=== PATIENT | male | born 1945 | race Caucasian/White ===

== ENCOUNTER 2016-11-01 08:58 | Inpatient (IN) | payer OTHER, MEDICARE ==
[2016-11-01] VITALS (8 sets, daily range): BP systolic 120–149; BP diastolic 63–80; PULSE 82–103; RESP 19–22; TEMP 96.4–99.4; O2SAT 88–96
[~2016-11-01 08:58] MED LIST: ALBU0.086 INH; AMLO5TAB96 PO; ASPI-94 PO; ATOR10 PO; AZIT250T74 PO; BACL10TA PO; DULO20 PO; FAMO20TA2 PO; FENT50DI TD; FURO1TAB93 PO; MECL-62 PO; METO25CR PO; MOBI15TA PO; NEUR600T PO; NITR.3 SL; PRED10 PO; PRED20 PO; PRED50 PO; PRED5PAK PO; PROS5TAB2 PO; TAMS0.4C67 PO; VENTAER INH; [UNRECOGNIZED DRUG - CODE] PO
[2016-11-01] MEDS: RESP: ALBUTEROL 2.5 MG/IPRATROPIUM 0.5 MG NEB (SCH) INH ×4 (09:08→19:00)
--- NOTE | 2016-11-01 09:10 | PD ---
HPI Chief Complaint: Respiratory Symptoms Time Seen by Provider: 09:01 Travel History International Travel<30 days: No Contact w/Intl Traveler<30days: No Traveled to known affect area: No History of Present Illness HPI 71 y/o male presents with shortness of breath and chills for the past 2-3 days. He states it got worse yesterday and he had to start wearing his oxygen all the time when he only usually wears it at night. He states that his last exacerbation with hospitalization was here about 6 months or so ago. He denies any other concurrent complaints. He was given 3 breathing treatments and Solu- Medrol prior to arrival. Quality is wheezing. Severity is progressive. He feels worse when he moves around. He denies any other modifying factors. History is limited as patient is short of breath PFSH Past Medical History Arthritis: Yes Autoimmune Disease: No Blood Disorders: No Depression: Yes Heart Rhythm Problems: Yes ("IRREGULAR AT TIMES") Cancer: Yes (BASAL CELL SKIN 2012) Cardiac Catheterization: Yes (2011 WITH STENT) High Cholesterol: Yes Chest Pain: Yes Congestive Heart Failure: Yes COPD: Yes Coronary Artery Disease: Yes Diabetes: No Endocrine: Yes GERD: Yes Genitourinary: Yes (1) Hypertension: Yes Immune Disorder: No Implanted Vascular Access Dvce: Yes Kidney Stones: Yes Musculoskeletal: Yes Neurologic: Yes (NEUROPATHY) Psychiatric: Yes Reproductive: No Respiratory: Yes (COPD) Integumentary: Yes Myocardial Infarction: Yes (X1 2005) Pneumonia: Yes Shingles: Yes Thyroid Disease: Yes Past Surgical History Body Medical Devices: STENTS, Cardiac Surgery: Yes Cholecystectomy: Yes Coronary Artery Bypass Graft: Yes (2000: 4 VESSEL) Coronary Stent: Yes (2011) Eye Surgery: Yes ("SHORTEN THE MUSCLES") Family History Family Hypercholesterolemia: Yes Social History Alcohol Use: Yes (RARE) Tobacco Use: Yes (<1/2 PPD) Substance Use: No Allergies-Medications (Allergen,Severity, Reaction): Coded Allergies: morphine (Unverified Allergy, Severe, Urinary Freq (Inc/Dec), 11/01/16) Reported Meds & Prescriptions Reported Meds & Active Scripts Active Active Prescriptions or Reported Medications Unobtainable Review of Systems Except as stated in HPI: all other systems reviewed are Neg Physical Exam Exam Limitations: Other: (shortness of breath) Narrative GENERAL: Ill-appearing, well-developed patient. Patient notes Chills SKIN: Warm and dry. HEAD: Normocephalic and atraumatic. EYES: No injection or drainage. ENT: No nasal drainage noted. NECK: Supple, trachea midline. CARDIOVASCULAR: Regular rate and rhythm RESPIRATORY: Expiratory wheezing bilaterally. No accessory muscle use. Tachypnea noted GASTROINTESTINAL: Abdomen soft, non-tender, nondistended. EXTREMITIES: No edema. NEUROLOGICAL: Awake and alert. Moves extremities. Normal speech. Data Data Last Documented VS Vital Signs Date Time Temp Pulse Resp B/P (MAP) Pulse Ox O2 Delivery O2 Flow Rate FiO2 11/01/16 10:34 103 22 149/69 (95) 93 Nasal Cannula 2.00 11/01/16 09:01 99.4 Orders Orders Electrocardiogram (11/01/16 09:) Complete Blood Count With Diff (11/01/16:) Comprehensive Metabolic Panel (11/01/16 09:) Prothrombin Time / Inr (Pt) (11/01/16:) Act Partial Throm Time (Ptt) (11/01/16 09:) Lactic Acid Sepsis Protocol (11/01/16 09:) Magnesium (Mg) (11/01/16 09:) Phosphorus (Po4) (11/01/16 09:01) Ckmb (Isoenzyme) Profile (11/01/16:) Troponin I (11/01/16 09:) Urinalysis - C+S If Indicated (11/01/16 09:) Influenzae A/B Antigen (11/01/16 09:) Blood Culture (11/01/16 09:) Chest, Single Ap (11/01/16:) Ecg Monitoring (11/01/16 09:) Iv Access Insert/Monitor (11/01/16 09:01) Oximetry (11/01/16 09:01) Oxygen Administration (11/01/16 09:01) Sodium Chloride 0.9% Flush (Ns Flush) (11/01/16 09:15) Methylprednisolone So Succ Inj (Solumedr (11/01/16 09:15) Albuterol-Ipratropium Neb (Duoneb Neb) (11/01/16 09:15) B-Type Natriuretic Peptide (11/01/16 09:11) Furosemide Inj (Lasix Inj) (11/01/16 09:45) Ceftriaxone Inj (Rocephin Inj) (11/01/16 09:43) Azithromycin Inj (Zithromax Inj) (11/01/16 09:43) CKMB (11/01/16 09:15) CKMB% (11/01/16 09:15) Echo 2d Comp With Doppler (11/01/16 ) Admit To Inpatient (11/01/16 ) Vital Signs (Adult) Q4H (11/01/16 11:08) Diet Heart Healthy (11/01/16 Lunch) Sodium Chloride 0.9% Flush (Ns Flush) (11/01/16 21:00) Sodium Chloride 0.9% Flush (Ns Flush) (11/01/16 11:15) Albuterol-Ipratropium Neb (Duoneb Neb) (11/01/16 12:00) Albuterol Neb (Albuterol Neb) (11/01/16 11:15) Methylprednisolone So Succ Inj (Solumedr (11/01/16 17:00) Ceftriaxone Inj (Rocephin Inj) (11/01/16 11:15) Sputum Culture And Gram Stain (11/01/16 11:08) Azithromycin (Zithromax) (11/01/16 11:15) Heparin Inj (Heparin Inj) (11/01/16 11:15) Scd Bilateral/Knee High MILES.BID (11/01/16 11:08) Inpatient Certification (11/01/16 ) Admit Order (Ed Use Only) (11/01/16 11:12) Senior Quality Analyst / Telemetry .CONTINUOUS (11/01/16 11:13) Acetaminophen (Tylenol) (11/01/16 11:15) Ondansetron Inj (Zofran Inj) (11/01/16 11:15) Basic Metabolic Panel (Bmp) (11/02/16 06:00) Comprehensive Metabolic Panel (11/02/16 06:00) Pt Request For Service (11/02/16 06:00) Case Management Consult (11/01/16 11:13) Acetaminophen (Tylenol) (11/01/16 11:15) Naloxone Inj (Narcan Inj) (11/01/16 11:15) Docusate Sodium-Senna (Oma-Colace) (11/01/16 21:00) Magnesium Hydroxide Liq (Milk Of Magnesi (11/01/16 11:15) Sennosides (Senokot) (11/01/16 11:15) Bisacodyl Supp (Dulcolax Supp) (11/01/16 11:15) Lactulose Liq (Lactulose Liq) (11/01/16 11:15) Labs Laboratory Tests Test 11/01/16 09:15 11/01/16 10:05 11/01/16 10:30 Prothrombin Time 10.7 SEC Prothromb Time International Ratio 1.0 RATIO Activated Partial Thromboplast Time 24.7 SEC Blood Urea Nitrogen 13 MG/DL Creatinine 1.20 MG/DL Random Glucose 119 MG/DL Total Protein 7.3 GM/DL Albumin 3.3 GM/DL Calcium Level 8.4 MG/DL Phosphorus Level 2.4 MG/DL Magnesium Level 2.1 MG/DL Alkaline Phosphatase 84 U/L Aspartate Amino Transf (AST/SGOT) 20 U/L Alanine Aminotransferase (ALT/SGPT) 19 U/L Total Bilirubin 0.6 MG/DL Sodium Level 141 MEQ/L Potassium Level 4.2 MEQ/L Chloride Level 106 MEQ/L Carbon Dioxide Level 26.9 MEQ/L Anion Gap 8 MEQ/L Estimat Glomerular Filtration Rate 60 ML/MIN Total Creatine Kinase 153 U/L Creatine Kinase MB 1.2 NG/ML Troponin I LESS THAN 0.02 NG/ML B-Type Natriuretic Peptide 184 PG/ML White Blood Count 14.0 TH/MM3 Red Blood Count 4.71 MIL/MM3 Hemoglobin 13.3 GM/DL Hematocrit 40.4 % Mean Corpuscular Volume 85.6 FL Mean Corpuscular Hemoglobin 28.1 PG Mean Corpuscular Hemoglobin Concent 32.8 % Red Cell Distribution Width 15.5 % Platelet Count 261 TH/MM3 Mean Platelet Volume 6.9 FL Neutrophils (%) (Auto) 85.4 % Lymphocytes (%) (Auto) 7.3 % Monocytes (%) (Auto) 3.1 % Eosinophils (%) (Auto) 0.7 % Basophils (%) (Auto) 3.5 % Neutrophils # (Auto) 12.0 TH/MM3 Lymphocytes # (Auto) 1.0 TH/MM3 Monocytes # (Auto) 0.4 TH/MM3 Eosinophils # (Auto) 0.1 TH/MM3 Basophils # (Auto) 0.5 TH/MM3 CBC Comment DIFF FINAL Differential Comment Lactic Acid Level 1.8 mmol/L Urine Collection Type CLEAN CATCH Urine Color YELLOW Urine Turbidity CLEAR Urine pH 6.5 Urine Specific [place] 1.010 Urine Protein NEG mg/dL Urine Glucose (UA) NEG mg/dL Urine Ketones NEG mg/dL Urine Occult Blood NEG Urine Nitrite NEG Urine Bilirubin NEG Urine Leukocyte Esterase NEG Urine RBC 0-3 /hpf Urine Squamous Epithelial Cells 0-5 /hpf Microscopic Urinalysis Comment CULT NOT INDICATED Urine Collection Time 10:30 [facility] Medical Decision Making Medical Screen Exam Complete: Yes Emergency Medical Condition: Yes Medical Record Reviewed: Yes (past history confirmed) Interpretation(s) EKG is sinus rhythm at 100 with right bundle branch block that was on prior without ST segment elevation changes CBC & BMP Diagram 11/01/16 09:15 Total Protein 7.3, Albumin 3.3 L, Calcium Level 8.4 L, Phosphorus Level 2.4 L, Magnesium Level 2.1, Alkaline Phosphatase 84, Aspartate Amino Transf (AST/SGOT) 20, Alanine Aminotransferase (ALT/SGPT) 19, Total Bilirubin 0.6 11/01/16 10:05 Last 24 hours Impressions Chest X-Ray 11/01/16 0901 Signed Impressions: Service Date/Time: Tuesday, November 01, 2016 09:08 - CONCLUSION: 1. Bibasilar infiltrates with pulmonary vascular engorgement. This may relate to intralobular pulmonary edema. 2. Blunting the left costophrenic angle either related to a small effusion or pleural scarring. Iftikhar Weber Jr., MD Differential Diagnosis COPD exacerbation, pneumothorax, pneumonia, sepsis Narrative Course Will check blood work, chest x-ray, influenza and dose with DuoNeb's and reevaluate Given chest x-ray will dose with Rocephin, azithromycin, Lasix and monitor Chest x-ray has CHF type pattern but BNP is only in the 100s this could be from possible early failure so we will withhold aggressive IV fluid hydration given patient's blood pressure is stable here. Patient agrees to admission for further care for close monitoring. He states he is feeling a little bit better after he was able to urinate Sepsis Criteria SIRS Criteria (2 or more): Heart rate over 90, WBC > 27054, < 4000 or > 10% bands Sepsis Criteria (SIRS+source): Infect source susp/known Criteria Outcome: Meets sepsis criteria Physician Communication Physician Communication dr walsh agrees to admit, informed about holding on fluids given cxr and history Diagnosis Primary Impression: COPD exacerbation Additional Impressions: CHF exacerbation Qualified Codes: I50.9 - Heart failure, unspecified Leucocytosis Qualified Codes: D72.829 - Elevated white blood cell count, unspecified Sepsis Qualified Codes: A41.9 - Sepsis, unspecified organism Admitting Information Admitting Physician Requests: Admit Scripts Unable to Obtain Active Prescriptions or Reported Meds Nuria Valle MD Nov 01, 2016 09:10
[2016-11-01] MEDS ORDERED: methylPREDNISolone SOD SUCC 125 MG/2 ML VIAL IVP ONE (09:15)
[2016-11-01] MEDS ORDERED: SODIUM CHLORIDE 0.9% FLUSH 10 ML FLUSH IVF PRN (09:15)
--- NOTE | 2016-11-01 09:42 | RADRPT ---
EXAM DATE/TIME: 11/01/2016 09:08 [place] COMPARISON: CHEST SINGLE AP, February 26, 2015, 6:03. INDICATIONS : Extreme shortness of breath, fever, shakes. MEDICAL HISTORY : Hypercholesterolemia. Myocardial infarction. Chronic obstructive pulmonary disease. Thyroid disea se. Neruopathy. CHF. CAD. Irregular heart beat. Hpertension. Pneumonia. GERD. Renal calculi. Arthriti s. SURGICAL HISTORY : CABG. Cholecystectomy. Cardiac cath w/ stent placement. Bilateral shoulder repair. ENCOUNTER: Initial ACUITY: 1 day PAIN SCORE: 0/10 LOCATION: chest FINDINGS: Single portable frontal view the chest is lordotic in nature. The heart is normal in size. Pulmonary vascular engorgement noted. Bibasilar intralobular opacities. Blunting of the left costophrenic angle which is unchanged from 2014. Median sternotomy wires. Advanced osteoarthritis of the shoulders. CONCLUSION: 1. Bibasilar infiltrates with pulmonary vascular engorgement. This may relate to intralobular pulmona ry edema. 2. Blunting the left costophrenic angle either related to a small effusion or pleural scarring. Iftikhar Weber Jr., MD on November 01, 2016 at 9:34 Board Certified Radiologist. This report was verified electronically.
[2016-11-01] MEDS ORDERED: AZITHROMYCIN INJ 500 MG in SODIUM CHLOR 0.9% 250 ML INJ 250 ML IV STA (09:43)
[2016-11-01] MEDS ORDERED: cefTRIAXone INJ 2,000 MG in SODIUM CHLORIDE 0.9% INJ 100 ML IV STA (09:43)
[2016-11-01] MEDS ORDERED: FUROSEMIDE 40 MG/4 ML VIAL IV PUSH ONE (09:45)
[2016-11-01 09:49] LABS: APTT (PATIENT) 24.7 SEC (24.3-30.1); PROTHROMBIN TIME - PATIENT 10.7 SEC (9.8-11.6)
[2016-11-01 10:03] LABS: CHLORIDE 106 MEQ/L (98-107); POTASSIUM 4.2 MEQ/L (3.5-5.1); SODIUM (NA) 141 MEQ/L (136-145)
[2016-11-01 10:08] LABS: ANION GAP 8 MEQ/L (5-15); BICARBONATE 26.9 MEQ/L (21.0-32.0); BLOOD UREA NITROGEN 13 MG/DL (7-18); MAGNESIUM 2.1 MG/DL (1.5-2.5)
[2016-11-01 10:09] LABS: BASOPHIL # 0.5 TH/MM3 (0-0.2); BASOPHIL % 3.5 % (0.0-2.0); EOSINOPHIL # 0.1 TH/MM3 (0-0.4); EOSINOPHIL % 0.7 % (0.0-4.0); HEMATOCRIT 40.4 % (39.0-51.0); LYMPH % 7.3 % (9.0-44.0); MEAN CELL VOLUME 85.6 FL (80.0-100.0); MEAN CORPUSCULAR HEMOGLOBIN 28.1 PG (27.0-34.0); MEAN CORPUSCULAR HGB CONC 32.8 % (32.0-36.0); MONO % 3.1 % (0.0-8.0); NEUT % 85.4 % (16.0-70.0); PLATELET COUNT 261 TH/MM3 (150-450); RED BLOOD COUNT 4.71 MIL/MM3 (4.50-5.90); RED CELL DISTRIBUTION WIDTH 15.5 % (11.6-17.2)
[2016-11-01 10:11] LABS: ALT (GPT) 19 U/L (12-78); AST (GOT) 20 U/L (15-37); GLOMERULAR FILTRATION RATE 60 ML/MIN (>89)
[2016-11-01 10:12] LABS: HEMO FLAGS DIFF FINAL
[2016-11-01 10:13] LABS: TOTAL BILIRUBIN ADULT 0.6 MG/DL (0.2-1.0)
[2016-11-01 10:14] LABS: ALKALINE PHOSPHATASE 84 U/L (45-117); CREATINE KINASE 153 U/L (39-308)
[2016-11-01 10:26] LABS: CKMB 1.2 NG/ML (0.5-3.6)
[2016-11-01 10:37] LABS: BLOOD, URINE NEG (NEG); GLUCOSE,URINE NEG (NEG); KETONE, URINE NEG (NEG); NITRITE,URINE NEG (NEG); PH, URINE 6.5 (5.0-8.5)
[2016-11-01 10:43] LABS: COMMENT (UR) CULT NOT INDICATED; CULTURE IF INDICATED CULT NOT INDICATED; METHOD OF COLLECTION CLEAN CATCH; RBC, URINE 0-3 /hpf (0-3); SQUAMOUS EPITHELIAL CELL URINE 0-5 /hpf (0-5); URINE COLOR YELLOW (YELLW/STRAW)
[2016-11-01] MEDS ORDERED: SENNOSIDES 8.6 MG TAB PO PRN (11:15)
[2016-11-01] MEDS ORDERED: SODIUM CHLORIDE 0.9% FLUSH 10 ML FLUSH IV FLUSH PRN (11:15)
[2016-11-01] MEDS ORDERED: MAGNESIUM HYDROXIDE SUSP 30 ML CUP PO PRN (11:15)
[2016-11-01] MEDS ORDERED: LACTULOSE SYRUP 20 GM/30 ML CUP PO PRN (11:15)
[2016-11-01] MEDS ORDERED: BISACODYL 10 MG SUPP RECTAL PRN (11:15)
[2016-11-01] MEDS ORDERED: AZITHROMYCIN 250 MG TAB PO SCH ×2 (11:15→12:00)
[2016-11-01] MEDS ORDERED: NALOXONE HCL 0.4 MG/ML AMP IV PRN (11:15)
[2016-11-01] MEDS ORDERED: RESP: ALBUTEROL 2.5 MG/3 ML NEB (PRN) INH (11:15)
[2016-11-01] MEDS ORDERED: ACETAMINOPHEN 325 MG TAB PO PRN (11:15)
[2016-11-01] MEDS ORDERED: ONDANSETRON HCL 4 MG/2 ML VIAL IVP PRN (11:15)
[2016-11-01] MEDS ORDERED: RESP: ALBUTEROL 2.5 MG/IPRATROPIUM 0.5 MG NEB (SCH) INH (12:00)
[2016-11-01] MEDS: HEPARIN SODIUM - SQ 10,000 UNITS/ML VIAL SQ SCH ×2 (14:00→21:31)
--- NOTE | 2016-11-01 14:08 | HHI.HP ---
HPI Service [facility] Primary Care Physician Jessica Yoon Do, MD Admission Diagnosis copd exacerbation, sepsis, chf Diagnoses: Chief Complaint: Shortness of breath Travel History International Travel<30 Days: No Contact w/Intl Traveler <30 Da: No Traveled to Known Affected Are: No History of Present Illness This is a 71-year-old male with a history of arthritis, depression, CAD status post stent and CABG, hyperlipidemia, GERD, hypertension, peripheral neuropathy, chronic lower back pain, thyroid disease, CHF, valvulopathy and COPD. Patient has chronic dyspnea worse this morning associated with wheezing and productive cough of whitish phlegm. No fever, chills, chest pain, weight gain, leg pain and swelling. He has increased his oxygen use. He received several doses of nebulizations and Solu-Medrol from EMS. Patient is not a good historian. He is asking for his morphine ER 30 mg 4 times a day which he takes for lower back pain prescribed by Dr. Londono. He reports he takes a total of 15 medications which she cannot remember. He goes to Dr. Yoon. In the emergency department, he received IV Zosyn and Zithromax. All other systems reviewed negative Review of Systems Except as stated in HPI: all other systems reviewed are Neg Past Family Social History Past Medical History As previously mentioned Past Surgical History As previously mentioned, cholecystectomy Reported Medications Patient claims he is on morphine and 14 other medications he cannot remember. RN working on the med list Allergies: Coded Allergies: morphine (Unverified Allergy, Severe, Urinary Freq (Inc/Dec), 11/01/16) Family History No CAD Social History Rare alcohol use. He has cut back on his smoking down to 8 cigarettes a day. Physical Exam Vital Signs Vital Signs Date Time Temp Pulse Resp B/P (MAP) Pulse Ox O2 Delivery O2 Flow Rate FiO2 11/01/16 12:35 11/01/16 11:49 97 22 134/71 (92) 92 Nasal Cannula 2.00 11/01/16 10:34 103 22 149/69 (95) 93 Nasal Cannula 2.00 11/01/16 09:27 96 11/01/16 09:10 92 Nasal Cannula 2.00 11/01/16 09:01 99.4 98 20 141/71 (94) 88 Physical Exam GENERAL: This is a well-nourished, well-developed patient, in no apparent distress on nasal cannula. SKIN: No rashes, ecchymoses or lesions. Cool and dry. HEAD: Atraumatic. Normocephalic. No temporal or scalp tenderness. EYES: Pupils equal round and reactive. Extraocular motions intact. No scleral icterus. No injection or drainage. ENT: Nose without bleeding, purulent drainage or septal hematoma. Throat without erythema, tonsillar hypertrophy or exudate. Uvula midline. Airway patent. NECK: Trachea midline. No JVD or lymphadenopathy. Supple, nontender, no meningeal signs. CARDIOVASCULAR: Distant heart sounds RESPIRATORY: Decreased breath sounds with scattered expiratory wheezes GASTROINTESTINAL: Abdomen soft, non-tender, nondistende. No guarding. MUSCULOSKELETAL: Extremities without clubbing, cyanosis, or edema. No joint tenderness, effusion, or edema noted. No calf tenderness. Negative Homans sign bilaterally. NEUROLOGICAL: Awake and alert. Cranial nerves II through XII intact. Motor and sensory grossly within normal limits. Five out of 5 muscle strength in all muscle groups. Normal speech. Laboratory Laboratory Tests Test 11/01/16 09:15 11/01/16 10:05 11/01/16 10:30 Prothrombin Time 10.7 Prothromb Time International Ratio 1.0 Activated Partial Thromboplast Time 24.7 Blood Urea Nitrogen 13 Creatinine 1.20 Random Glucose 119 Total Protein 7.3 Albumin 3.3 Calcium Level 8.4 Phosphorus Level 2.4 Magnesium Level 2.1 Alkaline Phosphatase 84 Aspartate Amino Transf (AST/SGOT) 20 Alanine Aminotransferase (ALT/SGPT) 19 Total Bilirubin 0.6 Sodium Level 141 Potassium Level 4.2 Chloride Level 106 Carbon Dioxide Level 26.9 Anion Gap 8 Estimat Glomerular Filtration Rate 60 Total Creatine Kinase 153 Creatine Kinase MB 1.2 Troponin I LESS THAN 0.02 B-Type Natriuretic Peptide 184 White Blood Count 14.0 Red Blood Count 4.71 Hemoglobin 13.3 Hematocrit 40.4 Mean Corpuscular Volume 85.6 Mean Corpuscular Hemoglobin 28.1 Mean Corpuscular Hemoglobin Concent 32.8 Red Cell Distribution Width 15.5 Platelet Count 261 Mean Platelet Volume 6.9 Neutrophils (%) (Auto) 85.4 Lymphocytes (%) (Auto) 7.3 Monocytes (%) (Auto) 3.1 Eosinophils (%) (Auto) 0.7 Basophils (%) (Auto) 3.5 Neutrophils # (Auto) 12.0 Lymphocytes # (Auto) 1.0 Monocytes # (Auto) 0.4 Eosinophils # (Auto) 0.1 Basophils # (Auto) 0.5 CBC Comment DIFF FINAL Differential Comment Lactic Acid Level 1.8 Urine Collection Type CLEAN CATCH Urine Color YELLOW Urine Turbidity CLEAR Urine pH 6.5 Urine Specific [place] 1.010 Urine Protein NEG Urine Glucose (UA) NEG Urine Ketones NEG Urine Occult Blood NEG Urine Nitrite NEG Urine Bilirubin NEG Urine Leukocyte Esterase NEG Urine RBC 0-3 Urine Squamous Epithelial Cells 0-5 Microscopic Urinalysis Comment CULT NOT INDICATED Urine Collection Time 10:30 Date/Time Source Procedure Growth Status 11/01/16 09:15 Blood Peripheral Aerobic Blood Culture Pending Received 11/01/16 09:15 Blood Peripheral Anaerobic Blood Culture Pending Received 11/01/16 09:20 Nasal Aspirate Influenza Types A,B Antigen (CORRINA) - Final NEGATIVE FOR FLU A AND B ANTIGEN.... Complete Result Diagram: 11/01/16 1005 11/01/16 0915 Imaging Last Impressions Chest X-Ray 11/01/16 0901 Signed Impressions: Service Date/Time: Tuesday, November 01, 2016 09:08 - CONCLUSION: 1. Bibasilar infiltrates with pulmonary vascular engorgement. This may relate to intralobular pulmonary edema. 2. Blunting the left costophrenic angle either related to a small effusion or pleural scarring. Iftikhar Weber Jr., MD Caprini VTE Risk Assessment Caprini VTE Risk Assessment: Mod/High Risk (score >= 2) Caprini Risk Assessment Model Point Value = 1 Point Value = 2 Point Value = 3 Point Value = 5 Age 41-60 Minor surgery BMI > 25 kg/m2 Swollen legs Varicose veins or History of unexplained or recurrent spontaneous Oral contraceptives or hormone replacement Sepsis (< 1 month) Serious lung disease, including pneumonia (< 1 month) Abnormal pulmonary function Acute myocardial infarction Congestive heart failure (< 1 month) History of inflammatory bowel disease Medical patient at bed rest Age 61-74 Arthroscopic surgery Major open surgery (> 45 min) Laparoscopic surgery (> 45 min) Malignancy Confined to bed (> 72 hours) Immobilizing plaster cast Central venous access Age >= 75 History of VTE Family history of VTE Factor V Leiden Prothrombin [id number] Lupus anticoagulant Anticardiolipin antibodies Elevated serum homocysteine Heparin-induced thrombocytopenia Other congenital or acquired thrombophilia Stroke (< 1 month) Elective arthroplasty Hip, pelvis, or leg fracture Acute spinal cord injury (< 1 month) Prophylaxis Regimen Total Risk Factor Score Risk Level Prophylaxis Regimen 0-1 Low Early ambulation 2 Moderate Order ONE of the following: *Sequential Compression Device (SCD) *Heparin 5000 units SQ BID 3-4 Higher Order ONE of the following medications: *Heparin 5000 units SQ TID *Enoxaparin/Lovenox 40 mg SQ daily (WT < 150 kg, CrCl > 30 mL/min) *Enoxaparin/Lovenox 30 mg SQ daily (WT < 150 kg, CrCl > 10-29 mL/min) *Enoxaparin/Lovenox 30 mg SQ BID (WT < 150 kg, CrCl > 30 mL/min) AND/OR *Sequential Compression Device (SCD) 5 or more Highest Order ONE of the following medications: *Heparin 5000 units SQ TID (Preferred with Epidurals) *Enoxaparin/Lovenox 40 mg SQ daily (WT < 150 kg, CrCl > 30 mL/min) *Enoxaparin/Lovenox 30 mg SQ daily (WT < 150 kg, CrCl > 10-29 mL/min) *Enoxaparin/Lovenox 30 mg SQ BID (WT < 150 kg, CrCl > 30 mL/min) AND *Sequential Compression Device (SCD) Assessment and Plan Problem List: (1) COPD exacerbation ICD Code: J44.1 - COPD exacerbation Status: Acute (2) CHF exacerbation ICD Code: I50.9 - Heart failure, unspecified Status: Acute (3) Sepsis ICD Code: A41.9 - Sepsis, unspecified organism Status: Acute Assessment and Plan This is a 71-year-old male with a history of arthritis, depression, CAD status post stent and CABG, hyperlipidemia, GERD, hypertension, peripheral neuropathy, chronic lower back pain, thyroid disease, CHF, valvulopathy and COPD. He presents because of worsening dyspnea as stated with wheezing and productive cough of whitish phlegm. Chest x-ray shows pulmonary edema COPD exacerbation with chronic respiratory failure. Continue nebulizations, IV steroids and oxygen keep saturation at least 92% Sepsis likely secondary to pulmonary source. Obtain sputum studies. Continue IV Rocephin and Zithromax and follow blood cultures CHF exacerbation with valvulopathy. Abnormal chest x-ray showing pulmonary edema reviewed by me and elevated BNP. Continue IV Lasix and obtain echocardiogram Hyperglycemia. Obtain fasting glucose RN to update home med list DVT prophylaxis with SCD and subcutaneous heparin Discussed Condition With Patient Problem Qualifiers (1) CHF exacerbation: Qualified Codes: I50.9 - Heart failure, unspecified (2) Sepsis: Qualified Codes: A41.9 - Sepsis, unspecified organism Abhijeet Casas MD Nov 01, 2016 14:08
[2016-11-01] MEDS ORDERED: POTASSIUM PHOSPHATE MONOBASIC 500 MG TAB PO ONE (15:00)
[2016-11-01] MEDS: methylPREDNISolone SOD SUCC 125 MG/2 ML VIAL IVP SCH ×2 (17:40→23:59)
[2016-11-01] MEDS ORDERED: FENT75DI T-DERMAL (19:39)
[2016-11-01] MEDS ORDERED: MORP1TAB25 PO (19:39)
[2016-11-01] MEDS ORDERED: GABA600T PO (19:39)
[2016-11-01] MEDS ORDERED: ACETAMINOPHEN/HYDROcodone 325 MG/10 MG TAB PO ONE (21:00)
[2016-11-01] MEDS ORDERED: GABAPENTIN 300 MG CAP PO ONE (21:30)
[2016-11-01] MEDS: DOCUSATE SODIUM 50 MG/SENNA 8.6 MG TAB PO SCH (21:31)
[2016-11-01] MEDS: SODIUM CHLORIDE 0.9% FLUSH 10 ML FLUSH IV FLUSH SCH (21:31)
[2016-11-02] VITALS (7 sets, daily range): BP systolic 115–128; BP diastolic 67–79; PULSE 61–83; RESP 18–20; TEMP 96.7–97.6; O2SAT 91–95
[2016-11-02] MEDS: HEPARIN SODIUM - SQ 10,000 UNITS/ML VIAL SQ SCH (06:18)
[2016-11-02] MEDS: methylPREDNISolone SOD SUCC 125 MG/2 ML VIAL IVP SCH ×3 (06:18→17:18)
[2016-11-02] MEDS: ACETAMINOPHEN 325 MG TAB PO PRN (06:24)
[2016-11-02 07:17] LABS: CHLORIDE 103 MEQ/L (98-107); POTASSIUM 3.5 MEQ/L (3.5-5.1); SODIUM (NA) 137 MEQ/L (136-145)
[2016-11-02 07:20] LABS: ANION GAP 7 MEQ/L (5-15); BICARBONATE 27.3 MEQ/L (21.0-32.0); BLOOD UREA NITROGEN 15 MG/DL (7-18); MAGNESIUM 2.1 MG/DL (1.5-2.5)
[2016-11-02 07:23] LABS: ALT (GPT) 16 U/L (12-78); AST (GOT) 12 U/L (15-37); GLOMERULAR FILTRATION RATE 82 ML/MIN (>89)
[2016-11-02 07:25] LABS: TOTAL BILIRUBIN ADULT 0.6 MG/DL (0.2-1.0)
[2016-11-02 07:26] LABS: ALKALINE PHOSPHATASE 71 U/L (45-117)
[2016-11-02] MEDS: RESP: ALBUTEROL 2.5 MG/IPRATROPIUM 0.5 MG NEB (SCH) INH ×4 (07:38→20:07)
[2016-11-02] MEDS: DOCUSATE SODIUM 50 MG/SENNA 8.6 MG TAB PO SCH ×2 (09:00→21:00)
[2016-11-02] MEDS: AZITHROMYCIN 250 MG TAB PO SCH (09:40)
[2016-11-02] MEDS: GABAPENTIN 300 MG CAP PO SCH ×3 (09:40→17:18)
[2016-11-02] MEDS: SODIUM CHLORIDE 0.9% FLUSH 10 ML FLUSH IV FLUSH SCH ×2 (09:41→21:00)
[2016-11-02] MEDS: FUROSEMIDE 20 MG/2 ML VIAL IV PUSH SCH (09:41)
[2016-11-02] MEDS: cefTRIAXone INJ 1,000 MG in SODIUM CHLORIDE 0.9% INJ 100 ML IV SCH (09:42)
--- NOTE | 2016-11-02 10:55 | ECHRPT ---
Indication: HEART FAILURE CONCLUSIONS The left ventricular systolic function is normal with an estimated ejection fraction in the range of 60-65%. Doppler parameters are consistent with impaired left ventricular relaxtion (grade 1 diastolic dysfun ction). The right ventricle is moderately dilated. The right ventricular systoilc function is moderately decreased. [place] of the RV appears to function with the apex of the LV with decreased motion of the free wall, c an sometimes signify a pulmonary embolism or overall right heart strain Trace mitral valve regurgitation. There is moderate tricuspid regurgitation. There is estimated mild pulmonary hypertension present (range 40-50 mmHg). Discussed results with the primary team, overall RV may be due to pulmonary issues, if concern for pulmonary embolism then primary team will consider further work up. BP: 123 / 74 HR: 69 Rhythm: Sinus MEASUREMENTS (Male / Female) Normal Values Technical Quality:Fair 2D ECHO LV Diastolic Diameter PLAX 5.4 cm 4.2 - 5.9 / 3.9 - 5.3 cm LV Systolic Diameter PLAX 3.9 cm IVS Diastolic Thickness 0.9 cm 0.6 - 1.0 / 0.6 - 0.9 cm LVPW Diastolic Thickness 1.0 cm 0.6 - 1.0 / 0.6 - 0.9 cm LV Relative Wall Thickness 0.4 RV Internal Dim ED PLAX 5.5 cm LVOT Diameter 2.4 cm Aortic Root Diameter 3.2 cm LA Systolic Diameter LX 3.8 cm 3.0 - 4.0 / 2.7 - 3.8 cm M-MODE AV Cusp Separation MM 2.2 cm DOPPLER AV Peak Velocity 127.0 cm/s AV Peak Gradient 6.5 mmHg AV Mean Gradient 4.0 mmHg AV Velocity Time Integral 23.8 cm LVOT Peak Velocity 82.7 cm/s LVOT Peak Gradient 2.7 mmHg LVOT Velocity Time Integral 16.1 cm AV Area Cont Eq vti 3.1 cm AV Area Cont Eq pk 2.9 cm Mitral E Point Velocity 55.8 cm/s Mitral A Point Velocity 81.4 cm/s Mitral E to A Ratio 0.7 LV E' Lateral Velocity 16.5 cm/s Mitral E to LV E' Lateral Ratio 3.4 LV E' Septal Velocity 6.2 cm/s Mitral E to LV E' Septal Ratio 8.9 TR Peak Velocity 292.0 cm/s TR Peak Gradient 34.1 mmHg PV Peak Velocity 72.2 cm/s PV Peak Gradient 2.1 mmHg FINDINGS LEFT VENTRICLE Normal left ventricular size. Wall thickness is normal. The left ventricular systolic function is normal with an estimated ejection fraction in the range of 60-65%. No regional wall motion abnormalities are present. Doppler parameters are consistent with impaired left ventricular relaxtion (grade 1 diastolic dysfun ction). RIGHT VENTRICLE The right ventricle is moderately dilated. The right ventricular systoilc function is moderately decreased. [place] of the RV appears to function with the apex of the LV with decreased motion of the free wall, c an sometimes signify a pulmonary embolism or overall right heart strain LEFT ATRIUM The left atrial size is normal. RIGHT ATRIUM The right atrial size is [id number] dilated. ATRIAL SEPTUM No atrial level shunt is demonstrated by color flow Doppler interrogation. AORTA The aortic root and proximal ascending aorta are not well visualized. MITRAL VALVE Structurally normal mitral valve. Trace mitral valve regurgitation. No mitral valve stenosis. AORTIC VALVE Trileaflet aortic valve. Aortic valve sclerosis is present. No aortic valve regurgitation. No aortic valve stenosis. TRICUSPID VALVE Annular dilatation of the tricuspid valve. Structurally normal tricuspid valve. There is moderate tricuspid regurgitation. There is estimated mild pulmonary hypertension present (range 40-50 mmHg). PULMONARY VALVE Trivial pulmonary valve regurgitation. VESSELS The inferior vena cava (IVC) is normal in size. There is greater than 50% respiratory change in dimension of the inferior vena cava (normal). PERICARDIUM No pericardial effusion. Selvin Zurita DO (Electronically Signed) Final Date:02 November 2016 10:55
[2016-11-02] MEDS ORDERED: LEVOTAB PO (12:41)
[2016-11-02] MEDS ORDERED: DICL75TA PO ×3 (12:41→14:34)
[2016-11-02] MEDS ORDERED: fentaNYL 75 MCG/HR PATCH T-DERMAL SCH ×2 (13:00→14:00)
--- NOTE | 2016-11-02 13:13 | HHI.PR ---
Subjective Remarks Patient seen today in follow-up for respiratory distress secondary to COPD and pneumonia. Patient dyspneic at rest. Tolerating antibiotics IV well. Discussed with Landon SMALL. Patient planning of pain 8 out of 10 and relieved with home medications for pain Echocardiogram results discussed with cardiology today Objective Vitals Vital Signs Date Time Temp Pulse Resp B/P (MAP) Pulse Ox O2 Delivery O2 Flow Rate FiO2 11/02/16 08:00 97.0 61 20 115/74 (88) 94 11/02/16 07:40 93 Nasal Cannula 2.00 11/02/16 07:24 18 11/02/16 07:00 Nasal Cannula 2.00 11/02/16 00:00 96.7 69 18 123/74 (90) 91 11/01/16 20:00 94 Nasal Cannula 2.00 11/01/16 20:00 96.4 82 22 128/80 (96) 94 11/01/16 19:00 94 Nasal Cannula 2.00 11/01/16 16:31 98.7 86 19 120/63 (82) 95 I/O 11/01/16 11/01/16 11/01/16 11/02/16 11/02/16 11/02/16 07:00 15:00 23:00 07:00 15:00 23:00 Intake Total 650 ml 460 ml Output Total 125 ml 250 ml Balance 525 ml 210 ml Intake Oral 650 ml 460 ml Output Urine Total 125 ml 250 ml # Voids 4 2 # Bowel Movements 1 0 Result Diagram: 11/01/16 1005 11/02/16 0652 Imaging Last Impressions Chest X-Ray 11/01/16 0901 Signed Impressions: Service Date/Time: Tuesday, November 01, 2016 09:08 - CONCLUSION: 1. Bibasilar infiltrates with pulmonary vascular engorgement. This may relate to intralobular pulmonary edema. 2. Blunting the left costophrenic angle either related to a small effusion or pleural scarring. Iftikhar Weber Jr., MD Objective Remarks GENERAL: This is a well-nourished, well-developed patient, with dyspnea at rest and shortness of breath with speaking CARDIOVASCULAR: Regular rate and rhythm without murmurs, gallops, or rubs. RESPIRATORY: Bilateral wheezes and rhonchi, gross chest asymmetry postoperatively and increased AP diameter GASTROINTESTINAL: Abdomen soft, non-tender, nondistended. Normal active bowel sounds MUSCULOSKELETAL: Extremities without clubbing, cyanosis, or edema. NEURO: Alert & Oriented x4 to person, place, time, situation. Moves all ext x4 A/P Problem List: (1) COPD exacerbation ICD Code: J44.1 - COPD exacerbation Status: Acute Plan: continue IV Steroids, Nebs Patient on home O2 at night only but has required continuous O2 here We'll check blood gas Echo shows right sided dysfunction Discussed with resolute professional who was worried about concomitant pulmonary embolism. We'll follow with angiogram (2) CHF exacerbation ICD Code: I50.9 - Heart failure, unspecified Status: Acute Plan: Likely with right sided heart failure from chronic pulmonary disease patient has preserved left ventricle function. He has known history of coronary artery disease and is status post cardiac bypass remotely. Continue with Lasix and follow output Continue with oxygenation (3) Sepsis ICD Code: A41.9 - Sepsis, unspecified organism Status: Acute Plan: With tachycardia and leukocytosis secondary to pneumonia Continue with Rocephin/azithromycin Follow up cultures (4) Chronic musculoskeletal pain ICD Code: M79.1 - Myalgia; G89.29 - Other chronic pain Plan: Resume home fentanyl and morphine Assessment and Plan DVT prophylaxis with heparin every 8 discontinue continue telemetry Problem Qualifiers (1) CHF exacerbation: Qualified Codes: I50.9 - Heart failure, unspecified (2) Sepsis: Qualified Codes: A41.9 - Sepsis, unspecified organism Mattie Collins MD Nov 02, 2016 13:13
[2016-11-02 13:29] LABS: BLOOD GAS CARBOXYHEMOGLOBIN 1.5 % (0-4); BLOOD GAS HCO3 27 mmol/L (22-26); BLOOD GAS METHEMOGLOBIN 1.3 % (0-2); BLOOD GAS O2 HGB SATURATION 93 % (90-100); BLOOD GAS OXYGEN CONTENT 16.3 Vol % (12.0-20.0); BLOOD GAS PCO2 37 mmHG (38-42); BLOOD GAS PO2 72 mmHG (61-120); BLOOD GAS TOTAL HGB 12.5 G/DL (12.0-16.0); CRITICAL VALUE NO; DRAW SITE LT RADIAL; LITER FLOW 1.5 L/M; NUMBER OF ARTERIAL PUNCTURES 1; OXYGEN DEVICE NASAL CANNULA; TEMP CORR TO 98.6
[2016-11-02 13:30] LABS: STAT NO; ULNAR PULSE PRESENT
[2016-11-02] MEDS ORDERED: ENOXAPARIN SODIUM 40 MG/0.4 ML SYRINGE SQ SCH (14:00)
[2016-11-02] MEDS ORDERED: IOHEXOL 350 MG/ML 10 ML VIAL (for RAD DIAG) IVCONTRAST ONE (14:08)
--- NOTE | 2016-11-02 14:29 | RADRPT ---
EXAM DATE/TIME: 11/02/2016 14:01 [facility] COMPARISON: CHEST SINGLE AP, November 01, 2016, 9:08. INDICATIONS : Short of breath. IV CONTRAST: 75 cc Omnipaque 350 (iohexol) IV RADIATION DOSE: 14.39 CTDIvol (mGy) MEDICAL HISTORY : Chronic obstructive pulmonary disease. Congestive heart failure. Myocardial infarction.Hypertension. SURGICAL HISTORY : CABG Cholecystectomy. ENCOUNTER: Initial ACUITY: 4 - 6 days PAIN SCALE: 2/10 LOCATION: chest TECHNIQUE: Volumetric scanning of the chest was performed using a pulmonary embolism protocol MIP images were re constructed. Using automated exposure control and adjustment of the mA and/or kV according to patien t size, radiation dose was kept as low as reasonably achievable to obtain optimal diagnostic quality images. DICOM format image data is available electronically for review and comparison. Follow-up recommendations for detected pulmonary nodules are based at a minimum on nodule size and pa tient risk factors according to Fleischner Society Guidelines. FINDINGS: Examination of the pulmonary vasculature demonstrates good filling of the main, lobar and segmental b ranches. There are no filling defects to suggest pulmonary embolism. Multiplanar reconstructions are also unremarkable. There is a 5.9 x 3.8 cm pleural based soft tissue mass in the right lower lobe with a second 1.5 cm n odule adjacent to this. Malignancy is not excluded.Panlobular emphysema is present in both upper lobe s. A large hiatal hernia is present. There is compressive atelectasis in the left lower lobe Coronary artery calcifications are present. There is an enlarged precarinal node measuring 2.5 cm. Me tastatic adenopathy is not excluded. There is a 3.8 cm right infrahilar mass compressing the right lo wer lobe pulmonary artery characteristic of metastatic adenopathy. There are multiple hypodensities within the liver compatible with hepatic cysts the largest measuring 6.7 cm in segment 4. CONCLUSION: 1. No evidence of pulmonary embolism. 2. 5.9 cm right lower lobe mass with findings of metastatic adenopathy to the right hilum and mediast inum with encasement of the right lower lobe pulmonary artery. Waqas Singletary MD on November 02, 2016 at 14:22 Board Certified Radiologist. This report was verified electronically.
[2016-11-02] MEDS ORDERED: ATOR10TA15 PO (14:34)
[2016-11-02] MEDS ORDERED: MECL-62 PO (14:34)
[2016-11-02] MEDS ORDERED: FAMO20TA2 PO (14:34)
[2016-11-02] MEDS ORDERED: POTA-163 PO (14:34)
[2016-11-02] MEDS ORDERED: ASPI81TA11 PO (14:34)
[2016-11-02] MEDS ORDERED: AMLO5TAB2 PO (14:34)
[2016-11-02] MEDS ORDERED: METO25TA3 PO (14:34)
[2016-11-02] MEDS ORDERED: FURO40TA PO (14:34)
[2016-11-02] MEDS ORDERED: TAMS0.4C4 PO (14:34)
[2016-11-02] MEDS: MORPHINE SULFATE 30 MG CONTROLLED RELEASE TAB PO SCH ×2 (14:51→22:00)
--- NOTE | 2016-11-02 17:03 | EKG ---
Date Performed: 11/01/2016 Time Performed: 09:25:50 PTAGE: 71 years EKG: Sinus rhythm WITH SHORT DC INTERVAL BORDERLINE LEFT AXIS DEVIATION RIGHT BUNDLE BRANCH BLOCK MODERATE T-WAVE ABNO RMALITY, CONSIDER ANTEROLATERAL ISCHEMIA Since previous tracing, no significant change noted ABNORMAL ECG PREVIOUS TRACING : 02/26/2015 05.45 DOCTOR: Tammy Brown Interpretating Date/Time 11/02/2016 17:01:00
[2016-11-03] VITALS (9 sets, daily range): BP systolic 111–142; BP diastolic 70–81; PULSE 58–76; RESP 18–20; TEMP 96–98.2; O2SAT 92–96
--- NOTE | 2016-11-03 00:10 | MB ---
cc: Lara ZHAO M.D. DATE OF CONSULTATION 11/02/16 HISTORY A 71-year-old white male presents with shortness of breath, longstanding history of COPD on oxygen and a nebulizer at home, presents with cough, congestion but no hemoptysis and increased shortness of breath. Initial chest x-ray suggested he might be in heart failure but echocardiogram revealed right ventricular strain so he had a CT angiogram. Although he did not have pulmonary embolism he had dramatically large retrocardiac mass about 7 cm as well as mediastinal adenopathy. He smoked all of his adult life one to two packs of cigarettes a day and it is suspected that this is malignant. He is in chronic pain. Has had no recent chest pain. The chronic pain is due to arthritis for which he takes morphine on a regular basis. PAST SURGERIES Cholecystectomy. PAST MEDICAL HISTORY Coronary artery disease, bypass surgery in 2000. History of CHF and BPH. Several shoulder surgeries. Vasectomy. No prior history of malignancy other than skin cancers. SOCIAL HISTORY Lives with a roommate. Smokes a pack per day. No significant alcohol use. Denies any illicit drug use. Does have a dog at home. ALLERGIES LISTED MORPHINE ALTHOUGH APPARENTLY THE PATIENT TAKES ORAL MORPHINE FOR PAIN. He is currently on a fentanyl patch. Also, has oral Oramorph ordered. Other medicines reviewed in the EMR. PHYSICAL EXAMINATION GENERAL: Thin white male in no distress at rest. VITAL SIGNS: 97 degrees, respirations 16, pulse 70, sat 93% on 2 liters. HEENT: Sclerae anicteric. He has multiple lipomas in his upper body. NECK: No adenopathy in the neck or supraclavicular region. CHES: His chest is diminished but clear. No congestion or wheezing. HEART: Regular rhythm. Soft systolic murmur. No audible S3. ABDOMEN: Soft without organomegaly. EXTREMITIES: No peripheral edema or cyanosis. IMAGING STUDIES CT scan report pulmonary arteries with no evidence of pulmonary embolism. He has a 6 cm pleural-based soft tissue mass in the right lower lobe with smaller 1.5 cm nodule adjacent to this. Emphysema and a large hiatal hernia on the left with some compressive atelectasis. Enlarged mediastinal adenopathy and infrahilar adenopathy. LABORATORY DATA Laboratory white count 14,000, blood gas on 1.5 liters, pO2 72, pH 7.4, pCO2 37. BUN and creatinine are normal. Sodium 137. Coag profile normal. DISCUSSION Mr. Mcdonough presents with increasing shortness of breath, probable exacerbation of COPD but as part of his evaluation he had a CT angiogram with a right lower lobe mass and adenopathy, very suspicious of malignancy. I have explained to the patient that we are concerned that he has a malignancy. He has been a heavy smoker all of his adult life and given its peripheral location I would suggest initial needle aspiration biopsy. He does have a highly suspicious lymph node involvement, right hilar and mediastinal and if this is positive he will need a PET CT done as an outpatient. I have held the [employer], requested needle aspiration biopsy and will continue the aerosolized bronchodilators and scale back the steroid dose as his lungs have improved. Further diagnostic and/or therapeutic intervention will depend on the results of this initial diagnostic investigation. R. MD LAUREN Bagley/MCKAYLA /5:34 PM /11:54 PM
[2016-11-03] MEDS: methylPREDNISolone SOD SUCC 125 MG/2 ML VIAL IVP SCH ×2 (01:02→06:39)
[2016-11-03] MEDS: ACETAMINOPHEN 325 MG TAB PO PRN (01:03)
[2016-11-03 06:35] LABS: AUTOMATED NEUTROPHIL # 20.3 TH/MM3 (1.8-7.7); BASOPHIL % 0.1 % (0.0-2.0); HEMATOCRIT 36.3 % (39.0-51.0); LYMPH % 4.4 % (9.0-44.0); LYMPHOCYTE # 0.9 TH/MM3 (1.0-4.8); MEAN CELL VOLUME 84.8 FL (80.0-100.0); MEAN CORPUSCULAR HEMOGLOBIN 28.5 PG (27.0-34.0); MEAN CORPUSCULAR HGB CONC 33.7 % (32.0-36.0); MONO % 1.5 % (0.0-8.0); PLATELET COUNT 252 TH/MM3 (150-450); RED BLOOD COUNT 4.29 MIL/MM3 (4.50-5.90); RED CELL DISTRIBUTION WIDTH 14.8 % (11.6-17.2); WHITE BLOOD COUNT 21.5 TH/MM3 (4.0-11.0)
[2016-11-03] MEDS: MORPHINE SULFATE 30 MG CONTROLLED RELEASE TAB PO SCH (06:40)
[2016-11-03 06:41] LABS: HEMO FLAGS DIFF FINAL
[2016-11-03] MEDS: RESP: ALBUTEROL 2.5 MG/IPRATROPIUM 0.5 MG NEB (SCH) INH ×4 (07:25→19:53)
[2016-11-03] MEDS: FUROSEMIDE 20 MG/2 ML VIAL IV PUSH SCH (08:38)
[2016-11-03] MEDS: GABAPENTIN 300 MG CAP PO SCH ×3 (08:38→17:14)
[2016-11-03] MEDS: AZITHROMYCIN 250 MG TAB PO SCH (08:39)
[2016-11-03] MEDS: CETIRIZINE HCL 10 MG TAB PO SCH (08:39)
[2016-11-03] MEDS: DICLOFENAC SODIUM 75 MG DELAYED RELEASE TAB PO SCH (08:39)
[2016-11-03] MEDS: SODIUM CHLORIDE 0.9% FLUSH 10 ML FLUSH IV FLUSH SCH ×2 (08:40→21:04)
[2016-11-03] MEDS: DOCUSATE SODIUM 50 MG/SENNA 8.6 MG TAB PO SCH ×2 (08:40→21:04)
[2016-11-03] MEDS: cefTRIAXone INJ 1,000 MG in SODIUM CHLORIDE 0.9% INJ 100 ML IV SCH (08:45)
--- NOTE | 2016-11-03 09:54 | HHI.PR ---
Subjective Remarks Patient seen and evaluated today in follow-up for COPD exacerbation, exacerbation of chronic pain and for new lung mass found by CT yesterday. Pulmonary consult appreciated. Patient complaining of 10 out of 10 pain worse in the lumbar spine area Objective Vitals Vital Signs Date Time Temp Pulse Resp B/P (MAP) Pulse Ox O2 Delivery O2 Flow Rate FiO2 11/03/16 08:00 97.8 76 18 128/77 (94) 94 11/03/16 07:53 18 11/03/16 07:33 92 Nasal Cannula 2.00 11/03/16 04:00 96.0 58 20 129/74 (92) 96 11/03/16 00:00 97.6 71 20 111/74 (86) 95 11/02/16 20:07 94 Nasal Cannula 2.00 11/02/16 20:00 97.6 69 20 128/74 (92) 95 11/02/16 20:00 Nasal Cannula 2.00 11/02/16 16:00 97.6 83 20 119/79 (92) 95 11/02/16 15:51 15 11/02/16 12:00 97.4 74 20 119/67 (84) 94 I/O 11/02/16 11/02/16 11/02/16 11/03/16 11/03/16 11/03/16 07:00 15:00 23:00 07:00 15:00 23:00 Intake Total 460 ml 400 ml 240 ml 60 ml Output Total 250 ml 400 ml 650 ml 450 ml Balance 210 ml 0 ml -410 ml -390 ml Intake Oral 460 ml 300 ml 240 ml 60 ml IV Total 100 ml Output Urine Total 250 ml 400 ml 650 ml 450 ml # Voids 2 2 2 # Bowel Movements 0 0 0 Result Diagram: 11/03/16 0520 11/02/16 [address] Angiography 11/02/16 0000 Signed Impressions: Service Date/Time: Wednesday, November 02, 2016 14:01 - CONCLUSION: 1. No evidence of pulmonary embolism. 2. 5.9 cm right lower lobe mass with findings of metastatic adenopathy to the right hilum and mediastinum with encasement of the right lower lobe pulmonary artery. Waqas Singletary MD Chest X-Ray 11/01/16 0901 Signed Impressions: Service Date/Time: Tuesday, November 01, 2016 09:08 - CONCLUSION: 1. Bibasilar infiltrates with pulmonary vascular engorgement. This may relate to intralobular pulmonary edema. 2. Blunting the left costophrenic angle either related to a small effusion or pleural scarring. Iftikhar Weber Jr., MD Objective Remarks GENERAL: This is a well-nourished, well-developed patient, comfortable CARDIOVASCULAR: Regular rate and rhythm without murmurs, gallops, or rubs. RESPIRATORY: Clear to auscultation bilaterally gross chest asymmetry postoperatively and increased AP diameter GASTROINTESTINAL: Abdomen soft, non-tender, nondistended. Normal active bowel sounds MUSCULOSKELETAL: Extremities without clubbing, cyanosis, or edema. NEURO: Alert & Oriented x4 to person, place, time, situation. Moves all ext x4 A/P Problem List: (1) COPD exacerbation ICD Code: J44.1 - COPD exacerbation Status: Acute Plan: continue by mouth Steroids, Nebs Patient on home O2 at night only but has required continuous O2 here Blood gas unremarkable Echo shows right sided dysfunction (2) CHF exacerbation ICD Code: I50.9 - Heart failure, unspecified Status: Acute Plan: Likely with right sided heart failure from chronic pulmonary disease patient has preserved left ventricular function. He has known history of coronary artery disease and is status post cardiac bypass remotely. Continue with oral Lasix and follow output Continue with oxygenation (3) Sepsis ICD Code: A41.9 - Sepsis, unspecified organism Status: Acute Plan: secondary to pneumonia, resolving Continue with Rocephin/azithromycin Follow up cultures (4) Chronic musculoskeletal pain ICD Code: M79.1 - Myalgia; G89.29 - Other chronic pain Plan: home fentanyl and morphine with worsening back pain, We'll check lumbar spine due to lung mass (5) Lung mass ICD Code: R91.8 - Other nonspecific abnormal finding of lung field Plan: New diagnosis, workup in progress Plan reconsult appreciated Hold Lovenox for biopsy Outpatient PET and inpatient MRI spine due to worsening back pain (6) Leucocytosis ICD Code: D72.829 - Leucocytosis Status: Acute Plan: Likely secondary to steroids which we will taper and follow trend Assessment and Plan DVT prophylaxis with heparin every 8 discontinue continue telemetry Problem Qualifiers (1) CHF exacerbation: Qualified Codes: I50.9 - Heart failure, unspecified (2) Sepsis: Qualified Codes: A41.9 - Sepsis, unspecified organism (3) Leucocytosis: Qualified Codes: D72.829 - Elevated white blood cell count, unspecified Mattie Collins MD Nov 03, 2016 09:54
[2016-11-03] MEDS ORDERED: MORPHINE SULFATE 30 MG CONTROLLED RELEASE TAB PO SCH ×2 (10:00→14:00)
[2016-11-03] MEDS ORDERED: MORPHINE SULFATE 15 MG TAB PO PRN ×3 (11:00→22:00)
--- NOTE | 2016-11-03 16:08 | RADRPT ---
EXAM DATE/TIME: 11/03/2016 15:05 [facility] COMPARISON: CT PULMONARY ANGIOGRAM, November 02, 2016, 14:01. INDICATIONS : Lower back pain. Newly diagnosed lung mass with evidence of metastatic disease in the chest. MEDICAL HISTORY : Hypertension. Skin cancer and lung mass. SURGICAL HISTORY : Cholecystectomy. Shoulder surgery and vasectomy. ENCOUNTER: Initial ACUITY: 1 month PAIN SCORE: 9/10 LOCATION: Lower back. TECHNIQUE: Multiplanar multisequence MRI of the lumbar spine was performed without contrast. FINDINGS: The most caudal appearing lumbar vertebra is numbered as L5. VERTEBRAE: The vertebral bodies are intact. There is mild discogenic edema involving the endplates at the T12-L1 L3-4 levels. There is mild retrolisthesis of L1 on L2 of several millimeters. Degenerative disc colin ges are present at the T12-L1 through L3-4 levels with disc space narrowing and hypertrophic change. There is disc desiccation. Anterior extradural defects are noted on the sagittal images throughout th e lumbar spine. There is a mild scoliosis. CONUS: Normal level and configuration. T12-L1: There is a mild annular disc bulge with flattening of the anterior thecal sac. There is narrowing of the left neural foramina. There are mild degenerative changes involving the facet joints. L1-L2: There is a mild to moderate disc bulge with flattening of the anterior thecal sac and narrowing of th e neural foramina. Degenerative changes are noted about facet joints with hypertrophy of the ligament um flavum. L2-L3: Moderate disc bulge with flattening of the thecal sac and narrowing of the neural foramina bilaterall y. Degenerative changes are noted involving the facet joints with hypertrophic change and severe cent ral canal stenosis. L3-L4: Moderate disc bulge with flattening of the anterior thecal sac and narrowing of the neural foramina b ilaterally. Degenerative changes bar noted involving the facet joints with hypertrophy of the ligamen linda flavum and severe central canal stenosis. L4-L5: Moderate disc bulge with flattening of the anterior thecal sac and narrowing of the neural foramina b ilaterally. Degenerative changes are noted involving the facet joints with severe central canal steno sis. The residual AP diameter of the canal measures approximately 5 mm and the residual transverse di ameter measures approximately 6 mm. L5-S1: Mild annular disc bulge with minimal flattening of the anterior thecal sac and mild narrowing of the neural foramina. Degenerative changes noted about facet joints with no central canal stenosis. CONCLUSION: 1. No evidence of metastatic disease in the lumbar spine. 2. Severe central canal stenosis at the L2-3 through L4-5 level secondary to disc bulges and degenera tive changes involving the facet joints 3. At least moderate narrowing of the neuroforamina bilaterally at the C2-3 through C4-5 levels. 4. Diffuse degenerative disc and degenerative joint changes. 1. Ayden Yu MD on November 03, 2016 at 15:57 Board Certified Radiologist. This report was verified electronically.
[2016-11-03] MEDS ORDERED: MSIR30 PO (18:00)
[2016-11-03] MEDS: predniSONE 20 MG TAB PO SCH (21:04)
[2016-11-04] VITALS (8 sets, daily range): BP systolic 110–144; BP diastolic 66–88; PULSE 49–72; RESP 16–18; TEMP 97.3–98.2; O2SAT 92–96
[2016-11-04 06:49] LABS: BASOPHIL % 0.2 % (0.0-2.0); HEMATOCRIT 38.3 % (39.0-51.0); MEAN CELL VOLUME 86.4 FL (80.0-100.0); MEAN CORPUSCULAR HEMOGLOBIN 28.5 PG (27.0-34.0); MONO % 3.2 % (0.0-8.0); NEUT % 91.6 % (16.0-70.0); PLATELET COUNT 263 TH/MM3 (150-450); RED BLOOD COUNT 4.44 MIL/MM3 (4.50-5.90); WHITE BLOOD COUNT 19.6 TH/MM3 (4.0-11.0)
[2016-11-04 06:58] LABS: HEMO FLAGS DIFF FINAL
[2016-11-04 07:07] LABS: POTASSIUM 3.6 MEQ/L (3.5-5.1)
[2016-11-04 07:10] LABS: BICARBONATE 28.9 MEQ/L (21.0-32.0)
[2016-11-04] MEDS: RESP: ALBUTEROL 2.5 MG/IPRATROPIUM 0.5 MG NEB (SCH) INH ×2 (07:27→11:11)
[2016-11-04] MEDS ORDERED: FUROSEMIDE 20 MG TAB PO SCH (09:00)
[2016-11-04] MEDS: SODIUM CHLORIDE 0.9% FLUSH 10 ML FLUSH IV FLUSH SCH (09:00)
[2016-11-04] MEDS: AZITHROMYCIN 250 MG TAB PO SCH (09:07)
[2016-11-04] MEDS: DICLOFENAC SODIUM 75 MG DELAYED RELEASE TAB PO SCH (09:08)
[2016-11-04] MEDS: DOCUSATE SODIUM 50 MG/SENNA 8.6 MG TAB PO SCH (09:08)
[2016-11-04] MEDS: CETIRIZINE HCL 10 MG TAB PO SCH (09:08)
[2016-11-04] MEDS: GABAPENTIN 300 MG CAP PO SCH ×2 (09:08→13:00)
[2016-11-04] MEDS: cefTRIAXone INJ 1,000 MG in SODIUM CHLORIDE 0.9% INJ 100 ML IV SCH (09:08)
[2016-11-04] MEDS: predniSONE 20 MG TAB PO SCH (09:08)
[2016-11-04] MEDS ORDERED: MIDAZOLAM HCL 2 MG/2 ML VIAL IV ONE ×2 (10:10)
[2016-11-04] MEDS ORDERED: LIDOCAINE HCL 1% 30 ML VIAL SQ ONE (10:48)
--- NOTE | 2016-11-04 10:55 | RADRPT ---
EXAM DATE/TIME: 11/04/2016 10:43 [facility] COMPARISON: CT NEEDLE BIOPSY LUNG, RIGHT, November 04, 2016, 10:13. INDICATIONS : Post lung biopsy MEDICAL HISTORY : Hypercholesterolemia. Hypertension Myocardial infarction. SURGICAL HISTORY : Coronary artery stent. CABG. ENCOUNTER: Subsequent ACUITY: 1 day PAIN SCORE: 4/10 LOCATION: Right chest FINDINGS: A single frontal expiratory view of the chest was performed. The lungs are symmetrically aerated and clear. No evidence of pneumothorax. Mediastinal structures are in the midline. The cardio-mediastinal contours and bronchopulmonary markings are unremarkable for an expiratory exam . Osseous structures are intact. CONCLUSION: Negative for pneumothorax. Jonn Martinez MD FACR on November 04, 2016 at 10:53 Board Certified Radiologist. This report was verified electronically.
--- NOTE | 2016-11-04 11:14 | RADRPT ---
EXAM DATE/TIME: 11/04/2016 10:13 [facility] COMPARISON: CHEST EXPIRATION ONLY, November 04, 2016, 10:43. INDICATIONS : Right lung mass. SEDATION TIME: 30 minutes BIOPSY SITE: Right lung MEDICATION(S): 1.) 2.5 mg midazolam (Versed) IV 2.) 125 mcg fentanyl (Sublimaze) IV DEVICE(S): 1.) 20 gauge Temno core biopsy needle MEDICAL HISTORY : Gastroesophageal reflux disease. Congestive heart failure. Chronic obstructive pulmonary disease. Jean Marie cardial infarction. SURGICAL HISTORY : CABG Cholecystectomy. ENCOUNTER: Initial ACUITY: 1 day PAIN SCORE: 0/10 LOCATION: Right chest A total of one core specimen(s) were obtained and sent to the laboratory for pathologic evaluation. PROCEDURE: 1. CT guided lung biopsy. 2. Conscious sedation with continuous EKG and oximetry monitoring. 3. EKG and oximetry remained stable throughout the procedure. Prior to the procedure informed consent was obtained. Any appropriate prior imaging studies were rev iewed. Using automated exposure control and adjustment of the mA and/or kV according to patient size, radiation dose was kept as low as reasonably achievable to obtain optimal diagnostic quality images. DICOM format image data is available electronically for review and comparison. The site was prepped in a sterile fashion. Full sterile technique was used, including cap, mask, marty rile gloves and gown and a large sterile sheet. Hand hygiene and 2% chlorhexidine and/or betadine/al cohol prep was utilized per protocol for cutaneous antisepsis. The skin and subcutaneous tissues wer e infiltrated with local anesthetic solution. With CT guidance the previously identified target was localized. Biopsy was performed using the presc ribed needle as above. Adequate hemostasis was obtained with compression at the puncture site. Follow-up CT scan reveals no pneumothorax. Conscious sedation was performed with the prescribed dosages and duration as above in the presence of an independent trained radiology nurse to assist in the monitoring of the patient. EKG and oximetry remained stable throughout the procedure. The patient tolerated the procedure well and there were no complications. The patient was sent to Radiology Outpatient Unit in stable condition. CONCLUSION: Uncomplicated CT guided biopsy. James Miles MD on November 04, 2016 at 11:12 Board Certified Radiologist. This report was verified electronically.
--- NOTE | 2016-11-04 11:20 | HHI.PR ---
Subjective Remarks Patient seen today in follow-up for lung mass, vitamins, vitamin D completed this morning. No pneumothorax on x-ray. Pain improved Objective Vitals Vital Signs Date Time Temp Pulse Resp B/P (MAP) Pulse Ox O2 Delivery O2 Flow Rate FiO2 11/04/16 09:53 Nasal Cannula 2.00 11/04/16 08:00 97.3 54 16 133/76 (95) 96 11/04/16 07:28 95 Nasal Cannula 2.00 11/04/16 00:00 98.2 72 18 140/72 (94) 92 11/03/16 20:00 97.5 64 18 133/76 (95) 92 11/03/16 19:53 93 Nasal Cannula 2.00 11/03/16 19:00 93 Nasal Cannula 2.00 11/03/16 16:28 18 11/03/16 16:00 97.3 72 20 142/81 (101) 93 11/03/16 13:25 17 11/03/16 12:33 94 Nasal Cannula 2.00 11/03/16 12:00 97.5 68 20 113/70 (84) 94 I/O 11/03/16 11/03/16 11/03/16 11/04/16 11/04/16 11/04/16 06:59 14:59 22:59 06:59 14:59 22:59 Intake Total 60 ml 240 ml 790 ml 240 ml Output Total 450 ml Balance -390 ml 240 ml 790 ml 240 ml Intake Oral 60 ml 240 ml 790 ml 240 ml Output Urine Total 450 ml # Voids 2 4 2 # Bowel Movements 0 1 0 Result Diagram: 11/04/16 0505 11/04/16 0505 Objective Remarks GENERAL: This is a well-nourished, well-developed patient, comfortable CARDIOVASCULAR: Regular rate and rhythm without murmurs, gallops, or rubs. RESPIRATORY: Clear to auscultation bilaterally gross chest asymmetry postoperatively and increased AP diameter GASTROINTESTINAL: Abdomen soft, non-tender, nondistended. Normal active bowel sounds MUSCULOSKELETAL: Extremities without clubbing, cyanosis, or edema. NEURO: Alert & Oriented x4 to person, place, time, situation. Moves all ext x4 A/P Problem List: (1) COPD exacerbation ICD Code: J44.1 - COPD exacerbation Status: Acute Plan: continue to taper by mouth Steroids, Nebs Patient on home O2 at night only but has required continuous O2 here Echo shows right sided dysfunction (2) CHF exacerbation ICD Code: I50.9 - Heart failure, unspecified Status: Acute Plan: Likely with right sided heart failure from chronic pulmonary disease patient has preserved left ventricular function. He has known history of coronary artery disease and is status post cardiac bypass remotely. Continue with oral Lasix and follow output Continue with oxygenation (3) Sepsis ICD Code: A41.9 - Sepsis, unspecified organism Status: Acute Plan: secondary to pneumonia, resolving Continue with Rocephin/azithromycin Follow up cultures (4) Chronic musculoskeletal pain ICD Code: M79.1 - Myalgia; G89.29 - Other chronic pain Plan: home fentanyl and morphine with worsening back pain, Spine shows no metastases only chronic changes (5) Lung mass ICD Code: R91.8 - Other nonspecific abnormal finding of lung field Plan: New diagnosis, workup in progress Pulmonary consult appreciated Resume Lovenox Outpatient PET (6) Leucocytosis ICD Code: D72.829 - Leucocytosis Status: Acute Plan: Improved with taper of steroids Assessment and Plan DVT prophylaxis with heparin every 8 discontinue continue telemetry Problem Qualifiers (1) CHF exacerbation: Qualified Codes: I50.9 - Heart failure, unspecified (2) Sepsis: Qualified Codes: A41.9 - Sepsis, unspecified organism (3) Leucocytosis: Qualified Codes: D72.829 - Elevated white blood cell count, unspecified Mattie Collins MD Nov 04, 2016 11:20
[2016-11-04] MEDS ORDERED: oxyCODONE/ACETAMINOPHEN 5 MG/325 MG TAB PO PRN (11:30)
[2016-11-04] MEDS ORDERED: PRED20 PO (13:09)
[2016-11-04] MEDS ORDERED: AZIT250T3 PO (13:09)
--- NOTE | 2016-11-04 13:10 | HHI.DCPOC ---
Discharge Care Plan Diagnosis: (1) COPD exacerbation (2) Lung mass Goals to Promote Your Health * To prevent worsening of your condition and complications * To maintain your health at the optimal level Directions to Meet Your Goals Take your medications as prescribed Follow your dietary instruction Follow activity as directed Keep your appointments as scheduled Take your immunizations and boosters as scheduled If your symptoms worsen call your PCP, if no PCP go to Urgent Care Center or Emergency Room Smoking is Dangerous to Your Health. Avoid second hand smoke Call the 24-hour hour crisis hotline for domestic abuse at Mattie Collins MD Nov 04, 2016 13:10
--- NOTE | 2016-11-04 13:13 | HHI.DS ---
Discharge Summary Admission Date Nov 01, 2016 at 11:13 Discharge Date: Nov 04, 2016 Admitting Diagnosis copd exacerbation, sepsis, chf (1) COPD exacerbation ICD Code: J44.1 - COPD exacerbation Status: Acute (2) CHF exacerbation ICD Code: I50.9 - Heart failure, unspecified Status: Acute (3) Sepsis ICD Code: A41.9 - Sepsis, unspecified organism Status: Acute (4) Chronic musculoskeletal pain ICD Code: M79.1 - Myalgia; G89.29 - Other chronic pain (5) Lung mass ICD Code: R91.8 - Other nonspecific abnormal finding of lung field (6) Leucocytosis ICD Code: D72.829 - Leucocytosis Status: Acute Procedures lung biopsy path pending Brief History - From Admission This is a 71-year-old male with a history of arthritis, depression, CAD status post stent and CABG, hyperlipidemia, GERD, hypertension, peripheral neuropathy, chronic lower back pain, thyroid disease, CHF, valvulopathy and COPD. Patient has chronic dyspnea worse this morning associated with wheezing and productive cough of whitish phlegm. No fever, chills, chest pain, weight gain, leg pain and swelling. He has increased his oxygen use. He received several doses of nebulizations and Solu-Medrol from EMS. Patient is not a good historian. He is asking for his morphine ER 30 mg 4 times a day which he takes for lower back pain prescribed by Dr. Londono. He reports he takes a total of 15 medications which she cannot remember. He goes to Dr. Yoon. In the emergency department, he received IV Zosyn and Zithromax. All other systems reviewed negative CBC/BMP: 11/04/16 0505 11/04/16 0505 Significant Findings Laboratory Tests Test 11/02/16 06:52 11/02/16 13:25 11/03/16 05:20 11/04/16 05:05 Random Glucose 132 MG/DL (74-106) Albumin 3.0 GM/DL (3.4-5.0) Aspartate Amino Transf (AST/SGOT) 12 U/L (15-37) Estimat Glomerular Filtration Rate 82 ML/MIN (>89) Blood Gas HCO3 27 mmol/L (22-26) Blood Gas Base Excess 4.0 mmol/L (-2-2) Arterial Blood pH 7.48 (7.380-7.420) Arterial Blood Partial Pressure CO2 37 mmHG (38-42) White Blood Count 21.5 TH/MM3 (4.0-11.0) 19.6 TH/MM3 (4.0-11.0) Red Blood Count 4.29 MIL/MM3 (4.50-5.90) 4.44 MIL/MM3 (4.50-5.90) Hemoglobin 12.2 GM/DL (13.0-17.0) 12.6 GM/DL (13.0-17.0) Hematocrit 36.3 % (39.0-51.0) 38.3 % (39.0-51.0) Neutrophils (%) (Auto) 94.0 % (16.0-70.0) 91.6 % (16.0-70.0) Lymphocytes (%) (Auto) 4.4 % (9.0-44.0) 5.0 % (9.0-44.0) Neutrophils # (Auto) 20.3 TH/MM3 (1.8-7.7) 18.0 TH/MM3 (1.8-7.7) Lymphocytes # (Auto) 0.9 TH/MM3 (1.0-4.8) Blood Urea Nitrogen 23 MG/DL (7-18) Calcium Level 8.4 MG/DL (8.5-10.1) Imaging Last 24 hours Impressions Lung Biopsy CT 11/04/16 0000 Signed Impressions: Service Date/Time: Friday, November 04, 2016 10:13 - CONCLUSION: Uncomplicated CT guided biopsy. James Miles MD Chest X-Ray 11/04/16 0000 Signed Impressions: Service Date/Time: Friday, November 04, 2016 10:43 - CONCLUSION: Negative for pneumothorax. Jonn Martinez MD FACR PE at Discharge GENERAL: This is a well-nourished, well-developed patient, comfortable CARDIOVASCULAR: Regular rate and rhythm without murmurs, gallops, or rubs. RESPIRATORY: Clear to auscultation bilaterally gross chest asymmetry postoperatively and increased AP diameter GASTROINTESTINAL: Abdomen soft, non-tender, nondistended. Normal active bowel sounds MUSCULOSKELETAL: Extremities without clubbing, cyanosis, or edema. NEURO: Alert & Oriented x4 to person, place, time, situation. Moves all ext x4 Pt update on day of discharge Patient doing better tolerated biopsy without difficulty no new issues Hospital Course Patient is a 71-year-old gentleman with a known history of COPD. He did have some increased work of breathing and dyspnea represented of likely has a mild exacerbation of COPD. Patient did well with Pt Condition on Discharge: Good Discharge Disposition: Discharge Home Discharge Time: <= 30 minutes Discharge Instructions DIET: Follow Instructions for: As Tolerated, No Restrictions Activities you can perform: Regular-No Restrictions Follow up Referrals: Pulmonology - 1 Week with Lara Hastings MD New Medications: Azithromycin (Azithromycin) 250 Mg Tab 500 MG PO DAILY@1000 for Infection, #3 TAB Prednisone (Prednisone) 20 Mg Tab 20 MG PO DAILY for Inflammation, #2 TAB Continued Medications: Amlodipine (Amlodipine) 5 Mg Tab 5 MG PO DAILY for Blood Pressure Management, #30 TAB [address] (Aspirin EC) 81 Mg Tabdr 81 MG PO DAILY, TAB 0 Refills Atorvastatin (Atorvastatin) 10 Mg Tab 10 MG PO DAILY for Cholesterol Management, #30 TAB [address] (Diclofen[address] Sodium DR) 75 Mg Tabdr 75 MG PO BID as needed, #30 TAB [address] (Diclofen[address] Sodium DR) 75 Mg Tabdr 75 MG PO BID PRN for PAIN SCALE 1 TO 10, #60 TAB [address] (Diclofenac Sodium DR) 75 Mg Tabdr 75 MG PO BIDPC PRN for PAIN SCALE 1 TO 10, #60 TAB 0 Refills Famotidine (Famotidine) 20 Mg Tab 20 MG PO BID, #60 TAB 0 Refills Fentanyl Patch 72 HR (Fentanyl Patch 72 HR) 75 Mcg/Hr Patch 75 MCG T-DERMAL Q72H for Pain Management, #10 PATCH 0 Refills Remove old patch when new one placed. Furosemide (Furosemide) 40 Mg Tab 40 MG PO DAILY, #30 TAB 0 Refills Gabapentin (Gabapentin) 600 Mg Tab 600 MG PO TID, #90 TAB 0 Refills Levocetirizine (Levocetirizine) 5 Mg Tab 5 MG PO DAILY, #30 TAB 0 Refills Meclizine (Meclizine) 25 Mg Tab 25 MG PO TID PRN for VERTIGO, TAB 0 Refills Metoprolol Tartrate (Metoprolol Tartrate) 25 Mg Tab 25 MG PO DAILY, #30 TAB 0 Refills Morphine IR (Morphine IR) 30 Mg Tab 30 MG PO QID PRN for PAIN, TAB 0 Refills Potassium Chloride ER (Potassium Chloride ER) 20 Meq Tab 20 MEQ PO BID for Electrolyte Replacement, #60 TAB 0 Refills Tamsulosin (Tamsulosin) 0.4 Mg Cap 0.4 MG PO WITH DINNER for Manage Prostate Problems, #30 CAP 0 Refills Mattie Collins MD Nov 04, 2016 13:13
[2016-11-05] MEDS ORDERED: predniSONE 20 MG TAB PO SCH (09:00)
[2016-11-05] MEDS ORDERED: REMOVE OLD DURAGESIC (FENTANYL) PATCH T-DERMAL SCH (14:00)
== END 2016-11-04 14:10 | disposition home or self-care (01) | DRG 871 ==
LOC: PHED 08:58 → PHEDA 11:13 → PH3A 12:24
PROVIDERS: ADMIT Hospitalist; ATTEND Hospitalist
PROC: 0BBK3ZX Excision of Right Lung, Percutaneous Approach, Diagnostic (ICD-10-PCS; principal; 2016-11-04)
DX: A41.9 Sepsis, unspecified organism (principal); J18.9 Pneumonia, unspecified organism; J96.10 Chronic respiratory failure, unspecified whether with hypoxia or hypercapnia; I11.0 Hypertensive heart disease with heart failure; I50.9 Heart failure, unspecified; Z99.81 Dependence on supplemental oxygen; J44.1 Chronic obstructive pulmonary disease with (acute) exacerbation; J44.0 Chronic obstructive pulmonary disease with (acute) lower respiratory infection; G62.9 Polyneuropathy, unspecified; F17.210 Nicotine dependence, cigarettes, uncomplicated; K21.9 Gastro-esophageal reflux disease without esophagitis; I25.10 Atherosclerotic heart disease of native coronary artery without angina pectoris; F32.9 Major depressive disorder, single episode, unspecified; M19.90 Unspecified osteoarthritis, unspecified site; G89.29 Other chronic pain; M54.5 Low back pain; E78.5 Hyperlipidemia, unspecified; E07.9 Disorder of thyroid, unspecified; N40.0 Benign prostatic hyperplasia without lower urinary tract symptoms; R73.9 Hyperglycemia, unspecified; I45.10 Unspecified right bundle-branch block; R91.8 Other nonspecific abnormal finding of lung field; Z85.828 Personal history of other malignant neoplasm of skin; I25.2 Old myocardial infarction; Z95.1 Presence of aortocoronary bypass graft; Z95.5 Presence of coronary angioplasty implant and graft
CPT/HCPCS: 32405; 36600; 71010; 71275; 72148; 77012; 80048; 80053; 81001; 82550; 82552; 82805; 83605; 83735; 83880; 84100; 84484; 85025; 85610; 85730; 87040; 87205; 87804; 88305; 88341; 88342; 93005; 93306; 94640; 94664; 96365; 96375; J0456; J0696; J1644; J1650; J1940; J2250; J2930; J3010; J7050; J7512; Q9967

== ENCOUNTER 2016-12-15 07:14 | Day surgery (SDC) | payer OTHER ==
[~2016-12-15] VITALS: Ht 180.3 cm; Wt 75.0 kg
[~2016-12-15 07:14] MED LIST changes: -ALBU0.086 INH; +AMLO5TAB2 PO; -AMLO5TAB96 PO; -ASPI-94 PO; +ASPI81TA11 PO; -ATOR10 PO; +ATOR10TA15 PO; +AZIT250T3 PO; -AZIT250T74 PO; -BACL10TA PO; +DICL75TA PO; -DULO20 PO; -FENT50DI TD; +FENT75DI T-DERMAL; -FURO1TAB93 PO; +FURO40TA PO; +GABA600T PO; +LEVOTAB PO; -METO25CR PO; +METO25TA3 PO; -MOBI15TA PO; +MSIR30 PO; -NEUR600T PO; -NITR.3 SL; +POTA-163 PO; -PRED10 PO; -PRED50 PO; -PRED5PAK PO; -PROS5TAB2 PO; +TAMS0.4C4 PO; -TAMS0.4C67 PO; -VENTAER INH; -[UNRECOGNIZED DRUG - CODE] PO
[2016-12-15 07:38] VITALS: BP 117/65; PULSE 56; RESP 18; TEMP 97.8; O2SAT 90
[2016-12-15] MEDS ORDERED: SODIUM CHLORIDE 0.9% 1000 ML IV SCH (08:00)
[2016-12-15] MEDS ORDERED: VANCOMYCIN 1000 MG/NS 250 ML - implanted port/tunneled catheter IV SCH ×2 (08:00)
[2016-12-15] MEDS ORDERED: ceFAZolin 2 GM PREMIX 50 ML - implanted port/tunneled catheter insertion IV SCH (08:00)
[2016-12-15] MEDS: POVIDONE IODINE 5% (ANTISEPSIS KIT) 4 APPLICATIONS EACH NARE SCH ×2 (08:02→08:09)
[2016-12-15] MEDS: CHLORHEXIDINE GLUCONATE 2 % 1 PACK (2 CLOTHS) TOPICAL SCH ×2 (08:03→08:09)
[2016-12-15] MEDS ORDERED: MIDAZOLAM HCL 5 MG/5 ML VIAL ONE (09:28)
[2016-12-15] MEDS ORDERED: SODIUM CHLORIDE 0.9% FLUSH 10 ML FLUSH IVF PRN (10:30)
--- NOTE | 2016-12-15 10:30 | PD.RAD ---
Post Procedure Progress Note Pre Procedure Diagnosis: (1) Lung mass Post Procedure Diagnosis: (1) Lung mass Procedure Date: Dec 15, 2016 Supervising Radiologist: Conrad Martinez Estimated blood loss: 3CC Anesthesia: Local, Conscious Sedation Plan of Activity Patient to Unit: [facility] Additional Comments: Port placed via the left subclavian. Catheter in good position OK for use. Full dictated report to follow See PACS Report for procedural detail/treatment Conrad Martinez MD Dec 15, 2016 10:30
[2016-12-15 10:44] VITALS: BP 95/58; PULSE 54; RESP 17; TEMP 97.5; O2SAT 90
--- NOTE | 2016-12-15 11:06 | RADRPT ---
EXAM DATE/TIME: 12/15/2016 09:49 [facility] COMPARISON: CHEST EXPIRATION ONLY, November 04, 2016, 10:43. INDICATIONS : Patient presents with lung cancer in need of port placement for treatment. MEDICAL HISTORY : Lung cancer COPD [place] GERD HTN CHF CAD BPH Peripheral neuropathy Migraines Diverticulosis High Cholesterol Arthritis Heart valve disease SURGICAL HISTORY : Lung biopsy CABG Cholecystectomy Vasectomy Melenoma removal Valvuloplasty Appendectomy Vasectomy Colonoscopy ENCOUNTER: Initial ACUITY: 3 months PAIN SCORE: 8/10 LOCATION: Generalized chronic pain. FLUORO TIME: 0.9 minutes IMAGE SERIES: 1 SEDATION TIME: 30 minutes ACCESS: Left subclavian vein SEDATION: 1.) 4 mg midazolam (Versed) IV 2.) 200 mcg fentanyl (Sublimaze) IV Prophylactic antibiotics were administered with appropriate pre-procedure timing. Vancomycin within 2 hours of procedure, Ancef (or alternative) within 1 hour of procedure. DEVICE: 1. 8 Armenian single lumen Smart port CT PROCEDURE : 1. Continuous pulse oximetry and EKG monitoring. 2. Intravenous conscious sedation. 3. Ultrasound guidance for venous access. 4. Fluoroscopic guided implantable central venous port placement. The patient's imaging was reviewed. The patient has a right hilar mass and a left lower lobe mass. Th e decision was made to place the [id number] on the left. Due to the lack of subcutaneous tissue, t he decision was made to place the port via the left subclavian. The patient was placed supine. The neck was prepped in sterile fashion. Full sterile technique was u sed, including cap, mask, sterile gloves and gown, and a large sterile sheet. Hand hygiene and 2% ch lorhexidine Betadine was utilized per protocol for cutaneous antisepsis with appropriate dry time for site. Sterile gel and sterile probe cover were utilized for ultrasound guidance. The skin and sub cutaneous tissues were infiltrated with local anesthetic solution. Under direct ultrasound guidance, central venous access was accomplished via the left subclavian vein . The ultrasound images depicting access guidance were stored and saved to PACS for permanent record . A subcutaneous pocket was created using blunt dissection. The port was introduced to the pocket. The catheter tubing was fed through a subcutaneous tunnel to the venotomy site. The catheter tubing was cut to a suitable length and then was introduced through a valved Peel-Away sheath and positione d with catheter tubing tip at the cavo-atrial junction level. The pocket incision was closed with swain bcuticular Vicryl suture. Steri-Strips were applied. The port was flushed and locked with heparin s olution per protocol. Sterile dressing was applied to the site. The patient tolerated the procedure well. The chest was examined with fluoroscopy post procedure. There is no evidence of pneumothorax. The por t was placed quite lateral within the subclavian vein under all sound guidance. Conscious sedation was performed with the prescribed dosages and duration as above in the presence of an independent trained radiology nurse to assist in the monitoring of the patient. EKG and oximetry remained stable throughout the procedure. The patient tolerated the procedure well and there were no complications. The patient was sent to post anesthesia recovery in stable condition. CONCLUSION: Uncomplicated ultrasound and fluoroscopic guided implanted central venous port catheter placement as described in detail above. An 8 Armenian Power port was placed. Conrad Martinez MD on December 15, 2016 at 11:02 Board Certified Radiologist. This report was verified electronically.
[2016-12-15 11:14] VITALS: BP 94/54; PULSE 59; RESP 18; O2SAT 97
[2016-12-15 11:44] VITALS: BP 95/57; PULSE 58; RESP 19; O2SAT 98
[2016-12-15] MEDS ORDERED: RESP: ALBUTEROL 2.5 MG/3 ML NEB (SCH) ONE (12:43)
[2016-12-15 12:44] VITALS: BP 110/56; PULSE 57; RESP 22; O2SAT 97
== END 2016-12-15 12:55 | disposition home or self-care (01) ==
LOC: HROP 07:14 → HRIP 07:15 → HROP 12:55
PROVIDERS: ATTEND Internal Medicine Hematology & Oncology
DX: Z45.2 Encounter for adjustment and management of vascular access device (principal); C34.90 Malignant neoplasm of unspecified part of unspecified bronchus or lung; I25.10 Atherosclerotic heart disease of native coronary artery without angina pectoris; I11.0 Hypertensive heart disease with heart failure; I50.9 Heart failure, unspecified; Z95.1 Presence of aortocoronary bypass graft
CPT/HCPCS: 36561; 76937; 77001; 99152; 99153; C1788; J0690; J1642; J2250; J3010; J3370; J7030; J7050; J7613

== ENCOUNTER 2016-12-19 10:46 | Emergency (ER) | payer OTHER ==
[~2016-12-19] VITALS: Ht 180.3 cm; Wt 80.4 kg
[~2016-12-19 10:46] MED LIST changes: -AZIT250T3 PO; -PRED20 PO
[2016-12-19 10:59] VITALS: BP 131/70; PULSE 86; RESP 18; TEMP 99.9; O2SAT 92
[2016-12-19] MEDS ORDERED: SODIUM CHLOR 0.9% 1000 ML INJ 1,000 ML IV ONE (11:45)
--- NOTE | 2016-12-19 11:58 | PD ---
HPI Chief Complaint: Fever Time Seen by Provider: 11:14 Travel History International Travel<30 days: No Contact w/Intl Traveler<30days: No Traveled to known affect area: No History of Present Illness HPI Patient is a 71 year old male with history of COPD (oxygen dependent), CAD, heart valve disease, hypertension, peripheral neuropathy, newly diagnosed lung cancer, presents to emergency room with complaints of fever. Patient reports that he was recently diagnosed with non-small cell lung cancer, reports that he received his first dose of chemotherapy by Dr. Gaines on Monday. Patient reports that since his chemotherapy treatment, he has been having low-grade fevers. Reports MAXIMUM TEMPERATURE of 99.9. He has been taking acetaminophen with no relief of symptoms. Patient reports that he has had a nonproductive cough with increased congestion. Reports that he feels sore all over. Reports "i just don't feel well." Patient denies any chest pain or sob at this time. Reports no sick contacts at home. No other c/o at this time PFSH Past Medical History Arthritis: Yes Autoimmune Disease: No Blood Disorders: No Depression: Yes Heart Rhythm Problems: Yes ("IRREGULAR AT TIMES") Cancer: No Cardiac Catheterization: Yes (2011 WITH STENT) Cardiovascular Problems: Yes (NOT REMEMBER) High Cholesterol: Yes Chest Pain: Yes Congestive Heart Failure: Yes COPD: Yes Coronary Artery Disease: Yes Diabetes: No Diminished Hearing: No Endocrine: No GERD: Yes Genitourinary: No Hypertension: Yes Immune Disorder: No Implanted Vascular Access Dvce: Yes Kidney Stones: Yes Musculoskeletal: No Neurologic: No Psychiatric: No Reproductive: No Respiratory: Yes (COPD) Integumentary: Yes Myocardial Infarction: Yes (X1 2004) Pneumonia: Yes Shingles: Yes Thyroid Disease: Yes Tetanus Vaccination: Unknown Past Surgical History Abdominal Surgery: No Body Medical Devices: STENTS, Cardiac Surgery: Yes (BY PASS) Cholecystectomy: Yes Coronary Artery Bypass Graft: Yes (2000: 4 VESSEL) Coronary Stent: Yes (2011) Ear Surgery: No Endocrine Surgery: No Eye Surgery: No Genitourinary Surgery: Yes (GALBLADDER) Gynecologic Surgery: No Oral Surgery: No Thoracic Surgery: No Other Surgery: Yes (BY PASS, APENCIS, GALDBLADDER) Family History Family Hypercholesterolemia: Yes Social History Alcohol Use: Yes (RARE) Tobacco Use: Yes (<1/2 PPD) Substance Use: No Allergies-Medications (Allergen,Severity, Reaction): Coded Allergies: No Known Allergies (Unverified , 12/19/16) Reported Meds & Prescriptions Reported Meds & Active Scripts Active Reported Morphine IR (Morphine Sulfate) 30 Mg Tab 30 Mg PO QID PRN Aspirin EC (Aspirin) 81 Mg Tabdr 81 Mg PO DAILY Tamsulosin (Tamsulosin HCl) 0.4 Mg Cap 0.4 Mg PO WITH DINNER Meclizine (Meclizine HCl) 25 Mg Tab 25 Mg PO TID PRN Potassium Chloride ER (Potassium Chloride) 20 Meq Tab 20 Meq PO BID Metoprolol Tartrate 25 Mg Tab 25 Mg PO DAILY Amlodipine (Amlodipine Besylate) 5 Mg Tab 5 Mg PO DAILY Famotidine 20 Mg Tab 20 Mg PO BID Atorvastatin (Atorvastatin Calcium) 10 Mg Tab 10 Mg PO DAILY Furosemide 40 Mg Tab 40 Mg PO DAILY Levocetirizine 5 Mg Tab 5 Mg PO DAILY Diclofenac Sodium DR (Diclofenac Sodium) 75 Mg Tabdr 75 Mg PO BID NEEDED Gabapentin 600 Mg Tab 600 Mg PO TID Fentanyl Patch 72 HR (Fentanyl) 75 Mcg/Hr Patch 75 Mcg T-DERMAL Q72H Remove old patch when new one placed. Review of Systems General / Constitutional: Positive: Fever, Chills Eyes: No: Visual changes HENT: No: Headaches Cardiovascular: No: Chest Pain or Discomfort Respiratory: Positive: Cough, No: Shortness of Breath, Wheezing Gastrointestinal: No: Abdominal Pain Genitourinary: No: Dysuria Musculoskeletal: No: Pain Skin: No Rash Neurologic: Positive: Weakness Psychiatric: No: Depression Endocrine: No: Polydipsia Hematologic/Lymphatic: No: Easy Bruising Physical Exam Narrative GENERAL: moderate distress SKIN: Focused skin assessment warm/dry. HEAD: Atraumatic. Normocephalic. EYES: Pupils equal and round. No scleral icterus. No injection or drainage. ENT: No nasal bleeding or discharge. Mucous membranes pink and moist. NECK: Trachea midline. No JVD. CARDIOVASCULAR: Regular rate and rhythm. No murmur appreciated. RESPIRATORY: No accessory muscle use. mild scattered wheezing at lung bases. Breath sounds equal bilaterally. GASTROINTESTINAL: Abdomen soft, non-tender, nondistended. Hepatic and splenic margins not palpable. MUSCULOSKELETAL: No obvious deformities. No clubbing. No cyanosis. No edema. NEUROLOGICAL: Awake and alert. No obvious cranial nerve deficits. Motor grossly within normal limits. Normal speech. PSYCHIATRIC: Flat mood and affect; insight and judgment normal. Data Data Last Documented VS Vital Signs Date Time Temp Pulse Resp B/P (MAP) Pulse Ox O2 Delivery O2 Flow Rate FiO2 12/19/16 12:10 93 Nasal Cannula 2.00 12/19/16 11:09 86 18 12/19/16 10:59 99.9 Orders Orders Complete Blood Count With Diff (12/19/16 11:36) Comprehensive Metabolic Panel (12/19/16 11:36) Prothrombin Time / Inr (Pt) (12/19/16 11:36) Act Partial Throm Time (Ptt) (12/19/16 11:36) Lactic Acid Sepsis Protocol (12/19/16 11:36) Magnesium (Mg) (12/19/16 11:36) Urinalysis - C+S If Indicated (12/19/16 11:36) Influenzae A/B Antigen (12/19/16 11:36) Blood Culture (12/19/16 11:36) Chest, Single Ap (12/19/16 11:36) Ecg Monitoring (12/19/16 11:36) Iv Access Insert/Monitor (12/19/16 11:36) Oximetry (12/19/16 11:36) Sodium Chlor 0.9% 1000 Ml Inj (Ns 1000 M (12/19/16 11:45) Electrocardiogram (12/19/16 ) Labs Laboratory Tests Test 12/19/16 11:30 12/19/16 11:53 Urine Collection Type CATH Urine Color STRAW Urine Turbidity CLEAR Urine pH 5.5 Urine Specific [place] 1.007 Urine Protein NEG mg/dL Urine Glucose (UA) NEG mg/dL Urine Ketones NEG mg/dL Urine Occult Blood NEG Urine Nitrite NEG Urine Bilirubin NEG Urine Leukocyte Esterase NEG Urine WBC 0-2 /hpf Microscopic Urinalysis Comment CULT NOT INDICATED White Blood Count 10.0 TH/MM3 Red Blood Count 4.36 MIL/MM3 Hemoglobin 12.3 GM/DL Hematocrit 37.3 % Mean Corpuscular Volume 85.5 FL Mean Corpuscular Hemoglobin 28.1 PG Mean Corpuscular Hemoglobin Concent 32.9 % Red Cell Distribution Width 14.4 % Platelet Count 211 TH/MM3 Mean Platelet Volume 7.5 FL Neutrophils (%) (Auto) 86.1 % Lymphocytes (%) (Auto) 8.5 % Monocytes (%) (Auto) 0.4 % Eosinophils (%) (Auto) 3.9 % Basophils (%) (Auto) 1.1 % Neutrophils # (Auto) 8.7 TH/MM3 Lymphocytes # (Auto) 0.8 TH/MM3 Monocytes # (Auto) 0.0 TH/MM3 Eosinophils # (Auto) 0.4 TH/MM3 Basophils # (Auto) 0.1 TH/MM3 CBC Comment DIFF FINAL Differential Comment Prothrombin Time 10.7 SEC Prothromb Time International Ratio 1.0 RATIO Activated Partial Thromboplast Time 27.8 SEC Blood Urea Nitrogen 11 MG/DL Creatinine 0.85 MG/DL Random Glucose 98 MG/DL Total Protein 6.5 GM/DL Albumin 3.0 GM/DL Calcium Level 8.5 MG/DL Magnesium Level 2.0 MG/DL Alkaline Phosphatase 68 U/L Aspartate Amino Transf (AST/SGOT) 21 U/L Alanine Aminotransferase (ALT/SGPT) 17 U/L Total Bilirubin 1.2 MG/DL Sodium Level 139 MEQ/L Potassium Level 4.1 MEQ/L Chloride Level 103 MEQ/L Carbon Dioxide Level 31.0 MEQ/L Estimat Glomerular Filtration Rate 89 ML/MIN Lactic Acid Level 0.8 mmol/L MDM Medical Decision Making Medical Screen Exam Complete: Yes Emergency Medical Condition: Yes Medical Record Reviewed: Yes Interpretation(s) EKG at 1205: NSR at 69bpm, qt/qtc: 420/439, rbbb, moderate t wave changes, no change from previous ekg Vital Signs Date Time Temp Pulse Resp B/P (MAP) Pulse Ox O2 Delivery O2 Flow Rate FiO2 12/19/16 11:09 86 18 92 Nasal Cannula 2.00 12/19/16 10:59 99.9 86 18 131/70 (90) 92 Room Air Laboratory Tests Test 12/19/16 11:30 12/19/16 11:53 Urine Collection Type CATH Urine Color STRAW (YELLW/STRAW) Urine Turbidity CLEAR (CLEAR) Urine pH 5.5 (5.0-8.5) Urine Specific [place] 1.007 (1.002-1.035) Urine Protein NEG mg/dL (NEG-TRACE) Urine Glucose (UA) NEG mg/dL (NEG) Urine Ketones NEG mg/dL (NEG) Urine Occult Blood NEG (NEG) Urine Nitrite NEG (NEG) Urine Bilirubin NEG (NEG) Urine Leukocyte Esterase NEG (NEG) Urine WBC 0-2 /hpf (0-5) Microscopic Urinalysis Comment CULT NOT INDICATED White Blood Count 10.0 TH/MM3 (4.0-11.0) Red Blood Count 4.36 MIL/MM3 (4.50-5.90) Hemoglobin 12.3 GM/DL (13.0-17.0) Hematocrit 37.3 % (39.0-51.0) Mean Corpuscular Volume 85.5 FL (80.0-100.0) Mean Corpuscular Hemoglobin 28.1 PG (27.0-34.0) Mean Corpuscular Hemoglobin Concent 32.9 % (32.0-36.0) Red Cell Distribution Width 14.4 % (11.6-17.2) Platelet Count 211 TH/MM3 (150-450) Mean Platelet Volume 7.5 FL (7.0-11.0) Neutrophils (%) (Auto) 86.1 % (16.0-70.0) Lymphocytes (%) (Auto) 8.5 % (9.0-44.0) Monocytes (%) (Auto) 0.4 % (0.0-8.0) Eosinophils (%) (Auto) 3.9 % (0.0-4.0) Basophils (%) (Auto) 1.1 % (0.0-2.0) Neutrophils # (Auto) 8.7 TH/MM3 (1.8-7.7) Lymphocytes # (Auto) 0.8 TH/MM3 (1.0-4.8) Monocytes # (Auto) 0.0 TH/MM3 (0-0.9) Eosinophils # (Auto) 0.4 TH/MM3 (0-0.4) Basophils # (Auto) 0.1 TH/MM3 (0-0.2) CBC Comment DIFF FINAL Differential Comment Prothrombin Time 10.7 SEC (9.8-11.6) Prothromb Time International Ratio 1.0 RATIO Activated Partial Thromboplast Time 27.8 SEC (24.3-30.1) Blood Urea Nitrogen 11 MG/DL (7-18) Creatinine 0.85 MG/DL (0.60-1.30) Random Glucose 98 MG/DL (74-106) Total Protein 6.5 GM/DL (6.4-8.2) Albumin 3.0 GM/DL (3.4-5.0) Calcium Level 8.5 MG/DL (8.5-10.1) Magnesium Level 2.0 MG/DL (1.5-2.5) Alkaline Phosphatase 68 U/L (45-117) Aspartate Amino Transf (AST/SGOT) 21 U/L (15-37) Alanine Aminotransferase (ALT/SGPT) 17 U/L (12-78) Total Bilirubin 1.2 MG/DL (0.2-1.0) Sodium Level 139 MEQ/L (136-145) Potassium Level 4.1 MEQ/L (3.5-5.1) Chloride Level 103 MEQ/L (98-107) Carbon Dioxide Level 31.0 MEQ/L (21.0-32.0) Estimat Glomerular Filtration Rate 89 ML/MIN (>89) Lactic Acid Level 0.8 mmol/L (0.4-2.0) Last Impressions Chest X-Ray 12/19/16 1136 Signed Impressions: Service Date/Time: Monday, December 19, 2016 11:56 - CONCLUSION: Compensated cardiomegaly with minimal nonspecific bi basilar parenchymal changes Jonn Martinez MD FACR Differential Diagnosis Differential includes pneumonia, viral syndrome, influenza, COPD exacerbation Narrative Course 71 year old male with history of newly diagnosed non small cell lung cancer presents to ER with c/o of low grade fevers ever since his chemotherapy treatment on Monday. Patient with temp of 99.9 in ER. Plan to obtain xray of chest, lab work, blood cultures as well as lactic acid. Patient will be monitored on cardiac monitoring. He was placed on 2Liters O2 as this is his normal oxygen requirement. Vital Signs Date Time Temp Pulse Resp B/P (MAP) Pulse Ox O2 Delivery O2 Flow Rate FiO2 12/19/16 12:10 93 Nasal Cannula 2.00 12/19/16 11:09 86 18 92 Nasal Cannula 2.00 12/19/16 10:59 99.9 86 18 131/70 (90) 92 Room Air Laboratory Tests Test 12/19/16 11:30 12/19/16 11:53 Urine Collection Type CATH Urine Color STRAW (YELLW/STRAW) Urine Turbidity CLEAR (CLEAR) Urine pH 5.5 (5.0-8.5) Urine Specific [place] 1.007 (1.002-1.035) Urine Protein NEG mg/dL (NEG-TRACE) Urine Glucose (UA) NEG mg/dL (NEG) Urine Ketones NEG mg/dL (NEG) Urine Occult Blood NEG (NEG) Urine Nitrite NEG (NEG) Urine Bilirubin NEG (NEG) Urine Leukocyte Esterase NEG (NEG) Urine WBC 0-2 /hpf (0-5) Microscopic Urinalysis Comment CULT NOT INDICATED White Blood Count 10.0 TH/MM3 (4.0-11.0) Red Blood Count 4.36 MIL/MM3 (4.50-5.90) Hemoglobin 12.3 GM/DL (13.0-17.0) Hematocrit 37.3 % (39.0-51.0) Mean Corpuscular Volume 85.5 FL (80.0-100.0) Mean Corpuscular Hemoglobin 28.1 PG (27.0-34.0) Mean Corpuscular Hemoglobin Concent 32.9 % (32.0-36.0) Red Cell Distribution Width 14.4 % (11.6-17.2) Platelet Count 211 TH/MM3 (150-450) Mean Platelet Volume 7.5 FL (7.0-11.0) Neutrophils (%) (Auto) 86.1 % (16.0-70.0) Lymphocytes (%) (Auto) 8.5 % (9.0-44.0) Monocytes (%) (Auto) 0.4 % (0.0-8.0) Eosinophils (%) (Auto) 3.9 % (0.0-4.0) Basophils (%) (Auto) 1.1 % (0.0-2.0) Neutrophils # (Auto) 8.7 TH/MM3 (1.8-7.7) Lymphocytes # (Auto) 0.8 TH/MM3 (1.0-4.8) Monocytes # (Auto) 0.0 TH/MM3 (0-0.9) Eosinophils # (Auto) 0.4 TH/MM3 (0-0.4) Basophils # (Auto) 0.1 TH/MM3 (0-0.2) CBC Comment DIFF FINAL Differential Comment Prothrombin Time 10.7 SEC (9.8-11.6) Prothromb Time International Ratio 1.0 RATIO Activated Partial Thromboplast Time 27.8 SEC (24.3-30.1) Blood Urea Nitrogen 11 MG/DL (7-18) Creatinine 0.85 MG/DL (0.60-1.30) Random Glucose 98 MG/DL (74-106) Total Protein 6.5 GM/DL (6.4-8.2) Albumin 3.0 GM/DL (3.4-5.0) Calcium Level 8.5 MG/DL (8.5-10.1) Magnesium Level 2.0 MG/DL (1.5-2.5) Alkaline Phosphatase 68 U/L (45-117) Aspartate Amino Transf (AST/SGOT) 21 U/L (15-37) Alanine Aminotransferase (ALT/SGPT) 17 U/L (12-78) Total Bilirubin 1.2 MG/DL (0.2-1.0) Sodium Level 139 MEQ/L (136-145) Potassium Level 4.1 MEQ/L (3.5-5.1) Chloride Level 103 MEQ/L (98-107) Carbon Dioxide Level 31.0 MEQ/L (21.0-32.0) Estimat Glomerular Filtration Rate 89 ML/MIN (>89) Lactic Acid Level 0.8 mmol/L (0.4-2.0) Patient afebrile emergency room. wbc 10.0, hgb 12.3, hct 37.3, plt 211 lactic acid 0.8 sodium 139, chloride 103, bun 11, creatine 0.85 ua: Negative leuk esterase, negative nitrite influenza neg xray of chest: Compensated cardiomegaly with minimal nonspecific bi basilar parenchymal changes Patient has no obvious source of infection at this time, he remains afebrile in the ER. Discussed with patient symptoms most likely are secondary to his recent chemotherapy treatment. Patient has been pancultured, plan to discharge patient with instructions to follow-up with his oncologist as well as his primary care doctor. Patient will return to the emergency room as needed. All labs and studies were reviewed with patient in detail, patient comfortable with being discharged to home with outpatient followup. Signs and symptoms of when to return to the ER was reviewed with patient in detail. Diagnosis Primary Impression: Fever Qualified Codes: R50.9 - Fever, unspecified Additional Impression: Generalized weakness Patient Instructions: General Instructions Additional Instructions: Please follow up with all cultures from today Return to ER if symptoms progress or worsen Please follow up with your oncologist as well as your primary care doctor in 2- 3 days Return to ER as needed Disposition: 01 DISCHARGE HOME Condition: Stable Mine Vergara DO Dec 19, 2016 11:58
[2016-12-19 12:06] LABS: BLOOD, URINE NEG (NEG); GLUCOSE,URINE NEG (NEG); KETONE, URINE NEG (NEG); NITRITE,URINE NEG (NEG); PH, URINE 5.5 (5.0-8.5)
[2016-12-19 12:06] LABS: AUTOMATED NEUTROPHIL # 8.7 TH/MM3 (1.8-7.7); BASOPHIL # 0.1 TH/MM3 (0-0.2); BASOPHIL % 1.1 % (0.0-2.0); EOSINOPHIL # 0.4 TH/MM3 (0-0.4); EOSINOPHIL % 3.9 % (0.0-4.0); HEMATOCRIT 37.3 % (39.0-51.0); HEMO FLAGS DIFF FINAL; LYMPH % 8.5 % (9.0-44.0); LYMPHOCYTE # 0.8 TH/MM3 (1.0-4.8); MEAN CELL VOLUME 85.5 FL (80.0-100.0); MEAN CORPUSCULAR HEMOGLOBIN 28.1 PG (27.0-34.0); MEAN CORPUSCULAR HGB CONC 32.9 % (32.0-36.0); MONO % 0.4 % (0.0-8.0); NEUT % 86.1 % (16.0-70.0); PLATELET COUNT 211 TH/MM3 (150-450); RED BLOOD COUNT 4.36 MIL/MM3 (4.50-5.90); RED CELL DISTRIBUTION WIDTH 14.4 % (11.6-17.2)
[2016-12-19 12:08] LABS: METHOD OF COLLECTION CATH; URINE COLOR STRAW (YELLW/STRAW)
[2016-12-19 12:10] VITALS: O2SAT 93
[2016-12-19 12:10] LABS: WBC, URINE 0-2 /hpf (0-5)
[2016-12-19 12:11] LABS: COMMENT (UR) CULT NOT INDICATED; CULTURE IF INDICATED CULT NOT INDICATED
[2016-12-19 12:13] LABS: CHLORIDE 103 MEQ/L (98-107); POTASSIUM 4.1 MEQ/L (3.5-5.1); SODIUM (NA) 139 MEQ/L (136-145)
[2016-12-19 12:17] LABS: ANION GAP 5 MEQ/L (5-15); APTT (PATIENT) 27.8 SEC (24.3-30.1); BLOOD UREA NITROGEN 11 MG/DL (7-18); PROTHROMBIN TIME - PATIENT 10.7 SEC (9.8-11.6)
--- NOTE | 2016-12-19 12:18 | RADRPT ---
EXAM DATE/TIME: 12/19/2016 11:56 [facility] COMPARISON: CHEST SINGLE AP, November 01, 2016, 9:08. INDICATIONS : Fever post chemo. MEDICAL HISTORY : Hypertension. Cardiovascular disease. SURGICAL HISTORY : CABG. Infusaport PAIN SCORE: 3/10 LOCATION: Bilateral chest FINDINGS: [place] in good position. Mild compensated cardiomegaly with history of bypass. Minimal by bas ilar parenchymal changes, improved in the interval. There is no significant effusion or pneumothorax. CONCLUSION: Compensated cardiomegaly with minimal nonspecific bi basilar parenchymal changes Jonn Martinez MD FACR on December 19, 2016 at 12:14 Board Certified Radiologist. This report was verified electronically.
[2016-12-19 12:20] LABS: ALT (GPT) 17 U/L (12-78); AST (GOT) 21 U/L (15-37); GLOMERULAR FILTRATION RATE 89 ML/MIN (>89)
[2016-12-19 12:22] LABS: TOTAL BILIRUBIN ADULT 1.2 MG/DL (0.2-1.0)
[2016-12-19 12:23] LABS: ALKALINE PHOSPHATASE 68 U/L (45-117)
[2016-12-19 13:19] VITALS: BP 114/53
--- NOTE | 2016-12-21 07:21 | EKG ---
Date Performed: 12/19/2016 Time Performed: 12:05:40 PTAGE: 71 years EKG: Sinus rhythm WITH OCCASIONAL VENTRICULAR PREMATURE COMPLEXES RIGHT BUNDLE BRANCH BLOCK DIFFUSE NONSPECIFIC ST-T C HANGE Compared to previous tracing no significant change ABNORMAL ECG PREVIOUS TRACING : 11/01/2016 09.25 DOCTOR: Ronnell Brooks Interpretating Date/Time 12/21/2016 07:21:17
== END 2016-12-19 13:21 | disposition home or self-care (01) ==
LOC: PHED 10:46
DX: C34.90 Malignant neoplasm of unspecified part of unspecified bronchus or lung (principal); R50.9 Fever, unspecified; R53.1 Weakness; F17.200 Nicotine dependence, unspecified, uncomplicated; I50.9 Heart failure, unspecified; I11.0 Hypertensive heart disease with heart failure
CPT/HCPCS: 71010; 80053; 81001; 83605; 83735; 85025; 85610; 85730; 87040; 87804; 93005; 96360; 99285; J7030

== ENCOUNTER 2017-06-14 17:37 | Observation (INO) | payer OTHER ==
[2017-06-14] VITALS (7 sets, daily range): BP systolic 103–139; BP diastolic 53–78; PULSE 82–105; RESP 18–24; TEMP 96.7–98.5; O2SAT 86–97
[~2017-06-14 17:37] MED LIST changes: -ASPI81TA11 PO; +ASPI81TA23 PO
[2017-06-14] MEDS ORDERED: SODIUM CHLORIDE 0.9% FLUSH 10 ML FLUSH IVF PRN (18:00)
[2017-06-14] MEDS ORDERED: methylPREDNISolone SOD SUCC 125 MG/2 ML VIAL IV PUSH ONE (18:00)
--- NOTE | 2017-06-14 18:02 | PD ---
HPI Chief Complaint: Respiratory Distress Time Seen by Provider: 17:49 Travel History International Travel<30 days: No Contact w/Intl Traveler<30days: No History of Present Illness HPI Patient is a 71-year-old male with non-small cell lung cancer stage III diagnosed November 2016, chronic back pain, BPH, COPD with oxygen dependence, coronary artery disease, hypertension, peripheral neuropathy and arthritis. Patient currently is on treatment with consolidation chemotherapy with Taxol and carboplatin, he reports that he has 1 more dose of chemotherapy left and is being followed by Dr. Gaines. Patient was also receiving combined radiation treatment as well for his lung cancer. Patient had completed his radiation therapy on March 10, 2017. patient was seen by Dr. Gaines yesterday - chemotherapy was held yesterday due to his thrombocytopenia: his white blood cell count was 5.6, hemoglobin 10.8, platelet count 79. Patient was scheduled to have a repeat CAT scan next week, he did complain of shortness of breath yesterday during his visit with Dr. Gaines. Patient reports that today, he has not been feeling well. Patient reports that he has had fevers and chills for the past few days, patient reports that when he coughs, he has thick white mucus. Patient reports that he cannot seem to catch his breath today despite being on 3 L nasal cannula at all times. Denies any chest pain at this time. PFSH Past Medical History Arthritis: Yes Autoimmune Disease: No Blood Disorders: No Depression: Yes Heart Rhythm Problems: Yes ("IRREGULAR AT TIMES") Cancer: No Cardiac Catheterization: Yes (2011 WITH STENT) Cardiovascular Problems: Yes (NOT REMEMBER) High Cholesterol: Yes Chest Pain: Yes Congestive Heart Failure: Yes COPD: Yes Coronary Artery Disease: Yes Diabetes: No Diminished Hearing: No Endocrine: No GERD: Yes Genitourinary: No Hypertension: Yes Immune Disorder: No Implanted Vascular Access Dvce: Yes Kidney Stones: Yes Musculoskeletal: No Neurologic: No Psychiatric: No Reproductive: No Respiratory: Yes (COPD) Integumentary: Yes Myocardial Infarction: Yes (X1 2004) Pneumonia: Yes Shingles: Yes Thyroid Disease: Yes Past Surgical History Abdominal Surgery: No Body Medical Devices: STENTS, Cardiac Surgery: Yes (BY PASS) Cholecystectomy: Yes Coronary Artery Bypass Graft: Yes (2000: 4 VESSEL) Coronary Stent: Yes (2011) Ear Surgery: No Endocrine Surgery: No Eye Surgery: No Genitourinary Surgery: Yes (GALBLADDER) Gynecologic Surgery: No Oral Surgery: No Thoracic Surgery: No Other Surgery: Yes (BY ROBE, FERCHO THAYER) Family History Family Hypercholesterolemia: Yes Social History Alcohol Use: Yes (RARE) Tobacco Use: Yes (<1/2 PPD) Substance Use: No Allergies-Medications (Allergen,Severity, Reaction): Coded Allergies: No Known Allergies (Unverified Allergy, Unknown, 05/08/17) Reported Meds & Prescriptions Reported Meds & Active Scripts Active Reported Morphine IR (Morphine Sulfate) 30 Mg Tab 30 Mg PO QID PRN Aspirin EC (Aspirin) 81 Mg Tabdr 81 Mg PO DAILY Tamsulosin (Tamsulosin HCl) 0.4 Mg Cap 0.4 Mg PO WITH DINNER Meclizine (Meclizine HCl) 25 Mg Tab 25 Mg PO TID PRN Potassium Chloride ER (Potassium Chloride) 20 Meq Tab 20 Meq PO BID Metoprolol Tartrate 25 Mg Tab 25 Mg PO DAILY Amlodipine (Amlodipine Besylate) 5 Mg Tab 5 Mg PO DAILY Famotidine 20 Mg Tab 20 Mg PO BID Atorvastatin (Atorvastatin Calcium) 10 Mg Tab 10 Mg PO DAILY Furosemide 40 Mg Tab 40 Mg PO DAILY Levocetirizine 5 Mg Tab 5 Mg PO DAILY Diclofenac Sodium DR (Diclofenac Sodium) 75 Mg Tabdr 75 Mg PO BID NEEDED Gabapentin 600 Mg Tab 600 Mg PO TID Fentanyl Patch 72 HR (Fentanyl) 75 Mcg/Hr Patch 75 Mcg T-DERMAL Q72H Remove old patch when new one placed. Review of Systems General / Constitutional: Positive: Fever, Chills Eyes: No: Visual changes HENT: No: Headaches Cardiovascular: No: Chest Pain or Discomfort Respiratory: Positive: Cough, Shortness of Breath Gastrointestinal: No: Abdominal Pain Genitourinary: No: Dysuria Musculoskeletal: No: Pain Skin: No Rash Neurologic: No: Weakness Psychiatric: No: Depression Endocrine: No: Polydipsia Hematologic/Lymphatic: No: Easy Bruising Physical Exam Narrative GENERAL: mild distress SKIN: Focused skin assessment warm/dry. HEAD: Atraumatic. Normocephalic. EYES: Pupils equal and round. No scleral icterus. No injection or drainage. ENT: No nasal bleeding or discharge. Mucous membranes pink and moist. NECK: Trachea midline. No JVD. CARDIOVASCULAR: Regular rate and rhythm. No murmur appreciated. RESPIRATORY: No accessory muscle use. Clear to auscultation. Breath sounds equal bilaterally. GASTROINTESTINAL: Abdomen soft, non-tender, nondistended. Hepatic and splenic margins not palpable. MUSCULOSKELETAL: No obvious deformities. No clubbing. No cyanosis. No edema. NEUROLOGICAL: Awake and alert. No obvious cranial nerve deficits. Motor grossly within normal limits. Normal speech. PSYCHIATRIC: anxious mood and affect; insight and judgment normal. Data Data Last Documented VS Vital Signs Date Time Temp Pulse Resp B/P (MAP) Pulse Ox O2 Delivery O2 Flow Rate FiO2 06/14/17 19:01 105 103/53 (70) 95 Nasal Cannula 2.00 06/14/17 18:00 24 06/14/17 17:58 98.5 Orders Orders Complete Blood Count With Diff (06/14/17:49) Comprehensive Metabolic Panel (06/14/17 17:49) Prothrombin Time / Inr (Pt) (06/14/17:49) Act Partial Throm Time (Ptt) (06/14/17:49) Lactic Acid Sepsis Protocol (06/14/17:49) Magnesium (Mg) (06/14/17 17:49) Ckmb (Isoenzyme) Profile (06/14/17 17:49) Troponin I (06/14/17:49) Urinalysis - C+S If Indicated (06/14/17:49) Influenzae A/B Antigen (06/14/17 17:49) Blood Culture (06/14/17 17:49) Chest, Single Ap (06/14/17 17:49) Ecg Monitoring (06/14/17:49) Iv Access Insert/Monitor (06/14/17:49) Oximetry (06/14/17 17:49) Oxygen Administration (06/14/17:49) Methylprednisolone So Succ Inj (Solumedr (06/14/17 18:00) Albuterol-Ipratropium Neb (Duoneb Neb) (06/14/17 18:00) Sodium Chloride 0.9% Flush (Ns Flush) (06/14/17 18:00) Heparin Central Flush (Heparin Central F (06/14/17 18:00) B-Type Natriuretic Peptide (06/14/17 18:18) Ct Pulmonary Angiogram (06/14/17 18:51) Iohexol 350 Inj (Omnipaque 350 Inj) (06/14/17 19:50) Morphine Inj (Morphine Inj) (06/14/17 20:30) Ceftriaxone Inj (Rocephin Inj) (06/14/17 20:30) Azithromycin Inj (Zithromax Inj) (06/14/17 20:30) Labs Laboratory Tests Test 06/14/17 17:58 06/14/17 19:25 White Blood Count 4.9 TH/MM3 Red Blood Count 3.30 MIL/MM3 Hemoglobin 10.5 GM/DL Hematocrit 32.9 % Mean Corpuscular Volume 99.9 FL Mean Corpuscular Hemoglobin 31.8 PG Mean Corpuscular Hemoglobin Concent 31.8 % Red Cell Distribution Width 15.6 % Platelet Count 105 TH/MM3 Mean Platelet Volume 6.8 FL Neutrophils (%) (Auto) 77.2 % Lymphocytes (%) (Auto) 9.8 % Monocytes (%) (Auto) 11.4 % Eosinophils (%) (Auto) 0.9 % Basophils (%) (Auto) 0.7 % Neutrophils # (Auto) 3.8 TH/MM3 Lymphocytes # (Auto) 0.5 TH/MM3 Monocytes # (Auto) 0.6 TH/MM3 Eosinophils # (Auto) 0.0 TH/MM3 Basophils # (Auto) 0.0 TH/MM3 CBC Comment DIFF FINAL Differential Comment Prothrombin Time 11.3 SEC Prothromb Time International Ratio 1.1 RATIO Activated Partial Thromboplast Time 31.0 SEC Blood Urea Nitrogen 12 MG/DL Creatinine 0.74 MG/DL Random Glucose 84 MG/DL Total Protein 7.0 GM/DL Albumin 3.0 GM/DL Calcium Level 8.9 MG/DL Magnesium Level 1.9 MG/DL Alkaline Phosphatase 90 U/L Aspartate Amino Transf (AST/SGOT) 10 U/L Alanine Aminotransferase (ALT/SGPT) 15 U/L Total Bilirubin 0.8 MG/DL Sodium Level 137 MEQ/L Potassium Level 3.9 MEQ/L Chloride Level 101 MEQ/L Carbon Dioxide Level 26.8 MEQ/L Anion Gap 9 MEQ/L Estimat Glomerular Filtration Rate 104 ML/MIN Lactic Acid Level 0.8 mmol/L Total Creatine Kinase 53 U/L Troponin I LESS THAN 0.02 NG/ML B-Type Natriuretic Peptide 510 PG/ML Urine Color YELLOW Urine Turbidity CLEAR Urine pH 5.5 Urine Specific [place] GREATER/EQUAL 1.030 Urine Protein TRACE mg/dL Urine Glucose (UA) NEG mg/dL Urine Ketones 40 mg/dL Urine Occult Blood TRACE Urine Nitrite NEG Urine Bilirubin NEG Urine Urobilinogen 0.2 MG/DL Urine Leukocyte Esterase NEG Urine RBC 0-3 /hpf Urine WBC 0-2 /hpf Urine Squamous Epithelial Cells 0-5 /hpf Urine Hyaline Casts 6-9 /lpf Urine Mucus FEW /lpf Microscopic Urinalysis Comment CATH-CULT NOT IND MDM Medical Decision Making Medical Screen Exam Complete: Yes Emergency Medical Condition: Yes Medical Record Reviewed: Yes Interpretation(s) Vital Signs Date Time Temp Pulse Resp B/P (MAP) Pulse Ox O2 Delivery O2 Flow Rate FiO2 06/14/17 18:00 24 94 Nasal Cannula 2.00 06/14/17 17:58 98.5 82 24 139/78 (98) 86 Differential Diagnosis COPD exacerbation, CHF exacerbation, pneumonia, PE, electrolyte abnormality, pneumothorax, ACS Narrative Course During the course of the patients emergency department visit, the patients history, examination, and differential diagnosis were reviewed with the patient. The patient was placed on a school lunch monitor with oximetry and frequent blood pressure monitoring. The patient had an IV access obtained and blood work sent for analysis. The patient was initially provided IV steroids as well as neb treatments The patients laboratory studies were reviewed and remarkable for: CBC & BMP Diagram 06/14/17 17:58 Total Protein 7.0, Albumin 3.0 L, Calcium Level 8.9, Magnesium Level 1.9, Alkaline Phosphatase 90, Aspartate Amino Transf (AST/SGOT) 10 L, Alanine Aminotransferase (ALT/SGPT) 15, Total Bilirubin 0.8 Lactic acid is 0.8 Troponins less than 0.02 BNP 510 Microbiology Date/Time Source Procedure Growth Status 06/14/17 18:25 Blood Peripheral Aerobic Blood Culture Pending Received 06/14/17 18:25 Blood Peripheral Anaerobic Blood Culture Pending Received 06/14/17 17:58 Blood Peripheral Aerobic Blood Culture Pending Received 06/14/17 17:58 Blood Peripheral Anaerobic Blood Culture Pending Received 06/14/17 17:58 Nasal Aspirate Influenza Types A,B Antigen (CORRINA) - Final NEGATIVE FOR FLU A AND B ANTIGEN.... Complete Radiology studies were reviewed and remarkable for: Last Impressions Chest X-Ray 06/14/17 0451 Signed Impressions: Service Date/Time: Wednesday, June 14, 2017 18:02 - CONCLUSION: 1. Small pleural effusions. Cardiomegaly. Hiatal hernia with probable basilar atelectasis. Kevin Sadler MD Patient with pulse ox of 95% at 2 liter which is at baseline. Plan to order CTA to rule out PE. Last Impressions CT Angiography 06/14/17 1851 Signed Impressions: Service Date/Time: Wednesday, June 14, 2017 19:32 - CONCLUSION: 1. Negative for pulmonary embolus. 2. Decrease in size of right lung mass and metastatic right hilar adenopathy since October 2016. 3. Mild left basilar airspace consolidation with moderate to large hiatal hernia. Moderate to severe coronary calcifications. Kevin Sadler MD Chest X-Ray 06/14/17 1749 Signed Impressions: Service Date/Time: Wednesday, June 14, 2017 18:02 - CONCLUSION: 1. Small pleural effusions. Cardiomegaly. Hiatal hernia with probable basilar atelectasis. Kevin Sadler MD CTA negative for PE. There is a decrease in size of the right lung mass and metastatic right hilar adenopathy since October 2016. There is mild left basilar airspace consolidation with moderate large hiatal hernia. -Patient has been pancultured, will start patient on antibiotics. Diagnosis Primary Impression: Pneumonia Qualified Codes: J18.1 - Lobar pneumonia, unspecified organism Additional Impression: Shortness of breath Admitting Information Admitting Physician Requests: Mine Roque DO Jun 14, 2017 18:02
[2017-06-14] MEDS: RESP: ALBUTEROL 2.5 MG/IPRATROPIUM 0.5 MG NEB (SCH) INH (18:05)
[2017-06-14 18:18] LABS: AUTOMATED NEUTROPHIL # 3.8 TH/MM3 (1.8-7.7); BASOPHIL % 0.7 % (0.0-2.0); EOSINOPHIL % 0.9 % (0.0-4.0); HEMATOCRIT 32.9 % (39.0-51.0); HEMOGLOBIN 10.5 GM/DL (13.0-17.0); LYMPH % 9.8 % (9.0-44.0); LYMPHOCYTE # 0.5 TH/MM3 (1.0-4.8); MEAN CELL VOLUME 99.9 FL (80.0-100.0); MEAN CORPUSCULAR HEMOGLOBIN 31.8 PG (27.0-34.0); MEAN CORPUSCULAR HGB CONC 31.8 % (32.0-36.0); MEAN PLATELET VOLUME 6.8 FL (7.0-11.0); MONO % 11.4 % (0.0-8.0); MONOCYTE # 0.6 TH/MM3 (0-0.9); NEUT % 77.2 % (16.0-70.0); PLATELET COUNT 105 TH/MM3 (150-450); RED CELL DISTRIBUTION WIDTH 15.6 % (11.6-17.2); WHITE BLOOD COUNT 4.9 TH/MM3 (4.0-11.0)
[2017-06-14 18:27] LABS: CHLORIDE 101 MEQ/L (98-107); SODIUM (NA) 137 MEQ/L (136-145)
--- NOTE | 2017-06-14 18:30 | RADRPT ---
EXAM DATE/TIME: 06/14/2017 18:02 [facility] COMPARISON: CHEST SINGLE AP, December 19, 2016, 11:56. INDICATIONS : Short of breath and chest pain. MEDICAL HISTORY : Hypertension. Cardiovascular disease. SURGICAL HISTORY : CABG. Infusaport. ENCOUNTER: Initial ACUITY: 1 day PAIN SCORE: 9/10 LOCATION: Bilateral chest FINDINGS: A single view of the chest demonstrates [id number] tip in superior vena cava. Previous sternotomy. Subsegmental basilar airspace disease. Small effusions. No pneumothorax. Postoperative CABG. CONCLUSION: 1. Small pleural effusions. Cardiomegaly. Hiatal hernia with probable basilar atelectasis. Kevin Sadler MD on June 14, 2017 at 18:25 Board Certified Radiologist. This report was verified electronically.
[2017-06-14 18:31] LABS: BICARBONATE 26.8 MEQ/L (21.0-32.0); BLOOD UREA NITROGEN 12 MG/DL (7-18); CALCIUM 8.9 MG/DL (8.5-10.1); GLUCOSE,RANDOM 84 MG/DL (74-106); MAGNESIUM 1.9 MG/DL (1.5-2.5)
[2017-06-14 18:33] LABS: INTERNATIONAL NORMALIZED RATIO 1.1 RATIO; PROTHROMBIN TIME - PATIENT 11.3 SEC (9.8-11.6)
[2017-06-14 18:34] LABS: ALT (GPT) 15 U/L (12-78); AST (GOT) 10 U/L (15-37); CREATININE 0.74 MG/DL (0.60-1.30); GLOMERULAR FILTRATION RATE 104 ML/MIN (>89)
[2017-06-14 18:36] LABS: TOTAL BILIRUBIN ADULT 0.8 MG/DL (0.2-1.0)
[2017-06-14 18:37] LABS: ALKALINE PHOSPHATASE 90 U/L (45-117)
[2017-06-14 18:39] LABS: TROPONIN I LESS THAN 0.02 NG/ML (0.02-0.05)
[2017-06-14 19:37] LABS: BLOOD, URINE TRACE (NEG); GLUCOSE,URINE NEG (NEG); KETONE, URINE 40 mg/dL (NEG); NITRITE,URINE NEG (NEG); PH, URINE 5.5 (5.0-8.5); URINE COLOR YELLOW (YELLW/STRAW); URINE LEUKOCYTE ESTERASE NEG (NEG)
[2017-06-14 19:39] LABS: BILIRUBIN, URINE NEG (NEG)
[2017-06-14 19:49] LABS: MUCUS URINE FEW /lpf (OCC); RBC, URINE 0-3 /hpf (0-3); SQUAMOUS EPITHELIAL CELL URINE 0-5 /hpf (0-5); WBC, URINE 0-2 /hpf (0-5)
[2017-06-14] MEDS ORDERED: IOHEXOL 350 MG/ML 10 ML VIAL (for RAD DIAG) IVCONTRAST ONE (19:50)
--- NOTE | 2017-06-14 20:03 | RADRPT ---
EXAM DATE/TIME: 06/14/2017 19:32 [facility] COMPARISON: No previous studies available for comparison. INDICATIONS : Shortness of breath. IV CONTRAST: 65 cc Omnipaque 350 (iohexol) IV RADIATION DOSE: 13.95 CTDIvol (mGy) MEDICAL HISTORY : Myocardial infarction. Chronic obstructive pulmonary disease. Carcinoma, lung. SURGICAL HISTORY : CABG Cholecystectomy. ENCOUNTER: Initial ACUITY: 1 day PAIN SCALE: 0/10 LOCATION: Bilateral chest TECHNIQUE: Volumetric scanning of the chest was performed using a pulmonary embolism protocol MIP images were re constructed. Using automated exposure control and adjustment of the mA and/or kV according to patien t size, radiation dose was kept as low as reasonably achievable to obtain optimal diagnostic quality images. DICOM format image data is available electronically for review and comparison. Follow-up recommendations for detected pulmonary nodules are based at a minimum on nodule size and pa tient risk factors according to Fleischner Society Guidelines. FINDINGS: No previous 5.9 x 4.4 cm mass in right lower lobe has decreased in size to about 4.6 x 2.6 cm. The ri ght-sided hilar adenopathy has also decreased. Stable precarinal lymph node. No filling defects to suggest pulmonary by disease. Small right-sided pleural effusion. Moderate cent rilobular and paraseptal emphysema. Subsegmental left basilar airspace disease with moderate to large left hiatal hernia. Upper abdomen revealed cystic changes in the liver and right kidney. CONCLUSION: 1. Negative for pulmonary embolus. 2. Decrease in size of right lung mass and metastatic right hilar adenopathy since October 2016. 3. Mild left basilar airspace consolidation with moderate to large hiatal hernia. Moderate to severe coronary calcifications. Kevin Sadler MD on June 14, 2017 at 19:55 Board Certified Radiologist. This report was verified electronically.
[2017-06-14] MEDS ORDERED: MORPHINE SULFATE 2 MG/ML SYRINGE IV PUSH ONE (20:30)
[2017-06-14] MEDS ORDERED: AZITHROMYCIN INJ 500 MG in SODIUM CHLOR 0.9% 250 ML INJ 250 ML IV ONE (20:30)
[2017-06-14] MEDS ORDERED: cefTRIAXone INJ 1,000 MG in SODIUM CHLORIDE 0.9% INJ 100 ML IV ONE (20:30)
[2017-06-14] MEDS ORDERED: MAGNESIUM HYDROXIDE SUSP 30 ML CUP PO PRN (20:45)
[2017-06-14] MEDS ORDERED: RESP: ALBUTEROL 2.5 MG/IPRATROPIUM 0.5 MG NEB (PRN) NEB (20:45)
[2017-06-14] MEDS ORDERED: SENNOSIDES 8.6 MG TAB PO PRN (20:45)
[2017-06-14] MEDS ORDERED: ACETAMINOPHEN 325 MG TAB PO PRN (20:45)
[2017-06-14] MEDS ORDERED: LACTULOSE SYRUP 20 GM/30 ML CUP PO PRN (20:45)
[2017-06-14] MEDS ORDERED: NALOXONE HCL 0.4 MG/ML AMP IV PUSH PRN (20:45)
[2017-06-14] MEDS ORDERED: ONDANSETRON HCL 4 MG/2 ML VIAL IVP PRN (20:45)
[2017-06-14] MEDS ORDERED: BISACODYL 10 MG SUPP RECTAL PRN (20:45)
[2017-06-14] MEDS: SODIUM CHLORIDE 0.9% FLUSH 10 ML FLUSH IV FLUSH SCH (21:28)
[2017-06-14] MEDS: DOCUSATE SODIUM 50 MG/SENNA 8.6 MG TAB PO SCH (21:28)
[2017-06-14] MEDS: HEPARIN SODIUM - SQ 10,000 UNITS/ML VIAL SQ SCH (21:31)
[2017-06-14] MEDS: RESP: ALBUTEROL 2.5 MG/IPRATROPIUM 0.5 MG NEB (SCH) NEB (22:12)
[2017-06-14] MEDS: guaiFENesin E.R. 600 MG TAB PO SCH (22:28)
[2017-06-15] VITALS (7 sets, daily range): BP systolic 101–138; BP diastolic 63–87; PULSE 73–85; RESP 16–18; TEMP 96.7–97.7; O2SAT 92–97
[2017-06-15] MEDS: RESP: ALBUTEROL 2.5 MG/IPRATROPIUM 0.5 MG NEB (SCH) NEB ×4 (03:00→20:23)
[2017-06-15] MEDS: HEPARIN SODIUM - SQ 10,000 UNITS/ML VIAL SQ SCH (05:22)
[2017-06-15 05:57] LABS: AUTOMATED NEUTROPHIL # 3.6 TH/MM3 (1.8-7.7); BASOPHIL # 0.1 TH/MM3 (0-0.2); BASOPHIL % 2.3 % (0.0-2.0); HEMATOCRIT 29.8 % (39.0-51.0); HEMOGLOBIN 9.3 GM/DL (13.0-17.0); LYMPH % 4.6 % (9.0-44.0); LYMPHOCYTE # 0.2 TH/MM3 (1.0-4.8); MEAN CELL VOLUME 99.1 FL (80.0-100.0); MEAN CORPUSCULAR HEMOGLOBIN 30.8 PG (27.0-34.0); MEAN CORPUSCULAR HGB CONC 31.1 % (32.0-36.0); MEAN PLATELET VOLUME 7.3 FL (7.0-11.0); MONO % 6.2 % (0.0-8.0); MONOCYTE # 0.3 TH/MM3 (0-0.9); NEUT % 86.9 % (16.0-70.0); PLATELET COUNT 91 TH/MM3 (150-450); RED BLOOD COUNT 3.01 MIL/MM3 (4.50-5.90); RED CELL DISTRIBUTION WIDTH 15.6 % (11.6-17.2); WHITE BLOOD COUNT 4.2 TH/MM3 (4.0-11.0)
[2017-06-15] MEDS ORDERED: MORPHINE SULFATE 15 MG TAB PO ONE (06:00)
[2017-06-15 06:15] LABS: BANDS 17 % (0-6); LYMPHOCYTES 3 % (9-44); MONOCYTES 4 % (0-8); NEUTROPHIL # MANUAL DIFF 3.9 TH/MM3 (1.8-7.7); POLYS (SEG NEUTROPHILS) 76 % (16-70)
[2017-06-15 06:16] LABS: OVALOCYTES 1+ (NORMAL)
[2017-06-15] MEDS ORDERED: MORPHINE SULFATE 30 MG TAB PO ONE (06:20)
[2017-06-15 06:30] LABS: BICARBONATE 28.4 MEQ/L (21.0-32.0); CALCIUM 8.9 MG/DL (8.5-10.1); CREATININE 0.7 MG/DL (0.60-1.30)
[2017-06-15] MEDS: SODIUM CHLORIDE 0.9% FLUSH 10 ML FLUSH IV FLUSH PRN ×2 (07:55→10:49)
[2017-06-15] MEDS: SODIUM CHLORIDE 0.9% FLUSH 10 ML FLUSH IV FLUSH SCH ×3 (08:51→09:00)
[2017-06-15] MEDS: guaiFENesin E.R. 600 MG TAB PO SCH ×2 (08:51→22:31)
[2017-06-15] MEDS: DOCUSATE SODIUM 50 MG/SENNA 8.6 MG TAB PO SCH ×2 (08:51→22:31)
[2017-06-15] MEDS ORDERED: MECLIZINE HCL 25 MG TAB PO PRN (09:00)
--- NOTE | 2017-06-15 09:18 | HHI.HP ---
[facility] Service [facility] Primary Care Physician Jessica Yoon Do, MD Admission Diagnosis Pneumonia Diagnoses: Chief Complaint: Shortness of breath Travel History International Travel<30 Days: No Contact w/Intl Traveler <30 Da: No Traveled to Known Affected Are: No History of Present Illness 71-year-old white male being admitted for shortness of breath Patient was in his usual state of health until about a few days ago and he began experiencing a gradual onset of shortness of breath that progressed over the next few days. Reports having subjective fevers and chills. Says his cough was worse than usual and today it sounds awfully wet and it is productive without any blood. Patient reports feeling nauseated this morning. Denies any abdominal pain or diarrhea. Denies any new onset chest pain. Reports having the same chronic pain. Says that otherwise he has been able to take his prescribed medications at home compliantly. Reports per emergency room records that he recently had a round of chemotherapy, is being treated for small cell lung cancer by oncology. In the emergency room the patient underwent a CT pulmonary angiogram which was negative for pulmonary embolism, my independent review showed that he has what appears to be infiltrates in the left base. The lung mass on the right side appears to be smaller per radiology read based on prior studies. Past medical history includes small cell lung cancer, COPD, patient reports having pneumonia multiple times in the past but denies of being put on a ventilator. Patient says he wears oxygen only at night. Has chronic pain issues, has a fentanyl patch. Social history includes a lifelong history of smoking, denies drinking. Family history includes father having some stomach cancer. Review of Systems Except as stated in HPI: all other systems reviewed are Neg Past Family Social History Allergies: Coded Allergies: No Known Allergies (Unverified Allergy, Unknown, 05/08/17) Physical Exam Vital Signs Vital Signs Date Time Temp Pulse Resp B/P (MAP) Pulse Ox O2 Delivery O2 Flow Rate FiO2 06/15/17 08:44 92 Nasal Cannula 2.00 06/15/17 00:00 97.3 85 18 115/69 (84) 97 4/11/18 22:12 93 Nasal Cannula 2.00 06/14/17 22:00 96.7 92 20 114/72 (86) 96 06/14/17 21:45 06/14/17 21:00 95 18 105/60 (75) 95 Nasal Cannula 2.00 06/14/17 20:24 91 114/67 (83) 95 06/14/17 19:01 105 103/53 (70) 95 Nasal Cannula 2.00 06/14/17 18:20 97 Nasal Cannula 2.00 06/14/17 18:20 90 Nasal Cannula 2.00 06/14/17 18:00 24 94 Nasal Cannula 2.00 06/14/17 17:58 98.5 82 24 139/78 (98) 86 Physical Exam VS: afebrile GENERAL: Lying in bed, appears miserable and fatigued, mild to moderately labored breathing, no cyanosis, actively coughs up yellowish sputum SKIN: Warm and dry. EYES: No scleral icterus. No injection or drainage. ENT: No nasal bleeding or discharge. Mucous membranes pink and moist. CARDIOVASCULAR: Regular rate and rhythm. no murmurs RESPIRATORY: No accessory muscle use. Significantly diminished breath sounds bilaterally with mild crackles heard in the left base GASTROINTESTINAL: Abdomen soft, non-tender, nondistended. Extremities: No clubbing, cyanosis, or edema. No obvious deformities. MUSCULOSKELETAL: adequate muscle bulk and tone for age and habitus NEUROLOGICAL: Awake and alert. No obvious cranial nerve deficits. No facial droop nor slurred speech noted. PSYCHIATRIC: Appropriate mood and affect; insight and judgment normal. Laboratory Laboratory Tests Test 06/14/17 17:58 06/14/17 19:25 06/15/17 05:15 White Blood Count 4.9 4.2 Red Blood Count 3.30 3.01 Hemoglobin 10.5 9.3 Hematocrit 32.9 29.8 Mean Corpuscular Volume 99.9 99.1 Mean Corpuscular Hemoglobin 31.8 30.8 Mean Corpuscular Hemoglobin Concent 31.8 31.1 Red Cell Distribution Width 15.6 15.6 Platelet Count 105 91 Mean Platelet Volume 6.8 7.3 Neutrophils (%) (Auto) 77.2 86.9 Lymphocytes (%) (Auto) 9.8 4.6 Monocytes (%) (Auto) 11.4 6.2 Eosinophils (%) (Auto) 0.9 0.0 Basophils (%) (Auto) 0.7 2.3 Neutrophils # (Auto) 3.8 3.6 Lymphocytes # (Auto) 0.5 0.2 Monocytes # (Auto) 0.6 0.3 Eosinophils # (Auto) 0.0 0.0 Basophils # (Auto) 0.0 0.1 CBC Comment DIFF FINAL AUTO DIFF Differential Comment FINAL DIFF MANUAL Prothrombin Time 11.3 Prothromb Time International Ratio 1.1 Activated Partial Thromboplast Time 31.0 Blood Urea Nitrogen 12 15 Creatinine 0.74 0.70 Random Glucose 84 127 Total Protein 7.0 Albumin 3.0 Calcium Level 8.9 8.9 Magnesium Level 1.9 Alkaline Phosphatase 90 Aspartate Amino Transf (AST/SGOT) 10 Alanine Aminotransferase (ALT/SGPT) 15 Total Bilirubin 0.8 Sodium Level 137 138 Potassium Level 3.9 4.7 Chloride Level 101 101 Carbon Dioxide Level 26.8 28.4 Anion Gap 9 9 Estimat Glomerular Filtration Rate 104 111 Lactic Acid Level 0.8 Total Creatine Kinase 53 Troponin I LESS THAN 0.02 B-Type Natriuretic Peptide 510 Urine Color YELLOW Urine Turbidity CLEAR Urine pH 5.5 Urine Specific [place] GREATER/EQUAL 1.030 Urine Protein TRACE Urine Glucose (UA) NEG Urine Ketones 40 Urine Occult Blood TRACE Urine Nitrite NEG Urine Bilirubin NEG Urine Urobilinogen 0.2 Urine Leukocyte Esterase NEG Urine RBC 0-3 Urine WBC 0-2 Urine Squamous Epithelial Cells 0-5 Urine Hyaline Casts 6-9 Urine Mucus FEW Microscopic Urinalysis Comment CATH-CULT NOT IND Differential Total Cells Counted 100 Neutrophils % (Manual) 76 Band Neutrophils % 17 Lymphocytes % 3 Monocytes % 4 Neutrophils # (Manual) 3.9 Platelet Estimate LOW Platelet Morphology Comment NORMAL Ovalocytes 1+ Date/Time Source Procedure Growth Status 06/14/17 18:25 Blood Peripheral Aerobic Blood Culture Pending Received 06/14/17 18:25 Blood Peripheral Anaerobic Blood Culture Pending Received 06/14/17 17:58 Nasal Aspirate Influenza Types A,B Antigen (CORRINA) - Final NEGATIVE FOR FLU A AND B ANTIGEN.... Complete Result Diagram: 06/15/17 0515 06/15/[address] Angiography 06/14/17 7311 Signed Impressions: Service Date/Time: Wednesday, June 14, 2017 19:32 - CONCLUSION: 1. Negative for pulmonary embolus. 2. Decrease in size of right lung mass and metastatic right hilar adenopathy since October 2016. 3. Mild left basilar airspace consolidation with moderate to large hiatal hernia. Moderate to severe coronary calcifications. Kevin Sadler MD Chest X-Ray 06/14/17 1840 Signed Impressions: Service Date/Time: Wednesday, June 14, 2017 18:02 - CONCLUSION: 1. Small pleural effusions. Cardiomegaly. Hiatal hernia with probable basilar atelectasis. Kevin Sadler MD Caprini VTE Risk Assessment Caprini VTE Risk Assessment: Mod/High Risk (score >= 2) Caprini Risk Assessment Model Point Value = 1 Point Value = 2 Point Value = 3 Point Value = 5 Age 41-60 Minor surgery BMI > 25 kg/m2 Swollen legs Varicose veins or History of unexplained or recurrent spontaneous Oral contraceptives or hormone replacement Sepsis (< 1 month) Serious lung disease, including pneumonia (< 1 month) Abnormal pulmonary function Acute myocardial infarction Congestive heart failure (< 1 month) History of inflammatory bowel disease Medical patient at bed rest Age 61-74 Arthroscopic surgery Major open surgery (> 45 min) Laparoscopic surgery (> 45 min) Malignancy Confined to bed (> 72 hours) Immobilizing plaster cast Central venous access Age >= 75 History of VTE Family history of VTE Factor V Leiden Prothrombin [id number] Lupus anticoagulant Anticardiolipin antibodies Elevated serum homocysteine Heparin-induced thrombocytopenia Other congenital or acquired thrombophilia Stroke (< 1 month) Elective arthroplasty Hip, pelvis, or leg fracture Acute spinal cord injury (< 1 month) Prophylaxis Regimen Total Risk Factor Score Risk Level Prophylaxis Regimen 0-1 Low Early ambulation 2 Moderate Order ONE of the following: *Sequential Compression Device (SCD) *Heparin 5000 units SQ BID 3-4 Higher Order ONE of the following medications: *Heparin 5000 units SQ TID *Enoxaparin/Lovenox 40 mg SQ daily (WT < 150 kg, CrCl > 30 mL/min) *Enoxaparin/Lovenox 30 mg SQ daily (WT < 150 kg, CrCl > 10-29 mL/min) *Enoxaparin/Lovenox 30 mg SQ BID (WT < 150 kg, CrCl > 30 mL/min) AND/OR *Sequential Compression Device (SCD) 5 or more Highest Order ONE of the following medications: *Heparin 5000 units SQ TID (Preferred with Epidurals) *Enoxaparin/Lovenox 40 mg SQ daily (WT < 150 kg, CrCl > 30 mL/min) *Enoxaparin/Lovenox 30 mg SQ daily (WT < 150 kg, CrCl > 10-29 mL/min) *Enoxaparin/Lovenox 30 mg SQ BID (WT < 150 kg, CrCl > 30 mL/min) AND *Sequential Compression Device (SCD) Assessment and Plan Assessment and Plan 71-year-old white male admitted for shortness of breath Shortness of breath -Likely a combination of COPD exacerbation with a pneumonia -Treat as below, may benefit from low rate IV fluids given judiciously in light of suspected right ventricular dysfunction based on most recent echocardiogram COPD exacerbation -Steroids and DuoNeb treatment Pneumonia -Blood cultures pending, ordering sputum Gram stain and culture, pneumococcal urinary antigen ordered -Azithromycin and Rocephin Small cell lung cancer -Consulting medical oncology Chronic right ventricular dysfunction -Monitor intake and output, resume home daily Lasix, continue home metoprolol Chronic pain -Resume home morphine and fentanyl lovenox Ashok Huffman MD Jun 15, 2017 09:18
[2017-06-15] MEDS ORDERED: methylPREDNISolone SOD SUCC 125 MG/2 ML VIAL IV PUSH ONE (10:00)
[2017-06-15] MEDS: FAMOTIDINE 20 MG TAB PO SCH ×2 (10:46→22:30)
[2017-06-15] MEDS: GABAPENTIN 300 MG CAP PO SCH ×3 (10:47→17:54)
[2017-06-15] MEDS: FUROSEMIDE 40 MG TAB PO SCH (10:47)
[2017-06-15] MEDS: ATORVASTATIN 10 MG TAB PO SCH (10:47)
[2017-06-15] MEDS: ASPIRIN EC 81 MG TABEC PO SCH (10:47)
[2017-06-15] MEDS: METOPROLOL TARTRATE 25 MG TAB PO SCH (10:47)
[2017-06-15] MEDS: amLODIPine BESYLATE 5 MG TAB PO SCH (10:48)
[2017-06-15] MEDS: POTASSIUM CHLORIDE 20 MEQ CONTROLLED RELEASE TAB PO SCH ×2 (10:48→22:31)
[2017-06-15] MEDS: MORPHINE SULFATE 15 MG TAB PO PRN ×2 (12:29→20:34)
[2017-06-15] MEDS: TAMSULOSIN HCL 0.4 MG CAP PO SCH (17:53)
--- NOTE | 2017-06-15 18:48 | EKG ---
Date Performed: 06/14/2017 Time Performed: 17:44:15 PTAGE: 71 years EKG: Sinus rhythm INTRAVENTRICULAR CONDUCTION DELAY Since the previous tracing, no significant change noted ABNORMAL E CG PREVIOUS TRACING : 12/19/2016 12.05 DOCTOR: Sammy Bowens Interpretating Date/Time 06/15/2017 18:45:42
[2017-06-15] MEDS: AZITHROMYCIN INJ 500 MG in SODIUM CHLOR 0.9% 250 ML INJ 250 ML IV SCH (20:37)
[2017-06-15] MEDS: methylPREDNISolone SOD SUCC 125 MG/2 ML VIAL IV PUSH SCH (22:29)
[2017-06-15] MEDS: cefTRIAXone INJ 1,000 MG in SODIUM CHLORIDE 0.9% INJ 100 ML IV SCH (22:30)
[2017-06-15] MEDS: ENOXAPARIN SODIUM 30 MG/0.3 ML SYRINGE SQ SCH (22:32)
[2017-06-16] VITALS (7 sets, daily range): BP systolic 100–115; BP diastolic 55–65; PULSE 75–80; RESP 16–18; TEMP 96.3–98.2; O2SAT 90–95
[2017-06-16] MEDS: MORPHINE SULFATE 15 MG TAB PO PRN ×4 (00:45→20:27)
[2017-06-16] MEDS: RESP: ALBUTEROL 2.5 MG/IPRATROPIUM 0.5 MG NEB (SCH) NEB ×4 (04:36→21:34)
--- NOTE | 2017-06-16 08:10 | MB ---
cc: Joyce Valles MD DATE: 06/15/2017 CHIEF COMPLAINT: 1. Locally advanced NSCLC 2. Shortness of breath 3. Pneumonia HISTORY OF PRESENT ILLNESS Mr. Mcdonough is a 71-year-old gentleman with a history of non-small cell lung cancer, adenocarcinoma with 7.1 cm right lower lobe mass, 2.5 cm pleural based mass in the right mid chest and a 4.6 cm subcarinal mass, nonspecific left upper lobe nodule. He was treated with concurrent chemotherapy and radiation therapy with weekly carboplatin and paclitaxel until 02/2017. This was stopped secondary to side effects. On 03/27/2017, he began consolidation chemotherapy with carboplatin and paclitaxel. The patient reports that he presented to the hospital in his usual state of health until several days prior to admission. At that point in time, he did notice that he was developing progressively worsening shortness of breath, fever and chills. He also reported a productive cough. Imaging studies revealed negative PE, decrease in size of the right lung mass and metastatic right hilar adenopathy since last scan in 10/2016, mid left basilar airspace consolidation with moderate to large hiatal hernia, moderate to severe coronary artery calcifications. Laboratory studies revealed white blood cell count of 4.2, hemoglobin 9.3, platelet count is 91,000 with an ANC of 3.6. Chemistry studies with a creatinine of 0.70. PAST MEDICAL HISTORY: Non-small cell lung cancer, coronary artery disease, status post bypass in 2000, history of congestive heart failure, BPH SOCIAL HISTORY: The patient lives with a roommate. Tobacco abuse. No alcohol abuse. FAMILY HISTORY: The patient reports that his brother is . No family history of malignancy. HOSPITAL MEDICATIONS: 1. DuoNeb. 2. Aspirin. 3. Atorvastatin. 4. Azithromycin. 5. Ceftriaxone. 6. Lovenox. 7. Famotidine. 8. Lasix. 9. Gabapentin. 10. Lactulose. 11. Meclizine. 12. Solu-Medrol. 13. Morphine sulfate 14. Zofran 15. Senna. PHYSICAL EXAMINATION: VITAL SIGNS: Temperature 97.7, pulse 79, respiratory rate 16, blood pressure 115/67, pulse oximetry is 94 % on 2 liters of oxygen via nasal cannula. General: thin, chronically ill appearing man in no distress Neck: supple with no palpable LAD CV: RRR with no murmurs Resp: clear to auscultation bilaterally Abdomen: soft, nontender, nondistended, BS present Ext: no edema Neuro: grossly nonfocal. ASSESSMENT: 1. Non-small cell lung cancer, status post concurrent chemotherapy and radiation therapy followed by consolidation with carboplatin and paclitaxel. 2. Chronic obstructive pulmonary disease exacerbation with pneumonia. He is currently being treated with broad spectrum antibiotics, steroids and inhalers. He has improvement in respiratory status. 3. Chronic pain. He is resuming home pain medication regimen. Inpatient oncology team will continue to follow. He will need close followup in clinic with primary oncologist, Dr. Gaines, for discussion of resumption of consolidation chemotherapy. He has had good response to treatment. MD JOSELIN Harvey/ , 05:43 PM , 07:01 PM MARTINA
[2017-06-16] MEDS: guaiFENesin E.R. 600 MG TAB PO SCH ×2 (08:59→20:26)
[2017-06-16] MEDS: ASPIRIN EC 81 MG TABEC PO SCH (09:00)
[2017-06-16] MEDS: DOCUSATE SODIUM 50 MG/SENNA 8.6 MG TAB PO SCH ×2 (09:00→20:26)
[2017-06-16] MEDS: METOPROLOL TARTRATE 25 MG TAB PO SCH (09:00)
[2017-06-16] MEDS: POTASSIUM CHLORIDE 20 MEQ CONTROLLED RELEASE TAB PO SCH ×2 (09:00→20:26)
[2017-06-16] MEDS: ATORVASTATIN 10 MG TAB PO SCH (09:00)
[2017-06-16] MEDS: GABAPENTIN 300 MG CAP PO SCH ×3 (09:00→17:21)
[2017-06-16] MEDS: amLODIPine BESYLATE 5 MG TAB PO SCH (09:00)
[2017-06-16] MEDS: FAMOTIDINE 20 MG TAB PO SCH ×2 (09:00→20:26)
[2017-06-16] MEDS: FUROSEMIDE 40 MG TAB PO SCH (09:01)
[2017-06-16] MEDS: methylPREDNISolone SOD SUCC 125 MG/2 ML VIAL IV PUSH SCH ×2 (09:01→20:26)
[2017-06-16] MEDS: SODIUM CHLORIDE 0.9% FLUSH 10 ML FLUSH IV FLUSH SCH ×2 (09:01→21:45)
--- NOTE | 2017-06-16 10:43 | HHI.PR ---
Subjective Remarks Slight improvements today. Patient still remains weak. Respiratory status has improved. He is at increased risk in the setting of pneumonia secondary to lung cancer and chemotherapy. Objective Vital Signs Date Time Temp Pulse Resp B/P (MAP) Pulse Ox O2 Delivery O2 Flow Rate FiO2 06/16/17 10:19 92 Nasal Cannula 2.00 06/16/17 00:03 96.3 75 18 100/55 (70) 90 06/15/17 20:23 95 Nasal Cannula 2.00 06/15/17 20:00 96.7 76 18 101/63 (76) 94 06/15/17 16:00 97.7 79 16 115/67 (83) 94 06/15/17 12:00 96.7 76 16 126/79 (95) 94 I/O 06/15/17 06/15/17 06/15/17 06/16/17 06/16/17 06/16/17 07:00 15:00 23:00 07:00 15:00 23:00 Intake Total 472 ml 200 ml Output Total 600 ml 1150 ml Balance -600 ml 472 ml 200 ml -1150 ml Intake Oral 472 ml 200 ml Output Urine Total 600 ml 1150 ml # Voids 3 4 # Bowel Movements 1 0 Result Diagram: 06/15/17 0515 06/15/17 0515 Objective Remarks GENERAL: NAD, A&Ox3 HEAD: Normocephalic. NECK: Supple, trachea midline. No lymphadenopathy. EYES: No scleral icterus. No injection or drainage. CARDIOVASCULAR: Regular rate and rhythm without murmurs, gallops, or rubs. RESPIRATORY: Breath sounds equal bilaterally. No accessory muscle use. GASTROINTESTINAL: Abdomen soft, non-tender, nondistended. MUSCULOSKELETAL: No cyanosis, or edema. SKIN: Warm and dry. NEURO: No focal neurological deficitis. A/P Problem List: (1) COPD exacerbation ICD Code: J44.1 - COPD exacerbation Status: Acute (2) Pneumonia ICD Code: J18.9 - Pneumonia, unspecified organism Status: Acute (3) Lung mass ICD Code: R91.8 - Other nonspecific abnormal finding of lung field (4) Shortness of breath ICD Code: R06.02 - Shortness of breath Status: Acute Assessment and Plan 71-year-old white male admitted for pneumonia with COPD exacerbation in the setting of small cell lung cancer COPD exacerbation Pneumonia Continue azithromycin Continue Rocephin Follow cultures Oxygen supplement as needed Nebulized treatments as needed Small cell lung cancer Increased risk in setting of pneumonia and COPD exacerbation Oncology following Chronic right ventricular dysfunction Continue Lasix Continue metoprolol Chronic pain Continue morphine and fentanyl DVT prophylaxis Lovenox Problem Qualifiers (1) Pneumonia: Qualified Codes: J18.1 - Lobar pneumonia, unspecified organism Conrad Hassan MD Jun 16, 2017 10:43
--- NOTE | 2017-06-16 16:36 | PD.ONC.PN ---
Subjective Subjective Remarks Feeling better, pain in back controlled. State he is moving his bowels. Ambulates to BR. Objective Data Date Time Temp Pulse Resp B/P (MAP) Pulse Ox O2 Delivery O2 Flow Rate FiO2 06/16/17 12:00 97.5 75 16 114/56 (75) 95 06/16/17 10:19 92 Nasal Cannula 2.00 06/16/17 08:00 97.5 80 18 114/56 (75) 93 06/16/17 00:03 96.3 75 18 100/55 (70) 90 06/15/17 20:23 95 Nasal Cannula 2.00 06/15/17 20:00 96.7 76 18 101/63 (76) 94 06/16/17 06/16/17 06/16/17 07:00 15:00 23:00 Output Total 1150 ml Balance -1150 ml Result Diagram: 06/15/1715 06/15/17 0515 Culture Results Microbiology Date/Time Source Procedure Growth Status 06/14/17 18:25 Blood Peripheral Aerobic Blood Culture - Preliminary NO GROWTH IN 2 DAYS Resulted 06/14/17 18:25 Blood Peripheral Anaerobic Blood Culture - Preliminary NO GROWTH IN 2 DAYS Resulted 06/14/17 17:58 Blood Peripheral Aerobic Blood Culture - Preliminary NO GROWTH IN 2 DAYS Resulted 06/14/17 17:58 Blood Peripheral Anaerobic Blood Culture - Preliminary NO GROWTH IN 2 DAYS Resulted 06/15/17 09:00 Sputum Expectorated Sputum Gram Stain - Final Resulted 06/15/17 09:00 Sputum Expectorated Sputum Sputum Culture - Preliminary HEAVY GROWTH NORMAL RESPIRATORY TAMICA... Resulted 06/14/17 17:58 Nasal Aspirate Influenza Types A,B Antigen (CORRINA) - Final NEGATIVE FOR FLU A AND B ANTIGEN.... Complete 06/15/17 10:33 Urine Random Urine Streptococcus pneumoniae Antigen (M - Final PRESUMPTIVE NEGATIVE FOR STREPTOCOCCU... Complete Administered Medications Medications (Trade) Dose Ordered Sig/Arcelia Route PRN Reason Start Time Stop Time Status Last Admin Dose Admin Heparin Sodium (Porcine) (Heparin Central Flush) 250 units UNSCH PRN IV FLUSH SEE PROTOCOL 06/14/17 18:00 06/15/17 10:45 Sodium Chloride (NS Flush) 2 ml UNSCH PRN IV FLUSH FLUSH AFTER USING IV ACCESS 06/14/17 20:45 06/15/17 10:49 Sodium Chloride (NS Flush) 2 ml BID IV FLUSH 06/14/17 21:00 06/16/17 09:01 Senna/Docusate Sodium (Oma-Colace) 1 tab BID PO 06/14/17 21:00 06/16/17 09:00 Sennosides (Senokot) 17.2 mg Q12H PRN PO Moderate constipation 06/14/17 20:45 06/14/17 22:28 Ceftriaxone Sodium 1000 mg/ Sodium Chloride 100 ml @ 200 mls/hr Q24H IV 06/15/17 21:00 06/15/17 22:30 Azithromycin 500 mg/Sodium Chloride 250 ml @ 250 mls/hr Q24H IV 06/15/17 20:00 06/15/17 20:37 Guaifenesin (Mucinex Er) 600 mg BID PO 06/14/17 21:00 06/16/17 08:59 Albuterol/ Ipratropium (Duoneb Neb) 1 ampule Q6HR NEB NEB 06/14/17 22:00 06/16/17 15:15 Methylprednisolone Sodium Succinate (SoluMEDROL INJ) 60 mg Q12HR IV PUSH 06/15/17 21:00 06/16/17 09:01 Amlodipine Besylate (Norvasc) 5 mg DAILY PO 06/15/17 10:00 06/16/17 09:00 Aspirin (Ecotrin Ec) 81 mg DAILY PO 06/15/17 10:15 06/16/17 09:00 Famotidine (Pepcid) 20 mg BID PO 06/15/17 10:15 06/16/17 09:00 Furosemide (Lasix) 40 mg DAILY PO 06/15/17 10:15 06/16/17 09:01 Gabapentin (Neurontin) 600 mg TID PO 06/15/17 09:00 06/16/17 13:10 Metoprolol Tartrate (Lopressor) 25 mg DAILY PO 06/15/17 09:00 06/16/17 09:00 Potassium Chloride (KCl) 20 meq BID PO 06/15/17 09:00 06/16/17 09:00 Tamsulosin HCl (Flomax) 0.4 mg WITH DINNER PO 06/15/17 18:00 06/15/17 17:53 Atorvastatin Calcium (Lipitor) 10 mg DAILY PO 06/15/17 10:15 06/16/17 09:00 Morphine Sulfate (Msir) 30 mg QID PRN PO PAIN SCALE 1 TO 10 06/15/17 10:30 06/16/17 14:34 Enoxaparin Sodium (Lovenox Inj) 30 mg Q24H SQ 06/15/17 21:00 06/15/17 22:32 Objective Remarks GENERAL: Elderly thin man. SKIN: Warm and dry. Alopecia. HEAD: Normocephalic. EYES: No scleral icterus. No injection or drainage. NECK: Supple, trachea midline. No JVD or lymphadenopathy. LYMPHATIC: No adenopathy. CARDIOVASCULAR: Regular rate and rhythm without murmurs. RESPIRATORY: Breath sounds equal bilaterally. No accessory muscle use. Occasional wheeze on R lower lung. GASTROINTESTINAL: Abdomen soft, non-tender, nondistended. EXTREMITIES: No cyanosis, or edema. MUSCULOSKELETAL: Adequate muscle tone. Assessment/Plan Problem List: (1) Non-small cell lung cancer (NSCLC) ICD Codes: C34.90 - Malignant neoplasm of unspecified part of unspecified bronchus or lung Plan: Well known pt to Dr. Gaines, s/p concurrent chemo xrt as primary treatment. Tolerated consolidation chemotherapy poorly. Complications of pneumonia led to admission. Clinically improving, still has wheezing, back pain controlled w/ prn pain meds. Afebrile, WBC normal, cultures neg. Continue current care and abx therapy. Encourage OOB and ambulate, cont DVT prophylaxis. Assessment 71 y/o man with Stage III NSCLCA s/p concurrent chemo XRT, consolidation admitted for pneumonia. Plan 1. [place] w. Dr. Gaines upon DC 2. Cont DVt prophylaxis Kacey Gomez MD Jun 16, 2017 16:36
[2017-06-16] MEDS: TAMSULOSIN HCL 0.4 MG CAP PO SCH (17:21)
[2017-06-16] MEDS: AZITHROMYCIN INJ 500 MG in SODIUM CHLOR 0.9% 250 ML INJ 250 ML IV SCH (20:24)
[2017-06-16] MEDS: ENOXAPARIN SODIUM 30 MG/0.3 ML SYRINGE SQ SCH (20:26)
[2017-06-16] MEDS: cefTRIAXone INJ 1,000 MG in SODIUM CHLORIDE 0.9% INJ 100 ML IV SCH (21:46)
[2017-06-17 00:24] VITALS: BP 109/53; PULSE 94; RESP 22; TEMP 97; O2SAT 91
[2017-06-17] MEDS: RESP: ALBUTEROL 2.5 MG/IPRATROPIUM 0.5 MG NEB (SCH) NEB (03:38)
[2017-06-17] MEDS: MORPHINE SULFATE 15 MG TAB PO PRN (04:22)
[2017-06-17 07:54] VITALS: O2SAT 94
[2017-06-17 08:00] VITALS: BP 120/63; PULSE 69; RESP 15; TEMP 97.2; O2SAT 94
[2017-06-17] MEDS ORDERED: RESP: ALBUTEROL 2.5 MG/IPRATROPIUM 0.5 MG NEB (SCH) NEB (08:00)
[2017-06-17] MEDS: guaiFENesin E.R. 600 MG TAB PO SCH (08:27)
[2017-06-17] MEDS: DOCUSATE SODIUM 50 MG/SENNA 8.6 MG TAB PO SCH (08:27)
[2017-06-17] MEDS: POTASSIUM CHLORIDE 20 MEQ CONTROLLED RELEASE TAB PO SCH (08:27)
[2017-06-17] MEDS: amLODIPine BESYLATE 5 MG TAB PO SCH (08:27)
[2017-06-17] MEDS: ATORVASTATIN 10 MG TAB PO SCH (08:28)
[2017-06-17] MEDS: METOPROLOL TARTRATE 25 MG TAB PO SCH (08:28)
[2017-06-17] MEDS: FUROSEMIDE 40 MG TAB PO SCH (08:28)
[2017-06-17] MEDS: GABAPENTIN 300 MG CAP PO SCH (08:28)
[2017-06-17] MEDS: FAMOTIDINE 20 MG TAB PO SCH (08:28)
[2017-06-17] MEDS: ASPIRIN EC 81 MG TABEC PO SCH (08:29)
[2017-06-17] MEDS: SODIUM CHLORIDE 0.9% FLUSH 10 ML FLUSH IV FLUSH SCH (08:29)
[2017-06-17] MEDS: methylPREDNISolone SOD SUCC 125 MG/2 ML VIAL IV PUSH SCH (08:29)
[2017-06-17] MEDS ORDERED: fentaNYL 100 MCG/HR PATCH T-DERMAL SCH (09:00)
[2017-06-17] MEDS ORDERED: REMOVE OLD PATCH T-DERMAL SCH (09:00)
[2017-06-17] MEDS ORDERED: LEVO750T3 PO (11:00)
--- NOTE | 2017-06-17 11:00 | HHI.DCPOC ---
Discharge Care Plan Diagnosis: (1) Pneumonia Goals to Promote Your Health * To prevent worsening of your condition and complications * To maintain your health at the optimal level Directions to Meet Your Goals Take your medications as prescribed Follow your dietary instruction Follow activity as directed Keep your appointments as scheduled Take your immunizations and boosters as scheduled If your symptoms worsen call your PCP, if no PCP go to Urgent Care Center or Emergency Room Smoking is Dangerous to Your Health. Avoid second hand smoke Call the 24-hour hour crisis hotline for domestic abuse at Ashok Huffman MD Jun 17, 2017 11:00
[2017-06-17] MEDS ORDERED: PRED20 PO (11:01)
[2017-06-17] MEDS ORDERED: SYMB80AE INH (11:04)
[2017-06-17] MEDS ORDERED: VENTAER INH (11:04)
[2017-06-17] MEDS ORDERED: MORPHINE SULFATE 15 MG TAB PO PRN (11:30)
== END 2017-06-17 12:48 | disposition home or self-care (01) ==
LOC: PHED 17:37 → PHEDA 20:43 → PH3A 21:59
PROVIDERS: ADMIT Hospitalist; ATTEND Hospitalist
DX: J18.1 Lobar pneumonia, unspecified organism (principal); J44.0 Chronic obstructive pulmonary disease with (acute) lower respiratory infection; J44.1 Chronic obstructive pulmonary disease with (acute) exacerbation; C34.90 Malignant neoplasm of unspecified part of unspecified bronchus or lung; I11.0 Hypertensive heart disease with heart failure; I50.9 Heart failure, unspecified; D69.6 Thrombocytopenia, unspecified; G62.9 Polyneuropathy, unspecified; I25.10 Atherosclerotic heart disease of native coronary artery without angina pectoris; I25.2 Old myocardial infarction; K21.9 Gastro-esophageal reflux disease without esophagitis; K44.9 Diaphragmatic hernia without obstruction or gangrene; E78.00 Pure hypercholesterolemia, unspecified; N40.0 Benign prostatic hyperplasia without lower urinary tract symptoms; M19.90 Unspecified osteoarthritis, unspecified site; M54.9 Dorsalgia, unspecified; G89.29 Other chronic pain; Z72.0 Tobacco use; Z95.1 Presence of aortocoronary bypass graft; Z99.81 Dependence on supplemental oxygen; Z87.442 Personal history of urinary calculi; Z80.0 Family history of malignant neoplasm of digestive organs
CPT/HCPCS: 71045; 71275; 80048; 80053; 81001; 82550; 83605; 83735; 83880; 84484; 85007; 85025; 85027; 85610; 85730; 87040; 87070; 87205; 87449; 87804; 93005; 94640; 94664; 96365; 96366; 96372; 96375; 96376; 97162; 99285; G0378; G8987; G8988; J0456; J0696; J1642; J1644; J1650; J2270; J2930; J7050; Q9967

== ENCOUNTER 2017-06-30 10:48 | Inpatient (IN) | payer OTHER, MEDICARE ==
[~2017-06-30] VITALS: Ht 180.3 cm; Wt 66.4 kg
[~2017-06-30 10:48] MED LIST changes: +LEVO750T3 PO; +PRED20 PO; +SYMB80AE INH; +VENTAER INH
[2017-06-30 11:01] VITALS: BP 125/58; PULSE 82; RESP 18; TEMP 98.5; O2SAT 96
[2017-06-30] MEDS ORDERED: SODIUM CHLORIDE 0.9% FLUSH 10 ML FLUSH IVF PRN ×2 (11:30)
[2017-06-30] MEDS ORDERED: FENT100D T-DERMAL (11:49)
[2017-06-30] MEDS ORDERED: PROC10TA PO (11:49)
--- NOTE | 2017-06-30 12:05 | PD ---
HPI Chief Complaint: Respiratory Symptoms Time Seen by Provider: 11:16 Travel History International Travel<30 days: No Contact w/Intl Traveler<30days: No Traveled to known affect area: No History of Present Illness HPI 71-year-old male with PMH of chronic back pain, BPH, COPD, CAD s/p CABG, valvular disease, HTN, non-small cell lung CA, last chemotherapy 3 days ago presents to the ED via EMS for evaluation of left-sided chest pain and chronic back pain. On evaluation the patient states that the pain is in the left central side of the chest, rated 7/10. States the pain is constant, exacerbated by cough. Patient states that his cough is productive of white phlegm. He endorses worsening shortness of breath. He denies fevers, chills, palpitations, abdominal pain, nausea, vomiting, changes in bowel habits, dysuria , hematuria. Patient states he was just discharged from [facility]. with pneumonia. He lives alone. He does not have home health. He is followed by Dr. Yoon, Dr. Gaines and Dr. Matthew. PFSH Past Medical History Hx Anticoagulant Therapy: Yes Arthritis: Yes Asthma: No Autoimmune Disease: No Blood Disorders: No Anxiety: Yes Depression: Yes Heart Rhythm Problems: Yes ("IRREGULAR AT TIMES") Cancer: Yes (Lung Cancer) Cardiac Catheterization: Yes (2011 WITH STENT) Cardiovascular Problems: Yes (stent quad bypass) High Cholesterol: Yes Chemotherapy: Yes Chest Pain: No Congestive Heart Failure: Yes COPD: Yes Coronary Artery Disease: Yes Diabetes: No Diminished Hearing: No Endocrine: No Gastrointestinal Disorders: No GERD: Yes Genitourinary: Yes Hiatal Hernia: No Hypertension: Yes Immune Disorder: No Implanted Vascular Access Dvce: Yes Kidney Stones: Yes Musculoskeletal: Yes Neurologic: No Psychiatric: No Reproductive: No Respiratory: Yes (COPD) Integumentary: Yes Myocardial Infarction: Yes (X1 2004) Pneumonia: Yes Radiation Therapy: No Renal Failure: No Shingles: Yes Sleep Apnea: No Thyroid Disease: Yes Ulcer: No Tetanus Vaccination: Unknown ?: Not Past Surgical History Abdominal Surgery: No AICD: No Arteriovenous Shunt: No Body Medical Devices: Port Cardiac Surgery: Yes (BY PASS) Cholecystectomy: Yes Coronary Artery Bypass Graft: Yes (2000: 4 VESSEL) Coronary Stent: Yes (2011) Ear Surgery: No Endocrine Surgery: No Eye Surgery: No Genitourinary Surgery: Yes (GALBLADDER) Gynecologic Surgery: No Insulin Pump: No Joint Replacement: No Oral Surgery: No Pacemaker: No Thoracic Surgery: No Other Surgery: Yes (BY PASS, FLACA, FERCHO) Family History Family Hypercholesterolemia: Yes Social History Alcohol Use: Yes (RARE) Tobacco Use: Yes (<1/2 PPD) Substance Use: No Allergies-Medications (Allergen,Severity, Reaction): Coded Allergies: No Known Allergies (Unverified Allergy, Unknown, 05/08/17) Reported Meds & Prescriptions Reported Meds & Active Scripts Active Ventolin Hfa 18 GM Inh (Albuterol Sulfate) 90 Mcg/Act Aer 2 Puff INH Q4H PRN Symbicort Inh (Budesonide/Formoterol Fumarate) 80-4.5 Mcg/Act Aero 2 Puff INH Q12HR Prednisone 20 Mg Tab 20 Mg PO DIRECTED Take 60 MG daily x 4 days, then 40 MG x 4 days, then 20 MG daily x 4 days. Reported Prochlorperazine Maleate 10 Mg Tab 10 Mg PO Q6H PRN Fentanyl Patch 72 HR (Fentanyl) 100 Mcg/Hr Patch 100 Mcg T-DERMAL Q72H Remove old patch when new one placed. Morphine IR (Morphine Sulfate) 30 Mg Tab 30 Mg PO QID Aspirin EC (Aspirin) 81 Mg Tabdr 81 Mg PO DAILY Tamsulosin (Tamsulosin HCl) 0.4 Mg Cap 0.4 Mg PO WITH DINNER Potassium Chloride ER (Potassium Chloride) 20 Meq Tab 20 Meq PO BID Metoprolol Tartrate 25 Mg Tab 25 Mg PO DAILY Amlodipine (Amlodipine Besylate) 5 Mg Tab 5 Mg PO DAILY Famotidine 20 Mg Tab 20 Mg PO BID Atorvastatin (Atorvastatin Calcium) 10 Mg Tab 10 Mg PO DAILY Furosemide 40 Mg Tab 40 Mg PO DAILY Levocetirizine 5 Mg Tab 5 Mg PO DAILY Diclofenac Sodium DR (Diclofenac Sodium) 75 Mg Tabdr 75 Mg PO BID NEEDED Gabapentin 600 Mg Tab 600 Mg PO TID Review of Systems Except as stated in HPI: all other systems reviewed are Neg Physical Exam Narrative GENERAL: Thin, well-developed white male in no acute distress. PSYCH: Depressed affect, tearful at times. SKIN: Focused skin assessment warm/dry. Multiple senile purpura, lipomas noted. HEAD: Normocephalic. EYES: No scleral icterus. No injection or drainage. NECK: Supple, trachea midline. No JVD or lymphadenopathy. CARDIOVASCULAR: Regular rate and rhythm without murmurs, gallops, or rubs. RESPIRATORY: Breath sounds with mild rhonchi in the lower lobes. No accessory muscle use. GASTROINTESTINAL: Abdomen soft, non-tender, nondistended. MUSCULOSKELETAL: No cyanosis, or edema. Moves extremities spontaneously. BACK: Nontender without obvious deformity. No CVA tenderness. Data Data Last Documented VS Vital Signs Date Time Temp Pulse Resp B/P (MAP) Pulse Ox O2 Delivery O2 Flow Rate FiO2 06/30/17 15:00 98 24 121/88 (99) 98 Nasal Cannula 2.00 06/30/17 11:01 98.5 Orders Orders Complete Blood Count With Diff (06/30/17 11:20) Comprehensive Metabolic Panel (06/30/17 11:20) B-Type Natriuretic Peptide (06/30/17 11:20) Act Partial Throm Time (Ptt) (06/30/17 11:20) Prothrombin Time / Inr (Pt) (06/30/17 11:20) Magnesium (Mg) (06/30/17 11:20) Ckmb (Isoenzyme) Profile (06/30/17 11:20) Troponin I (06/30/17 11:20) Urinalysis - C+S If Indicated (06/30/17 11:20) Iv Access Insert/Monitor (06/30/17 11:20) Electrocardiogram (06/30/17 11:20) Ecg Monitoring (06/30/17 11:20) Oximetry (06/30/17 11:20) Oxygen Administration (06/30/17 11:20) Chest, Single Ap (06/30/17 11:20) Sodium Chloride 0.9% Flush (Ns Flush) (06/30/17 11:30) Heparin Central Flush (Heparin Central F (06/30/17 11:30) Sodium Chloride 0.9% Flush (Ns Flush) (06/30/17 11:30) Heparin Central Flush (Heparin Central F (06/30/17 11:30) Heparin Central Flush (Heparin Central F (06/30/17 12:30) Heparin Central Flush (Heparin Central F (06/30/17 12:30) Ct Pulmonary Angiogram (06/30/17 ) Iohexol 350 Inj (Omnipaque 350 Inj) (06/30/17 14:18) Consult Medical Oncology (06/30/17 ) Morphine Inj (Morphine Inj) (06/30/17 15:00) (Hub Use Only)Inp Phy Cons/Ref (06/30/17 ) Admit Order (Ed Use Only) (06/30/17 15:37) Labs Laboratory Tests Test 06/30/17 12:00 06/30/17 14:30 White Blood Count 6.4 TH/MM3 Red Blood Count 3.54 MIL/MM3 Hemoglobin 11.6 GM/DL Hematocrit 34.7 % Mean Corpuscular Volume 98.0 FL Mean Corpuscular Hemoglobin 32.8 PG Mean Corpuscular Hemoglobin Concent 33.5 % Red Cell Distribution Width 17.1 % Platelet Count 96 TH/MM3 Mean Platelet Volume 7.5 FL Neutrophils (%) (Auto) 90.8 % Lymphocytes (%) (Auto) 5.3 % Monocytes (%) (Auto) 1.8 % Eosinophils (%) (Auto) 1.5 % Basophils (%) (Auto) 0.6 % Neutrophils # (Auto) 5.9 TH/MM3 Lymphocytes # (Auto) 0.3 TH/MM3 Monocytes # (Auto) 0.1 TH/MM3 Eosinophils # (Auto) 0.1 TH/MM3 Basophils # (Auto) 0.0 TH/MM3 CBC Comment AUTO DIFF Differential Comment AUTO DIFF CONFIRMED Prothrombin Time 10.7 SEC Prothromb Time International Ratio 1.1 RATIO Activated Partial Thromboplast Time 30.1 SEC Blood Urea Nitrogen 14 MG/DL Creatinine 0.70 MG/DL Random Glucose 94 MG/DL Total Protein 6.6 GM/DL Albumin 3.0 GM/DL Calcium Level 8.4 MG/DL Magnesium Level 1.8 MG/DL Alkaline Phosphatase 73 U/L Aspartate Amino Transf (AST/SGOT) 23 U/L Alanine Aminotransferase (ALT/SGPT) 21 U/L Total Bilirubin 1.0 MG/DL Sodium Level 139 MEQ/L Potassium Level 3.9 MEQ/L Chloride Level 102 MEQ/L Carbon Dioxide Level 28.3 MEQ/L Anion Gap 9 MEQ/L Estimat Glomerular Filtration Rate 111 ML/MIN Total Creatine Kinase 61 U/L Troponin I LESS THAN 0.02 NG/ML B-Type Natriuretic Peptide 241 PG/ML Urine Color YELLOW Urine Turbidity CLEAR Urine pH 7.0 Urine Specific [place] 1.028 Urine Protein 30 mg/dL Urine Glucose (UA) TRACE mg/dL Urine Ketones 40 mg/dL Urine Occult Blood NEG Urine Nitrite NEG Urine Bilirubin NEG Urine Urobilinogen 2.0 MG/DL Urine Leukocyte Esterase NEG Urine WBC 2 /hpf Microscopic Urinalysis Comment CULT NOT INDICATED MDM Medical Decision Making Medical Screen Exam Complete: Yes Emergency Medical Condition: Yes Differential Diagnosis PNA versus pneumothorax versus pleural effusion versus COPD exacerbation versus CHF exacerbation versus ACS versus PE versus depression versus chronic back pain versus inability to perform ADLs versus other Narrative Course 71-year-old male with PMH of chronic back pain, BPH, COPD, CAD s/p CABG, valvular disease, HTN, non-small cell lung CA, last chemotherapy 3 days ago presents to the ED via EMS for evaluation of left-sided chest pain and chronic back pain. On evaluation the patient states that the pain is in the left central side of the chest, rated 7/10. States the pain is constant, exacerbated by cough productive of white phlegm. Complains of worsening SOB. He lives alone. He does not have home health. He is followed by Dr. Yoon, Dr. Gaines and Dr. Matthew. EKG rate 99, sinus rhythm with PVCs. NJ interval 130, QRS 133, QTC 423 ms. Right bundle branch block. No acute ST changes. Reviewed by Dr. Valle CXR: Mild basilar density is similar to June 14. No new consolidation. Small effusions. Hiatal hernia. Previous sternotomy. [id number] tip in superior vena cava. Cardiac enzymes: Negative 1. BNP 241. CTA: CONCLUSION: 1. No evidence of pulmonary embolism. 2. Stable mass-like density within the right lower lobe measuring 6.1 x 2.9 cm. 3. Multiple noncalcified nodules as described above within the left lower lobe raising the possibility of metastatic lesions. 4. Stable emphysematous changes. 5. Tiny right pleural effusion. 6. Degenerative changes and scoliosis of the thoracolumbar spine. 7. Right renal and multiple hepatic cysts. 8. Coronary artery calcifications. 9. Large hiatal hernia. CBC: WBC 6.4. Hemoglobin 11.6. INR 1.1. CMP: No concerning abnormalities. UA: No culture indicated. I reviewed the results of the workup with Dr. Valle. She recommends rule out ACS with serial troponins and EKGs. We discussed this plan with the patient. He is agreeable to admission. Dr. Valle spoke with Dr. Martins who agrees to accept the patient the medicine service. Please see medicine notes for disposition. Danyell Adams Jun 30, 2017 12:05
--- NOTE | 2017-06-30 12:30 | RADRPT ---
EXAM DATE/TIME: 06/30/2017 12:01 [facility] COMPARISON: CHEST SINGLE AP, June 14, 2017, 18:02. INDICATIONS : Short of breath. MEDICAL HISTORY : Myocardial infarction. Chronic obstructive pulmonary disease. Carcinoma, lung. SURGICAL HISTORY : CABG. Cholecystectomy. port for treatment for lung cancer ENCOUNTER: Initial ACUITY: 1 day PAIN SCORE: 0/10 LOCATION: Bilateral chest FINDINGS: There is mild basilar opacity which is similar to June 14. Hiatal hernia present. Small effusions ar e stable. No new consolidation. CONCLUSION: 1. Mild basilar density is similar to June 14. No new consolidation. Small effusions. Hiatal hernia. Previous sternotomy. [id number] tip in superior vena cava. Kevin Sadler MD on June 30, 2017 at 12:26 Board Certified Radiologist. This report was verified electronically.
[2017-06-30 12:34] VITALS: BP 119/61; PULSE 97; RESP 16; O2SAT 96
[2017-06-30 12:47] LABS: AUTOMATED NEUTROPHIL # 5.9 TH/MM3 (1.8-7.7); BASOPHIL % 0.6 % (0.0-2.0); EOSINOPHIL # 0.1 TH/MM3 (0-0.4); EOSINOPHIL % 1.5 % (0.0-4.0); HEMATOCRIT 34.7 % (39.0-51.0); HEMOGLOBIN 11.6 GM/DL (13.0-17.0); LYMPH % 5.3 % (9.0-44.0); LYMPHOCYTE # 0.3 TH/MM3 (1.0-4.8); MEAN CORPUSCULAR HEMOGLOBIN 32.8 PG (27.0-34.0); MEAN CORPUSCULAR HGB CONC 33.5 % (32.0-36.0); MEAN PLATELET VOLUME 7.5 FL (7.0-11.0); MONO % 1.8 % (0.0-8.0); MONOCYTE # 0.1 TH/MM3 (0-0.9); NEUT % 90.8 % (16.0-70.0); PLATELET COUNT 96 TH/MM3 (150-450); RED BLOOD COUNT 3.54 MIL/MM3 (4.50-5.90); RED CELL DISTRIBUTION WIDTH 17.1 % (11.6-17.2); WHITE BLOOD COUNT 6.4 TH/MM3 (4.0-11.0)
[2017-06-30 12:57] LABS: INTERNATIONAL NORMALIZED RATIO 1.1 RATIO; PROTHROMBIN TIME - PATIENT 10.7 SEC (9.8-11.6)
[2017-06-30 13:08] LABS: AST (GOT) 23 U/L (15-37); BICARBONATE 28.3 MEQ/L (21.0-32.0); BLOOD UREA NITROGEN 14 MG/DL (7-18); CALCIUM 8.4 MG/DL (8.5-10.1); CHLORIDE 102 MEQ/L (98-107); GLOMERULAR FILTRATION RATE 111 ML/MIN (>89); GLUCOSE,RANDOM 94 MG/DL (74-106); MAGNESIUM 1.8 MG/DL (1.5-2.5); SODIUM (NA) 139 MEQ/L (136-145)
[2017-06-30 13:13] LABS: ALKALINE PHOSPHATASE 73 U/L (45-117); ALT (GPT) 21 U/L (12-78); TOTAL PROTEIN 6.6 GM/DL (6.4-8.2); TROPONIN I LESS THAN 0.02 NG/ML (0.02-0.05)
[2017-06-30] MEDS ORDERED: IOHEXOL 350 MG/ML 10 ML VIAL (for RAD DIAG) IVCONTRAST ONE (14:18)
--- NOTE | 2017-06-30 14:50 | RADRPT ---
EXAM DATE/TIME: 06/30/2017 14:12 [place] COMPARISON: CT PULMONARY ANGIOGRAM, June 14, 2017, 19:32. INDICATIONS : Chest pain. IV CONTRAST: 70 cc Omnipaque 350 (iohexol) IV RADIATION DOSE: 9.96 CTDIvol (mGy) MEDICAL HISTORY : Carcinoma, lung. Hypertension. Cardiovascular disease SURGICAL HISTORY : Cholecystectomy. ENCOUNTER: Initial ACUITY: 1 day PAIN SCALE: 5/10 LOCATION: chest TECHNIQUE: Volumetric scanning of the chest was performed using a pulmonary embolism protocol MIP images were re constructed. Using automated exposure control and adjustment of the mA and/or kV according to patien t size, radiation dose was kept as low as reasonably achievable to obtain optimal diagnostic quality images. DICOM format image data is available electronically for review and comparison. Follow-up recommendations for detected pulmonary nodules are based at a minimum on nodule size and pa tient risk factors according to Fleischner Society Guidelines. FINDINGS: No evidence of pulmonary embolism. There is a mass-like density within the right lower lobe is stable compared to previous examination and measures 6.1 x 2.9 cm. There are multiple noncalcified nodules within the left lower lobe measuring 9 mm, 8 mm, 4 mm, 7 mm, 6 mm and 5 mm. These raise the possibly of metastatic lesions. Emphysematous changes are again noted bilaterally and are unchanged. No new me diastinal, hilar or axillary lymphadenopathy is noted. Coronary artery calcifications are stable. Lar ge hiatal hernia is noted. A tiny right pleural effusion is noted. A right renal and multiple hepatic cysts are stable. Degenerative changes and scoliosis of the thoraco-lumbar spine are unchanged. Left subclavian [id number] has its tip in the right atrium. CONCLUSION: 1. No evidence of pulmonary embolism. 2. Stable mass-like density within the right lower lobe measuring 6.1 x 2.9 cm. 3. Multiple noncalcified nodules as described above within the left lower lobe raising the possibilit y of metastatic lesions. 4. Stable emphysematous changes. 5. Tiny right pleural effusion. 6. Degenerative changes and scoliosis of the thoracolumbar spine. 7. Right renal and multiple hepatic cysts. 8. Coronary artery calcifications. 9. Large hiatal hernia. James Miles MD on June 30, 2017 at 14:36 Board Certified Radiologist. This report was verified electronically.
[2017-06-30 15:00] VITALS: BP 121/88; PULSE 98; RESP 24; O2SAT 98
[2017-06-30] MEDS ORDERED: MORPHINE SULFATE 4 MG/ML INJ IV PUSH ONE (15:00)
[2017-06-30 15:25] LABS: BILIRUBIN, URINE NEG (NEG); BLOOD, URINE NEG (NEG); GLUCOSE,URINE TRACE mg/dL (NEG); KETONE, URINE 40 mg/dL (NEG); NITRITE,URINE NEG (NEG); URINE COLOR YELLOW (YELLW/STRAW); URINE LEUKOCYTE ESTERASE NEG (NEG)
[2017-06-30] MEDS ORDERED: MORPHINE SULFATE 2 MG/ML SYRINGE IV PUSH PRN ×3 (16:00)
[2017-06-30] MEDS ORDERED: METOCLOPRAMIDE HCL 10 MG/2 ML VIAL IV PUSH PRN (16:00)
[2017-06-30] MEDS ORDERED: BISACODYL 10 MG SUPP RECTAL PRN (16:00)
[2017-06-30] MEDS ORDERED: fentaNYL 100 MCG/HR PATCH T-DERMAL SCH (16:00)
[2017-06-30] MEDS ORDERED: oxyCODONE/ACETAMINOPHEN 10 MG/325 MG TAB PO PRN (16:00)
[2017-06-30] MEDS ORDERED: ONDANSETRON HCL 4 MG/2 ML VIAL IVP PRN (16:00)
[2017-06-30] MEDS ORDERED: SENNOSIDES 8.6 MG TAB PO PRN (16:00)
[2017-06-30] MEDS ORDERED: ACETAMINOPHEN 325 MG TAB PO PRN ×2 (16:00)
[2017-06-30] MEDS ORDERED: SODIUM CHLORIDE 0.9% FLUSH 10 ML FLUSH IV FLUSH PRN (16:00)
[2017-06-30] MEDS ORDERED: PROCHLORPERAZINE MALEATE 10 MG TAB PO PRN (16:00)
[2017-06-30] MEDS ORDERED: LACTULOSE SYRUP 20 GM/30 ML CUP PO PRN (16:00)
[2017-06-30] MEDS ORDERED: REMOVE OLD PATCH T-DERMAL SCH (16:00)
[2017-06-30] MEDS ORDERED: oxyCODONE/ACETAMINOPHEN 5 MG/325 MG TAB PO PRN (16:00)
[2017-06-30] MEDS ORDERED: ALBUTEROL SULFATE 90 MCG/ACT HFA 8 GM INHALER INH PRN (16:00)
[2017-06-30] MEDS ORDERED: NALOXONE HCL 0.4 MG/ML AMP IV PUSH PRN (16:00)
[2017-06-30] MEDS ORDERED: MAGNESIUM HYDROXIDE SUSP 30 ML CUP PO PRN (16:00)
--- NOTE | 2017-06-30 16:26 | PD ---
Physical Exam Exam Limitations: Poor Historian Narrative GENERAL: 71-year-old male who appears ill-appearing and thin SKIN: Focused skin assessment warm/dry. HEAD: Atraumatic. Normocephalic. EYES: Pupils equal and round. No scleral icterus. No injection or drainage. ENT: No nasal bleeding or discharge. Mucous membranes pink and moist. NECK: Trachea midline. CARDIOVASCULAR: Regular rate and rhythm. RESPIRATORY: No accessory muscle use. Clear to auscultation. Breath sounds equal bilaterally. MUSCULOSKELETAL: No obvious deformities. No clubbing. No cyanosis. NEUROLOGICAL: Awake and alert. Moves all extremities. Normal speech. Data Data Last Documented VS Vital Signs Date Time Temp Pulse Resp B/P (MAP) Pulse Ox O2 Delivery O2 Flow Rate FiO2 06/30/17 12:34 97 Nasal Cannula 2.00 06/30/17 12:34 97 16 119/61 (80) 06/30/17 11:01 98.5 Orders Orders Complete Blood Count With Diff (06/30/17 11:20) Comprehensive Metabolic Panel (06/30/17 11:20) B-Type Natriuretic Peptide (06/30/17 11:20) Act Partial Throm Time (Ptt) (06/30/17 11:20) Prothrombin Time / Inr (Pt) (06/30/17 11:20) Magnesium (Mg) (06/30/17 11:20) Ckmb (Isoenzyme) Profile (06/30/17 11:20) Troponin I (06/30/17 11:20) Urinalysis - C+S If Indicated (06/30/17 11:20) Iv Access Insert/Monitor (06/30/17 11:20) Electrocardiogram (06/30/17 11:20) Ecg Monitoring (06/30/17 11:20) Oximetry (06/30/17 11:20) Oxygen Administration (06/30/17 11:20) Chest, Single Ap (06/30/17 11:20) Sodium Chloride 0.9% Flush (Ns Flush) (06/30/17 11:30) Heparin Central Flush (Heparin Central F (06/30/17 11:30) Sodium Chloride 0.9% Flush (Ns Flush) (06/30/17 11:30) Heparin Central Flush (Heparin Central F (06/30/17 11:30) Heparin Central Flush (Heparin Central F (06/30/17 12:30) Heparin Central Flush (Heparin Central F (06/30/17 12:30) Ct Pulmonary Angiogram (06/30/17 ) Iohexol 350 Inj (Omnipaque 350 Inj) (06/30/17 14:18) Consult Medical Oncology (06/30/17 ) Morphine Inj (Morphine Inj) (06/30/17 15:00) (Hub Use Only)Inp Phy Cons/Ref (06/30/17 ) Admit Order (Ed Use Only) (06/30/17 15:37) Labs Laboratory Tests Test 06/30/17 12:00 06/30/17 14:30 White Blood Count 6.4 TH/MM3 Red Blood Count 3.54 MIL/MM3 Hemoglobin 11.6 GM/DL Hematocrit 34.7 % Mean Corpuscular Volume 98.0 FL Mean Corpuscular Hemoglobin 32.8 PG Mean Corpuscular Hemoglobin Concent 33.5 % Red Cell Distribution Width 17.1 % Platelet Count 96 TH/MM3 Mean Platelet Volume 7.5 FL Neutrophils (%) (Auto) 90.8 % Lymphocytes (%) (Auto) 5.3 % Monocytes (%) (Auto) 1.8 % Eosinophils (%) (Auto) 1.5 % Basophils (%) (Auto) 0.6 % Neutrophils # (Auto) 5.9 TH/MM3 Lymphocytes # (Auto) 0.3 TH/MM3 Monocytes # (Auto) 0.1 TH/MM3 Eosinophils # (Auto) 0.1 TH/MM3 Basophils # (Auto) 0.0 TH/MM3 CBC Comment AUTO DIFF Differential Comment AUTO DIFF CONFIRMED Prothrombin Time 10.7 SEC Prothromb Time International Ratio 1.1 RATIO Activated Partial Thromboplast Time 30.1 SEC Blood Urea Nitrogen 14 MG/DL Creatinine 0.70 MG/DL Random Glucose 94 MG/DL Total Protein 6.6 GM/DL Albumin 3.0 GM/DL Calcium Level 8.4 MG/DL Magnesium Level 1.8 MG/DL Alkaline Phosphatase 73 U/L Aspartate Amino Transf (AST/SGOT) 23 U/L Alanine Aminotransferase (ALT/SGPT) 21 U/L Total Bilirubin 1.0 MG/DL Sodium Level 139 MEQ/L Potassium Level 3.9 MEQ/L Chloride Level 102 MEQ/L Carbon Dioxide Level 28.3 MEQ/L Anion Gap 9 MEQ/L Estimat Glomerular Filtration Rate 111 ML/MIN Total Creatine Kinase 61 U/L Troponin I LESS THAN 0.02 NG/ML B-Type Natriuretic Peptide 241 PG/ML Urine Color YELLOW Urine Turbidity CLEAR Urine pH 7.0 Urine Specific [place] 1.028 Urine Protein 30 mg/dL Urine Glucose (UA) TRACE mg/dL Urine Ketones 40 mg/dL Urine Occult Blood NEG Urine Nitrite NEG Urine Bilirubin NEG Urine Urobilinogen 2.0 MG/DL Urine Leukocyte Esterase NEG Urine WBC 2 /hpf Microscopic Urinalysis Comment CULT NOT INDICATED MDM Supervised Visit with [facility]: Yes Interpretation(s) CBC & BMP Diagram 06/30/17 12:00 Total Protein 6.6, Albumin 3.0 L, Calcium Level 8.4 L, Magnesium Level 1.8, Alkaline Phosphatase 73, Aspartate Amino Transf (AST/SGOT) 23, Alanine Aminotransferase (ALT/SGPT) 21, Total Bilirubin 1.0 Last 24 hours Impressions Chest X-Ray 06/30/17 1120 Signed Impressions: Service Date/Time: Friday, June 30, 2017 12:01 - CONCLUSION: 1. Mild basilar density is similar to June 14. No new consolidation. Small effusions. Hiatal hernia. Previous sternotomy. [id number] tip in superior vena cava. Kevin Sadler MD CT Angiography 06/30/17 0000 Signed Impressions: Service Date/Time: Friday, June 30, 2017 14:12 - CONCLUSION: 1. No evidence of pulmonary embolism. 2. Stable mass-like density within the right lower lobe measuring 6.1 x 2.9 cm. 3. Multiple noncalcified nodules as described above within the left lower lobe raising the possibility of metastatic lesions. 4. Stable emphysematous changes. 5. Tiny right pleural effusion. 6. Degenerative changes and scoliosis of the thoracolumbar spine. 7. Right renal and multiple hepatic cysts. 8. Coronary artery calcifications. 9. Large hiatal hernia. James Miles MD Narrative Course I, Dr. valle, have reviewed the advance practice practitioner's documentation and am in agreement, met with the patient face to face, made the diagnosis, and the medical decision making was done by me. *My assessment and Findings: 71-year-old male with lung cancer that presents with chest pain and shortness of breath. CT without PE. Patient also with history of CABG and stent will admit to the hospital for serial cardiac enzymes and further monitoring although pain is likely related to his lung cancer. He just received chemo 3 days ago but has no signs of vomiting, fever or pancytopenia. Patient updated and agrees to observation Physician Communication Physician Communication dr jacobs agrees to admit Diagnosis Primary Impression: Chest pain Qualified Codes: R07.9 - Chest pain, unspecified Additional Impression: Non-small cell lung cancer (NSCLC) Qualified Codes: C34.90 - Malignant neoplasm of unspecified part of unspecified bronchus or lung Admitting Information Admitting Physician Requests: Observation Nuria Valle MD Jun 30, 2017 16:26
[2017-06-30] MEDS: ENOXAPARIN SODIUM 40 MG/0.4 ML SYRINGE SQ SCH (17:48)
[2017-06-30] MEDS: GABAPENTIN 300 MG CAP PO SCH (17:48)
[2017-06-30] MEDS: TAMSULOSIN HCL 0.4 MG CAP PO SCH (17:49)
--- NOTE | 2017-06-30 17:59 | HHI.HP ---
[facility] Jessica Yoon Do, MD Admission Diagnosis chest pain, lung cancer, h/o cabg Diagnoses: Chief Complaint: Chest pain and uncontrolled pain Travel History International Travel<30 Days: No Contact w/Intl Traveler <30 Da: No Traveled to Known Affected Are: No History of Present Illness Patient is a 71-year-old male with an extensive past medical history significant for chronic back pain, BPH, COPD, coronary artery disease status post CABG, valvular heart disease, hypertension as well as non-small cell lung cancer, who recently had chemotherapy 3 days ago comes to the emergency department via EMS for left-sided chest pain and chronic back pain that is worse than usual. He states that the pain is in his left central side of the chest 7 out of 10 constant pain worsened by cough. He states it cough is productive of whitish phlegm. Has increasing shortness of breath. He denies any fevers, chills, palpitations denies any abdominal pain denies any nausea vomiting denies any change in his bowel habits denies any dysuria or hematuria. Had recently been discharged from [facility] with pneumonia. He states he lives alone. Did not have home health. He is followed by Dr. BOO as well as radiation oncology and his primary care physician Patient will be admitted for the chest pain and worsening pain and uncontrolled pain as well as for his lung cancer and will consult cardiology as well as Dr. vences We will trend troponins and cardiac enzymes and help with pain control Review of Systems Constitutional: COMPLAINS OF: Fatigue, Weight loss, Change in appetite, DENIES : Diaphoretic episodes, Fever, Weight gain, Chills, Dizziness, Night Sweats Endocrine: DENIES: Heat/cold intolerance, Polydipsia, Polyuria, Polyphagia Eyes: DENIES: Blurred vision, Diplopia, Eye inflammation, Eye pain, Vision loss , Photosensitivity, Double Vision Ears, nose, mouth, throat: DENIES: Tinnitus, Hearing loss, Vertigo, Nasal discharge, Oral lesions, Throat pain, Hoarseness, Ear Pain, Running Nose, Epistaxis, Sinus Pain, Toothache, Odynophagia Respiratory: COMPLAINS OF: Cough, Shortness of breath, DENIES: Apneas, Snoring , Wheezing, Hemoptysis, Sputum production Cardiovascular: COMPLAINS OF: Chest pain, Dyspnea on Exertion, DENIES: Palpitations, Syncope, PND, Lower Extremity Edema, Orthopnea, Claudication Gastrointestinal: COMPLAINS OF: Anorexia, DENIES: Abdominal pain, Black stools , Bloody stools, Constipation, Diarrhea, Nausea, Vomiting, Difficulty Swallowing Genitourinary: DENIES: Sexual dysfunction, Urinary frequency, Urinary incontinence Musculoskeletal: COMPLAINS OF: Joint pain, Muscle aches, Stiffness, Back pain, Neck pain, DENIES: Joint Swelling Integumentary: DENIES: Abnormal pigmentation, Nail changes, Pruritus, Rash Hematologic/lymphatic: DENIES: Bruising, Lymphadenopathy Immunologic/allergic: DENIES: Eczema, Urticaria Neurologic: COMPLAINS OF: Abnormal gait, Poor Balance, DENIES: Headache, Localized weakness, Paresthesias, Seizures, Speech Problems, Tremor Psychiatric: COMPLAINS OF: Depression, DENIES: Anxiety, Confusion, Mood changes , Hallucinations, Agitation, Suicidal Ideation, Homicidal Ideation, Delusions Except as stated in HPI: all other systems reviewed are Neg Past Family Social History Past Medical History Non-small cell lung cancer status post recent chemotherapy Hypothyroidism Coronary artery disease with history of CABG 4 History of [place] History of congestive heart failure History of cardiac stents Hypercholesterolemia irregular heartbeat questionable atrial fibrillation Hypertension COPD and emphysema Recent pneumonia GERD History of kidney stones Osteoarthritis Anxiety and depression History of tobacco History of shingles Past Surgical History Cholecystectomy Coronary artery disease with history of CABG of 4 vessels and cardiac stenting Port Appendectomy Reported Medications Reported Meds & Active Scripts Active Ventolin Hfa 18 GM Inh (Albuterol Sulfate) 90 Mcg/Act Aer 2 Puff INH Q4H PRN Symbicort Inh (Budesonide/Formoterol Fumarate) 80-4.5 Mcg/Act Aero 2 Puff INH Q12HR Prednisone 20 Mg Tab 20 Mg PO DIRECTED Take 60 MG daily x 4 days, then 40 MG x 4 days, then 20 MG daily x 4 days. Reported Prochlorperazine Maleate 10 Mg Tab 10 Mg PO Q6H PRN Fentanyl Patch 72 HR (Fentanyl) 100 Mcg/Hr Patch 100 Mcg T-DERMAL Q72H Remove old patch when new one placed. Morphine IR (Morphine Sulfate) 30 Mg Tab 30 Mg PO QID Aspirin EC (Aspirin) 81 Mg Tabdr 81 Mg PO DAILY Tamsulosin (Tamsulosin HCl) 0.4 Mg Cap 0.4 Mg PO WITH DINNER Potassium Chloride ER (Potassium Chloride) 20 Meq Tab 20 Meq PO BID Metoprolol Tartrate 25 Mg Tab 25 Mg PO DAILY Amlodipine (Amlodipine Besylate) 5 Mg Tab 5 Mg PO DAILY Famotidine 20 Mg Tab 20 Mg PO BID Atorvastatin (Atorvastatin Calcium) 10 Mg Tab 10 Mg PO DAILY Furosemide 40 Mg Tab 40 Mg PO DAILY Levocetirizine 5 Mg Tab 5 Mg PO DAILY Diclofenac Sodium DR (Diclofenac Sodium) 75 Mg Tabdr 75 Mg PO BID NEEDED Gabapentin 600 Mg Tab 600 Mg PO TID Allergies: Coded Allergies: No Known Allergies (Unverified Allergy, Unknown, 05/08/17) Active Ordered Medications Current Medications Sodium Chloride (NS Flush) 2 ml UNSCH PRN IVF FLUSH AFTER USING IV ACCESS; Start 06/30/17 at 11:30 Heparin Sodium (Porcine) (Heparin Central Flush) 500 units UNSCH IVF ; Start at 11:30; Stop 06/30/17 at 12:20; Status DC Sodium Chloride (NS Flush) 5 ml UNSCH PRN IVF SEE PROTOCOL; Start 06/30/17 at 11:30 Heparin Sodium (Porcine) (Heparin Central Flush) 250 units UNSCH PRN IVF SEE PROTOCOL; Start 06/30/17 at 11:30; Stop 06/30/17 at 12:20; Status DC Heparin Sodium (Porcine) (Heparin Central Flush) 250 units UNSCH PRN IV FLUSH SEE PROTOCOL; Start 06/30/17 at 12:30 Heparin Sodium (Porcine) (Heparin Central Flush) 500 units UNSCH IV FLUSH ; Start 06/30/17 at 12:30 Iohexol (Omnipaque 350 Inj) 50 ml STK-MED ONCE IVCONTRAST Last administered on 06/30/17at 14:18; Start 06/30/17 at 14:18; Stop 06/30/17 at 14:19; Status DC Morphine Sulfate (Morphine Inj) 4 mg ONCE ONCE IV PUSH Last administered on at 15:00; Start 06/30/17 at 15:00; Stop 06/30/17 at 15:02; Status DC Albuterol Sulfate (Proair Hfa Inh) 2 puff Q4H PRN INH SHORTNESS OF BREATH; Start 06/30/17 at 16:00 Amlodipine Besylate (Norvasc) 5 mg DAILY PO ; Start 07/01/17 at 09:00 Aspirin (Ecotrin Ec) 81 mg DAILY PO ; Start 07/01/17 at 09:00 Atorvastatin Calcium (Lipitor) 10 mg DAILY PO ; Start 07/01/17 at 09:00 Budesonide/ Formoterol Fumarate (Symbicort 80-4.5 Mcg Inh) 2 puff Q12HR INH ; Start 06/30/17 at 21:00 Diclofenac Sodium (Voltaren Dr) 75 mg BID PO ; Start 06/30/17 at 21:00 Famotidine (Pepcid) 20 mg BID PO ; Start 06/30/17 at 21:00 Fentanyl (Duragesic 100 Mcg Patch.72 Hr) 1 patch Q72H T-DERMAL ; Start 06/30/17 at 16:00 Furosemide (Lasix) 40 mg DAILY PO ; Start 07/01/17 at 09:00 Gabapentin (Neurontin) 600 mg TID PO ; Start 06/30/17 at 18:00 Metoprolol Tartrate (Lopressor) 25 mg DAILY PO ; Start 07/01/17 at 09:00 Morphine Sulfate (Msir) 30 mg QID PO ; Start 06/30/17 at 18:00 Potassium Chloride (KCl) 20 meq BID PO ; Start 06/30/17 at 21:00 Prochlorperazine Maleate (Compazine) 10 mg Q6H PRN PO NAUSEA OR VOMITING; Start 06/30/17 at 16:00 Tamsulosin HCl (Flomax) 0.4 mg WITH DINNER PO ; Start 06/30/17 at 18:00 Patient Own Medication PT OWN MED: (Levocetirizine 5 MG)... DAILY PO ; Start at 09:00; Status Future Hold Sodium Chloride (NS Flush) 2 ml UNSCH PRN IV FLUSH FLUSH AFTER USING IV ACCESS ; Start 06/30/17 at 16:00 Sodium Chloride (NS Flush) 2 ml BID IV FLUSH ; Start 06/30/17 at 21:00 Acetaminophen (Tylenol) 650 mg Q4H PRN PO TEMP > 100.4; Start 06/30/17 at 16:00 Ondansetron HCl (Zofran Inj) 4 mg Q6H PRN IVP NAUSEA OR VOMITING; Start at 16:00 Metoclopramide HCl (Reglan Inj) 5 mg Q6H PRN IV PUSH NAUSEA OR VOMITING; Start 06/30/17 at 16:00 Enoxaparin Sodium (Lovenox Inj) 40 mg Q24H SQ ; Start 06/30/17 at 16:00 Acetaminophen (Tylenol) 650 mg Q6H PRN PO PAIN SCALE 1 TO 2; Start 06/30/17 at 16:00 Oxycodone/ Acetaminophen (Percocet 5-325 Mg) 1 tab Q6H PRN PO PAIN SCALE 3 TO 5; Start 06/30/17 at 16:00 Oxycodone/ Acetaminophen (Percocet 10-325 Mg) 1 tab Q6H PRN PO PAIN SCALE 6 TO 10; Start 06/30/17 at 16:00 Morphine Sulfate (Morphine Inj) 2 mg Q3H PRN IV PUSH Pain 3-5; if unable to take PO; Start 06/30/17 at 16:00 Morphine Sulfate (Morphine Inj) 4 mg Q3H PRN IV PUSH Pain 6-10;if unable to take PO; Start 06/30/17 at 16:00 Morphine Sulfate (Morphine Inj) 4 mg Q3H PRN IV PUSH BREAKTHROUGH PAIN; Start 06/30/17 at 16:00 Naloxone HCl (Narcan Inj) 0.4 mg UNSCH PRN IV PUSH SEE LABEL COMMENTS; Start at 16:00 Senna/Docusate Sodium (Oma-Colace) 1 tab BID PO ; Start 06/30/17 at 21:00 Magnesium Hydroxide (Milk Of Magnesia Liq) 30 ml Q12H PRN PO Mild constipation ; Start 06/30/17 at 16:00 Sennosides (Senokot) 17.2 mg Q12H PRN PO Moderate constipation; Start 06/30/17 at 16:00 Bisacodyl (Dulcolax Supp) 10 mg DAILY PRN RECTAL SEVERE CONSITIPATION; Start at 16:00 Lactulose (Lactulose Liq) 30 ml DAILY PRN PO SEVERE CONSITIPATION; Start at 16:00 Miscellaneous Information 1 Q3D T-DERMAL ; Start 06/30/17 at 16:00 Family History Tobacco abuse Hypercholesterolemia Social History Still smoking tobacco daily Denies any illicits Denies any alcohol Physical Exam Vital Signs Vital Signs Date Time Temp Pulse Resp B/P (MAP) Pulse Ox O2 Delivery O2 Flow Rate FiO2 06/30/17 15:00 98 24 121/88 (99) 98 Nasal Cannula 2.00 06/30/17 12:34 97 Nasal Cannula 2.00 06/30/17 12:34 97 16 119/61 (80) 96 Nasal Cannula 2.00 06/30/17 11:01 98.5 82 18 125/58 (80) 96 Nasal Cannula 2.00 06/30/17 10:57 99 31 96 Nasal Cannula 2.00 Physical Exam GENERAL: This is a quite cachectic gentleman in moderate distress. With reproducible pain in his chest and back SKIN: No rashes, ecchymoses or lesions. Cool and dry. HEAD: Atraumatic. Normocephalic. No temporal or scalp tenderness. EYES: Pupils equal round and reactive. Extraocular motions intact. No scleral icterus. No injection or drainage. ENT: Nose without bleeding, purulent drainage or septal hematoma. Throat without erythema, tonsillar hypertrophy or exudate. Uvula midline. Airway patent. Tongue is midline NECK: Trachea midline. No JVD or lymphadenopathy. Supple, nontender, no meningeal signs. CARDIOVASCULAR: IRRegular rate and rhythm without murmurs, gallops, or rubs. S1 -S2 no S3 or S4 reproducible chest pain in the middle of the chest on palpation RESPIRATORY: Breath sounds equal bilaterally. No wheezes, rales, or rhonchi. Scattered rhonchi and coarse breath GASTROINTESTINAL: Abdomen soft, non-tender, nondistended. No hepato-splenomegaly , or palpable masses. No guarding. Scaphoid MUSCULOSKELETAL: Extremities without clubbing, cyanosis, or edema. No joint tenderness, effusion, or edema noted. No calf tenderness. Negative Homans sign bilaterally. NEUROLOGICAL: Awake and alert. Cranial nerves II through XII intact. Motor and sensory grossly within normal limits. 4 out of 5 muscle strength in all muscle groups. Normal speech. Insight and judgment is good Mood and behavior is appropriate Laboratory Laboratory Tests Test 06/30/17 12:00 06/30/17 14:30 White Blood Count 6.4 Red Blood Count 3.54 Hemoglobin 11.6 Hematocrit 34.7 Mean Corpuscular Volume 98.0 Mean Corpuscular Hemoglobin 32.8 Mean Corpuscular Hemoglobin Concent 33.5 Red Cell Distribution Width 17.1 Platelet Count 96 Mean Platelet Volume 7.5 Neutrophils (%) (Auto) 90.8 Lymphocytes (%) (Auto) 5.3 Monocytes (%) (Auto) 1.8 Eosinophils (%) (Auto) 1.5 Basophils (%) (Auto) 0.6 Neutrophils # (Auto) 5.9 Lymphocytes # (Auto) 0.3 Monocytes # (Auto) 0.1 Eosinophils # (Auto) 0.1 Basophils # (Auto) 0.0 CBC Comment AUTO DIFF Differential Comment AUTO DIFF CONFIRMED Prothrombin Time 10.7 Prothromb Time International Ratio 1.1 Activated Partial Thromboplast Time 30.1 Blood Urea Nitrogen 14 Creatinine 0.70 Random Glucose 94 Total Protein 6.6 Albumin 3.0 Calcium Level 8.4 Magnesium Level 1.8 Alkaline Phosphatase 73 Aspartate Amino Transf (AST/SGOT) 23 Alanine Aminotransferase (ALT/SGPT) 21 Total Bilirubin 1.0 Sodium Level 139 Potassium Level 3.9 Chloride Level 102 Carbon Dioxide Level 28.3 Anion Gap 9 Estimat Glomerular Filtration Rate 111 Total Creatine Kinase 61 Troponin I LESS THAN 0.02 B-Type Natriuretic Peptide 241 Urine Color YELLOW Urine Turbidity CLEAR Urine pH 7.0 Urine Specific [place] 1.028 Urine Protein 30 Urine Glucose (UA) TRACE Urine Ketones 40 Urine Occult Blood NEG Urine Nitrite NEG Urine Bilirubin NEG Urine Urobilinogen 2.0 Urine Leukocyte Esterase NEG Urine WBC 2 Microscopic Urinalysis Comment CULT NOT INDICATED Result Diagram: 06/30/17 1200 06/30/17 1200 Imaging Last Impressions Chest X-Ray 06/30/17 1120 Signed Impressions: Service Date/Time: Friday, June 30, 2017 12:01 - CONCLUSION: 1. Mild basilar density is similar to June 14. No new consolidation. Small effusions. Hiatal hernia. Previous sternotomy. [id number] tip in superior vena cava. Kevin Sadler MD CT Angiography 06/30/17 0000 Signed Impressions: Service Date/Time: Friday, June 30, 2017 14:12 - CONCLUSION: 1. No evidence of pulmonary embolism. 2. Stable mass-like density within the right lower lobe measuring 6.1 x 2.9 cm. 3. Multiple noncalcified nodules as described above within the left lower lobe raising the possibility of metastatic lesions. 4. Stable emphysematous changes. 5. Tiny right pleural effusion. 6. Degenerative changes and scoliosis of the thoracolumbar spine. 7. Right renal and multiple hepatic cysts. 8. Coronary artery calcifications. 9. Large hiatal hernia. James Miles MD Caprini VTE Risk Assessment Caprini VTE Risk Assessment: Mod/High Risk (score >= 2) Caprini Risk Assessment Model Point Value = 1 Point Value = 2 Point Value = 3 Point Value = 5 Age 41-60 Minor surgery BMI > 25 kg/m2 Swollen legs Varicose veins or History of unexplained or recurrent spontaneous Oral contraceptives or hormone replacement Sepsis (< 1 month) Serious lung disease, including pneumonia (< 1 month) Abnormal pulmonary function Acute myocardial infarction Congestive heart failure (< 1 month) History of inflammatory bowel disease Medical patient at bed rest Age 61-74 Arthroscopic surgery Major open surgery (> 45 min) Laparoscopic surgery (> 45 min) Malignancy Confined to bed (> 72 hours) Immobilizing plaster cast Central venous access Age >= 75 History of VTE Family history of VTE Factor V Leiden Prothrombin [id number] Lupus anticoagulant Anticardiolipin antibodies Elevated serum homocysteine Heparin-induced thrombocytopenia Other congenital or acquired thrombophilia Stroke (< 1 month) Elective arthroplasty Hip, pelvis, or leg fracture Acute spinal cord injury (< 1 month) Prophylaxis Regimen Total Risk Factor Score Risk Level Prophylaxis Regimen 0-1 Low Early ambulation 2 Moderate Order ONE of the following: *Sequential Compression Device (SCD) *Heparin 5000 units SQ BID 3-4 Higher Order ONE of the following medications: *Heparin 5000 units SQ TID *Enoxaparin/Lovenox 40 mg SQ daily (WT < 150 kg, CrCl > 30 mL/min) *Enoxaparin/Lovenox 30 mg SQ daily (WT < 150 kg, CrCl > 10-29 mL/min) *Enoxaparin/Lovenox 30 mg SQ BID (WT < 150 kg, CrCl > 30 mL/min) AND/OR *Sequential Compression Device (SCD) 5 or more Highest Order ONE of the following medications: *Heparin 5000 units SQ TID (Preferred with Epidurals) *Enoxaparin/Lovenox 40 mg SQ daily (WT < 150 kg, CrCl > 30 mL/min) *Enoxaparin/Lovenox 30 mg SQ daily (WT < 150 kg, CrCl > 10-29 mL/min) *Enoxaparin/Lovenox 30 mg SQ BID (WT < 150 kg, CrCl > 30 mL/min) AND *Sequential Compression Device (SCD) Assessment and Plan Problem List: (1) BPH (benign prostatic hyperplasia) ICD Code: N40.0 - BPH (benign prostatic hyperplasia) Status: Chronic (2) Chronic low back pain ICD Code: G89.29 - Other chronic pain; M54.5 - Chronic low back pain Status: Chronic (3) HTN (hypertension) ICD Code: I10 - HTN (hypertension) Status: Chronic (4) Tobacco abuse ICD Code: Z72.0 - Tobacco abuse Status: Chronic (5) Hypercholesteremia ICD Code: E78.0 - Hypercholesteremia Status: Chronic (6) Coronary artery disease ICD Code: I25.10 - Coronary artery disease Status: Chronic (7) Non-small cell lung cancer (NSCLC) ICD Code: C34.90 - Malignant neoplasm of unspecified part of unspecified bronchus or lung (8) Chest pain ICD Code: R07.9 - Chest pain, unspecified Status: Acute (9) Chronic musculoskeletal pain ICD Code: M79.1 - Myalgia; G89.29 - Other chronic pain Assessment and Plan Atypical chest pain with reproducible pain but has a history of coronary artery disease with history of stent and CABG a 4 vessel Will consult cardiology as well as oncology Trend troponins and cardiac enzymes Pain control Chronic pain with non-small cell lung cancer continue on his home pain medications with fentanyl and morphine as scheduled and as needed IV morphine and Percocets Continue on prednisone Continue on breathing treatments as needed Non-small cell lung cancer will consult oncology Recent pneumonia Continue with pain control Neb treatments Mucinex Protonix Steroids BPH continue on Flomax Hypertension continue on metoprolol tartrate daily as well as amlodipine and furosemide Seasonal allergies continue on his home medications GERD continue on Protonix/Pepcid Chronic pain continue on his gabapentin for neuropathy and chronic pain Hyperlipidemia continue on his atorvastatin Chronic osteoarthritis continue on NSAIDs Thrombocytopenia will continue to monitor his platelets with a.m. labs Tobacco abuse recommend smoking cessation Code Status I believe remains a full code Discussed Condition With RN and patient and emergency room physician and emergency room physician commissary assistant Physician Certification 2 Midnight Certification Type: Admission for Inpatient Services Order for Inpatient Services The services are ordered in accordance with Medicare regulations or non- Medicare payer requirements, as applicable. In the case of services not specified as inpatient-only, they are appropriately provided as inpatient services in accordance with the 2-midnight benchmark. Estimated LOS (days): 2 days is the estimated time the patient will need to remain in the hospital, assuming treatment plan goals are met and no additional complications. Post-Hospital Plan: Not yet determined Problem Qualifiers (1) Non-small cell lung cancer (NSCLC): Qualified Codes: C34.90 - Malignant neoplasm of unspecified part of unspecified bronchus or lung (2) Chest pain: Qualified Codes: R07.9 - Chest pain, unspecified Jonn Lucero DO Jun 30, 2017 17:59
[2017-06-30] MEDS ORDERED: RESP: ALBUTEROL 2.5 MG/IPRATROPIUM 0.5 MG NEB (PRN) NEB (18:00)
[2017-06-30 18:15] VITALS: BP 121/77; PULSE 95; RESP 18; TEMP 97.8; O2SAT 96
[2017-06-30] MEDS: MORPHINE SULFATE 30 MG TAB PO SCH ×2 (18:52→20:24)
[2017-06-30 20:00] VITALS: BP 104/62; PULSE 84; PULSE 92; RESP 20; TEMP 98.9; O2SAT 95
[2017-06-30] MEDS: predniSONE 20 MG TAB PO SCH (20:24)
[2017-06-30] MEDS: FAMOTIDINE 20 MG TAB PO SCH (20:24)
[2017-06-30] MEDS: guaiFENesin E.R. 600 MG TAB PO SCH (20:24)
[2017-06-30] MEDS: DOCUSATE SODIUM 50 MG/SENNA 8.6 MG TAB PO SCH (20:24)
[2017-06-30] MEDS: POTASSIUM CHLORIDE 20 MEQ CONTROLLED RELEASE TAB PO SCH (20:24)
[2017-06-30] MEDS: SODIUM CHLORIDE 0.9% FLUSH 10 ML FLUSH IV FLUSH SCH (20:29)
[2017-06-30] MEDS: BUDESONIDE-FORMOTEROL 80/4.5 MCG INHALER INH SCH (21:03)
[2017-06-30] MEDS: DICLOFENAC SODIUM 75 MG DELAYED RELEASE TAB PO SCH (21:03)
[2017-06-30] MEDS: RESP: ALBUTEROL 2.5 MG/IPRATROPIUM 0.5 MG NEB (SCH) NEB ×2 (21:53→21:56)
[2017-06-30 21:56] VITALS: O2SAT 96
--- NOTE | 2017-06-30 23:48 | EKG ---
Date Performed: 06/30/2017 Time Performed: 11:00:12 PTAGE: 71 years EKG: Sinus rhythm WITH OCCASIONAL SUPRAVENTRICULAR PREMATURE COMPLEXES RIGHT BUNDLE BRANCH BLOCK MARKED T-WAVE ABNORMA LITY, CONSIDER ANTERIOR ISCHEMIA VS SECONDARY TO RBBB ABNORMAL ECG PREVIOUS TRACING : 06/14/2017 17.44 Since the previous tracing, no significant change noted DOCTOR: Selvin Zurita Interpretating Date/Time 06/30/2017 23:46:54
[2017-07-01] VITALS (13 sets, daily range): BP systolic 96–117; BP diastolic 60–69; PULSE 72–79; RESP 16–18; TEMP 97.1–98.2; O2SAT 96–98
--- NOTE | 2017-07-01 00:33 | MB ---
cc: Selvin Zurita DO DATE: 06/30/2017 REASON FOR CONSULTATION: Chest pain with shortness of breath. HISTORY OF PRESENT ILLNESS: Osvaldo Mcdonough is a pleasant 71-year-old male who, in the past, had seen my partner, Dr. Lewis, and presented to [facility] Emergency Room due to chest pain and shortness of breath. Apparently, he had left-sided chest pain and chronic back pain, worse than it usually was, and so he decided to come to the emergency room. The pain is on the center and left side of his chest. He states that it is further worsened when he coughs. As he coughs, he is bringing up productive white phlegm. He has also had increasing shortness of breath. He denies fevers, chills or palpitations. He recently was discharged from [facility] with pneumonia. PAST MEDICAL HISTORY: 1. Non-small cell lung cancer, status post recent chemotherapy. 2. Hypothyroidism. 3. Coronary artery disease. 4. History of congestive heart failure. 5. Hyperlipidemia. 6. Questionable history of an irregular heartbeat, per the patient. 7. Hypertension. 8. Chronic obstructive pulmonary disease/emphysema. 9. Gastroesophageal reflux disease. 10. History of kidney stones. 11. Osteoarthritis. 12. Anxiety/depression. 13. History of tobacco. 14. History of shingles. PAST SURGICAL HISTORY: 1. Coronary artery bypass grafting x 4. 2. History of coronary artery stenting of unknown vessels. 3. Cholecystectomy. 4. Port placement. 5. Appendectomy. ALLERGIES: NO KNOWN DRUG ALLERGIES. MEDICATIONS: 1. Levocetirizine 5 mg daily. 2. Albuterol 2 puffs every 4 hours as needed for shortness of breath. 3. Flomax 0.4 mg daily. 4. Lipitor 10 mg daily. 5. Metoprolol tartrate 25 mg daily. 6. Norvasc 5 mg daily. 7. Aspirin 81 mg daily. 8. Diclofenac 75 mg b.i.d. 9. Fentanyl patch every 72 hours. 10. Morphine IR 30 mg q.i.d. 11. Gabapentin 600 mg t.i.d. 12. Potassium 20 mEq b.i.d. 13. Lasix 40 mg daily. 14. Symbicort 2 puffs every 12 hours. 15. Prochlorperazine 10 mg every 6 hours as needed for nausea or vomiting. 16. Pepcid 20 mg b.i.d. 17. Prednisone 20 mg as directed. FAMILY HISTORY: Denies premature coronary artery disease or sudden cardiac within the family. SOCIAL HISTORY: The patient continues to smoke. Denies alcohol or drug abuse. REVIEW OF SYSTEMS: Fourteen systems were reviewed, including osteopathic. Pertinent positives and negatives above, otherwise negative. PHYSICAL EXAMINATION: VITAL SIGNS: Temperature 97.8, heart rate 95, blood pressure 121/77, respirations 18, pulse oximetry 96% on 2 liters. GENERAL: The patient appears cachectic and frail, in no acute distress. Alert, awake and oriented x3. HEENT: Extraocular muscles intact. Mucous membranes moist. NECK: Supple. No JVD at 45 degrees. No carotid bruits heard bilaterally. Carotid upstroke is brisk in nature. HEART: Regular rate and rhythm. Positive first and second heart sounds with no noted murmurs, gallops or rubs. Chest pain is reproducible with palpation of the anterior and left side of the chest. LUNGS: Scattered rhonchi throughout, but no rales or wheezing noted. ABDOMEN: Soft, nontender, nondistended. No organomegaly noted. EXTREMITIES: Show no clubbing, cyanosis or edema. Femoral and distal pulses intact bilaterally. NEUROLOGIC: No focal deficits. SKIN: Warm, dry and intact. OSTEOPATHIC: No kyphoscoliosis or lordosis. LABORATORY DATA: Hemoglobin 11.6, hematocrit 34.7, platelets 96. Potassium 3.9, BUN 14, creatinine 0.7. Troponin less than 0.02. Electrocardiogram (06/30/2017 at 1100): Sinus rhythm, right bundle branch block, anterior T-wave inversions most likely due to right bundle branch block. No change from multiple EKGs going back to 2011. ASSESSMENT AND PLAN: 1. Chest pain which appears musculoskeletal in nature. 2. Non-small cell lung cancer. 3. Chronic back pain. 4. Benign prostatic hypertrophy. 5. Hypertension. 6. Tobacco abuse. 7. Thrombocytopenia. RECOMMENDATIONS: 1. Overall, Mr. Browns chest pain appears to be musculoskeletal in nature and reproducible with palpation of the anterior chest wall. 2. His shortness of breath is most likely multiple pulmonary issues including his lung cancer and emphysema. CT of the chest showed no extensive pleural effusions, and he does not appear clinically to be in heart failure. 3. Would continue medical management for his coronary artery disease. 4. There is a question of an irregular heart rate in the past, but it does not appear to be defined as atrial fibrillation. From my standpoint, the patient would not be a candidate for anticoagulation due to his overall thrombocytopenia, even if he was diagnosed as atrial fibrillation. 5. We will continue to follow his troponin levels for 3 sets, but overall, with his current functionality as well as thrombocytopenia, most likely he would not be an invasive interventional candidate. 6. I discussed with him for greater than 3 minutes about tobacco cessation. 7. Further recommendations will be made based on the hospital course. Thank you for allowing me to see Osvaldo Mcdonough. If there are any questions, please do not hesitate to call. DO IVAN Fry/SUZANNE , 10:34 PM , 12:31 AM
--- NOTE | 2017-07-01 00:42 | MB ---
cc: Joyce Valles MD DATE: 06/30/2017 CHIEF COMPLAINT: 1. Chest pain. 2. Locally advanced small cell lung cancer. HISTORY OF PRESENT ILLNESS: Mr. Mcdonough is a 71-year-old gentleman who follows in oncology clinic with Dr. Gaines for evaluation and management of non-small cell lung cancer. His cancer history began in 10/2016 when he presented with shortness of breath. CT at that time showed a 5.9 cm right lower lobe mass, a 3.8 cm right hilar mass, and 2.5 cm precarinal lymphadenopathy. Biopsy showed adenocarcinoma. PET scan obtained in 12/2016 showed uptake in the right lower lobe mass, the pleural base mass, subcarinal mass. MRI brain was negative for any metastatic disease. On 12/16, he received full dose of carboplatin and paclitaxel x 1. On 01/11/2017, he started radiation therapy, and this was completed on 03/10/2017. He received concurrent carboplatin and paclitaxel x 5 doses. This was stopped in mid February due to side effects. He has received consolidation chemotherapy with carboplatin and paclitaxel, with his last dose being given in clinic on 06/26/2017. He presents to the hospital today with a 2-day history of progressively worsening midline chest pain. He reports that he also has some chronic back pain that was worsening and unable to be controlled on home pain medication regimen. While inpatient, EKG has been normal, troponin has been negative, and he is admitted for trending of troponins as well as pain control. IMAGING STUDIES: Include a CT angiography which showed no evidence of pulmonary embolism; mass-like density within the right lower lobe is stable compared to previous examination. Multiple noncalcified nodules within the left lower lobe, which raise the possibility of metastatic lesions. Emphysematous changes are again noted bilaterally and are unchanged. No new mediastinal, hilar or axillary lymphadenopathy is noted. Coronary artery calcifications are stable. Large hiatal hernia is noted. Tiny right pleural effusion is noted. The right renal and multiple hepatic cysts are stable. Degenerative changes and scoliosis of the thoracolumbar spine are unchanged. Left subclavian Infusaport has a tip in the right atrium. LABORATORY STUDIES: With white blood cell count of 6.4, hemoglobin 11.6, and a platelet count of 96,000. CMP with a total bilirubin of 1.0; AST, ALT, alkaline phosphatase are within normal limits. Albumin is low at 3.0. Creatinine is within normal limits at 0.7. Previous laboratory studies prior to chemotherapy include a platelet count of 132,000, hemoglobin 10.7, and a white blood cell count of 12.1. PAST MEDICAL HISTORY: 1. Chronic back pain. 2. Arthritis. 3. Benign prostatic hypertrophy. 4. Chronic obstructive pulmonary disease. 5. Coronary artery disease, status post coronary artery bypass grafting. 6. Diverticulosis. 7. Hypertension. 8. Migraine headaches. 9. Peripheral neuropathy. PAST SURGICAL HISTORY: Open heart surgery, valvuloplasty, cholecystectomy. ALLERGIES: NO KNOWN DRUG ALLERGIES. FAMILY HISTORY: Parents are both . 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 He lives here in the [facility]. He is a former heavy tobacco user. REVIEW OF SYSTEMS: As above in the HPI; all other review of systems is negative. PHYSICAL EXAMINATION: GENERAL: Thin, chronically ill-appearing man in no distress. HEENT: Head is normocephalic, atraumatic. Eyes: Pupils equal, round and reactive to light and accommodation. Extraocular muscles intact. NECK: Supple. No palpable lymphadenopathy. HEMATOLOGIC: With no bruising. RESPIRATORY: Clear to auscultation bilaterally. ABDOMEN: Soft, nontender, nondistended. Bowel sounds present. EXTREMITIES: No edema. SKIN: No bruising. NEUROLOGIC: Grossly nonfocal. PSYCHIATRIC: Appropriate mood and affect. ASSESSMENT AND PLAN: 1. Stage III non-small cell lung cancer, status post concurrent chemotherapy and radiation therapy, and has completed consolidation carboplatin and paclitaxel. He will continue to follow closely with Dr. Gaines for further surveillance of his disease. 2. Cytopenia secondary to chemotherapy. Continue to trend while inpatient. 3. Chest pain. He will be admitted for monitoring and serial trending of troponins. Inpatient oncology team will continue to follow. MD JOSELIN Harvey/SUZANNE , 10:34 PM , 12:41 AM MARTINA
[2017-07-01] MEDS: RESP: ALBUTEROL 2.5 MG/IPRATROPIUM 0.5 MG NEB (SCH) NEB ×4 (03:21→21:05)
[2017-07-01 05:06] LABS: AUTOMATED NEUTROPHIL # 3.4 TH/MM3 (1.8-7.7); BASOPHIL % 0.6 % (0.0-2.0); EOSINOPHIL % 0.2 % (0.0-4.0); HEMATOCRIT 30.7 % (39.0-51.0); HEMOGLOBIN 10.5 GM/DL (13.0-17.0); LYMPH % 8.5 % (9.0-44.0); LYMPHOCYTE # 0.3 TH/MM3 (1.0-4.8); MEAN CELL VOLUME 97.1 FL (80.0-100.0); MEAN CORPUSCULAR HEMOGLOBIN 33.3 PG (27.0-34.0); MEAN CORPUSCULAR HGB CONC 34.3 % (32.0-36.0); MEAN PLATELET VOLUME 7.3 FL (7.0-11.0); MONO % 1.5 % (0.0-8.0); MONOCYTE # 0.1 TH/MM3 (0-0.9); NEUT % 89.2 % (16.0-70.0); PLATELET COUNT 83 TH/MM3 (150-450); RED BLOOD COUNT 3.16 MIL/MM3 (4.50-5.90); RED CELL DISTRIBUTION WIDTH 17.1 % (11.6-17.2); WHITE BLOOD COUNT 3.8 TH/MM3 (4.0-11.0)
[2017-07-01 05:13] LABS: INTERNATIONAL NORMALIZED RATIO 1.1 RATIO; PROTHROMBIN TIME - PATIENT 10.7 SEC (9.8-11.6)
[2017-07-01 05:25] LABS: TROPONIN I LESS THAN 0.02 NG/ML (0.02-0.05)
[2017-07-01 05:26] LABS: ALBUMIN 2.6 GM/DL (3.4-5.0); ALT (GPT) 19 U/L (12-78); AST (GOT) 15 U/L (15-37); BICARBONATE 28.7 MEQ/L (21.0-32.0); BLOOD UREA NITROGEN 16 MG/DL (7-18); CALCIUM 8.5 MG/DL (8.5-10.1); CHLORIDE 103 MEQ/L (98-107); CREATININE 0.65 MG/DL (0.60-1.30); GLOMERULAR FILTRATION RATE 121 ML/MIN (>89); GLUCOSE,RANDOM 107 MG/DL (74-106); MAGNESIUM 1.9 MG/DL (1.5-2.5); PHOSPHORUS 2.7 MG/DL (2.5-4.9); SODIUM (NA) 139 MEQ/L (136-145)
[2017-07-01 05:32] LABS: ALKALINE PHOSPHATASE 65 U/L (45-117); FREE T4 1.19 NG/DL (0.76-1.46); TOTAL BILIRUBIN ADULT 0.7 MG/DL (0.2-1.0)
[2017-07-01 06:11] LABS: OVALOCYTES 1+ (NORMAL)
--- NOTE | 2017-07-01 07:26 | HHI.PR ---
Subjective Remarks Patient seen and examined this morning. Vitals are stable the patient is afebrile. States breathing feels labored. Denies CP. States he does not feel like himself. Uses 2 L at night. Objective Vital Signs Date Time Temp Pulse Resp B/P (MAP) Pulse Ox O2 Delivery O2 Flow Rate FiO2 07/01/17 04:00 78 07/01/17 04:00 97.6 72 18 109/63 (78) 96 07/01/17 00:00 97.1 79 18 117/69 (85) 98 07/01/17 00:00 76 06/30/17 21:56 96 Nasal Cannula 2.00 06/30/17 20:00 92 06/30/17 20:00 98.9 84 20 104/62 (76) 95 06/30/17 18:15 97.8 95 18 121/77 (92) 96 06/30/17 17:00 06/30/17 15:00 98 24 121/88 (99) 98 Nasal Cannula 2.00 06/30/17 12:34 97 Nasal Cannula 2.00 06/30/17 12:34 97 16 119/61 (80) 96 Nasal Cannula 2.00 06/30/17 11:01 98.5 82 18 125/58 (80) 96 Nasal Cannula 2.00 06/30/17 10:57 99 31 96 Nasal Cannula 2.00 I/O 06/30/17 06/30/17 06/30/17 07/01/17 07/01/17 07/01/17 07:00 15:00 23:00 07:00 15:00 23:00 Output Total 100 ml Balance -100 ml Output Urine Total 100 ml Result Diagram: 07/01/17 0420 07/01/17 0420 Imaging Last Impressions Chest X-Ray 06/30/17 1120 Signed Impressions: Service Date/Time: Friday, June 30, 2017 12:01 - CONCLUSION: 1. Mild basilar density is similar to June 14. No new consolidation. Small effusions. Hiatal hernia. Previous sternotomy. [id number] tip in superior vena cava. Kevin Sadler MD CT Angiography 06/30/17 0000 Signed Impressions: Service Date/Time: Friday, June 30, 2017 14:12 - CONCLUSION: 1. No evidence of pulmonary embolism. 2. Stable mass-like density within the right lower lobe measuring 6.1 x 2.9 cm. 3. Multiple noncalcified nodules as described above within the left lower lobe raising the possibility of metastatic lesions. 4. Stable emphysematous changes. 5. Tiny right pleural effusion. 6. Degenerative changes and scoliosis of the thoracolumbar spine. 7. Right renal and multiple hepatic cysts. 8. Coronary artery calcifications. 9. Large hiatal hernia. James Miles MD Other Results GENERAL: Well-appearing, no acute distress. Nasal canula in place. SKIN: Warm and dry. HEAD: Normocephalic. EYES: No scleral icterus. No injection or drainage. NECK: Supple, trachea midline. No JVD or lymphadenopathy. CARDIOVASCULAR: Regular rate and rhythm without murmurs, gallops, or rubs. RESPIRATORY: Breath sounds equal bilaterally. No accessory muscle use. GASTROINTESTINAL: Abdomen soft, non-tender, nondistended. MUSCULOSKELETAL: No cyanosis, or edema. A/P Problem List: (1) Non-small cell lung cancer (NSCLC) ICD Code: C34.90 - Malignant neoplasm of unspecified part of unspecified bronchus or lung (2) Coronary artery disease ICD Code: I25.10 - Coronary artery disease Status: Chronic (3) Hypercholesteremia ICD Code: E78.0 - Hypercholesteremia Status: Chronic (4) Tobacco abuse ICD Code: Z72.0 - Tobacco abuse Status: Chronic (5) HTN (hypertension) ICD Code: I10 - HTN (hypertension) Status: Chronic (6) Chronic low back pain ICD Code: G89.29 - Other chronic pain; M54.5 - Chronic low back pain Status: Chronic (7) BPH (benign prostatic hyperplasia) ICD Code: N40.0 - BPH (benign prostatic hyperplasia) Status: Chronic (8) Chest pain ICD Code: R07.9 - Chest pain, unspecified Status: Acute Assessment and Plan 71-year-old male with a medical history significant for chronic back pain, COPD , coronary artery disease status post CABG, valvular heart disease, and non- small cell lung cancer status post chemotherapy 3 days ago since the ER with left sided chest pain and worsening back pain. Patient recently been treated for pneumonia at [place]. Chest pain Cardiology was consulted chest pain thought to be musculoskeletal in nature. Also concern was for an irregular heart rate, per cardiology patient does not appear to be in A. fib. He is not a candidate for anticoagulation due to his overall thrombocytopenia even if he was diagnosed with A. fib. Troponins have been negative EKG per cardiology sinus rhythm, occasional supraventricular premature complexes , right bundle branch, T-wave abnormality Non-small cell lung cancer, stage III Continue home pain regimen with fentanyl and morphine Continue prednisone 20 mg BID PO Continue breathing treatments Oncology following the patient BPH Continue Flomax Hypertension Continue home meds metoprolol, amlodipine, Lasix GERD continue Protonix Hyperlipidemia Continue statin Thrombocytopenia continue to watch platelets Tobacco abuse Patient has been counseled Discharge Planning DC pending clinical stabilization. Home oxygen walk test PT eval Problem Qualifiers (1) Non-small cell lung cancer (NSCLC): Qualified Codes: C34.90 - Malignant neoplasm of unspecified part of unspecified bronchus or lung (2) Chest pain: Qualified Codes: R07.9 - Chest pain, unspecified Vanda Aranda MD Jul 01, 2017 07:26
--- NOTE | 2017-07-01 08:45 | PD.ONC.PN ---
Subjective Subjective Remarks Afebrile overnight. Patient resting in bed in nad. eating breakfast. states he is unsure if he has further chest pain as he is still just waking up. Objective Data Date Time Temp Pulse Resp B/P (MAP) Pulse Ox O2 Delivery O2 Flow Rate FiO2 07/01/17 04:00 78 07/01/17 04:00 97.6 72 18 109/63 (78) 96 07/01/17 00:00 97.1 79 18 117/69 (85) 98 07/01/17 00:00 76 06/30/17 21:56 96 Nasal Cannula 2.00 06/30/17 20:00 92 06/30/17 20:00 98.9 84 20 104/62 (76) 95 06/30/17 18:15 97.8 95 18 121/77 (92) 96 06/30/17 17:00 06/30/17 15:00 98 24 121/88 (99) 98 Nasal Cannula 2.00 06/30/17 12:34 97 Nasal Cannula 2.00 06/30/17 12:34 97 16 119/61 (80) 96 Nasal Cannula 2.00 06/30/17 11:01 98.5 82 18 125/58 (80) 96 Nasal Cannula 2.00 06/30/17 10:57 99 31 96 Nasal Cannula 2.00 Result Diagram: 07/01/17 0420 07/01/17 0420 Laboratory Results Laboratory Tests Test 06/30/17 12:00 06/30/17 14:30 06/30/17 20:16 07/01/17 04:20 White Blood Count 6.4 TH/MM3 3.8 TH/MM3 Red Blood Count 3.54 MIL/MM3 3.16 MIL/MM3 Hemoglobin 11.6 GM/DL 10.5 GM/DL Hematocrit 34.7 % 30.7 % Mean Corpuscular Volume 98.0 FL 97.1 FL Mean Corpuscular Hemoglobin 32.8 PG 33.3 PG Mean Corpuscular Hemoglobin Concent 33.5 % 34.3 % Red Cell Distribution Width 17.1 % 17.1 % Platelet Count 96 TH/MM3 83 TH/MM3 Mean Platelet Volume 7.5 FL 7.3 FL Neutrophils (%) (Auto) 90.8 % 89.2 % Lymphocytes (%) (Auto) 5.3 % 8.5 % Monocytes (%) (Auto) 1.8 % 1.5 % Eosinophils (%) (Auto) 1.5 % 0.2 % Basophils (%) (Auto) 0.6 % 0.6 % Neutrophils # (Auto) 5.9 TH/MM3 3.4 TH/MM3 Lymphocytes # (Auto) 0.3 TH/MM3 0.3 TH/MM3 Monocytes # (Auto) 0.1 TH/MM3 0.1 TH/MM3 Eosinophils # (Auto) 0.1 TH/MM3 0.0 TH/MM3 Basophils # (Auto) 0.0 TH/MM3 0.0 TH/MM3 CBC Comment AUTO DIFF AUTO DIFF Differential Comment AUTO DIFF CONFIRMED AUTO DIFF CONFIRMED Prothrombin Time 10.7 SEC 10.7 SEC Prothromb Time International Ratio 1.1 RATIO 1.1 RATIO Activated Partial Thromboplast Time 30.1 SEC Blood Urea Nitrogen 14 MG/DL 16 MG/DL Creatinine 0.70 MG/DL 0.65 MG/DL Random Glucose 94 MG/DL 107 MG/DL Total Protein 6.6 GM/DL 6.0 GM/DL Albumin 3.0 GM/DL 2.6 GM/DL Calcium Level 8.4 MG/DL 8.5 MG/DL Magnesium Level 1.8 MG/DL 1.9 MG/DL Alkaline Phosphatase 73 U/L 65 U/L Aspartate Amino Transf (AST/SGOT) 23 U/L 15 U/L Alanine Aminotransferase (ALT/SGPT) 21 U/L 19 U/L Total Bilirubin 1.0 MG/DL 0.7 MG/DL Sodium Level 139 MEQ/L 139 MEQ/L Potassium Level 3.9 MEQ/L 4.8 MEQ/L Chloride Level 102 MEQ/L 103 MEQ/L Carbon Dioxide Level 28.3 MEQ/L 28.7 MEQ/L Anion Gap 9 MEQ/L 7 MEQ/L Estimat Glomerular Filtration Rate 111 ML/MIN 121 ML/MIN Total Creatine Kinase 61 U/L 36 U/L Troponin I LESS THAN 0.02 NG/ML LESS THAN 0.02 NG/ML B-Type Natriuretic Peptide 241 PG/ML Urine Color YELLOW Urine Turbidity CLEAR Urine pH 7.0 Urine Specific [place] 1.028 Urine Protein 30 mg/dL Urine Glucose (UA) TRACE mg/dL Urine Ketones 40 mg/dL Urine Occult Blood NEG Urine Nitrite NEG Urine Bilirubin NEG Urine Urobilinogen 2.0 MG/DL Urine Leukocyte Esterase NEG Urine WBC 2 /hpf Microscopic Urinalysis Comment CULT NOT INDICATED Platelet Estimate LOW Platelet Morphology Comment NORMAL Ovalocytes 1+ Phosphorus Level 2.7 MG/DL Free Thyroxine 1.19 NG/DL Thyroid Stimulating Hormone 3rd Gen 0.163 uIU/ML Imaging Studies Last 24 hours Impressions Chest X-Ray 06/30/17 1120 Signed Impressions: Service Date/Time: Friday, June 30, 2017 12:01 - CONCLUSION: 1. Mild basilar density is similar to June 14. No new consolidation. Small effusions. Hiatal hernia. Previous sternotomy. [id number] tip in superior vena cava. Kevin Sadler MD Administered Medications Medications (Trade) Dose Ordered Sig/Arcelia Route PRN Reason Start Time Stop Time Status Last Admin Dose Admin Budesonide/ Formoterol Fumarate (Symbicort 80-4.5 Mcg Inh) 2 puff Q12HR INH 06/30/17 21:00 06/30/17 21:03 Diclofenac Sodium (Voltaren Dr) 75 mg BID PO 06/30/17 21:00 06/30/17 21:03 Famotidine (Pepcid) 20 mg BID PO 06/30/17 21:00 06/30/17 20:24 Fentanyl (Duragesic 100 Mcg Patch.72 Hr) 1 patch Q72H T-DERMAL 06/30/17 16:00 06/30/17 18:51 Gabapentin (Neurontin) 600 mg TID PO 06/30/17 18:00 06/30/17 17:48 Morphine Sulfate (Msir) 30 mg QID PO 06/30/17 18:00 06/30/17 20:24 Potassium Chloride (KCl) 20 meq BID PO 06/30/17 21:00 06/30/17 20:24 Tamsulosin HCl (Flomax) 0.4 mg WITH DINNER PO 06/30/17 18:00 06/30/17 17:49 Sodium Chloride (NS Flush) 2 ml BID IV FLUSH 06/30/17 21:00 06/30/17 20:29 Enoxaparin Sodium (Lovenox Inj) 40 mg Q24H SQ 06/30/17 16:00 06/30/17 17:48 Morphine Sulfate (Morphine Inj) 4 mg Q3H PRN IV PUSH Pain 6-10;if unable to take PO 06/30/17 16:00 06/30/17 17:42 Senna/Docusate Sodium (Oma-Colace) 1 tab BID PO 06/30/17 21:00 06/30/17 20:24 Miscellaneous Information 1 Q3D T-DERMAL 06/30/17 16:00 06/30/17 16:00 Albuterol/ Ipratropium (Duoneb Neb) 1 ampule Q4HR NEB PRN NEB SHORTNESS OF BREATH 06/30/17 18:00 06/30/17 21:56 Albuterol/ Ipratropium (Duoneb Neb) 1 ampule Q6HR NEB NEB 06/30/17 22:00 07/01/17 03:21 Guaifenesin (Mucinex Er) 600 mg BID PO 06/30/17 21:00 06/30/17 20:24 Prednisone (Deltasone) 20 mg BID PO 06/30/17 21:00 06/30/17 20:24 Objective Remarks GENERAL: Elderly male, sitting up in bed eating pancakes and eggs. appears comfortable and in nad. SKIN: Warm and dry. HEAD: Normocephalic. EYES: No injection or drainage. NECK: Supple, trachea midline. CARDIOVASCULAR: Regular rate and rhythm without murmurs. RESPIRATORY: scattered rhonchi. on O2 via NC GASTROINTESTINAL: Abdomen soft, non-tender, nondistended. EXTREMITIES: No cyanosis NEUROLOGICAL: awake and alert. normal speech. Assessment/Plan Assessment 71y/o male with locally advanced non small cell lung cancer admitted with chest pain. h/o Arthritis. Benign prostatic hypertrophy. Chronic obstructive pulmonary disease. Coronary artery disease, status post coronary artery bypass grafting. Diverticulosis. Hypertension. Migraine headaches. Peripheral neuropathy. Plan 1. Stage III non-small cell lung cancer, s/p concurrent chemotherapy and radiation therapy-->last received carbo/taxol 06/26. next appointment in clinic 2. Cytopenia secondary to chemotherapy. trending downward, monitor, no transfusion indicated at present. 3. Chest pain. cardiology note reviewed, chest pain likely musculoskeletal in nature. continue to monitor. Attending Statement The exam, history, and the medical decision-making described in the above note were completed with the assistance of the mid-level provider. I reviewed and agree with the findings presented. I attest that I had a [id number] encounter with the patient on the same day, and personally performed and documented my assessment and findings in the medical record. 71 yoM with locally advanced NSCLC s/p concurrent chemotherapy and radiation therapy. He has undergone several cycles of consolidation chemotherapy with carboplatin and paclitaxel. He is admitted with left sided chest pain. cardiac work up has been negative. No evidence of PE. Likely due to malignancy/ treatment of malignancy. Continue to control pain. Anju Seymour Jul 01, 2017 08:45 Joyce Valles MD Jul 01, 2017 12:36
[2017-07-01] MEDS ORDERED: (Levocetirizine 5 MG) PO SCH (09:00)
[2017-07-01] MEDS: METOPROLOL TARTRATE 25 MG TAB PO SCH (09:00)
[2017-07-01] MEDS: amLODIPine BESYLATE 5 MG TAB PO SCH (09:00)
[2017-07-01] MEDS: ATORVASTATIN 10 MG TAB PO SCH (09:35)
[2017-07-01] MEDS: FUROSEMIDE 40 MG TAB PO SCH (09:35)
[2017-07-01] MEDS: ASPIRIN EC 81 MG TABEC PO SCH (09:35)
[2017-07-01] MEDS: predniSONE 20 MG TAB PO SCH ×2 (09:35→20:48)
[2017-07-01] MEDS: guaiFENesin E.R. 600 MG TAB PO SCH ×2 (09:35→20:48)
[2017-07-01] MEDS: DOCUSATE SODIUM 50 MG/SENNA 8.6 MG TAB PO SCH ×2 (09:35→20:48)
[2017-07-01] MEDS: MORPHINE SULFATE 30 MG TAB PO SCH ×4 (09:35→20:48)
[2017-07-01] MEDS: GABAPENTIN 300 MG CAP PO SCH ×3 (09:35→17:41)
[2017-07-01] MEDS: DICLOFENAC SODIUM 75 MG DELAYED RELEASE TAB PO SCH ×2 (09:35→20:48)
[2017-07-01] MEDS: FAMOTIDINE 20 MG TAB PO SCH ×2 (09:35→20:48)
[2017-07-01] MEDS: POTASSIUM CHLORIDE 20 MEQ CONTROLLED RELEASE TAB PO SCH ×2 (09:35→20:48)
[2017-07-01] MEDS: BUDESONIDE-FORMOTEROL 80/4.5 MCG INHALER INH SCH ×2 (09:38→20:47)
[2017-07-01 10:29] LABS: TROPONIN I LESS THAN 0.02 NG/ML (0.02-0.05)
--- NOTE | 2017-07-01 11:53 | PD.CARD.PN ---
Subjective Subjective Remarks Feels slightly better Objective Medications Current Medications Medications (Trade) Dose Ordered Sig/Arcelia Route Start Time Stop Time Status Last Admin (NS Flush) 5 ml UNSCH PRN IVF 06/30/17 11:30 (Heparin Central Flush) 250 units UNSCH PRN IV FLUSH 06/30/17 12:30 (Heparin Central Flush) 500 units UNSCH IV FLUSH 06/30/17 12:30 (Proair Hfa Inh) 2 puff Q4H PRN INH 06/30/17 16:00 (Norvasc) 5 mg DAILY PO 07/01/17 09:00 (Ecotrin Ec) 81 mg DAILY PO 07/01/17 09:00 (Lipitor) 10 mg DAILY PO 07/01/17 09:00 (Symbicort 80-4.5 Mcg Inh) 2 puff Q12HR INH 06/30/17 21:00 06/30/17 21:03 (Voltaren Dr) 75 mg BID PO 06/30/17 21:00 06/30/17 21:03 (Pepcid) 20 mg BID PO 06/30/17 21:00 06/30/17 20:24 (Duragesic 100 Mcg Patch.72 Hr) 1 patch Q72H T-DERMAL 06/30/17 16:00 06/30/17 18:51 (Lasix) 40 mg DAILY PO 07/01/17 09:00 (Neurontin) 600 mg TID PO 06/30/17 18:00 06/30/17 17:48 (Lopressor) 25 mg DAILY PO 07/01/17 09:00 (Msir) 30 mg QID PO 06/30/17 18:00 06/30/17 20:24 (KCl) 20 meq BID PO 06/30/17 21:00 06/30/17 20:24 (Compazine) 10 mg Q6H PRN PO 06/30/17 16:00 (Flomax) 0.4 mg WITH DINNER PO 06/30/17 18:00 06/30/17 17:49 Patient Own Medication PT OWN MED: (Levocetirizine 5 MG)... DAILY PO 07/01/17 09:00 Future Hold (NS Flush) 2 ml UNSCH PRN IV FLUSH 06/30/17 16:00 (NS Flush) 2 ml BID IV FLUSH 06/30/17 21:00 06/30/17 20:29 (Tylenol) 650 mg Q4H PRN PO 06/30/17 16:00 (Zofran Inj) 4 mg Q6H PRN IVP 06/30/17 16:00 (Reglan Inj) 5 mg Q6H PRN IV PUSH 06/30/17 16:00 (Lovenox Inj) 40 mg Q24H SQ 06/30/17 16:00 06/30/17 17:48 (Tylenol) 650 mg Q6H PRN PO 06/30/17 16:00 (Percocet 5-325 Mg) 1 tab Q6H PRN PO 06/30/17 16:00 (Percocet 10-325 Mg) 1 tab Q6H PRN PO 06/30/17 16:00 (Morphine Inj) 2 mg Q3H PRN IV PUSH 06/30/17 16:00 (Morphine Inj) 4 mg Q3H PRN IV PUSH 06/30/17 16:00 06/30/17 17:42 (Morphine Inj) 4 mg Q3H PRN IV PUSH 06/30/17 16:00 (Narcan Inj) 0.4 mg UNSCH PRN IV PUSH 06/30/17 16:00 (Oma-Colace) 1 tab BID PO 06/30/17 21:00 06/30/17 20:24 (Milk Of Magnesia Liq) 30 ml Q12H PRN PO 06/30/17 16:00 (Senokot) 17.2 mg Q12H PRN PO 06/30/17 16:00 (Dulcolax Supp) 10 mg DAILY PRN RECTAL 06/30/17 16:00 (Lactulose Liq) 30 ml DAILY PRN PO 06/30/17 16:00 Miscellaneous Information 1 Q3D T-DERMAL 06/30/17 16:00 06/30/17 16:00 (Duoneb Neb) 1 ampule Q4HR NEB PRN NEB 06/30/17 18:00 06/30/17 21:56 (Duoneb Neb) 1 ampule Q6HR NEB NEB 06/30/17 22:00 07/01/17 03:21 (Mucinex Er) 600 mg BID PO 06/30/17 21:00 06/30/17 20:24 (Deltasone) 20 mg BID PO 06/30/17 21:00 06/30/17 20:24 Vital Signs / I&O Vital Signs Date Time Temp Pulse Resp B/P (MAP) Pulse Ox O2 Delivery O2 Flow Rate FiO2 07/01/17 10:02 97 Nasal Cannula 2.00 07/01/17 09:35 98.0 77 18 98/63 (75) 07/01/17 04:00 78 07/01/17 04:00 97.6 72 18 109/63 (78) 96 07/01/17 00:00 97.1 79 18 117/69 (85) 98 07/01/17 00:00 76 06/30/17 21:56 96 Nasal Cannula 2.00 06/30/17 20:00 92 06/30/17 20:00 98.9 84 20 104/62 (76) 95 06/30/17 18:15 97.8 95 18 121/77 (92) 96 06/30/17 17:00 06/30/17 15:00 98 24 121/88 (99) 98 Nasal Cannula 2.00 06/30/17 12:34 97 Nasal Cannula 2.00 06/30/17 12:34 97 16 119/61 (80) 96 Nasal Cannula 2.00 I/O 06/30/17 06/30/17 06/30/17 07/01/17 07/01/17 07/01/17 07:00 15:00 23:00 07:00 15:00 23:00 Output Total 100 ml Balance -100 ml Output Urine Total 100 ml Physical Exam GENERAL: NAD, AAOx3... overall cachetic/frail SKIN: Warm and dry. HEAD: Atraumatic. Normocephalic. EYES: Pupils equal and round. No scleral icterus. No injection or drainage. ENT: No nasal bleeding or discharge. Mucous membranes pink and moist. NECK: Trachea midline. No JVD. CARDIOVASCULAR: Regular rate and rhythm. Chest pain reproducible with palpitation RESPIRATORY: No accessory muscle use. Clear to auscultation. Breath sounds equal bilaterally. GASTROINTESTINAL: Abdomen soft, non-tender, nondistended. Hepatic and splenic margins not palpable. MUSCULOSKELETAL: Extremities without clubbing, cyanosis, or edema. No obvious deformities. NEUROLOGICAL: Awake and alert. No obvious cranial nerve deficits. Motor grossly within normal limits. Five out of 5 muscle strength in the arms and legs. Normal speech. PSYCHIATRIC: Appropriate mood and affect; insight and judgment normal. Laboratory Laboratory Tests Test 06/30/17 12:00 06/30/17 14:30 06/30/17 20:16 07/01/17 04:20 White Blood Count 6.4 TH/MM3 3.8 TH/MM3 Red Blood Count 3.54 MIL/MM3 3.16 MIL/MM3 Hemoglobin 11.6 GM/DL 10.5 GM/DL Hematocrit 34.7 % 30.7 % Mean Corpuscular Volume 98.0 FL 97.1 FL Mean Corpuscular Hemoglobin 32.8 PG 33.3 PG Mean Corpuscular Hemoglobin Concent 33.5 % 34.3 % Red Cell Distribution Width 17.1 % 17.1 % Platelet Count 96 TH/MM3 83 TH/MM3 Mean Platelet Volume 7.5 FL 7.3 FL Neutrophils (%) (Auto) 90.8 % 89.2 % Lymphocytes (%) (Auto) 5.3 % 8.5 % Monocytes (%) (Auto) 1.8 % 1.5 % Eosinophils (%) (Auto) 1.5 % 0.2 % Basophils (%) (Auto) 0.6 % 0.6 % Neutrophils # (Auto) 5.9 TH/MM3 3.4 TH/MM3 Lymphocytes # (Auto) 0.3 TH/MM3 0.3 TH/MM3 Monocytes # (Auto) 0.1 TH/MM3 0.1 TH/MM3 Eosinophils # (Auto) 0.1 TH/MM3 0.0 TH/MM3 Basophils # (Auto) 0.0 TH/MM3 0.0 TH/MM3 CBC Comment AUTO DIFF AUTO DIFF Differential Comment AUTO DIFF CONFIRMED AUTO DIFF CONFIRMED Prothrombin Time 10.7 SEC 10.7 SEC Prothromb Time International Ratio 1.1 RATIO 1.1 RATIO Activated Partial Thromboplast Time 30.1 SEC Blood Urea Nitrogen 14 MG/DL 16 MG/DL Creatinine 0.70 MG/DL 0.65 MG/DL Random Glucose 94 MG/DL 107 MG/DL Total Protein 6.6 GM/DL 6.0 GM/DL Albumin 3.0 GM/DL 2.6 GM/DL Calcium Level 8.4 MG/DL 8.5 MG/DL Magnesium Level 1.8 MG/DL 1.9 MG/DL Alkaline Phosphatase 73 U/L 65 U/L Aspartate Amino Transf (AST/SGOT) 23 U/L 15 U/L Alanine Aminotransferase (ALT/SGPT) 21 U/L 19 U/L Total Bilirubin 1.0 MG/DL 0.7 MG/DL Sodium Level 139 MEQ/L 139 MEQ/L Potassium Level 3.9 MEQ/L 4.8 MEQ/L Chloride Level 102 MEQ/L 103 MEQ/L Carbon Dioxide Level 28.3 MEQ/L 28.7 MEQ/L Anion Gap 9 MEQ/L 7 MEQ/L Estimat Glomerular Filtration Rate 111 ML/MIN 121 ML/MIN Total Creatine Kinase 61 U/L 51 U/L 36 U/L Troponin I LESS THAN 0.02 NG/ML LESS THAN 0.02 NG/ML LESS THAN 0.02 NG/ML B-Type Natriuretic Peptide 241 PG/ML Urine Color YELLOW Urine Turbidity CLEAR Urine pH 7.0 Urine Specific [place] 1.028 Urine Protein 30 mg/dL Urine Glucose (UA) TRACE mg/dL Urine Ketones 40 mg/dL Urine Occult Blood NEG Urine Nitrite NEG Urine Bilirubin NEG Urine Urobilinogen 2.0 MG/DL Urine Leukocyte Esterase NEG Urine WBC 2 /hpf Microscopic Urinalysis Comment CULT NOT INDICATED Platelet Estimate LOW Platelet Morphology Comment NORMAL Ovalocytes 1+ Phosphorus Level 2.7 MG/DL Hemoglobin A1c 6.0 % Free Thyroxine 1.19 NG/DL Thyroid Stimulating Hormone 3rd Gen 0.163 uIU/ML Assessment and Plan Problem List: (1) Chest pain ICD Codes: R07.9 - Chest pain, unspecified Status: Acute (2) Lung mass ICD Codes: R91.8 - Other nonspecific abnormal finding of lung field (3) Non-small cell lung cancer (NSCLC) ICD Codes: C34.90 - Malignant neoplasm of unspecified part of unspecified bronchus or lung (4) Chronic musculoskeletal pain ICD Codes: M79.1 - Myalgia; G89.29 - Other chronic pain Assessment and Plan 1) Chest pain Musculoskeletal in nature No further work up Pain meds per primary team 2) SOB Chronic in nature No clinical heart failure Multifactorial including lung cancer and emphysema 3) Medical management of previous CAD 4) Questionable history of irregular rhythm No documented Afib Would not be an anticoagulation candidate 5) Thrombocytopenia Due to chemotherapy 6) Tobacco cessation 7) Will see PRN, call with questions Problem Qualifiers (1) Chest pain: Qualified Codes: R07.9 - Chest pain, unspecified (2) Non-small cell lung cancer (NSCLC): Qualified Codes: C34.90 - Malignant neoplasm of unspecified part of unspecified bronchus or lung Selvin Zurita DO Jul 01, 2017 11:53
[2017-07-01] MEDS: SODIUM CHLORIDE 0.9% FLUSH 10 ML FLUSH IV FLUSH SCH ×2 (13:05→20:52)
[2017-07-01] MEDS: TAMSULOSIN HCL 0.4 MG CAP PO SCH (17:40)
[2017-07-01] MEDS: ENOXAPARIN SODIUM 40 MG/0.4 ML SYRINGE SQ SCH (17:41)
[2017-07-02] VITALS (10 sets, daily range): BP systolic 104–113; BP diastolic 61–69; PULSE 64–75; RESP 16–20; TEMP 97.8–97.9; O2SAT 97–98
[2017-07-02] MEDS: RESP: ALBUTEROL 2.5 MG/IPRATROPIUM 0.5 MG NEB (SCH) NEB ×2 (03:10→09:14)
--- NOTE | 2017-07-02 06:49 | HHI.PR ---
Subjective Remarks Patient seen and examined this morning. Vitals are stable the patient is afebrile. States he feels better than yesterday. [place] that he does not want to go SNF, prefers to be int he comfort of his home because he was recently in rehab. Ambulatory to bathroom without oxygen, did ethnoarchaeologist any SOB. Objective Vital Signs Date Time Temp Pulse Resp B/P (MAP) Pulse Ox O2 Delivery O2 Flow Rate FiO2 07/02/17 05:00 97.9 68 16 109/69 (82) 98 07/02/17 02:00 74 07/02/17 01:00 68 07/02/17 00:04 64 07/02/17 00:00 97.9 74 16 104/65 (78) 98 07/01/17 23:00 78 07/01/17 22:00 76 07/01/17 21:48 16 07/01/17 21:00 72 07/01/17 20:45 97.9 72 16 96/60 (72) 97 07/01/17 20:05 75 07/01/17 19:00 76 07/01/17 17:39 97.7 73 16 109/67 (81) 97 07/01/17 15:07 97 Nasal Cannula 2.00 07/01/17 12:15 98.2 76 18 107/62 (77) 97 07/01/17 10:02 97 Nasal Cannula 2.00 07/01/17 09:35 98.0 77 18 98/63 (75) I/O 07/01/17 07/01/17 07/01/17 07/02/17 07/02/17 07/02/17 07:00 15:00 23:00 07:00 15:00 23:00 Intake Total 1200 ml Output Total 375 ml Balance 825 ml Intake Oral 1200 ml Output Urine Total 375 ml Result Diagram: 07/01/17 0420 07/01/17 0420 Imaging Last Impressions Chest X-Ray 06/30/17 1120 Signed Impressions: Service Date/Time: Friday, June 30, 2017 12:01 - CONCLUSION: 1. Mild basilar density is similar to June 14. No new consolidation. Small effusions. Hiatal hernia. Previous sternotomy. Bkbqvq-v-[id number] tip in superior vena cava. Kevin Sadler MD CT Angiography 06/30/17 0000 Signed Impressions: Service Date/Time: Friday, June 30, 2017 14:12 - CONCLUSION: 1. No evidence of pulmonary embolism. 2. Stable mass-like density within the right lower lobe measuring 6.1 x 2.9 cm. 3. Multiple noncalcified nodules as described above within the left lower lobe raising the possibility of metastatic lesions. 4. Stable emphysematous changes. 5. Tiny right pleural effusion. 6. Degenerative changes and scoliosis of the thoracolumbar spine. 7. Right renal and multiple hepatic cysts. 8. Coronary artery calcifications. 9. Large hiatal hernia. James Miles MD Objective Remarks GENERAL: Well-appearing, no acute distress SKIN: Warm and dry. Eccymosis of bilateral UE of various stages HEAD: Normocephalic. EYES: No scleral icterus. No injection or drainage. NECK: Supple, trachea midline. No JVD or lymphadenopathy. CARDIOVASCULAR: Regular rate and rhythm without murmurs, gallops, or rubs. RESPIRATORY: Breath sounds equal bilaterally. No accessory muscle use. GASTROINTESTINAL: Abdomen soft, non-tender, nondistended. MUSCULOSKELETAL: No cyanosis, or edema. A/P Problem List: (1) Non-small cell lung cancer (NSCLC) ICD Code: C34.90 - Malignant neoplasm of unspecified part of unspecified bronchus or lung (2) Coronary artery disease ICD Code: I25.10 - Coronary artery disease Status: Chronic (3) Hypercholesteremia ICD Code: E78.0 - Hypercholesteremia Status: Chronic (4) Tobacco abuse ICD Code: Z72.0 - Tobacco abuse Status: Chronic (5) HTN (hypertension) ICD Code: I10 - HTN (hypertension) Status: Chronic (6) Chronic low back pain ICD Code: G89.29 - Other chronic pain; M54.5 - Chronic low back pain Status: Chronic (7) BPH (benign prostatic hyperplasia) ICD Code: N40.0 - BPH (benign prostatic hyperplasia) Status: Chronic (8) Chest pain ICD Code: R07.9 - Chest pain, unspecified Status: Acute Assessment and Plan 71-year-old male with a medical history significant for chronic back pain, COPD , coronary artery disease status post CABG, valvular heart disease, and non- small cell lung cancer status post chemotherapy 3 days ago since the ER with left sided chest pain and worsening back pain. Patient recently been treated for pneumonia at [place]. Chest pain Cardiology was consulted chest pain thought to be musculoskeletal in nature. Also concern was for an irregular heart rate, per cardiology patient does not appear to be in A. fib. He is not a candidate for anticoagulation due to his overall thrombocytopenia even if he was diagnosed with A. fib. Troponins have been negative EKG per cardiology sinus rhythm, occasional supraventricular premature complexes , right bundle branch, T-wave abnormality Non-small cell lung cancer, stage III Continue home pain regimen with fentanyl and morphine Continue prednisone 20 mg BID PO Continue breathing treatments Oncology following the patient Bronchitis Patient was being treated for bronchitis as outpatient, steroid taper upon discharge BPH Continue Flomax Hypertension Continue home meds metoprolol, amlodipine, Lasix GERD continue Protonix Hyperlipidemia Continue statin Thrombocytopenia continue to watch platelets Tobacco abuse Patient has been counseled Discharge Planning D/C home with home health, likely today Home oxygen walk test pending PT eval - home with home health Problem Qualifiers (1) Non-small cell lung cancer (NSCLC): Qualified Codes: C34.90 - Malignant neoplasm of unspecified part of unspecified bronchus or lung (2) Chest pain: Qualified Codes: R07.9 - Chest pain, unspecified Vanda Aranda MD Jul 02, 2017 06:49
[2017-07-02] MEDS: METOPROLOL TARTRATE 25 MG TAB PO SCH ×2 (08:01→08:11)
[2017-07-02] MEDS: DOCUSATE SODIUM 50 MG/SENNA 8.6 MG TAB PO SCH (08:01)
[2017-07-02] MEDS: POTASSIUM CHLORIDE 20 MEQ CONTROLLED RELEASE TAB PO SCH (08:02)
[2017-07-02] MEDS: FAMOTIDINE 20 MG TAB PO SCH (08:02)
[2017-07-02] MEDS: MORPHINE SULFATE 30 MG TAB PO SCH ×2 (08:03→13:22)
[2017-07-02] MEDS: FUROSEMIDE 40 MG TAB PO SCH (08:03)
[2017-07-02] MEDS: ATORVASTATIN 10 MG TAB PO SCH (08:03)
[2017-07-02] MEDS: ASPIRIN EC 81 MG TABEC PO SCH (08:04)
[2017-07-02] MEDS: predniSONE 20 MG TAB PO SCH (08:04)
[2017-07-02] MEDS: GABAPENTIN 300 MG CAP PO SCH ×2 (08:04→13:21)
[2017-07-02] MEDS: guaiFENesin E.R. 600 MG TAB PO SCH (08:04)
[2017-07-02] MEDS: DICLOFENAC SODIUM 75 MG DELAYED RELEASE TAB PO SCH (08:04)
[2017-07-02] MEDS: BUDESONIDE-FORMOTEROL 80/4.5 MCG INHALER INH SCH (08:05)
[2017-07-02] MEDS: SODIUM CHLORIDE 0.9% FLUSH 10 ML FLUSH IV FLUSH SCH (08:07)
[2017-07-02] MEDS: amLODIPine BESYLATE 5 MG TAB PO SCH (08:10)
--- NOTE | 2017-07-02 09:07 | HHI.FF ---
Face to Face Verification Diagnosis: (1) Chest pain (2) Non-small cell lung cancer (NSCLC) (3) COPD exacerbation Physical Therapy Order: Evaluate and Treat, Improve ambulation, Strength and gait training Home Health Nursing Order: Oxygen administration education Medication education-adverse effect Nursing assessment with vital signs I have seen patient Osvaldo Mcdonough on 07/02/17. My clinical findings support the need for the requested home health care services because: Ltd mobility - disease progression Patient has SOB Deconditioned w/ increased weakness I certify that my clinical findings support that this patient is homebound because: Hx COPD- exertion dyspnea/weakness Unsteady gait/balance Vanda Aranda MD Jul 02, 2017 09:07
[2017-07-02] MEDS ORDERED: PRED5TAB PO (09:14)
--- NOTE | 2017-07-02 10:29 | HHI.DS ---
Discharge Summary Admission Date Jun 30, 2017 at 18:02 Discharge Date: Jul 02, 2017 Admitting Diagnosis chest pain, lung cancer, h/o cabg (1) BPH (benign prostatic hyperplasia) ICD Codes: N40.0 - BPH (benign prostatic hyperplasia) Status: Chronic (2) Chronic low back pain ICD Codes: G89.29 - Other chronic pain; M54.5 - Chronic low back pain Status: Chronic (3) HTN (hypertension) ICD Codes: I10 - HTN (hypertension) Status: Chronic (4) Tobacco abuse ICD Codes: Z72.0 - Tobacco abuse Status: Chronic (5) Hypercholesteremia ICD Codes: E78.0 - Hypercholesteremia Status: Chronic (6) Coronary artery disease ICD Codes: I25.10 - Coronary artery disease Status: Chronic (7) Non-small cell lung cancer (NSCLC) Diagnosis: Secondary ICD Codes: C34.90 - Malignant neoplasm of unspecified part of unspecified bronchus or lung (8) Chest pain Diagnosis: Principal ICD Codes: R07.9 - Chest pain, unspecified Status: Acute (9) Chronic musculoskeletal pain ICD Codes: M79.1 - Myalgia; G89.29 - Other chronic pain CBC/BMP: 07/01/17 0420 07/01/17 0420 Significant Findings Laboratory Tests Test 06/30/17 12:00 06/30/17 14:30 06/30/17 20:16 07/01/17 04:20 Red Blood Count 3.54 MIL/MM3 (4.50-5.90) 3.16 MIL/MM3 (4.50-5.90) Hemoglobin 11.6 GM/DL (13.0-17.0) 10.5 GM/DL (13.0-17.0) Hematocrit 34.7 % (39.0-51.0) 30.7 % (39.0-51.0) Platelet Count 96 TH/MM3 (150-450) 83 TH/MM3 (150-450) Neutrophils (%) (Auto) 90.8 % (16.0-70.0) 89.2 % (16.0-70.0) Lymphocytes (%) (Auto) 5.3 % (9.0-44.0) 8.5 % (9.0-44.0) Lymphocytes # (Auto) 0.3 TH/MM3 (1.0-4.8) 0.3 TH/MM3 (1.0-4.8) Albumin 3.0 GM/DL (3.4-5.0) 2.6 GM/DL (3.4-5.0) Calcium Level 8.4 MG/DL (8.5-10.1) Troponin I LESS THAN 0.02 NG/ML LESS THAN 0.02 NG/ML LESS THAN 0.02 NG/ML B-Type Natriuretic Peptide 241 PG/ML (0-100) Urine Protein 30 mg/dL (NEG-TRACE) Urine Ketones 40 mg/dL (NEG) White Blood Count 3.8 TH/MM3 (4.0-11.0) Platelet Estimate LOW (NORMAL) Ovalocytes 1+ (NORMAL) Random Glucose 107 MG/DL (74-106) Total Protein 6.0 GM/DL (6.4-8.2) Total Creatine Kinase 36 U/L (39-308) Thyroid Stimulating Hormone 3rd Gen 0.163 uIU/ML (0.358-3.740) Imaging Last Impressions Chest X-Ray 06/30/17 1120 Signed Impressions: Service Date/Time: Friday, June 30, 2017 12:01 - CONCLUSION: 1. Mild basilar density is similar to June 14. No new consolidation. Small effusions. Hiatal hernia. Previous sternotomy. Nzvgyo-b-Iviq tip in superior vena cava. Kevin Sadler MD CT Angiography 06/30/17 0000 Signed Impressions: Service Date/Time: Friday, June 30, 2017 14:12 - CONCLUSION: 1. No evidence of pulmonary embolism. 2. Stable mass-like density within the right lower lobe measuring 6.1 x 2.9 cm. 3. Multiple noncalcified nodules as described above within the left lower lobe raising the possibility of metastatic lesions. 4. Stable emphysematous changes. 5. Tiny right pleural effusion. 6. Degenerative changes and scoliosis of the thoracolumbar spine. 7. Right renal and multiple hepatic cysts. 8. Coronary artery calcifications. 9. Large hiatal hernia. James Miles MD PE at Discharge GENERAL: Well-appearing, no acute distress SKIN: Warm and dry. Eccymosis of bilateral UE of various stages HEAD: Normocephalic. EYES: No scleral icterus. No injection or drainage. NECK: Supple, trachea midline. No JVD or lymphadenopathy. CARDIOVASCULAR: Regular rate and rhythm without murmurs, gallops, or rubs. RESPIRATORY: Breath sounds equal bilaterally. No accessory muscle use. GASTROINTESTINAL: Abdomen soft, non-tender, nondistended. MUSCULOSKELETAL: No cyanosis, or edema. Hospital Course 71-year-old male with a medical history significant for chronic back pain, COPD , coronary artery disease status post CABG, valvular heart disease, and non- small cell lung cancer status post chemotherapy 3 days ago since the ER with left sided chest pain and worsening back pain. Patient recently been treated for pneumonia at [place]. Patient was seen and evaluated by cardiology, chest pain thought not to be cardiac in origin. Patient was continued on his steroids for his recent pneumonia/bronchitis. He symptomatically improved. By July 02 patient had reached maximum benefit from inpatient hospitalization. PT evaluated the patient recommended home with home health. The patient did not want to go to rehab. Pt Condition on Discharge: Stable Discharge Disposition: Disch w/ Home Health Serv Discharge Instructions DIET: Follow Instructions for: Heart Healthy Diet Activities you can perform: Weight Bearing as Vish Follow up Referrals: Oncology - 1 Week PCP Follow-up - 1 Week New Medications: Prednisone (Prednisone) 5 Mg Tab 5 MG PO DAILY for bronchitis, #14 TAB 0 Refills Take 4 tabs x 2 days Take 2 tabs x 2 days Take 1 tab x 2 days Continued Medications: Albuterol 18 GM Inh (Ventolin Hfa 18 GM Inh) 90 Mcg/Act Aer 2 PUFF INH Q4H PRN for SHORTNESS OF BREATH, #1 INHALER 0 Refills Amlodipine (Amlodipine) 5 Mg Tab 5 MG PO DAILY for Blood Pressure Management, #30 TAB [address] (Aspirin EC) 81 Mg Tabdr 81 MG PO DAILY, TAB 0 Refills Atorvastatin (Atorvastatin) 10 Mg Tab 10 MG PO DAILY for Cholesterol Management, #30 TAB 0 Refills Budesonide-Formoterol Inh (Symbicort Inh) 80-4.5 Mcg/Act Aero 2 PUFF INH Q12HR for Asthma Management, #1 INHALER [address] (Diclofenac Sodium DR) 75 Mg Tabdr 75 MG PO BID as needed, #30 TAB 0 Refills Famotidine (Famotidine) 20 Mg Tab 20 MG PO BID, #60 TAB 0 Refills Fentanyl Patch 72 HR (Fentanyl Patch 72 HR) 100 Mcg/Hr Patch 100 MCG T-DERMAL Q72H for Pain Management, #10 PATCH 0 Refills Remove old patch when new one placed. Furosemide (Furosemide) 40 Mg Tab 40 MG PO DAILY, #30 TAB 0 Refills Gabapentin (Gabapentin) 600 Mg Tab 600 MG PO TID, #90 TAB 0 Refills Metoprolol Tartrate (Metoprolol Tartrate) 25 Mg Tab 25 MG PO DAILY, #30 TAB 0 Refills Morphine IR (Morphine IR) 30 Mg Tab 30 MG PO QID, TAB 0 Refills Potassium Chloride ER (Potassium Chloride ER) 20 Meq Tab 20 MEQ PO BID for Electrolyte Replacement, #60 TAB 0 Refills Prochlorperazine Maleate (Prochlorperazine Maleate) 10 Mg Tab 10 MG PO Q6H PRN for NAUSEA OR VOMITING, #6 TAB 0 Refills Tamsulosin (Tamsulosin) 0.4 Mg Cap 0.4 MG PO WITH DINNER for Manage Prostate Problems, #30 CAP 0 Refills Discontinued Medications: Levocetirizine (Levocetirizine) 5 Mg Tab 5 MG PO DAILY, #30 TAB 0 Refills Prednisone (Prednisone) 20 Mg Tab 20 MG PO DIRECTED for bronchitis, #24 TAB 0 Refills Take 60 MG daily x 4 days, then 40 MG x 4 days, then 20 MG daily x 4 days. Vanda Aranda MD Jul 02, 2017 10:29
[2017-07-03] MEDS ORDERED: predniSONE 20 MG TAB PO SCH (09:00)
== END 2017-07-02 13:49 | disposition home or self-care (01) | DRG 313 ==
LOC: NEPE 10:48 → NEDA 15:39 → HCIN 17:16 → OBSVTOIN 18:02
PROVIDERS: ADMIT Family Medicine; ATTEND Family Medicine
DX: R07.89 Other chest pain (principal); I25.2 Old myocardial infarction; D69.59 Other secondary thrombocytopenia; C34.31 Malignant neoplasm of lower lobe, right bronchus or lung; I11.0 Hypertensive heart disease with heart failure; I50.9 Heart failure, unspecified; J44.9 Chronic obstructive pulmonary disease, unspecified; G89.29 Other chronic pain; G62.9 Polyneuropathy, unspecified; N40.0 Benign prostatic hyperplasia without lower urinary tract symptoms; M54.9 Dorsalgia, unspecified; I25.10 Atherosclerotic heart disease of native coronary artery without angina pectoris; E03.9 Hypothyroidism, unspecified; E78.00 Pure hypercholesterolemia, unspecified; T45.1X5A Adverse effect of antineoplastic and immunosuppressive drugs, initial encounter; K21.9 Gastro-esophageal reflux disease without esophagitis; M19.90 Unspecified osteoarthritis, unspecified site; M79.1 Myalgia; J30.2 Other seasonal allergic rhinitis; F41.9 Anxiety disorder, unspecified; F32.9 Major depressive disorder, single episode, unspecified; Z95.5 Presence of coronary angioplasty implant and graft; Z79.52 Long term (current) use of systemic steroids; Z79.82 Long term (current) use of aspirin; Z79.899 Other long term (current) drug therapy; Z92.21 Personal history of antineoplastic chemotherapy; Z95.1 Presence of aortocoronary bypass graft; Z72.0 Tobacco use
CPT/HCPCS: 71045; 71275; 80053; 81001; 82550; 83036; 83735; 83880; 84100; 84439; 84443; 84484; 85025; 85610; 85730; 93005; 94640; 94664; J1642; J1650; J2270; J7512; Q9967

== ENCOUNTER 2017-07-17 16:42 | Inpatient (IN) | payer OTHER, MEDICARE ==
[~2017-07-17] VITALS: Ht 180.3 cm; Wt 69.0 kg
[2017-07-17] VITALS (7 sets, daily range): BP systolic 88–145; BP diastolic 52–74; PULSE 83–108; RESP 17–24; TEMP 97.2–98.3; O2SAT 95–98
[~2017-07-17 16:42] MED LIST changes: +FENT100D T-DERMAL; -FENT75DI T-DERMAL; -LEVO750T3 PO; -LEVOTAB PO; -MECL-62 PO; -PRED20 PO; +PRED5TAB PO; +PROC10TA PO
[2017-07-17] MEDS ORDERED: SODIUM CHLORIDE 0.9% FLUSH 10 ML FLUSH IVF PRN (17:15)
--- NOTE | 2017-07-17 17:27 | PD ---
HPI Chief Complaint: Respiratory Distress Time Seen by Provider: 16:53 Travel History International Travel<30 days: No Contact w/Intl Traveler<30days: No Traveled to known affect area: No History of Present Illness HPI Patient presents to the emergency department complaint of shortness of breath and back hurting recently discharged from the hospital and diagnosed with lung cancer reports cough, fever, chills, and chest pain that started this morning across entire chest and constant, denies edema. Patient did not take any of his blood pressure medication today. States that he takes 30 mg of morphine and on the fentanyl patch for the back pain. Patient is on home oxygen. Patient had a CTA that was negative for PE on June 30. Patient denies any rectal bleed. PFSH Past Medical History Hx Anticoagulant Therapy: Yes Arthritis: Yes Asthma: No Autoimmune Disease: No Blood Disorders: No Anxiety: Yes Depression: Yes Heart Rhythm Problems: Yes ("IRREGULAR AT TIMES") Cancer: Yes (Lung Cancer) Cardiac Catheterization: Yes (2011 WITH STENT) Cardiovascular Problems: Yes (stent quad bypass) High Cholesterol: Yes Chemotherapy: Yes Chest Pain: No Congestive Heart Failure: Yes COPD: Yes Coronary Artery Disease: Yes Diabetes: No Diminished Hearing: No Endocrine: No Gastrointestinal Disorders: No GERD: Yes Genitourinary: Yes Hiatal Hernia: No Heparin Induced Thrombocytopen: No Hypertension: Yes Immune Disorder: No Implanted Vascular Access Dvce: Yes Kidney Stones: Yes Musculoskeletal: Yes Neurologic: No Psychiatric: No Reproductive: No Respiratory: Yes (COPD) Integumentary: Yes Myocardial Infarction: Yes (X1 2004) Pneumonia: Yes Radiation Therapy: No Renal Failure: No Shingles: Yes Sleep Apnea: No Thyroid Disease: Yes Ulcer: No Past Surgical History Abdominal Surgery: No AICD: No Arteriovenous Shunt: No Body Medical Devices: Port Cardiac Surgery: Yes (BY PASS) Cholecystectomy: Yes Coronary Artery Bypass Graft: Yes (2001: 4 VESSEL) Coronary Stent: Yes (2011) Ear Surgery: No Endocrine Surgery: No Eye Surgery: No Genitourinary Surgery: Yes (GALBLADDER) Gynecologic Surgery: No Insulin Pump: No Joint Replacement: No Neurologic Surgery: No Oral Surgery: No Pacemaker: No Thoracic Surgery: No Other Surgery: Yes (BY PASS, APENCIS, GALDBLADDER) Family History Family Hypercholesterolemia: Yes Social History Alcohol Use: Yes (RARE) Tobacco Use: Yes (<1/2 PPD) Substance Use: No Allergies-Medications (Allergen,Severity, Reaction): Coded Allergies: No Known Allergies (Unverified Allergy, Unknown, 05/08/17) Reported Meds & Prescriptions Reported Meds & Active Scripts Active Prednisone 5 Mg Tab 5 Mg PO DAILY Take 4 tabs x 2 days Take 2 tabs x 2 days Take 1 tab x 2 days Ventolin Hfa 18 GM Inh (Albuterol Sulfate) 90 Mcg/Act Aer 2 Puff INH Q4H PRN Symbicort Inh (Budesonide/Formoterol Fumarate) 80-4.5 Mcg/Act Aero 2 Puff INH Q12HR Reported Prochlorperazine Maleate 10 Mg Tab 10 Mg PO Q6H PRN Fentanyl Patch 72 HR (Fentanyl) 100 Mcg/Hr Patch 100 Mcg T-DERMAL Q72H Remove old patch when new one placed. Morphine IR (Morphine Sulfate) 30 Mg Tab 30 Mg PO QID Aspirin EC (Aspirin) 81 Mg Tabdr 81 Mg PO DAILY Tamsulosin (Tamsulosin HCl) 0.4 Mg Cap 0.4 Mg PO WITH DINNER Potassium Chloride ER (Potassium Chloride) 20 Meq Tab 20 Meq PO BID Metoprolol Tartrate 25 Mg Tab 25 Mg PO DAILY Amlodipine (Amlodipine Besylate) 5 Mg Tab 5 Mg PO DAILY Famotidine 20 Mg Tab 20 Mg PO BID Atorvastatin (Atorvastatin Calcium) 10 Mg Tab 10 Mg PO DAILY Furosemide 40 Mg Tab 40 Mg PO DAILY Diclofenac Sodium DR (Diclofenac Sodium) 75 Mg Tabdr 75 Mg PO BID NEEDED Gabapentin 600 Mg Tab 600 Mg PO TID Review of Systems Except as stated in HPI: all other systems reviewed are Neg Physical Exam Narrative GENERAL: Thin appearing SKIN: Focused skin assessment warm/dry. HEAD: Atraumatic. Normocephalic. EYES: Pupils equal and round. No scleral icterus. No injection or drainage. ENT: No nasal bleeding or discharge. Mucous membranes pink and moist. NECK: Trachea midline. No JVD. CARDIOVASCULAR: Regular rate and rhythm. No murmur appreciated. RESPIRATORY: No accessory muscle use. Coarse breath sounds bilaterally. GASTROINTESTINAL: Abdomen soft, non-tender, nondistended. MUSCULOSKELETAL: No obvious deformities. No clubbing. No cyanosis. No edema. NEUROLOGICAL: Awake and alert. No obvious cranial nerve deficits. Motor grossly within normal limits. Normal speech. PSYCHIATRIC: Appropriate mood and affect; insight and judgment normal. Data Data Last Documented VS Vital Signs Date Time Temp Pulse Resp B/P (MAP) Pulse Ox O2 Delivery O2 Flow Rate FiO2 07/17/17 17:38 96 Nasal Cannula 3.00 07/17/17 16:59 78 07/17/17 16:52 98.3 24 145/74 (97) Orders Orders Complete Blood Count With Diff (07/17/17 17:07) Comprehensive Metabolic Panel (07/17/17 17:07) B-Type Natriuretic Peptide (07/17/17 17:07) Act Partial Throm Time (Ptt) (07/17/17 17:07) Prothrombin Time / Inr (Pt) (07/17/17 17:07) Magnesium (Mg) (07/17/17:07) Ckmb (Isoenzyme) Profile (07/17/17:07) Troponin I (07/17/17 17:07) Arterial Blood Gas (Abg) (07/17/17 17:07) Iv Access Insert/Monitor (07/17/17 17:07) Electrocardiogram (07/17/17 17:) Ecg Monitoring (07/17/17 17:07) Oximetry (07/17/17 17:07) Oxygen Administration (07/17/17 17:07) Chest, Single Ap (07/17/17 17:07) Sodium Chloride 0.9% Flush (Ns Flush) (07/17/17 17:15) Lactic Acid (07/17/17 17:55) Blood Culture (07/17/17 17:55) Piperacil-Tazo 4.5 Gm Premix (Zosyn 4.5 (07/17/17 18:00) Vancomycin Inj (Vancomycin Inj) (07/17/17 18:00) Azithromycin (Zithromax) (07/17/17 18:00) Urinalysis - C+S If Indicated (07/17/17 17:58) Morphine Inj (Morphine Inj) (07/17/17 18:15) Metoprolol Tartrate (Lopressor) (07/17/17 18:15) Labs Laboratory Tests Test 07/17/17 17:11 07/17/17 17:17 07/17/17 18:15 Blood Gas Puncture Site RT RADIAL Blood Gas Patient Temperature 98.6 Blood Gas HCO3 28 mmol/L Blood Gas Base Excess 5.0 mmol/L Blood Gas Oxygen Saturation 94 % Arterial Blood pH 7.52 Arterial Blood Partial Pressure CO2 34 mmHg Arterial Blood Partial Pressure O2 79 mmHG Arterial Blood Oxygen Content 11.3 Vol % Arterial Blood Carboxyhemoglobin 2.0 % Arterial Blood Methemoglobin 0.6 % Blood Gas Hemoglobin 8.5 G/DL Oxygen Delivery Device NASAL CANNULA Blood Gas Liter Flow 3 L/M White Blood Count 12.0 TH/MM3 Red Blood Count 2.63 MIL/MM3 Hemoglobin 8.4 GM/DL Hematocrit 25.2 % Mean Corpuscular Volume 95.9 FL Mean Corpuscular Hemoglobin 31.9 PG Mean Corpuscular Hemoglobin Concent 33.3 % Red Cell Distribution Width 17.5 % Platelet Count 60 TH/MM3 Mean Platelet Volume 7.3 FL Neutrophils (%) (Auto) 89.6 % Lymphocytes (%) (Auto) 3.6 % Monocytes (%) (Auto) 6.0 % Eosinophils (%) (Auto) 0.0 % Basophils (%) (Auto) 0.8 % Neutrophils # (Auto) 10.7 TH/MM3 Lymphocytes # (Auto) 0.4 TH/MM3 Monocytes # (Auto) 0.7 TH/MM3 Eosinophils # (Auto) 0.0 TH/MM3 Basophils # (Auto) 0.1 TH/MM3 CBC Comment AUTO DIFF Differential Comment AUTO DIFF CONFIRMED Platelet Estimate LOW Platelet Morphology Comment NORMAL Prothrombin Time 12.1 SEC Prothromb Time International Ratio 1.2 RATIO Activated Partial Thromboplast Time 30.6 SEC Blood Urea Nitrogen 20 MG/DL Creatinine 0.84 MG/DL Random Glucose 103 MG/DL Total Protein 6.2 GM/DL Albumin 2.1 GM/DL Calcium Level 8.5 MG/DL Magnesium Level 1.8 MG/DL Alkaline Phosphatase 93 U/L Aspartate Amino Transf (AST/SGOT) 24 U/L Alanine Aminotransferase (ALT/SGPT) 20 U/L Total Bilirubin 1.0 MG/DL Sodium Level 141 MEQ/L Potassium Level 3.7 MEQ/L Chloride Level 104 MEQ/L Carbon Dioxide Level 28.3 MEQ/L Anion Gap 9 MEQ/L Estimat Glomerular Filtration Rate 90 ML/MIN Total Creatine Kinase 59 U/L Troponin I LESS THAN 0.02 NG/ML B-Type Natriuretic Peptide 333 PG/ML Lactic Acid Level 1.5 mmol/L MDM Medical Decision Making Medical Screen Exam Complete: Yes Emergency Medical Condition: Yes Interpretation(s) EKG: Patient was shivering when he got the EKG therefore poor quality, rate 106 , interventricular conduction delay, Labs: Increased WBC count, decreased hemoglobin/hematocrit/platelets; increased BNP Last Impressions Chest X-Ray 07/17/17 1707 Signed Impressions: Service Date/Time: Monday, July 17, 2017 17:20 - CONCLUSION: Increasing consolidation right lung with minimal effusion. Jonn Martinez MD FACR Differential Diagnosis ACS, pleural effusion, pulmonary edema, CHF, pneumonia, PE Narrative Course Patient presents to the emergency department complaining of dyspnea and chest pain. Will check EKG, cardiac enzymes, CBC, chemistry, chest x-ray, EKG, ABG. 180: Patient given 4 mg IV for back pain, his metoprolol 25 mg p.o., IV antibiotics for PNA (1 g Vanco, Zosyn 4.5 g, Zithromax 500 mg p.o.) and aspirin 325 mg p.o. Sepsis Criteria SIRS Criteria (2 or more): Heart rate over 90, WBC > 74153, < 4000 or > 10% bands Sepsis Criteria (SIRS+source): Infect source susp/known Diagnosis Primary Impression: Pneumonia Qualified Codes: J18.1 - Lobar pneumonia, unspecified organism Additional Impression: Chest pain Qualified Codes: R07.9 - Chest pain, unspecified Admitting Information Admitting Physician Requests: Admit Condition: Stable Amirah Barcenas MD July 17, 2017 17:27
[2017-07-17 17:29] LABS: AUTOMATED NEUTROPHIL # 10.7 TH/MM3 (1.8-7.7); BASOPHIL # 0.1 TH/MM3 (0-0.2); BASOPHIL % 0.8 % (0.0-2.0); HEMATOCRIT 25.2 % (39.0-51.0); HEMOGLOBIN 8.4 GM/DL (13.0-17.0); LYMPH % 3.6 % (9.0-44.0); LYMPHOCYTE # 0.4 TH/MM3 (1.0-4.8); MEAN CELL VOLUME 95.9 FL (80.0-100.0); MEAN CORPUSCULAR HEMOGLOBIN 31.9 PG (27.0-34.0); MEAN CORPUSCULAR HGB CONC 33.3 % (32.0-36.0); MEAN PLATELET VOLUME 7.3 FL (7.0-11.0); MONOCYTE # 0.7 TH/MM3 (0-0.9); NEUT % 89.6 % (16.0-70.0); PLATELET COUNT 60 TH/MM3 (150-450); RED BLOOD COUNT 2.63 MIL/MM3 (4.50-5.90); RED CELL DISTRIBUTION WIDTH 17.5 % (11.6-17.2)
[2017-07-17 17:43] LABS: INTERNATIONAL NORMALIZED RATIO 1.2 RATIO; PROTHROMBIN TIME - PATIENT 12.1 SEC (9.8-11.6)
--- NOTE | 2017-07-17 17:47 | RADRPT ---
EXAM DATE/TIME: 07/17/2017 17:20 [facility] COMPARISON: CT PULMONARY ANGIOGRAM, June 30, 2017, 14:12. CHEST SINGLE AP, June 30, 2017, 12:01. INDICATIONS : Short of breath. MEDICAL HISTORY : Myocardial infarction. Chronic obstructive pulmonary disease. Carcinoma, lung. SURGICAL HISTORY : CABG. Cholecystectomy. port for treatment for lung cancer ENCOUNTER: Initial ACUITY: 1 day PAIN SCORE: Non-responsive. LOCATION: Bilateral chest FINDINGS: [id number] entering from the left. Sternal wires of previous bypass. Left lung clear. Increasing minimal effusion and consolidation right lung. The portion of the bony skeleton visualized is unremarkable. CONCLUSION: Increasing consolidation right lung with minimal effusion. Jonn Martinez MD FACR on July 17, 2017 at 17:43 Board Certified Radiologist. This report was verified electronically.
[2017-07-17] MEDS ORDERED: PIPERACIL-TAZO 4.5 GM PREMIX 100 ML IV ONE (18:00)
[2017-07-17] MEDS ORDERED: VANCOMYCIN INJ 1,000 MG in SODIUM CHLOR 0.9% 250 ML INJ 250 ML IV ONE (18:00)
[2017-07-17] MEDS ORDERED: AZITHROMYCIN 250 MG TAB PO ONE (18:00)
[2017-07-17] MEDS ORDERED: METOPROLOL TARTRATE 25 MG TAB PO ONE (18:15)
[2017-07-17] MEDS ORDERED: MORPHINE SULFATE 4 MG/ML INJ IV PUSH ONE (18:15)
[2017-07-17 18:39] LABS: BLOOD UREA NITROGEN 20 MG/DL (7-18)
[2017-07-17 18:40] LABS: ALBUMIN 2.1 GM/DL (3.4-5.0); ALKALINE PHOSPHATASE 93 U/L (45-117); ALT (GPT) 20 U/L (12-78); AST (GOT) 24 U/L (15-37); CALCIUM 8.5 MG/DL (8.5-10.1); CHLORIDE 104 MEQ/L (98-107); CREATININE 0.84 MG/DL (0.60-1.30); GLOMERULAR FILTRATION RATE 90 ML/MIN (>89); GLUCOSE,RANDOM 103 MG/DL (74-106); MAGNESIUM 1.8 MG/DL (1.5-2.5); SODIUM (NA) 141 MEQ/L (136-145); TOTAL PROTEIN 6.2 GM/DL (6.4-8.2)
[2017-07-17 18:41] LABS: BICARBONATE 28.3 MEQ/L (21.0-32.0); TROPONIN I LESS THAN 0.02 NG/ML (0.02-0.05)
[2017-07-17 18:54] LABS: BILIRUBIN, URINE NEG (NEG); BLOOD, URINE NEG (NEG); GLUCOSE,URINE 150 mg/dL (NEG); KETONE, URINE 10 mg/dL (NEG); NITRITE,URINE NEG (NEG); PH, URINE 8.5 (5.0-8.5); SQUAMOUS EPITHELIAL CELL URINE 1 /hpf (0-5); URINE COLOR YELLOW (YELLW/STRAW); URINE LEUKOCYTE ESTERASE NEG (NEG)
[2017-07-17] MEDS ORDERED: LACTULOSE SYRUP 20 GM/30 ML CUP PO PRN (19:00)
[2017-07-17] MEDS ORDERED: SODIUM CHLORIDE 0.9% FLUSH 10 ML FLUSH IV FLUSH PRN (19:00)
[2017-07-17] MEDS ORDERED: NALOXONE HCL 0.4 MG/ML AMP IV PUSH PRN (19:00)
[2017-07-17] MEDS ORDERED: MAGNESIUM HYDROXIDE SUSP 30 ML CUP PO PRN (19:00)
[2017-07-17] MEDS ORDERED: BISACODYL 10 MG SUPP RECTAL PRN (19:00)
[2017-07-17] MEDS ORDERED: SENNOSIDES 8.6 MG TAB PO PRN (19:00)
[2017-07-17] MEDS ORDERED: ASPIRIN 325 MG TAB PO ONE (19:15)
[2017-07-17] MEDS ORDERED: cefTRIAXone INJ 2,000 MG in SODIUM CHLORIDE 0.9% INJ 100 ML IV SCH (20:00)
[2017-07-17] MEDS ORDERED: ENOXAPARIN SODIUM 40 MG/0.4 ML SYRINGE SQ SCH ×2 (20:00→23:00)
--- NOTE | 2017-07-17 21:12 | HHI.HP ---
HPI Service [facility] Primary Care Physician Jessica Yoon Do, MD Admission Diagnosis pancreatic cancer, pneumonia, pleural effusion Diagnoses: Travel History International Travel<30 Days: No Contact w/Intl Traveler <30 Da: No Traveled to Known Affected Are: No History of Present Illness 71-year-old male with a past medical history significant for chronic back pain, BPH, COPD, coronary artery disease status post CABG, valvular heart disease, hypertension and non-small cell lung carcinoma (last chemotherapy 2 weeks ago) Who presents to the emergency department for shortness of breath. The patient reports that he was unable to breathe for the past 2 days. He endorses a productive cough and accompanying fever/chills. He states he has right-sided chest pain that is sharp and worse with inspiration. He denies any substernal chest pain or pressure. No abdominal pain. No nausea/vomiting/diarrhea. No lateralizing signs/symptoms. Review of Systems Except as stated in HPI: all other systems reviewed are Neg Past Family Social History Past Medical History (Obtained from medical records) Non-small cell lung cancer status post recent chemotherapy Hypothyroidism Coronary artery disease with history of CABG 4 History of [place] History of congestive heart failure History of cardiac stents Hypercholesterolemia irregular heartbeat questionable atrial fibrillation Hypertension COPD and emphysema Recent pneumonia GERD History of kidney stones Osteoarthritis Anxiety and depression History of tobacco History of shingles Past Surgical History Cholecystectomy Coronary artery disease with history of CABG of 4 vessels and cardiac stenting Port Appendectomy Reported Medications Reported Meds & Active Scripts Active Prednisone 5 Mg Tab 5 Mg PO DAILY Take 4 tabs x 2 days Take 2 tabs x 2 days Take 1 tab x 2 days Ventolin Hfa 18 GM Inh (Albuterol Sulfate) 90 Mcg/Act Aer 2 Puff INH Q4H PRN Symbicort Inh (Budesonide/Formoterol Fumarate) 80-4.5 Mcg/Act Aero 2 Puff INH Q12HR Reported Prochlorperazine Maleate 10 Mg Tab 10 Mg PO Q6H PRN Fentanyl Patch 72 HR (Fentanyl) 100 Mcg/Hr Patch 100 Mcg T-DERMAL Q72H Remove old patch when new one placed. Morphine IR (Morphine Sulfate) 30 Mg Tab 30 Mg PO QID Aspirin EC (Aspirin) 81 Mg Tabdr 81 Mg PO DAILY Tamsulosin (Tamsulosin HCl) 0.4 Mg Cap 0.4 Mg PO WITH DINNER Potassium Chloride ER (Potassium Chloride) 20 Meq Tab 20 Meq PO BID Metoprolol Tartrate 25 Mg Tab 25 Mg PO DAILY Amlodipine (Amlodipine Besylate) 5 Mg Tab 5 Mg PO DAILY Famotidine 20 Mg Tab 20 Mg PO BID Atorvastatin (Atorvastatin Calcium) 10 Mg Tab 10 Mg PO DAILY Furosemide 40 Mg Tab 40 Mg PO DAILY Diclofenac Sodium DR (Diclofenac Sodium) 75 Mg Tabdr 75 Mg PO BID NEEDED Gabapentin 600 Mg Tab 600 Mg PO TID Allergies: Coded Allergies: No Known Allergies (Unverified Allergy, Unknown, 05/08/17) Family History Tobacco abuse Hypercholesterolemia Social History Still smoking tobacco daily Denies any illicit drugs Denies any alcohol Physical Exam Vital Signs Vital Signs Date Time Temp Pulse Resp B/P (MAP) Pulse Ox O2 Delivery O2 Flow Rate FiO2 07/17/17 20:32 07/17/17 19:40 98 Nasal Cannula 2.50 07/17/17 19:10 101 18 117/70 (86) 98 Nasal Cannula 2.00 07/17/17 18:28 102 18 145/74 (97) 96 Nasal Cannula 3.00 07/17/17 17:38 96 Nasal Cannula 3.00 07/17/17 17:38 96 Nasal Cannula 3.00 07/17/17 16:59 78 96 Nasal Cannula 3.00 07/17/17 16:52 98.3 108 24 145/74 (97) 95 Physical Exam GENERAL: male lying in bed SKIN: No rashes, ecchymoses or lesions. Cool and dry. HEAD: Atraumatic. Normocephalic. No temporal or scalp tenderness. EYES: Pupils equal round and reactive. Extraocular motions intact. No scleral icterus. No injection or drainage. ENT: Nose without bleeding, purulent drainage or septal hematoma. Throat without erythema, tonsillar hypertrophy or exudate. Uvula midline. Airway patent. NECK: Trachea midline. No JVD or lymphadenopathy. Supple, nontender, no meningeal signs. CARDIOVASCULAR: Regular rate and rhythm without murmurs, gallops, or rubs. RESPIRATORY: Coarse breath sounds bilaterally. Poor air movement. GASTROINTESTINAL: Abdomen soft, non-tender, nondistended. No hepato-splenomegaly , or palpable masses. No guarding. MUSCULOSKELETAL: Extremities without clubbing, cyanosis, or edema. No joint tenderness, effusion, or edema noted. No calf tenderness. NEUROLOGICAL: Awake and alert. Cranial nerves II through XII intact. Motor and sensory grossly within normal limits. Normal speech. Laboratory Laboratory Tests Test 07/17/17 17:11 07/17/17 17:17 07/17/17 18:15 07/17/17 18:35 Blood Gas Puncture Site RT RADIAL Blood Gas Patient Temperature 98.6 Blood Gas HCO3 28 Blood Gas Base Excess 5.0 Blood Gas Oxygen Saturation 94 Arterial Blood pH 7.52 Arterial Blood Partial Pressure CO2 34 Arterial Blood Partial Pressure O2 79 Arterial Blood Oxygen Content 11.3 Arterial Blood Carboxyhemoglobin 2.0 Arterial Blood Methemoglobin 0.6 Blood Gas Hemoglobin 8.5 Oxygen Delivery Device NASAL CANNULA Blood Gas Liter Flow 3 White Blood Count 12.0 Red Blood Count 2.63 Hemoglobin 8.4 Hematocrit 25.2 Mean Corpuscular Volume 95.9 Mean Corpuscular Hemoglobin 31.9 Mean Corpuscular Hemoglobin Concent 33.3 Red Cell Distribution Width 17.5 Platelet Count 60 Mean Platelet Volume 7.3 Neutrophils (%) (Auto) 89.6 Lymphocytes (%) (Auto) 3.6 Monocytes (%) (Auto) 6.0 Eosinophils (%) (Auto) 0.0 Basophils (%) (Auto) 0.8 Neutrophils # (Auto) 10.7 Lymphocytes # (Auto) 0.4 Monocytes # (Auto) 0.7 Eosinophils # (Auto) 0.0 Basophils # (Auto) 0.1 CBC Comment AUTO DIFF Differential Comment AUTO DIFF CONFIRMED Platelet Estimate LOW Platelet Morphology Comment NORMAL Prothrombin Time 12.1 Prothromb Time International Ratio 1.2 Activated Partial Thromboplast Time 30.6 Blood Urea Nitrogen 20 Creatinine 0.84 Random Glucose 103 Total Protein 6.2 Albumin 2.1 Calcium Level 8.5 Magnesium Level 1.8 Alkaline Phosphatase 93 Aspartate Amino Transf (AST/SGOT) 24 Alanine Aminotransferase (ALT/SGPT) 20 Total Bilirubin 1.0 Sodium Level 141 Potassium Level 3.7 Chloride Level 104 Carbon Dioxide Level 28.3 Anion Gap 9 Estimat Glomerular Filtration Rate 90 Total Creatine Kinase 59 Troponin I LESS THAN 0.02 B-Type Natriuretic Peptide 333 Lactic Acid Level 1.5 Urine Color YELLOW Urine Turbidity CLEAR Urine pH 8.5 Urine Specific [place] 1.022 Urine Protein 100 Urine Glucose (UA) 150 Urine Ketones 10 Urine Occult Blood NEG Urine Nitrite NEG Urine Bilirubin NEG Urine Urobilinogen 2.0 Urine Leukocyte Esterase NEG Urine RBC 1 Urine WBC 1 Urine Squamous Epithelial Cells 1 Microscopic Urinalysis Comment CULT NOT INDICATED Date/Time Source Procedure Growth Status 07/17/17 18:20 Blood Peripheral Aerobic Blood Culture Pending Received 07/17/17 18:20 Blood Peripheral Anaerobic Blood Culture Pending Received Result Diagram: 07/17/177 07/17/17 1717 Caprini VTE Risk Assessment Caprini VTE Risk Assessment: Mod/High Risk (score >= 2) Caprini Risk Assessment Model Point Value = 1 Point Value = 2 Point Value = 3 Point Value = 5 Age 41-60 Minor surgery BMI > 25 kg/m2 Swollen legs Varicose veins or History of unexplained or recurrent spontaneous Oral contraceptives or hormone replacement Sepsis (< 1 month) Serious lung disease, including pneumonia (< 1 month) Abnormal pulmonary function Acute myocardial infarction Congestive heart failure (< 1 month) History of inflammatory bowel disease Medical patient at bed rest Age 61-74 Arthroscopic surgery Major open surgery (> 45 min) Laparoscopic surgery (> 45 min) Malignancy Confined to bed (> 72 hours) Immobilizing plaster cast Central venous access Age >= 75 History of VTE Family history of VTE Factor V Leiden Prothrombin [id number] Lupus anticoagulant Anticardiolipin antibodies Elevated serum homocysteine Heparin-induced thrombocytopenia Other congenital or acquired thrombophilia Stroke (< 1 month) Elective arthroplasty Hip, pelvis, or leg fracture Acute spinal cord injury (< 1 month) Prophylaxis Regimen Total Risk Factor Score Risk Level Prophylaxis Regimen 0-1 Low Early ambulation 2 Moderate Order ONE of the following: *Sequential Compression Device (SCD) *Heparin 5000 units SQ BID 3-4 Higher Order ONE of the following medications: *Heparin 5000 units SQ TID *Enoxaparin/Lovenox 40 mg SQ daily (WT < 150 kg, CrCl > 30 mL/min) *Enoxaparin/Lovenox 30 mg SQ daily (WT < 150 kg, CrCl > 10-29 mL/min) *Enoxaparin/Lovenox 30 mg SQ BID (WT < 150 kg, CrCl > 30 mL/min) AND/OR *Sequential Compression Device (SCD) 5 or more Highest Order ONE of the following medications: *Heparin 5000 units SQ TID (Preferred with Epidurals) *Enoxaparin/Lovenox 40 mg SQ daily (WT < 150 kg, CrCl > 30 mL/min) *Enoxaparin/Lovenox 30 mg SQ daily (WT < 150 kg, CrCl > 10-29 mL/min) *Enoxaparin/Lovenox 30 mg SQ BID (WT < 150 kg, CrCl > 30 mL/min) AND *Sequential Compression Device (SCD) Assessment and Plan Assessment and Plan Assessment/plan: 1. Community-acquired pneumonia Chest x-ray significant for increasing consolidation in the right lung, personally reviewed Azithromycin and Rocephin Sputum culture pending 2. Stage III non-small cell lung cancer Last chemotherapy 2 weeks ago Medical oncology consulted, appreciate assistance 3. Anemia H&H 8.4/25.2 Hemoglobin consulted as above Monitor Transfuse as needed 4. Hypertension/hyperlipidemia/CAD Continue home medications 5. COPD Continue Symbicort Duo nebs 6. BPH Continue Flomax 7. Chronic back pain Continue morphine and fentanyl at home dosing FEN Heart healthy diet Electrolytes: Monitor and replete as needed Holding Lovenox secondary to thrombocytopenia Physician Certification 2 Midnight Certification Type: Admission for Inpatient Services Order for Inpatient Services The services are ordered in accordance with Medicare regulations or non- Medicare payer requirements, as applicable. In the case of services not specified as inpatient-only, they are appropriately provided as inpatient services in accordance with the 2-midnight benchmark. Estimated LOS (days): 2 2 days is the estimated time the patient will need to remain in the hospital, assuming treatment plan goals are met and no additional complications. Post-Hospital Plan: Not yet determined Mine Lee MD July 17, 2017 21:12
[2017-07-17] MEDS ORDERED: fentaNYL 100 MCG/HR PATCH T-DERMAL SCH (22:00)
[2017-07-18] VITALS (8 sets, daily range): BP systolic 105–123; BP diastolic 60–66; PULSE 79–91; RESP 17–18; TEMP 97.7–98.9; O2SAT 93–98
[2017-07-18] MEDS: REMOVE OLD DURAGESIC (FENTANYL) PATCH T-DERMAL SCH
[2017-07-18] MEDS: SODIUM CHLORIDE 0.9% FLUSH 10 ML FLUSH IV FLUSH SCH ×3 (00:18→20:44)
[2017-07-18] MEDS: cefTRIAXone INJ 2,000 MG in SODIUM CHLORIDE 0.9% INJ 100 ML IV SCH ×2 (00:18→23:06)
[2017-07-18] MEDS: ACETAMINOPHEN 325 MG TAB PO PRN (00:50)
[2017-07-18] MEDS: fentaNYL 100 MCG/HR PATCH T-DERMAL SCH (01:48)
[2017-07-18] MEDS ORDERED: MORPHINE SULFATE 4 MG/ML INJ IV PUSH ONE (03:00)
[2017-07-18] MEDS: MORPHINE SULFATE 15 MG TAB PO SCH ×5 (05:28→23:07)
[2017-07-18 05:54] LABS: BASOPHIL % 0.3 % (0.0-2.0); EOSINOPHIL % 0.1 % (0.0-4.0); HEMATOCRIT 24.4 % (39.0-51.0); HEMOGLOBIN 8.2 GM/DL (13.0-17.0); LYMPH % 5.3 % (9.0-44.0); LYMPHOCYTE # 0.4 TH/MM3 (1.0-4.8); MEAN CELL VOLUME 95.6 FL (80.0-100.0); MEAN CORPUSCULAR HEMOGLOBIN 32.1 PG (27.0-34.0); MEAN CORPUSCULAR HGB CONC 33.6 % (32.0-36.0); MEAN PLATELET VOLUME 7.7 FL (7.0-11.0); MONO % 8.5 % (0.0-8.0); MONOCYTE # 0.7 TH/MM3 (0-0.9); NEUT % 85.8 % (16.0-70.0); PLATELET COUNT 50 TH/MM3 (150-450); RED BLOOD COUNT 2.55 MIL/MM3 (4.50-5.90); RED CELL DISTRIBUTION WIDTH 17.5 % (11.6-17.2); WHITE BLOOD COUNT 8.2 TH/MM3 (4.0-11.0)
[2017-07-18 06:33] LABS: BICARBONATE 29.6 MEQ/L (21.0-32.0); CALCIUM 8.6 MG/DL (8.5-10.1); CREATININE 0.83 MG/DL (0.60-1.30)
[2017-07-18] MEDS ORDERED: amLODIPine BESYLATE 5 MG TAB PO SCH (09:00)
[2017-07-18] MEDS: BUDESONIDE-FORMOTEROL 80/4.5 MCG INHALER INH SCH ×2 (09:00→20:47)
[2017-07-18] MEDS ORDERED: MORPHINE SULFATE 30 MG TAB PO SCH (09:00)
--- NOTE | 2017-07-18 09:59 | EKG ---
Date Performed: 07/17/2017 Time Performed: 17:34:15 PTAGE: 71 years EKG: IRREGULAR SUPRAVENTRICULAR RHYTHM BASELINE ARTIFACT REPEAT EKG SUGGESTED ABNORMAL ECG PREVIOUS TRACING : 06/30/2017 11.00 DOCTOR: Tammy Brown Interpretating Date/Time 07/18/2017 09:57:57
[2017-07-18] MEDS ORDERED: oxyCODONE/ACETAMINOPHEN 7.5 MG/325 MG TAB PO PRN (10:30)
[2017-07-18] MEDS: MORPHINE SULFATE 4 MG/ML INJ IV PUSH PRN (11:45)
[2017-07-18] MEDS: AZITHROMYCIN INJ 500 MG in SODIUM CHLOR 0.9% 250 ML INJ 250 ML IV SCH (11:45)
[2017-07-18] MEDS: METOPROLOL TARTRATE 25 MG TAB PO SCH (11:46)
[2017-07-18] MEDS: GABAPENTIN 300 MG CAP PO SCH ×3 (11:46→18:00)
[2017-07-18] MEDS: FUROSEMIDE 40 MG TAB PO SCH (11:47)
[2017-07-18] MEDS: POTASSIUM CHLORIDE 20 MEQ CONTROLLED RELEASE TAB PO SCH ×2 (11:57→20:44)
[2017-07-18] MEDS: ATORVASTATIN 10 MG TAB PO SCH (11:58)
[2017-07-18] MEDS: RESP: ALBUTEROL 2.5 MG/IPRATROPIUM 0.5 MG NEB (PRN) NEB (12:50)
--- NOTE | 2017-07-18 13:07 | HHI.PR ---
Subjective Remarks Patient is miserable, discussed with RN. He reports severe pain that is not well controlled on current medications. He endorsed shortness of breath and is wheezing. Objective Vitals Vital Signs Date Time Temp Pulse Resp B/P (MAP) Pulse Ox O2 Delivery O2 Flow Rate FiO2 07/18/17 12:52 97 Nasal Cannula 4.00 07/18/17 12:00 98.1 91 17 117/63 (81) 98 07/18/17 08:00 97.9 82 17 119/60 (79) 97 07/18/17 03:55 97.7 86 18 107/64 (78) 96 07/17/17 22:14 97.2 89 19 122/64 (83) 95 07/17/17 21:10 98.2 83 17 88/52 (64) 95 07/17/17 20:32 07/17/17 19:40 98 Nasal Cannula 2.50 07/17/17 19:10 101 18 117/70 (86) 98 Nasal Cannula 2.00 07/17/17 18:28 102 18 145/74 (97) 96 Nasal Cannula 3.00 07/17/17 17:38 96 Nasal Cannula 3.00 07/17/17 17:38 96 Nasal Cannula 3.00 07/17/17 16:59 78 96 Nasal Cannula 3.00 07/17/17 16:52 98.3 108 24 145/74 (97) 95 I/O 07/17/17 07/17/17 07/17/17 07/18/17 07/18/17 07/18/17 07:00 15:00 23:00 07:00 15:00 23:00 Intake Total 250 ml 360 ml Output Total 350 ml 200 ml Balance 250 ml 10 ml -200 ml Intake Oral 360 ml IV Total 250 ml Output Urine Total 350 ml 200 ml # Voids 2 # Bowel Movements 0 Result Diagram: 07/18/17 0435 07/18/17 0535 Objective Remarks GENERAL: Elderly and frail male in obvious discomfort. CARDIOVASCULAR: Regular rate and rhythm without murmurs, gallops, or rubs. RESPIRATORY: Diffuse expiratory wheezing, air movement is fair. GASTROINTESTINAL: Abdomen soft, non-tender, nondistended. Normal active bowel sounds MUSCULOSKELETAL: Extremities without clubbing, cyanosis, or edema. NEURO: Alert & Oriented x4 to person, place, time, situation. Moves all ext x4 A/P Assessment and Plan 71 Y/O male with lung cancer admitted with: Acute hypoxemic respiratory failure: Probably a combination of COPD, pneumonia and lung cancer burden - Treat as health care associated pneumonia. Change Rocephin to Cefepime. - IV solumedrol - Breathing treatments. Health care associated pneumonia Chest x-ray significant for increasing consolidation in the right lung Azithromycin and Cefepime Sputum culture pending Stage III non-small cell lung cancer Last chemotherapy 2 weeks ago Medical oncology consulted, appreciate assistance Anemia/thrombocytopenia: Probably related to cho H&H 8.4/25.2 Hematology consulted as above Monitor Transfuse as needed Hypertension/hyperlipidemia/CAD Continue home medications COPD Continue Symbicort Duo nebs BPH Continue Flomax Chronic back pain, uncontrolled Continue morphine and fentanyl at home dosing Chronically ill patient with repeated Hospitalization and obvious decline in functional status. Pain is not well controlled. Consult Palliative care to assist with goals of care, pain management, patient and family support. Sofya Lutz MD July 18, 2017 13:07
[2017-07-18] MEDS ORDERED: MORPHINE SULFATE 15 MG TAB PO PRN (16:00)
--- NOTE | 2017-07-18 16:08 | PD.CONS ---
Consult Service Palliative Care Consult Requested By Dr. Lutz . Primary Care Physician Jessica Yoon Do, MD . Reason for Consultation a. To assist with evaluation and management of symptoms including: Pain, dyspnea b. To assist medical decision maker(s) with: better understanding of current medical conditions; weighing benefits/burdens of medical treatment options; making medical treatment decisions. . 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 The patient has a long history of COPD, and has been admitted to the hospital here a few times for that. He was admitted on 11/02/16 because of dyspnea, and CT scan at that time found a large retrocardiac mass as well as a secondary mass and mediastinal adenopathy. Biopsy revealed moderately differentiated adenocarcinoma, and subsequent MRI of the brain was negative. He was felt to have stage IIIa non-small cell lung cancer, and he underwent treatment with carboplatin and Taxol, as well as concomitant radiation therapy that concluded on 03/10/17. Scans on 06/13/17 did confirm a response to the treatment, with smaller tumor masses present. During these weeks and months of treatment, the patient has progressively gotten weaker, tells me that he has lost 40 pounds, and he has had worsening pain. He has a long history of chronic back pain, but in recent weeks has had worsening back pain that is constant and sometimes positional, and also worsening intermittent sharp brief pains in his right anterolateral chest. He says the chest pain has been attributed to his tumor burden. The patient was admitted after presenting to the emergency department on because of pain and shortness of breath. Findings in the emergency department included: * Moderate pain, moderate dyspnea * Temp 98.3, pulse 78, respirations 24, blood pressure 145/74, oxygen saturation 96% on 3 L. * White count 12.0, hemoglobin 8.4 * Sodium 141, creatinine 0.84, albumin 2.1 * BNP 333 * Lactic acid 1.5 * Chest x-ray reported as showing increased consolidation on the right * CT angiography done on 06/30/17 during his chest pain admission revealed: The previous masses described as 6.1 x 2.9 cm in the right lower lobe, and now NEW multiple nodules in the left lower lobe consistent with metastatic disease (and not reported on prior CT angiography at this facility). For the patient's pain, he reports that he has been on morphine 30 mg QID and fentanyl 100 mcg at home for more than a couple years. Since he has been here in the hospital, he is receiving 30 mg of MSIR every 6 hours [id number], and also has fentanyl [address]. He tells me that his pain remains moderately severe and constant in his back, and he still has occasional shooting sharp pains in his right anterolateral chest. He got 1 dose of PRN parenteral morphine 2 mg, but has not received any of the 7.5 mg Percocet that was also ordered PRN. He tells me that his back and chest pains have been getting slowly but progressively worse over the last few weeks in spite of his pain medicine. Palliative Care was consulted to assist with symptom management, and to enter into discussions with the patient regarding his illnesses, the prognosis, and the benefits and burdens of the various treatment choices. . Function/Cognitive Trajectory The patient notes that he is gotten progressively weaker and more dyspneic at home in recent weeks. He reports that he is "just barely able to" get to the bathroom now at home prior to this admission. He has a friend that lives with him part of the time in has been his transportation to appointments and grocery store at times. . Review of Systems Constitutional: COMPLAINS OF: Fatigue, Weight loss Endocrine: DENIES: Polyuria Eyes: DENIES: Eye inflammation Ears, nose, mouth, throat: DENIES: Epistaxis Respiratory: COMPLAINS OF: Cough, Shortness of breath Cardiovascular: COMPLAINS OF: Chest pain, Dyspnea on Exertion, DENIES: Lower Extremity Edema Gastrointestinal: DENIES: Abdominal pain, Bloody stools, Constipation, Diarrhea , Vomiting, Vomiting blood Genitourinary: DENIES: Hematuria Musculoskeletal: COMPLAINS OF: Back pain (Chronic for years), DENIES: Neck pain Integumentary: DENIES: Rash Hematologic/Lymphatics: DENIES: Bruising Immunologic/Allergic: DENIES: Urticaria Neurologic: DENIES: Headache, Localized weakness, Seizures Psychiatric: COMPLAINS OF: Confusion, DENIES: Hallucinations, Agitation Past Family Social History Coded Allergies: No Known Allergies (Unverified Allergy, Unknown, 05/08/17) Past Medical History * End-stage COPD, oxygen dependent * History of CHF * Chronic kidney disease * CAD, history of NC 2004, status post CABG * Chronic anemia * Hyperlipidemia * Chronic low back pain, chronic opiate use * Neuropathy * Thyroid disease * Depression * BPH degenerative joint disease * Diverticulosis . Past Surgical History Cholecystectomy 2002 Coronary artery disease with history of CABG 2000 Port Appendectomy Skin cancers Vasectomy 1985 Cardiac valvuloplasty Shoulder surgery . Reported Medications Reported Meds & Active Scripts Active Prednisone 5 Mg Tab 5 Mg PO DAILY Take 4 tabs x 2 days Take 2 tabs x 2 days Take 1 tab x 2 days Ventolin Hfa 18 GM Inh (Albuterol Sulfate) 90 Mcg/Act Aer 2 Puff INH Q4H PRN Symbicort Inh (Budesonide/Formoterol Fumarate) 80-4.5 Mcg/Act Aero 2 Puff INH Q12HR Reported Prochlorperazine Maleate 10 Mg Tab 10 Mg PO Q6H PRN Fentanyl Patch 72 HR (Fentanyl) 100 Mcg/Hr Patch 100 Mcg T-DERMAL Q72H Remove old patch when new one placed. Morphine IR (Morphine Sulfate) 30 Mg Tab 30 Mg PO QID Aspirin EC (Aspirin) 81 Mg Tabdr 81 Mg PO DAILY Tamsulosin (Tamsulosin HCl) 0.4 Mg Cap 0.4 Mg PO WITH DINNER Potassium Chloride ER (Potassium Chloride) 20 Meq Tab 20 Meq PO BID Metoprolol Tartrate 25 Mg Tab 25 Mg PO DAILY Amlodipine (Amlodipine Besylate) 5 Mg Tab 5 Mg PO DAILY Famotidine 20 Mg Tab 20 Mg PO BID Atorvastatin (Atorvastatin Calcium) 10 Mg Tab 10 Mg PO DAILY Furosemide 40 Mg Tab 40 Mg PO DAILY Diclofenac Sodium DR (Diclofenac Sodium) 75 Mg Tabdr 75 Mg PO BID NEEDED Gabapentin 600 Mg Tab 600 Mg PO TID . Current Medications Medications (Trade) Dose Ordered Sig/Arcelia Route Start Time Stop Time Status Last Admin (NS Flush) 2 ml UNSCH PRN IV FLUSH 07/17/17 19:00 (NS Flush) 2 ml BID IV FLUSH 07/17/17 21:00 07/18/17 11:46 (Tylenol) 650 mg Q4H PRN PO 07/17/17 19:00 07/18/17 00:50 (Narcan Inj) 0.4 mg UNSCH PRN IV PUSH 5/14/18 19:00 (Milk Of Magnesia Liq) 30 ml Q12H PRN PO 07/17/17 19:00 (Senokot) 17.2 mg Q12H PRN PO 07/17/17 19:00 (Dulcolax Supp) 10 mg DAILY PRN RECTAL 07/17/17 19:00 (Lactulose Liq) 30 ml DAILY PRN PO 07/17/17 19:00 Azithromycin 500 mg/Sodium Chloride 250 ml @ 250 mls/hr Q24H IV 07/18/17 09:00 07/18/17 11:45 (Duoneb Neb) 1 ampule Q4HR NEB PRN NEB 07/17/17 19:00 07/18/17 12:50 (Norvasc) 5 mg DAILY PO 07/18/17 09:00 Future Hold (Lipitor) 10 mg DAILY PO 07/18/17 09:00 07/18/17 11:58 (Symbicort 80-4.5 Mcg Inh) 2 puff Q12HR INH 07/18/17 09:00 (Lasix) 40 mg DAILY PO 07/18/17 09:00 07/18/17 11:47 (Neurontin) 600 mg TID PO 07/18/17 09:00 07/18/17 11:46 (Lopressor) 25 mg DAILY PO 07/18/17 09:00 07/18/17 11:46 (KCl) 20 meq BID PO 07/18/17 09:00 07/18/17 11:57 (Flomax) 0.4 mg WITH DINNER PO 07/18/17 18:00 (Lovenox Inj) 40 mg Q24H SQ 07/17/17 23:00 Future Hold 07/18/17 00:18 Ceftriaxone Sodium 2000 mg/ Sodium Chloride 100 ml @ 200 mls/hr Q24H IV 07/17/17 23:00 07/18/17 00:18 (Duragesic 100 Mcg Patch.72 Hr) 1 patch Q72H T-DERMAL 07/18/17 00:00 07/18/17 01:48 Miscellaneous Information 1 Q3D T-DERMAL 07/18/17 00:00 07/18/17 00:00 (Msir) 30 mg Q6HR PO 07/18/17 05:00 07/18/17 11:48 (Percocet 7.5-325 Mg) 1 tab Q4H PRN PO 07/18/17 10:30 (Morphine Inj) 2 mg Q3H PRN IV PUSH 07/18/17 10:30 07/18/17 11:45 (SoluMEDROL INJ) 40 mg Q6HR IV PUSH 07/18/17 13:15 Family History Patient's father at age 60 of a stroke, and mother at age 69 of a brain aneurysm. The patient's brother of heart disease at age 68. . Substance Use Tobacco: Lifelong smoker, currently about one half pack per day. Alcohol: Rare Prescription med abuse: None Illicits: None reported . Psychosocial History The patient was born and raised in [place], but is lived in [place] for several years. 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 He was once, and his of lung cancer in 2000; the patient was the primary caregiver as she at home. They had no children. The patient has some distant relatives scattered in [place] in [place], but notes that his closest relative is his nephew and in [place], [place]. . Spiritual/Cultural Factors The patient has a Christian background, unaffiliated with any yazdanism or clergy in recent years, and he is open to assistant oceanographer visits here at the hospital. . Living Will: Completed, but not made available Health Care Surrogate: Copy in medical record Durable Power of Keeper Helper: Never completed Health Care Surrogate(s): The patient designated his nephew Chaitanya Mcdonough and Kathrin as healthcare surrogates. . Documented care wishes: The patient tells me he has a living will but is not sure where it is. He says that his living will says he would not want to be resuscitated or continued with aggressive care "if there was not a substantial amount of quality life still remaining." . Today's verbally stated goals: The patient definitely would not want to be resuscitated or placed on life support, and he requests DNR status. His other primary goal at this point is to get his pain under better control. He notes that his long-term fentanyl and morphine "is no longer controlling the pain since it keeps getting worse." . Ethical and Legal Issues There are no ethical issues that would impact his care were decision-making at this time. The patient has capacity for decision-making at this time. He has designated his nephew and as HCS. . Physical Exam Vital Signs Date Time Temp Pulse Resp B/P (MAP) Pulse Ox O2 Delivery O2 Flow Rate FiO2 07/18/17 12:52 97 Nasal Cannula 4.00 07/18/17 12:00 98.1 91 17 117/63 (81) 98 07/18/17 08:00 97.9 82 17 119/60 (79) 97 07/18/17 03:55 97.7 86 18 107/64 (78) 96 07/17/17 22:14 97.2 89 19 122/64 (83) 95 07/17/17 21:10 98.2 83 17 88/52 (64) 95 07/17/17 20:32 07/17/17 19:40 98 Nasal Cannula 2.50 07/17/17 19:10 101 18 117/70 (86) 98 Nasal Cannula 2.00 07/17/17 18:28 102 18 145/74 (97) 96 Nasal Cannula 3.00 07/17/17 17:38 96 Nasal Cannula 3.00 07/17/17 17:38 96 Nasal Cannula 3.00 07/17/17 16:59 78 96 Nasal Cannula 3.00 07/17/17 16:52 98.3 108 24 145/74 (97) 95 07/18/17 07/19/17 19:00 07:00 Output Total 200 ml Balance -200 ml Output Urine Total 200 ml Exam CONSTITUTIONAL/GENERAL: This is a weak patient, appearing older than his stated age, and in mild to moderate respiratory and pain distress. TUBES/LINES/DRAINS: Peripheral IV, supplemental nasal oxygen SKIN: No jaundice, rashes, or lesions. Ecchymoses on upper extremities. No wounds seen anteriorly. Skin temperature appropriate. Not diaphoretic. HEAD: Atraumatic. Normocephalic. EYES: Pupils equal and round and reactive. Extraocular motions intact. No scleral icterus. No injection or drainage. Fundi not examined. ENT: Hearing grossly normal. Nose without bleeding or purulent drainage. Throat without visible erythema, exudates, masses, or lesions. NECK: Trachea midline. Supple, nontender. No palpable thyroid enlargement or nodularity. CARDIOVASCULAR: Regular rate and rhythm with grade 1-2 systolic murmur. No JVD. Peripheral pulses diminished. RESPIRATORY/CHEST: Symmetric, mildly labored respirations while at rest in the bed. A couple scattered rhonchi are present. GASTROINTESTINAL: Abdomen soft, non-tender, nondistended. No hepato-splenomegaly , or palpable masses. No guarding. Bowel sounds present. GENITOURINARY: Without palpable bladder distension. MUSCULOSKELETAL: Extremities without clubbing, cyanosis, or edema. No joint tenderness or effusion noted. No calf tenderness. No mottling or clubbing. LYMPHATICS: No palpable cervical or supraclavicular adenopathy. NEUROLOGICAL: Awake and alert, oriented 4. Motor function globally weak, and sensory grossly within normal limits. Follows commands. Cognitively sharp. Moves all extremities. PSYCHIATRIC: No obvious anxiety/depression. no apparent hallucinations or other psychotic thought process. . Diagnostic Tests Laboratory Laboratory Tests Test 07/17/17 17:11 07/17/17 17:17 07/17/17 18:15 07/17/17 18:35 Blood Gas Puncture Site RT RADIAL Blood Gas Patient Temperature 98.6 Blood Gas HCO3 28 mmol/L (22-26) Blood Gas Base Excess 5.0 mmol/L (-2-2) Blood Gas Oxygen Saturation 94 % (90-100) Arterial Blood pH 7.52 (7.380-7.420) Arterial Blood Partial Pressure CO2 34 mmHg (38-42) Arterial Blood Partial Pressure O2 79 mmHG (61-120) Arterial Blood Oxygen Content 11.3 Vol % (12.0-20.0) Arterial Blood Carboxyhemoglobin 2.0 % (0-4) Arterial Blood Methemoglobin 0.6 % (0-2) Blood Gas Hemoglobin 8.5 G/DL (12.0-16.0) Oxygen Delivery Device NASAL CANNULA Blood Gas Liter Flow 3 L/M White Blood Count 12.0 TH/MM3 (4.0-11.0) Red Blood Count 2.63 MIL/MM3 (4.50-5.90) Hemoglobin 8.4 GM/DL (13.0-17.0) Hematocrit 25.2 % (39.0-51.0) Mean Corpuscular Volume 95.9 FL (80.0-100.0) Mean Corpuscular Hemoglobin 31.9 PG (27.0-34.0) Mean Corpuscular Hemoglobin Concent 33.3 % (32.0-36.0) Red Cell Distribution Width 17.5 % (11.6-17.2) Platelet Count 60 TH/MM3 (150-450) Mean Platelet Volume 7.3 FL (7.0-11.0) Neutrophils (%) (Auto) 89.6 % (16.0-70.0) Lymphocytes (%) (Auto) 3.6 % (9.0-44.0) Monocytes (%) (Auto) 6.0 % (0.0-8.0) Eosinophils (%) (Auto) 0.0 % (0.0-4.0) Basophils (%) (Auto) 0.8 % (0.0-2.0) Neutrophils # (Auto) 10.7 TH/MM3 (1.8-7.7) Lymphocytes # (Auto) 0.4 TH/MM3 (1.0-4.8) Monocytes # (Auto) 0.7 TH/MM3 (0-0.9) Eosinophils # (Auto) 0.0 TH/MM3 (0-0.4) Basophils # (Auto) 0.1 TH/MM3 (0-0.2) CBC Comment AUTO DIFF Differential Comment AUTO DIFF CONFIRMED Platelet Estimate LOW (NORMAL) Platelet Morphology Comment NORMAL (NORMAL) Prothrombin Time 12.1 SEC (9.8-11.6) Prothromb Time International Ratio 1.2 RATIO Activated Partial Thromboplast Time 30.6 SEC (24.3-30.1) Blood Urea Nitrogen 20 MG/DL (7-18) Creatinine 0.84 MG/DL (0.60-1.30) Random Glucose 103 MG/DL (74-106) Total Protein 6.2 GM/DL (6.4-8.2) Albumin 2.1 GM/DL (3.4-5.0) Calcium Level 8.5 MG/DL (8.5-10.1) Magnesium Level 1.8 MG/DL (1.5-2.5) Alkaline Phosphatase 93 U/L (45-117) Aspartate Amino Transf (AST/SGOT) 24 U/L (15-37) Alanine Aminotransferase (ALT/SGPT) 20 U/L (12-78) Total Bilirubin 1.0 MG/DL (0.2-1.0) Sodium Level 141 MEQ/L (136-145) Potassium Level 3.7 MEQ/L (3.5-5.1) Chloride Level 104 MEQ/L (98-107) Carbon Dioxide Level 28.3 MEQ/L (21.0-32.0) Anion Gap 9 MEQ/L (5-15) Estimat Glomerular Filtration Rate 90 ML/MIN (>89) Total Creatine Kinase 59 U/L (39-308) Troponin I LESS THAN 0.02 NG/ML B-Type Natriuretic Peptide 333 PG/ML (0-100) Lactic Acid Level 1.5 mmol/L (0.4-2.0) Urine Color YELLOW (YELLW/STRAW) Urine Turbidity CLEAR (CLEAR) Urine pH 8.5 (5.0-8.5) Urine Specific [place] 1.022 (1.002-1.035) Urine Protein 100 mg/dL (NEG-TRACE) Urine Glucose (UA) 150 mg/dL (NEG) Urine Ketones 10 mg/dL (NEG) Urine Occult Blood NEG (NEG) Urine Nitrite NEG (NEG) Urine Bilirubin NEG (NEG) Urine Urobilinogen 2.0 MG/DL (LESS THAN Urine Leukocyte Esterase NEG (NEG) Urine RBC 1 /hpf (0-3) Urine WBC 1 /hpf (0-5) Urine Squamous Epithelial Cells 1 /hpf (0-5) Microscopic Urinalysis Comment CULT NOT INDICATED Test 07/18/17 04:35 07/18/17 05:35 White Blood Count 8.2 TH/MM3 (4.0-11.0) Red Blood Count 2.55 MIL/MM3 (4.50-5.90) Hemoglobin 8.2 GM/DL (13.0-17.0) Hematocrit 24.4 % (39.0-51.0) Mean Corpuscular Volume 95.6 FL (80.0-100.0) Mean Corpuscular Hemoglobin 32.1 PG (27.0-34.0) Mean Corpuscular Hemoglobin Concent 33.6 % (32.0-36.0) Red Cell Distribution Width 17.5 % (11.6-17.2) Platelet Count 50 TH/MM3 (150-450) Mean Platelet Volume 7.7 FL (7.0-11.0) Neutrophils (%) (Auto) 85.8 % (16.0-70.0) Lymphocytes (%) (Auto) 5.3 % (9.0-44.0) Monocytes (%) (Auto) 8.5 % (0.0-8.0) Eosinophils (%) (Auto) 0.1 % (0.0-4.0) Basophils (%) (Auto) 0.3 % (0.0-2.0) Neutrophils # (Auto) 7.0 TH/MM3 (1.8-7.7) Lymphocytes # (Auto) 0.4 TH/MM3 (1.0-4.8) Monocytes # (Auto) 0.7 TH/MM3 (0-0.9) Eosinophils # (Auto) 0.0 TH/MM3 (0-0.4) Basophils # (Auto) 0.0 TH/MM3 (0-0.2) CBC Comment AUTO DIFF Differential Comment AUTO DIFF CONFIRMED Platelet Estimate LOW (NORMAL) Platelet Morphology Comment NORMAL (NORMAL) Blood Urea Nitrogen 21 MG/DL (7-18) Creatinine 0.83 MG/DL (0.60-1.30) Random Glucose 96 MG/DL (74-106) Calcium Level 8.6 MG/DL (8.5-10.1) Sodium Level 141 MEQ/L (136-145) Potassium Level 3.8 MEQ/L (3.5-5.1) Chloride Level 103 MEQ/L (98-107) Carbon Dioxide Level 29.6 MEQ/L (21.0-32.0) Anion Gap 8 MEQ/L (5-15) Estimat Glomerular Filtration Rate 91 ML/MIN (>89) Result Diagram: 07/18/17 0435 07/18/17 0535 Microbiology Microbiology Date/Time Source Procedure Growth Status 07/17/17 18:20 Blood Peripheral Aerobic Blood Culture - Preliminary NO GROWTH IN 1 DAY Resulted 07/17/17 18:20 Blood Peripheral Anaerobic Blood Culture - Preliminary NO GROWTH IN 1 DAY Resulted 07/17/17 18:15 Blood Peripheral Aerobic Blood Culture - Preliminary NO GROWTH IN 1 DAY Resulted 07/17/17 18:15 Blood Peripheral Anaerobic Blood Culture - Preliminary NO GROWTH IN 1 DAY Resulted Imaging Last Impressions Chest X-Ray 07/17/17 3657 Signed Impressions: Service Date/Time: Monday, July 17, 2017 17:20 - CONCLUSION: Increasing consolidation right lung with minimal effusion. Jonn Martinez MD FACR Patient/Family Conference Present at Family Conference: The patient and me at the bedside, and then the patient's nephew Chaitanya by telephone. . Family Conference Time (mins): 68 Family Conference Location: Bedside, Telephone Issues Discussed: * Palliative care role, purpose, approach * Hospice care role, purpose, approach * Additional medical, psychosocial, and spiritual history * Patients general health, functional status, and cognitive changes in the months leading up to the current hospitalization * Patient/family understanding of the current medical problems * Patient/family understanding of prognosis * Patients goals of care as best understood from advance directives and/or conversations and/or values * Current medical treatment options and benefits/burdens of those options * Likely scenarios comparing ongoing aggressive care with a transition to comfort measures only * Questions answered to the best of my ability * Palliative care contact information provided . Assessment and Plan Disease Oriented Problem List: (1) End-stage COPD, oxygen and steroid-dependent (2) Adenocarcinoma of the lung, s/p chemo/radiation, now with new lung nodules (3) Increased consolidation on x-ray, possible pneumonia (4) Worsening back and chest pain in spite of chronic opiates (5) Malnutrition/failure to thrive (6) CAD, history of NC, history of CABG (7) Chronic anemia (8) Depression (9) Chronic kidney disease Symptom Scale: (1) Dyspnea 0-10 Scale: 3 (Including dyspnea at rest) (2) Pain 0-10 Scale: 6 (Worsening chronic pain in recent weeks) (3) Depression 0-10 Scale: Unable to quantify Pertinent Non-Medical Issues Psychosocial: , 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 Spiritual: Christian background, open to cage unloader visits Legal: The patient has capacity for decision-making at this time. Nephew and are HCS. Ethical issues impacting care: None . Important Contacts Nephew: Chaitanya Mcdonough [phone] Local friend: Abhi Myrick [phone] . Prognosis The patient is terminal. He has end-stage COPD and adenocarcinoma of the lung that is persistent (and now has left lung multiple nodules not previously reported on CT scan). He is appropriate for hospice services if his goals become comfort oriented. . Code Status: No Code Plan * DO NOT RESUSCITATE, per request of patient 07/18/17. * DECISION-MAKING: The patient has capacity for decision-making at this time. He has designated his nephew and as healthcare surrogates. * SYMPTOMS: * PAIN: He has chronic back pain and now that as well as his right chest pain ( felt to be related to his tumor burden) have been worsening in recent weeks. In spite of continuing his transdermal fentanyl 100 mcg and oral morphine 30 mg QID, as well as being on steroids and gabapentin, the patient's pain has been worsening and is not controlled to his satisfaction. The 100 mg of fentanyl and 120 mg of daily morphine that he has been on are equivalent to 320 mg of oral morphine daily, suggesting an appropriate PRN dose of 30 mg of oral morphine. Orders written. * DYSPNEA: He has end-stage COPD and has had radiation in recent months; he is dyspneic at rest and has no exercise tolerance. Supplemental oxygen, continued steroids, bronchodilators, opiates, and benzodiazepines will be helpful in treating his dyspnea. * Taxi Driver consultation placed. * GOALS: The patient has always hoped to be able to stay at home, but it is becoming clear that he is declining rapidly now and will not be able to stay at home alone. I have introduced the option of hospice to him today, something he had not given previous thought to. We will readdress that tomorrow. He is aware that hospice could manage his pain and dyspnea, and could assist in identifying safe and appropriate living situations. I spoke at length with the patient's nephew Chaitanya ([facility]), and he definitely would be in favor of hospice help. We will all talk about this more tomorrow after the patient has time to process this information and think about it more. * Palliative Care will continue to follow the patient during this hospitalization. . Time Spent Total Floor Time (mins): 92 Face to Face Time (mins): 60 >50% Counseling/Coord of Care: Yes Thank you for the opportunity to participate in the care of Mr. Mcdonough. Attestation To help prompt me to consider important information that might be impacting today's encounter and assessment, information from prior notes written by myself or my colleagues may have been "brought forward" into today's note. My signature on this note, however, is an attestation that I personally performed the exam, history, and/or decision-making noted today, and, unless otherwise indicated, the interactions with patient, family, and staff as well as the review of records all occurred today. I also attest that the listed assessment and stated plan reflect my best clinical judgment today based on the combination of historical information, prior notes, and today's exam/ interactions. When time spent is documented, it refers only to time spent today by the signer, or if indicated, combined time spent today by collaborating physician/nurse practitioner. Cher Cristobal MD July 18, 2017 16:08
[2017-07-18] MEDS: methylPREDNISolone SOD SUCC 40 MG/1 ML VIAL IV PUSH SCH ×3 (17:24→23:07)
[2017-07-18] MEDS: TAMSULOSIN HCL 0.4 MG CAP PO SCH (17:24)
--- NOTE | 2017-07-18 21:46 | MB ---
cc: Madhuri Gaines MD, Abdul J MD DATE: 07/18/2017 REASON FOR CONSULTATION: Consult requested by [facility] hospitalist for evaluation of non-small cell lung cancer. HISTORY OF PRESENT ILLNESS: Osvaldo is a 71-year-old male. He was recently diagnosed with stage III non-small cell lung cancer. He has been treated with radiation and chemotherapy followed by consolidation chemotherapy. He completed his chemotherapy course a couple of weeks ago. The patient came into the emergency room complaining of shortness of breath. He is found to have exacerbation of COPD as well as pneumonia. He is on antibiotics. I have been asked to see him for evaluation of lung cancer. The patient is in respiratory distress. He is short of breath. He was recently admitted to the hospital for similar symptoms and was treated with antibiotics. He is complaining of anorexia and weight loss. He is complaining of weakness, tiredness and fatigue. The rest of the review of systems is negative. PAST MEDICAL HISTORY: BPH, arthritis, chronic back pain, COPD, coronary artery disease, diverticulosis, heart valve disease, hypertension, migraine headaches, peripheral neuropathy, history of melanoma removed from both forearms. PAST SURGICAL HISTORY: Lung biopsy, melanoma surgery, coronary artery bypass surgery valvuloplasty, colonoscopy, cholecystectomy, vasectomy and [id number]. ALLERGIES: NONE. MEDICATIONS PRIOR TO COMING TO THE HOSPITAL: 1. Amlodipine. 2. Atorvastatin. 3. Diclofenac. 4. Famotidine. 5. Fentanyl patch. 6. Lasix. 7. Gabapentin. 8. Meclizine. 9. Metoprolol. 10. Morphine 11. Tamsulosin FAMILY HISTORY: His parents have . He had 1 brother who also . He does not have any sister or any children. SOCIAL HISTORY: The patient is single. 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 He used to smoke cigarettes, 2 packs a day for 60 years, quit smoking. He does not drink alcohol. PHYSICAL EXAMINATION. GENERAL: Well-developed, elderly, frail, white male in respiratory distress. VITAL SIGNS: Temperature 98.1, heart rate is 91, blood pressure 117/63, O2 saturation 98%. HEENT: PERRLA, EOMI anicteric. No oral lesions are noted. NECK: No lymphadenopathy noted. LUNGS: Decreased breath sounds on both sides. HEART: Regular rate and rhythm. ABDOMEN: Soft, nontender. No hepatosplenomegaly. EXTREMITIES: No pedal edema. NEUROLOGIC: Awake, alert and oriented x 3. SKIN: Severely damaged from sun exposure and bruises noted. ASSESSMENT AND PLAN: 1. Stage III non-small cell lung cancer, status post combined concurrent radiation chemotherapy followed by consolidation chemotherapy completed 2 weeks ago. 2. Increasing consolidation of the right lung with minimal effusion consistent with pneumonia. 3. Exacerbation of chronic obstructive pulmonary disease. PLAN: I have reviewed his available records, and I have discussed with the patient regarding the respiratory distress. This is multifactorial. This is due to exacerbation of chronic obstructive pulmonary disease as well as pneumonia. He recently was admitted to the hospital for similar symptoms and was treated with antibiotics. The patient is currently on azithromycin and ceftriaxone. He is also on steroid. If his pulmonary symptoms do not improve, then consider pulmonary and Infectious Disease consult. Regarding the lung cancer, he does not require any further treatment. The patient has thrombocytopenia which is due to the recent chemotherapy. He does not require any platelet transfusion. I expect his platelet count to improve in the next several days. His hemoglobin is 8.2 and he does not require any blood transfusion either. His white count is normal at 8.2 and the absolute neutrophil count is 7000. He is not neutropenic. Further recommendation will be based on his hospital stay. Thank you for asking my opinion. MD ZHANG Almodovar/ , 09:22 PM , 09:45 PM
[2017-07-18] MEDS ORDERED: LORazepam 0.5 MG TAB PO PRN (23:00)
[2017-07-19] VITALS (7 sets, daily range): BP systolic 103–133; BP diastolic 59–75; PULSE 70–73; RESP 17–19; TEMP 97.2–97.8; O2SAT 92–95
[2017-07-19] MEDS: MORPHINE SULFATE 15 MG TAB PO SCH ×4 (05:34→23:14)
[2017-07-19] MEDS: methylPREDNISolone SOD SUCC 40 MG/1 ML VIAL IV PUSH SCH ×4 (05:35→23:14)
[2017-07-19 07:58] LABS: HEMATOCRIT 24.8 % (39.0-51.0); HEMOGLOBIN 8.2 GM/DL (13.0-17.0); MEAN CELL VOLUME 96.2 FL (80.0-100.0); MEAN CORPUSCULAR HGB CONC 33.2 % (32.0-36.0); MEAN PLATELET VOLUME 8.1 FL (7.0-11.0); PLATELET COUNT 47 TH/MM3 (150-450); RED BLOOD COUNT 2.58 MIL/MM3 (4.50-5.90); RED CELL DISTRIBUTION WIDTH 17.3 % (11.6-17.2); WHITE BLOOD COUNT 5.7 TH/MM3 (4.0-11.0)
[2017-07-19 08:22] LABS: BICARBONATE 27.5 MEQ/L (21.0-32.0); CREATININE 0.7 MG/DL (0.60-1.30)
[2017-07-19] MEDS: AZITHROMYCIN INJ 500 MG in SODIUM CHLOR 0.9% 250 ML INJ 250 ML IV SCH (09:00)
[2017-07-19] MEDS: BUDESONIDE-FORMOTEROL 80/4.5 MCG INHALER INH SCH ×2 (09:11→20:17)
[2017-07-19] MEDS: GABAPENTIN 300 MG CAP PO SCH ×4 (09:14→17:51)
[2017-07-19] MEDS: SODIUM CHLORIDE 0.9% FLUSH 10 ML FLUSH IV FLUSH SCH ×2 (09:14→20:09)
[2017-07-19] MEDS: POTASSIUM CHLORIDE 20 MEQ CONTROLLED RELEASE TAB PO SCH ×2 (09:14→20:08)
[2017-07-19] MEDS: METOPROLOL TARTRATE 25 MG TAB PO SCH (09:15)
[2017-07-19] MEDS: ATORVASTATIN 10 MG TAB PO SCH (09:15)
[2017-07-19] MEDS: FUROSEMIDE 40 MG TAB PO SCH (09:15)
--- NOTE | 2017-07-19 12:08 | PD.ONC.PN ---
Subjective Subjective Remarks Afebrile overnight. Patient resting in bed in nad. No complaints. Resting in bed. Objective Data Date Time Temp Pulse Resp B/P (MAP) Pulse Ox O2 Delivery O2 Flow Rate FiO2 07/19/17 10:35 93 Nasal Cannula 2.00 07/19/17 08:15 92 Nasal Cannula 2.00 07/19/17 08:00 97.2 70 17 112/62 (79) 92 07/19/17 06:34 16 07/19/17 02:51 97.2 70 17 103/59 (74) 95 07/18/17 23:08 98.3 79 17 123/63 (83) 95 07/18/17 21:38 Nasal Cannula 2.00 07/18/17 20:15 94 Nasal Cannula 3.00 07/18/17 19:53 98.9 90 18 106/66 (79) 93 07/18/17 16:00 98.4 90 17 105/60 (75) 95 07/18/17 12:52 97 Nasal Cannula 4.00 07/19/17 07/19/17 07/19/17 07:00 15:00 23:00 Intake Total 100 ml 250 ml Balance 100 ml 250 ml Result Diagram: 07/19/17 0702 07/19/17 0702 Laboratory Results Laboratory Tests Test 07/19/17 07:02 White Blood Count 5.7 TH/MM3 Red Blood Count 2.58 MIL/MM3 Hemoglobin 8.2 GM/DL Hematocrit 24.8 % Mean Corpuscular Volume 96.2 FL Mean Corpuscular Hemoglobin 32.0 PG Mean Corpuscular Hemoglobin Concent 33.2 % Red Cell Distribution Width 17.3 % Platelet Count 47 TH/MM3 Mean Platelet Volume 8.1 FL Blood Urea Nitrogen 28 MG/DL Creatinine 0.70 MG/DL Random Glucose 126 MG/DL Calcium Level 9.0 MG/DL Sodium Level 140 MEQ/L Potassium Level 4.3 MEQ/L Chloride Level 103 MEQ/L Carbon Dioxide Level 27.5 MEQ/L Anion Gap 10 MEQ/L Estimat Glomerular Filtration Rate 111 ML/MIN Culture Results Microbiology Date/Time Source Procedure Growth Status 07/17/17 18:20 Blood Peripheral Aerobic Blood Culture - Preliminary NO GROWTH IN 2 DAYS Resulted 07/17/17 18:20 Blood Peripheral Anaerobic Blood Culture - Preliminary NO GROWTH IN 2 DAYS Resulted 5/14/18 18:15 Blood Peripheral Aerobic Blood Culture - Preliminary NO GROWTH IN 2 DAYS Resulted 07/17/17 18:15 Blood Peripheral Anaerobic Blood Culture - Preliminary NO GROWTH IN 2 DAYS Resulted Administered Medications Medications (Trade) Dose Ordered Sig/Arcelia Route PRN Reason Start Time Stop Time Status Last Admin Dose Admin Sodium Chloride (NS Flush) 2 ml BID IV FLUSH 07/17/17 21:00 07/19/17 09:14 Acetaminophen (Tylenol) 650 mg Q4H PRN PO Fever, CHOWDHURY, pain 1-4 07/17/17 19:00 07/18/17 00:50 Azithromycin 500 mg/Sodium Chloride 250 ml @ 250 mls/hr Q24H IV 07/18/17 09:00 07/19/17 09:00 Albuterol/ Ipratropium (Duoneb Neb) 1 ampule Q4HR NEB PRN NEB dyspnea 07/17/17 19:00 07/18/17 12:50 Atorvastatin Calcium (Lipitor) 10 mg DAILY PO 07/18/17 09:00 07/19/17 09:15 Budesonide/ Formoterol Fumarate (Symbicort 80-4.5 Mcg Inh) 2 puff Q12HR INH 07/18/17 09:00 07/19/17 09:11 Furosemide (Lasix) 40 mg DAILY PO 07/18/17 09:00 07/19/17 09:15 Gabapentin (Neurontin) 600 mg TID PO 07/18/17 09:00 07/19/17 09:14 Metoprolol Tartrate (Lopressor) 25 mg DAILY PO 07/18/17 09:00 07/19/17 09:15 Potassium Chloride (KCl) 20 meq BID PO 07/18/17 09:00 07/19/17 09:14 Tamsulosin HCl (Flomax) 0.4 mg WITH DINNER PO 07/18/17 18:00 07/18/17 17:24 Enoxaparin Sodium (Lovenox Inj) 40 mg Q24H SQ 07/17/17 23:00 Future Hold 07/18/17 00:18 Ceftriaxone Sodium 2000 mg/ Sodium Chloride 100 ml @ 200 mls/hr Q24H IV 07/17/17 23:00 07/18/17 23:06 Fentanyl (Duragesic 100 Mcg Patch.72 Hr) 1 patch Q72H T-DERMAL 07/18/17 00:00 07/18/17 01:48 Miscellaneous Information 1 Q3D T-DERMAL 07/18/17 00:00 07/18/17 00:00 Morphine Sulfate (Msir) 30 mg Q6HR PO 07/18/17 05:00 07/19/17 05:34 Morphine Sulfate (Morphine Inj) 2 mg Q3H PRN IV PUSH BREAKTHROUGH PAIN 07/18/17 10:30 07/18/17 11:45 Methylprednisolone Sodium Succinate (SoluMEDROL INJ) 40 mg Q6HR IV PUSH 07/18/17 13:15 07/19/17 05:35 Objective Remarks GENERAL: Pleasant elderly male, lying in bed. appears fatigued. SKIN: Warm and dry. HEAD: Normocephalic. EYES: No injection or drainage. NECK: Supple, trachea midline. CARDIOVASCULAR: Regular rate and rhythm RESPIRATORY: scattered rhonchi. On 2L O2 via NC GASTROINTESTINAL: Abdomen soft, non-tender, nondistended. EXTREMITIES: No cyanosis, or edema. MUSCULOSKELETAL: Adequate muscle tone. NEUROLOGICAL: awake and alert. fatigued. moving all extremities. Assessment/Plan Problem List: (1) Pneumonia ICD Codes: J18.9 - Pneumonia, unspecified organism Status: Acute Plan: 07/19: check repeat chest x-ray. continue antibiotics + steroids. --Increasing consolidation of the right lung with minimal effusion (2) COPD exacerbation ICD Codes: J44.1 - COPD exacerbation Status: Acute Plan: --on steroids + Duonebs (3) Non-small cell lung cancer (NSCLC) ICD Codes: C34.90 - Malignant neoplasm of unspecified part of unspecified bronchus or lung Plan: --status post combined concurrent radiation chemotherapy followed by consolidation chemotherapy completed 2 weeks ago. --no further treatment planned at this time. (4) Thrombocytopenia ICD Codes: D69.6 - Thrombocytopenia, unspecified Plan: --due to recent chemotherapy.does not require any platelet transfusion. --expect platelet count to improve Assessment 71y/o male with stage III NSCLC admitted with pneumonia and COPD exacerbation. Attending Statement The exam, history, and the medical decision-making described in the above note were completed with the assistance of the mid-level provider. I reviewed and agree with the findings presented. I attest that I had a [id number] encounter with the patient on the same day, and personally performed and documented my assessment and findings in the medical record. Patient states that his breathing is somewhat improved but is still short of breath. Complaining of generalized weakness and fatigue, difficult to walk. Patient is on antibiotic for pneumonia Patient is on steroid and bronchodilators for exacerbation of COPD. I do not think patient is a hospice candidate. He has just finished chemotherapy course and he will improve. His recovery is going to be slow due to multiple comorbid conditions. We will follow the patient along with you Problem Qualifiers (1) Pneumonia: Qualified Codes: J18.1 - Lobar pneumonia, unspecified organism Anju Seymour July 19, 2017 12:08 Luis Fernando Gaines MD July 19, 2017 15:40
--- NOTE | 2017-07-19 13:51 | RADRPT ---
EXAM DATE/TIME: 07/19/2017 13:28 [place] COMPARISON: CHEST SINGLE AP, July 17, 2017, 17:20. INDICATIONS : Infiltrate. MEDICAL HISTORY : Carcinoma, lung. Myocardial infarction. Chronic obstructive pulmonary disease. SURGICAL HISTORY : CABG. Infusaport. ENCOUNTER: Initial ACUITY: 1 day PAIN SCORE: 10 LOCATION: Bilateral chest FINDINGS: A single view of the chest demonstrates the lungs to be symmetrically hypoinflated with some atelecta tic changes of the left hemidiaphragm. Persistent right basilar consolidation with increasing right s ided effusion. Plain film findings of prior CABG with intact median sternotomy wires. Left subclavian [id number] with the tip projecting over the central venous system. Levoscoliosis of the lumbar sp ine associated multilevel degenerative disc disease. Large hiatal hernia. CONCLUSION: 1. Hypoinflation with left basilar atelectasis. 2. Persistent right basilar consolidation with apparent increasing effusion. 3. Stable postsurgical changes López Zapata MD on July 19, 2017 at 13:46 Board Certified Radiologist. This report was verified electronically.
[2017-07-19] MEDS ORDERED: MAGNESIUM HYDROXIDE SUSP 30 ML CUP PO PRN (14:00)
[2017-07-19] MEDS ORDERED: BISACODYL 10 MG SUPP RECTAL PRN (14:00)
[2017-07-19] MEDS ORDERED: LACTULOSE SYRUP 20 GM/30 ML CUP PO PRN (14:00)
[2017-07-19] MEDS ORDERED: SENNOSIDES 8.6 MG TAB PO PRN (14:00)
--- NOTE | 2017-07-19 14:03 | HHI.PR ---
Subjective Remarks 71-year-old male with a past medical history significant for chronic back pain, BPH, COPD, coronary artery disease status post CABG, valvular heart disease, hypertension and non-small cell lung carcinoma (last chemotherapy 2 weeks ago) Who presents to the emergency department for shortness of breath. The patient reports that he was unable to breathe for the past 2 days. He endorses a productive cough and accompanying fever/chills. He states he has right-sided chest pain that is sharp and worse with inspiration. He denies any substernal chest pain or pressure. No abdominal pain. No nausea/vomiting/diarrhea. No lateralizing signs/symptoms. 07-18 Patient is miserable, discussed with RN. He reports severe pain that is not well controlled on current medications. He endorsed shortness of breath and is wheezing. 07-19 SEEN BY [facility] MEDS FOR CONSTIPATION [facility] RN AND PT AND CM Objective Vitals Vital Signs Date Time Temp Pulse Resp B/P (MAP) Pulse Ox O2 Delivery O2 Flow Rate FiO2 07/19/17 10:35 93 Nasal Cannula 2.00 07/19/17 08:15 92 Nasal Cannula 2.00 07/19/17 08:00 97.2 70 17 112/62 (79) 92 07/19/17 06:34 16 07/19/17 02:51 97.2 70 17 103/59 (74) 95 07/18/17 23:08 98.3 79 17 123/63 (83) 95 07/18/17 21:38 Nasal Cannula 2.00 07/18/17 20:15 94 Nasal Cannula 3.00 07/18/17 19:53 98.9 90 18 106/66 (79) 93 07/18/17 16:00 98.4 90 17 105/60 (75) 95 I/O 07/18/17 07/18/17 07/18/17 07/19/17 07/19/17 07/19/17 06:59 14:59 22:59 06:59 14:59 22:59 Intake Total 360 ml 250 ml 480 ml 100 ml 250 ml Output Total 350 ml 200 ml 150 ml Balance 10 ml 50 ml 480 ml 100 ml 100 ml Intake Oral 360 ml 480 ml IV Total 250 ml 100 ml 250 ml Output Urine Total 350 ml 200 ml 150 ml # Voids 2 3 1 # Bowel Movements 0 Result Diagram: 07/19/17 0702 07/19/17 0702 Other Results Laboratory Tests Test 07/17/17 17:11 07/17/17 17:17 07/17/17 18:15 07/17/17 18:35 Blood Gas Puncture Site RT RADIAL Blood Gas Patient Temperature 98.6 Blood Gas HCO3 28 mmol/L Blood Gas Base Excess 5.0 mmol/L Blood Gas Oxygen Saturation 94 % Arterial Blood pH 7.52 Arterial Blood Partial Pressure CO2 34 mmHg Arterial Blood Partial Pressure O2 79 mmHG Arterial Blood Oxygen Content 11.3 Vol % Arterial Blood Carboxyhemoglobin 2.0 % Arterial Blood Methemoglobin 0.6 % Blood Gas Hemoglobin 8.5 G/DL Oxygen Delivery Device NASAL CANNULA Blood Gas Liter Flow 3 L/M White Blood Count 12.0 TH/MM3 Red Blood Count 2.63 MIL/MM3 Hemoglobin 8.4 GM/DL Hematocrit 25.2 % Mean Corpuscular Volume 95.9 FL Mean Corpuscular Hemoglobin 31.9 PG Mean Corpuscular Hemoglobin Concent 33.3 % Red Cell Distribution Width 17.5 % Platelet Count 60 TH/MM3 Mean Platelet Volume 7.3 FL Neutrophils (%) (Auto) 89.6 % Lymphocytes (%) (Auto) 3.6 % Monocytes (%) (Auto) 6.0 % Eosinophils (%) (Auto) 0.0 % Basophils (%) (Auto) 0.8 % Neutrophils # (Auto) 10.7 TH/MM3 Lymphocytes # (Auto) 0.4 TH/MM3 Monocytes # (Auto) 0.7 TH/MM3 Eosinophils # (Auto) 0.0 TH/MM3 Basophils # (Auto) 0.1 TH/MM3 CBC Comment AUTO DIFF Differential Comment AUTO DIFF CONFIRMED Platelet Estimate LOW Platelet Morphology Comment NORMAL Prothrombin Time 12.1 SEC Prothromb Time International Ratio 1.2 RATIO Activated Partial Thromboplast Time 30.6 SEC Blood Urea Nitrogen 20 MG/DL Creatinine 0.84 MG/DL Random Glucose 103 MG/DL Total Protein 6.2 GM/DL Albumin 2.1 GM/DL Calcium Level 8.5 MG/DL Magnesium Level 1.8 MG/DL Alkaline Phosphatase 93 U/L Aspartate Amino Transf (AST/SGOT) 24 U/L Alanine Aminotransferase (ALT/SGPT) 20 U/L Total Bilirubin 1.0 MG/DL Sodium Level 141 MEQ/L Potassium Level 3.7 MEQ/L Chloride Level 104 MEQ/L Carbon Dioxide Level 28.3 MEQ/L Anion Gap 9 MEQ/L Estimat Glomerular Filtration Rate 90 ML/MIN Total Creatine Kinase 59 U/L Troponin I LESS THAN 0.02 NG/ML B-Type Natriuretic Peptide 333 PG/ML Lactic Acid Level 1.5 mmol/L Urine Color YELLOW Urine Turbidity CLEAR Urine pH 8.5 Urine Specific [place] 1.022 Urine Protein 100 mg/dL Urine Glucose (UA) 150 mg/dL Urine Ketones 10 mg/dL Urine Occult Blood NEG Urine Nitrite NEG Urine Bilirubin NEG Urine Urobilinogen 2.0 MG/DL Urine Leukocyte Esterase NEG Urine RBC 1 /hpf Urine WBC 1 /hpf Urine Squamous Epithelial Cells 1 /hpf Microscopic Urinalysis Comment CULT NOT INDICATED Test 07/18/17 04:35 07/18/17 05:35 07/19/17 07:02 White Blood Count 8.2 TH/MM3 5.7 TH/MM3 Red Blood Count 2.55 MIL/MM3 2.58 MIL/MM3 Hemoglobin 8.2 GM/DL 8.2 GM/DL Hematocrit 24.4 % 24.8 % Mean Corpuscular Volume 95.6 FL 96.2 FL Mean Corpuscular Hemoglobin 32.1 PG 32.0 PG Mean Corpuscular Hemoglobin Concent 33.6 % 33.2 % Red Cell Distribution Width 17.5 % 17.3 % Platelet Count 50 TH/MM3 47 TH/MM3 Mean Platelet Volume 7.7 FL 8.1 FL Neutrophils (%) (Auto) 85.8 % Lymphocytes (%) (Auto) 5.3 % Monocytes (%) (Auto) 8.5 % Eosinophils (%) (Auto) 0.1 % Basophils (%) (Auto) 0.3 % Neutrophils # (Auto) 7.0 TH/MM3 Lymphocytes # (Auto) 0.4 TH/MM3 Monocytes # (Auto) 0.7 TH/MM3 Eosinophils # (Auto) 0.0 TH/MM3 Basophils # (Auto) 0.0 TH/MM3 CBC Comment AUTO DIFF Differential Comment AUTO DIFF CONFIRMED Platelet Estimate LOW Platelet Morphology Comment NORMAL Blood Urea Nitrogen 21 MG/DL 28 MG/DL Creatinine 0.83 MG/DL 0.70 MG/DL Random Glucose 96 MG/DL 126 MG/DL Calcium Level 8.6 MG/DL 9.0 MG/DL Sodium Level 141 MEQ/L 140 MEQ/L Potassium Level 3.8 MEQ/L 4.3 MEQ/L Chloride Level 103 MEQ/L 103 MEQ/L Carbon Dioxide Level 29.6 MEQ/L 27.5 MEQ/L Anion Gap 8 MEQ/L 10 MEQ/L Estimat Glomerular Filtration Rate 91 ML/MIN 111 ML/MIN Imaging Last Impressions Chest X-Ray 07/19/17 0000 Signed Impressions: Service Date/Time: Wednesday, July 19, 2017 13:28 - CONCLUSION: 1. Hypoinflation with left basilar atelectasis. 2. Persistent right basilar consolidation with apparent increasing effusion. 3. Stable postsurgical changes López Zapata MD Objective Remarks GENERAL: Awake and alert very cachectic and lethargic --slow to answer questions SKIN: Warm and dry. HEAD: Atraumatic. Normocephalic. EYES: Pupils equal and round. No scleral icterus. No injection or drainage. ENT: No nasal bleeding or discharge. Mucous membranes pink and moist. NECK: Trachea midline. No JVD. CARDIOVASCULAR: Regular rate and rhythm. S1-S2 no S3 or S4 RESPIRATORY: No accessory muscle use. Clear to auscultation. Breath sounds equal bilaterally. Decreased breath sounds bilaterally GASTROINTESTINAL: Abdomen soft, non-tender, nondistended. Hepatic and splenic margins not palpable. MUSCULOSKELETAL: Extremities without clubbing, cyanosis, or edema. No obvious deformities. NEUROLOGICAL: Awake and alert. No obvious cranial nerve deficits. Motor grossly within normal limits. 4 out of 5 muscle strength in the arms and legs. Normal speech. PSYCHIATRIC: Appropriate mood and affect; insight and judgment normal. Very lethargic Procedures NONE Medications and IVs Current Medications Sodium Chloride (NS Flush) 2 ml UNSCH PRN IVF FLUSH AFTER USING IV ACCESS; Start 07/17/17 at 17:15; Stop 07/17/17 at 19:04; Status DC Piperacillin Sod/ Tazobactam Sod 100 ml @ 200 mls/hr ONCE ONCE IV Last administered on 07/17/17at 19:15; Start 07/17/17 at 18:00; Stop 07/17/17 at 18:29 ; Status DC Vancomycin HCl 1000 mg/Sodium Chloride 250 ml @ 250 mls/hr ONCE ONCE IV Last administered on 07/17/17at 18:22; Start 07/17/17 at 18:00; Stop 07/17/17 at 18:59 ; Status DC Azithromycin (Zithromax) 500 mg ONCE ONCE PO Last administered on 07/17/17at 18 :23; Start 07/17/17 at 18:00; Stop 07/17/17 at 18:01; Status DC Morphine Sulfate (Morphine Inj) 4 mg ONCE ONCE IV PUSH Last administered on at 18:22; Start 07/17/17 at 18:15; Stop 07/17/17 at 18:16; Status DC Metoprolol Tartrate (Lopressor) 25 mg ONCE ONCE PO Last administered on at 18:23; Start 07/17/17 at 18:15; Stop 07/17/17 at 18:16; Status DC Sodium Chloride (NS Flush) 2 ml UNSCH PRN IV FLUSH FLUSH AFTER USING IV ACCESS ; Start 07/17/17 at 19:00 Sodium Chloride (NS Flush) 2 ml BID IV FLUSH Last administered on 07/19/17at 09: 14; Start 07/17/17 at 21:00 Acetaminophen (Tylenol) 650 mg Q4H PRN PO Fever, CHOWDHURY, pain 1-4 Last administered on 07/18/17at 00:50; Start 07/17/17 at 19:00 Enoxaparin Sodium (Lovenox Inj) 40 mg Q24H SQ ; Start 07/17/17 at 20:00; Stop at 22:59; Status DC Naloxone HCl (Narcan Inj) 0.4 mg UNSCH PRN IV PUSH SEE LABEL COMMENTS; Start at 19:00 Magnesium Hydroxide (Milk Of Magnesia Liq) 30 ml Q12H PRN PO Mild constipation ; Start 07/17/17 at 19:00 Sennosides (Senokot) 17.2 mg Q12H PRN PO Moderate constipation; Start 07/17/17 at 19:00 Bisacodyl (Dulcolax Supp) 10 mg DAILY PRN RECTAL SEVERE CONSITIPATION; Start at 19:00 Lactulose (Lactulose Liq) 30 ml DAILY PRN PO SEVERE CONSITIPATION; Start at 19:00 Ceftriaxone Sodium 2000 mg/ Sodium Chloride 100 ml @ 200 mls/hr Q24H IV ; Start 07/17/17 at 20:00; Stop 07/17/17 at 22:59; Status DC Azithromycin 500 mg/Sodium Chloride 250 ml @ 250 mls/hr Q24H IV Last administered on 07/19/17 09:00; Start 07/18/17 at 09:00 Albuterol/ Ipratropium (Duoneb Neb) 1 ampule Q4HR NEB PRN NEB dyspnea Last administered on 07/18/17at 12:50; Start 07/17/17 at 19:00 Aspirin (Aspirin) 325 mg ONCE ONCE PO Last administered on 07/17/17at 19:15; Start 07/17/17 at 19:15; Stop 07/17/17 at 19:16; Status DC Amlodipine Besylate (Norvasc) 5 mg DAILY PO ; Start 07/18/17 at 09:00; Status Future Hold Atorvastatin Calcium (Lipitor) 10 mg DAILY PO Last administered on 07/19/17 09 :15; Start 07/18/17 at 09:00 Budesonide/ Formoterol Fumarate (Symbicort 80-4.5 Mcg Inh) 2 puff Q12HR INH Last administered on 07/19/17at 09:11; Start 07/18/17 at 09:00 Fentanyl (Duragesic 100 Mcg Patch.72 Hr) 1 patch Q72H T-DERMAL ; Start 07/17/17 at 22:00; Stop 07/17/17 at 23:01; Status DC Furosemide (Lasix) 40 mg DAILY PO Last administered on 07/19/17at 09:15; Start 07/18/17 at 09:00 Gabapentin (Neurontin) 600 mg TID PO Last administered on 07/19/17at 12:01; Start 07/18/17 at 09:00 Metoprolol Tartrate (Lopressor) 25 mg DAILY PO Last administered on 07/19/17at 09:15; Start 07/18/17 at 09:00 Morphine Sulfate (Msir) 30 mg QID PO ; Start 07/18/17 at 09:00; Stop 07/18/17 at 09:00; Status DC Potassium Chloride (KCl) 20 meq BID PO Last administered on 07/19/17at 09:14; Start 07/18/17 at 09:00 Tamsulosin HCl (Flomax) 0.4 mg WITH DINNER PO Last administered on 07/18/17at 17:24; Start 07/18/17 at 18:00 Miscellaneous Information 1 Q3D T-DERMAL ; Start 07/20/17 at 22:00; Stop at 22:00; Status DC Enoxaparin Sodium (Lovenox Inj) 40 mg Q24H SQ Last administered on 07/18/17at 00 :18; Start 07/17/17 at 23:00; Status Future Hold Ceftriaxone Sodium 2000 mg/ Sodium Chloride 100 ml @ 200 mls/hr Q24H IV Last administered on 07/18/17at 23:06; Start 07/17/17 at 23:00 Fentanyl (Duragesic 100 Mcg Patch.72 Hr) 1 patch Q72H T-DERMAL Last administered on 07/18/17at 01:48; Start 07/18/17 at 00:00 Miscellaneous Information 1 Q3D T-DERMAL Last administered on 07/18/17at 00:00; Start 07/18/17 at 00:00 Morphine Sulfate (Morphine Inj) 4 mg ONCE ONCE IV PUSH Last administered on at 03:45; Start 07/18/17 at 03:00; Stop 07/18/17 at 03:01; Status DC Morphine Sulfate (Msir) 30 mg Q6HR PO Last administered on 07/19/17at 11:59; Start 07/18/17 at 05:00 Oxycodone/ Acetaminophen (Percocet 7.5-325 Mg) 1 tab Q4H PRN PO BREAKTHROUGH PAIN; Start 07/18/17 at 10:30; Stop 07/18/17 at 16:03; Status DC Morphine Sulfate (Morphine Inj) 2 mg Q3H PRN IV PUSH BREAKTHROUGH PAIN Last administered on 07/18/17at 11:45; Start 07/18/17 at 10:30 Methylprednisolone Sodium Succinate (SoluMEDROL INJ) 40 mg Q6HR IV PUSH Last administered on 07/19/17at 11:58; Start 07/18/17 at 13:15 Morphine Sulfate (Msir) 15 mg Q4H PRN PO SOB, or pain 1-5; Start 07/18/17 at 16 :00 Morphine Sulfate (Msir) 30 mg Q4H PRN PO SOB, or pain 6-10; Start 07/18/17 at 16:00 Lorazepam (Ativan) 0.5 mg Q8H PRN PO ANXIETY; Start 07/18/17 at 23:00 A/P Assessment and Plan 71 Y/O male with lung cancer admitted with: Acute hypoxemic respiratory failure: Probably a combination of COPD, pneumonia and lung cancer burden - Treat as health care associated pneumonia. Change Rocephin to Cefepime. - IV solumedrol - Breathing treatments. Health care associated pneumonia Chest x-ray significant for increasing consolidation in the right lung Azithromycin and Cefepime Sputum culture pending Stage III non-small cell lung cancer Last chemotherapy 2 weeks ago Medical oncology consulted, appreciate assistance Anemia/thrombocytopenia: Probably related to cho H&H 8.4/25.2 Hematology consulted as above Monitor Transfuse as needed Hypertension/hyperlipidemia/CAD Continue home medications COPD Continue Symbicort Duo nebs BPH Continue Flomax Chronic back pain, uncontrolled Continue morphine and fentanyl at home dosing Chronically ill patient with repeated Hospitalization and obvious decline in functional status. Pain is not well controlled. Consult Palliative care to assist with goals of care, pain management, patient and family support. [facility] IS [facility] RN AND PT AND CM MEDS FOR CONSTIPATION Discharge Planning [facility] Jonn Lucero DO July 19, 2017 14:03
[2017-07-19] MEDS: MORPHINE SULFATE 4 MG/ML INJ IV PUSH PRN ×2 (16:11→20:08)
--- NOTE | 2017-07-19 16:58 | HHI.HCPN ---
Reason for visit a. To assist with evaluation and management of symptoms including: Pain, dyspnea b. To assist medical decision maker(s) with: better understanding of current medical conditions; weighing benefits/burdens of medical treatment options; making medical treatment decisions. . Subjective/Interval History INTERVAL NOTE: The patient remains dyspneic with minimal exertion. He says his back still hurts, and I note that he did not receive any PRN morphine of the orders added yesterday. The nurse is giving him a dose at the time I am in the room. The patient reports that he did speak with his nephew Chaitanya regarding potentially transitioning to hospice. He is open to speaking with a hospice admitting nurse, and an order was placed by Dr. Lucero earlier today. . Advance Directives Living Will: Completed, but not made available Health Care Surrogate: Copy in medical record Durable Power of Fern Cutter: Never completed Advance Directive Specifics Health Care Surrogate(s): The patient designated his nephew Chaitanya Mcdonough and Kathrin as healthcare surrogates. . Documented care wishes: The patient tells me he has a living will but is not sure where it is. He says that his living will says he would not want to be resuscitated or continued with aggressive care "if there was not a substantial amount of quality life still remaining." . Significant change in goals: Patient is open to speaking with hospice, but says he would likely not an role for hospice services until his nephew arrives this weekend. . Objective Vital Signs Date Time Temp Pulse Resp B/P (MAP) Pulse Ox O2 Delivery O2 Flow Rate FiO2 07/19/17 12:59 16 07/19/17 10:35 93 Nasal Cannula 2.00 07/19/17 08:15 92 Nasal Cannula 2.00 07/19/17 08:00 97.2 70 17 112/62 (79) 92 07/19/17 02:51 97.2 70 17 103/59 (74) 95 07/18/17 23:08 98.3 79 17 123/63 (83) 95 07/18/17 21:38 Nasal Cannula 2.00 07/18/17 20:15 94 Nasal Cannula 3.00 07/18/17 19:53 98.9 90 18 106/66 (79) 93 Intake & Output 07/19/17 07/19/17 06:59 18:59 Intake Total 100 ml 250 ml Output Total 150 ml Balance 100 ml 100 ml IV Total 100 ml 250 ml Output Urine Total 150 ml # Voids 1 Physical Exam CONSTITUTIONAL/GENERAL: This is a thin, weak patient, appearing older than his stated age, and in mild respiratory and pain distress. NECK: Trachea midline. Supple, nontender. No palpable thyroid enlargement or nodularity. CARDIOVASCULAR: Regular rate and rhythm with grade 1-2 systolic murmur. No JVD. Peripheral pulses diminished. RESPIRATORY/CHEST: Symmetric, mildly labored respirations while at rest in the bed. A couple scattered rhonchi are present. GASTROINTESTINAL: Abdomen soft, non-tender, nondistended. No hepato-splenomegaly , or palpable masses. No guarding. Bowel sounds present. NEUROLOGICAL: Awake and alert, oriented 4. Motor function globally weak, and sensory grossly within normal limits. Follows commands. Cognitively sharp. Moves all extremities. PSYCHIATRIC: No obvious anxiety/depression. no apparent hallucinations or other psychotic thought process. . Diagnostic Tests Laboratory Laboratory Tests Test 07/17/17 17:11 07/17/17 17:17 07/17/17 18:15 07/17/17 18:35 Blood Gas Puncture Site RT RADIAL Blood Gas Patient Temperature 98.6 Blood Gas HCO3 28 mmol/L (22-26) Blood Gas Base Excess 5.0 mmol/L (-2-2) Blood Gas Oxygen Saturation 94 % (90-100) Arterial Blood pH 7.52 (7.380-7.420) Arterial Blood Partial Pressure CO2 34 mmHg (38-42) Arterial Blood Partial Pressure O2 79 mmHG (61-120) Arterial Blood Oxygen Content 11.3 Vol % (12.0-20.0) Arterial Blood Carboxyhemoglobin 2.0 % (0-4) Arterial Blood Methemoglobin 0.6 % (0-2) Blood Gas Hemoglobin 8.5 G/DL (12.0-16.0) Oxygen Delivery Device NASAL CANNULA Blood Gas Liter Flow 3 L/M White Blood Count 12.0 TH/MM3 (4.0-11.0) Red Blood Count 2.63 MIL/MM3 (4.50-5.90) Hemoglobin 8.4 GM/DL (13.0-17.0) Hematocrit 25.2 % (39.0-51.0) Mean Corpuscular Volume 95.9 FL (80.0-100.0) Mean Corpuscular Hemoglobin 31.9 PG (27.0-34.0) Mean Corpuscular Hemoglobin Concent 33.3 % (32.0-36.0) Red Cell Distribution Width 17.5 % (11.6-17.2) Platelet Count 60 TH/MM3 (150-450) Mean Platelet Volume 7.3 FL (7.0-11.0) Neutrophils (%) (Auto) 89.6 % (16.0-70.0) Lymphocytes (%) (Auto) 3.6 % (9.0-44.0) Monocytes (%) (Auto) 6.0 % (0.0-8.0) Eosinophils (%) (Auto) 0.0 % (0.0-4.0) Basophils (%) (Auto) 0.8 % (0.0-2.0) Neutrophils # (Auto) 10.7 TH/MM3 (1.8-7.7) Lymphocytes # (Auto) 0.4 TH/MM3 (1.0-4.8) Monocytes # (Auto) 0.7 TH/MM3 (0-0.9) Eosinophils # (Auto) 0.0 TH/MM3 (0-0.4) Basophils # (Auto) 0.1 TH/MM3 (0-0.2) CBC Comment AUTO DIFF Differential Comment AUTO DIFF CONFIRMED Platelet Estimate LOW (NORMAL) Platelet Morphology Comment NORMAL (NORMAL) Prothrombin Time 12.1 SEC (9.8-11.6) Prothromb Time International Ratio 1.2 RATIO Activated Partial Thromboplast Time 30.6 SEC (24.3-30.1) Blood Urea Nitrogen 20 MG/DL (7-18) Creatinine 0.84 MG/DL (0.60-1.30) Random Glucose 103 MG/DL (74-106) Total Protein 6.2 GM/DL (6.4-8.2) Albumin 2.1 GM/DL (3.4-5.0) Calcium Level 8.5 MG/DL (8.5-10.1) Magnesium Level 1.8 MG/DL (1.5-2.5) Alkaline Phosphatase 93 U/L (45-117) Aspartate Amino Transf (AST/SGOT) 24 U/L (15-37) Alanine Aminotransferase (ALT/SGPT) 20 U/L (12-78) Total Bilirubin 1.0 MG/DL (0.2-1.0) Sodium Level 141 MEQ/L (136-145) Potassium Level 3.7 MEQ/L (3.5-5.1) Chloride Level 104 MEQ/L (98-107) Carbon Dioxide Level 28.3 MEQ/L (21.0-32.0) Anion Gap 9 MEQ/L (5-15) Estimat Glomerular Filtration Rate 90 ML/MIN (>89) Total Creatine Kinase 59 U/L (39-308) Troponin I LESS THAN 0.02 NG/ML B-Type Natriuretic Peptide 333 PG/ML (0-100) Lactic Acid Level 1.5 mmol/L (0.4-2.0) Urine Color YELLOW (YELLW/STRAW) Urine Turbidity CLEAR (CLEAR) Urine pH 8.5 (5.0-8.5) Urine Specific [place] 1.022 (1.002-1.035) Urine Protein 100 mg/dL (NEG-TRACE) Urine Glucose (UA) 150 mg/dL (NEG) Urine Ketones 10 mg/dL (NEG) Urine Occult Blood NEG (NEG) Urine Nitrite NEG (NEG) Urine Bilirubin NEG (NEG) Urine Urobilinogen 2.0 MG/DL (LESS THAN Urine Leukocyte Esterase NEG (NEG) Urine RBC 1 /hpf (0-3) Urine WBC 1 /hpf (0-5) Urine Squamous Epithelial Cells 1 /hpf (0-5) Microscopic Urinalysis Comment CULT NOT INDICATED Test 07/18/17 04:35 07/18/17 05:35 07/19/17 07:02 White Blood Count 8.2 TH/MM3 (4.0-11.0) 5.7 TH/MM3 (4.0-11.0) Red Blood Count 2.55 MIL/MM3 (4.50-5.90) 2.58 MIL/MM3 (4.50-5.90) Hemoglobin 8.2 GM/DL (13.0-17.0) 8.2 GM/DL (13.0-17.0) Hematocrit 24.4 % (39.0-51.0) 24.8 % (39.0-51.0) Mean Corpuscular Volume 95.6 FL (80.0-100.0) 96.2 FL (80.0-100.0) Mean Corpuscular Hemoglobin 32.1 PG (27.0-34.0) 32.0 PG (27.0-34.0) Mean Corpuscular Hemoglobin Concent 33.6 % (32.0-36.0) 33.2 % (32.0-36.0) Red Cell Distribution Width 17.5 % (11.6-17.2) 17.3 % (11.6-17.2) Platelet Count 50 TH/MM3 (150-450) 47 TH/MM3 (150-450) Mean Platelet Volume 7.7 FL (7.0-11.0) 8.1 FL (7.0-11.0) Neutrophils (%) (Auto) 85.8 % (16.0-70.0) Lymphocytes (%) (Auto) 5.3 % (9.0-44.0) Monocytes (%) (Auto) 8.5 % (0.0-8.0) Eosinophils (%) (Auto) 0.1 % (0.0-4.0) Basophils (%) (Auto) 0.3 % (0.0-2.0) Neutrophils # (Auto) 7.0 TH/MM3 (1.8-7.7) Lymphocytes # (Auto) 0.4 TH/MM3 (1.0-4.8) Monocytes # (Auto) 0.7 TH/MM3 (0-0.9) Eosinophils # (Auto) 0.0 TH/MM3 (0-0.4) Basophils # (Auto) 0.0 TH/MM3 (0-0.2) CBC Comment AUTO DIFF Differential Comment AUTO DIFF CONFIRMED Platelet Estimate LOW (NORMAL) Platelet Morphology Comment NORMAL (NORMAL) Blood Urea Nitrogen 21 MG/DL (7-18) 28 MG/DL (7-18) Creatinine 0.83 MG/DL (0.60-1.30) 0.70 MG/DL (0.60-1.30) Random Glucose 96 MG/DL (74-106) 126 MG/DL (74-106) Calcium Level 8.6 MG/DL (8.5-10.1) 9.0 MG/DL (8.5-10.1) Sodium Level 141 MEQ/L (136-145) 140 MEQ/L (136-145) Potassium Level 3.8 MEQ/L (3.5-5.1) 4.3 MEQ/L (3.5-5.1) Chloride Level 103 MEQ/L (98-107) 103 MEQ/L (98-107) Carbon Dioxide Level 29.6 MEQ/L (21.0-32.0) 27.5 MEQ/L (21.0-32.0) Anion Gap 8 MEQ/L (5-15) 10 MEQ/L (5-15) Estimat Glomerular Filtration Rate 91 ML/MIN (>89) 111 ML/MIN (>89) Result Diagram: 07/19/1702 07/19/17 0702 Microbiology Microbiology Date/Time Source Procedure Growth Status 07/17/17 18:20 Blood Peripheral Aerobic Blood Culture - Preliminary NO GROWTH IN 2 DAYS Resulted 07/17/17 18:20 Blood Peripheral Anaerobic Blood Culture - Preliminary NO GROWTH IN 2 DAYS Resulted 07/17/17 18:15 Blood Peripheral Aerobic Blood Culture - Preliminary NO GROWTH IN 2 DAYS Resulted 07/17/17 18:15 Blood Peripheral Anaerobic Blood Culture - Preliminary NO GROWTH IN 2 DAYS Resulted Assessment and Plan Disease Oriented Problem List: (1) End-stage COPD, oxygen and steroid-dependent (2) Adenocarcinoma of the lung, s/p chemo/radiation, now with new lung nodules (3) Increased consolidation on x-ray, possible pneumonia (4) Worsening back and chest pain in spite of chronic opiates (5) Malnutrition/failure to thrive (6) CAD, history of SC, history of CABG (7) Chronic anemia (8) Depression (9) Chronic kidney disease Symptom Scale: (1) Dyspnea 0-10 Scale: 3 (Including dyspnea at rest) (2) Pain 0-10 Scale: 6 (Worsening chronic pain in recent weeks) (3) Depression 0-10 Scale: Unable to quantify Pertinent Non-Medical Issues 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 Spiritual: [employer] background, open to psychiatric technician assistant visits Legal: The patient has capacity for decision-making at this time. Nephew and are HCS. Ethical issues impacting care: None . Important Contacts Nephew: Chaitanya Mcdonough [phone] Local friend: Abhi Myrick [phone] . Prognosis The patient is terminal. He has end-stage COPD and adenocarcinoma of the lung that is persistent (and now has left lung multiple nodules not previously reported on CT scan). He is appropriate for hospice services if his goals become comfort oriented. . Code Status: No Code Plan * DO NOT RESUSCITATE, per request of patient 07/18/17. * DECISION-MAKING: The patient has capacity for decision-making at this time. He has designated his nephew and as healthcare surrogates. * SYMPTOMS: * PAIN: He has chronic back pain and now that as well as his right chest pain ( felt to be related to his tumor burden) have been worsening in recent weeks. PRN morphine is available. * DYSPNEA: He has end-stage COPD and has had radiation in recent months; he is dyspneic at rest and has no exercise tolerance. Supplemental oxygen, continued steroids, bronchodilators, opiates, and benzodiazepines will be helpful in treating his dyspnea. * GOALS: The patient has always hoped to be able to stay at home, but it is becoming clear that he is declining rapidly now and will not be able to stay at home alone. * I do see the oncology note regarding their thoughts on hospice and allowing more time for the recent chemotherapy to become more beneficial. I would note that this patient is eligible for hospice services based on his profound debility, worsening pain, significant weight loss, and end-stage, oxygen- dependent COPD. He and his nephew do want to speak with hospice today (order placed earlier by Dr. Lucero), but they will not engage hospice services until they have more time to meet together to discuss it this weekend. * Palliative Care will continue to follow the patient during this hospitalization. . Time Spent Total Floor Time (mins): 36 Face to Face Time (mins): 24 >50% Counseling/Coord of Care: Yes Attestation To help prompt me to consider important information that might be impacting today's encounter and assessment, information from prior notes written by myself or my colleagues may have been "brought forward" into today's note. My signature on this note, however, is an attestation that I personally performed the exam, history, and/or decision-making noted today, and, unless otherwise indicated, the interactions with patient, family, and staff as well as the review of records all occurred today. I also attest that the listed assessment and stated plan reflect my best clinical judgment today based on the combination of historical information, prior notes, and today's exam/ interactions. When time spent is documented, it refers only to time spent today by the signer, or if indicated, combined time spent today by collaborating physician/nurse practitioner. Cher Cristobal MD July 19, 2017 16:58
[2017-07-19] MEDS: TAMSULOSIN HCL 0.4 MG CAP PO SCH (17:48)
[2017-07-19] MEDS: DOCUSATE SODIUM 50 MG/SENNA 8.6 MG TAB PO SCH (20:08)
[2017-07-19] MEDS: cefTRIAXone INJ 2,000 MG in SODIUM CHLORIDE 0.9% INJ 100 ML IV SCH (23:23)
[2017-07-20] VITALS (8 sets, daily range): BP systolic 111–152; BP diastolic 56–70; PULSE 66–97; RESP 18–22; TEMP 97.2–98.4; O2SAT 91–97
[2017-07-20] MEDS: MORPHINE SULFATE 4 MG/ML INJ IV PUSH PRN ×2 (01:35→20:50)
[2017-07-20 04:43] LABS: AUTOMATED NEUTROPHIL # 6.5 TH/MM3 (1.8-7.7); BASOPHIL % 0.2 % (0.0-2.0); HEMOGLOBIN 7.6 GM/DL (13.0-17.0); LYMPH % 3.5 % (9.0-44.0); LYMPHOCYTE # 0.2 TH/MM3 (1.0-4.8); MEAN CELL VOLUME 95.9 FL (80.0-100.0); MEAN CORPUSCULAR HEMOGLOBIN 31.9 PG (27.0-34.0); MEAN CORPUSCULAR HGB CONC 33.3 % (32.0-36.0); MEAN PLATELET VOLUME 8.2 FL (7.0-11.0); MONO % 4.1 % (0.0-8.0); MONOCYTE # 0.3 TH/MM3 (0-0.9); NEUT % 92.2 % (16.0-70.0); PLATELET COUNT 50 TH/MM3 (150-450); RED BLOOD COUNT 2.39 MIL/MM3 (4.50-5.90); RED CELL DISTRIBUTION WIDTH 17.8 % (11.6-17.2); WHITE BLOOD COUNT 7.1 TH/MM3 (4.0-11.0)
[2017-07-20 05:06] LABS: ALBUMIN 1.8 GM/DL (3.4-5.0); ALT (GPT) 91 U/L (12-78); AST (GOT) 122 U/L (15-37); BICARBONATE 30.8 MEQ/L (21.0-32.0); BLOOD UREA NITROGEN 34 MG/DL (7-18); CALCIUM 8.4 MG/DL (8.5-10.1); CHLORIDE 102 MEQ/L (98-107); CREATININE 0.73 MG/DL (0.60-1.30); GLOMERULAR FILTRATION RATE 106 ML/MIN (>89); GLUCOSE,RANDOM 129 MG/DL (74-106); MAGNESIUM 2.2 MG/DL (1.5-2.5); PHOSPHORUS 3.4 MG/DL (2.5-4.9); SODIUM (NA) 140 MEQ/L (136-145)
[2017-07-20 05:15] LABS: ALKALINE PHOSPHATASE 94 U/L (45-117); FREE T4 1.28 NG/DL (0.76-1.46); TOTAL BILIRUBIN ADULT 0.2 MG/DL (0.2-1.0)
[2017-07-20] MEDS: methylPREDNISolone SOD SUCC 40 MG/1 ML VIAL IV PUSH SCH ×4 (05:23→23:15)
[2017-07-20] MEDS: MORPHINE SULFATE 15 MG TAB PO SCH ×4 (05:24→23:25)
[2017-07-20 05:37] LABS: BANDS 16 % (0-6); LYMPHOCYTES 2 % (9-44); MONOCYTES 4 % (0-8); NEUTROPHIL # MANUAL DIFF 6.7 TH/MM3 (1.8-7.7); POLYS (SEG NEUTROPHILS) 78 % (16-70)
[2017-07-20 05:38] LABS: TOXIC GRANULATION 1+ (NORMAL)
[2017-07-20] MEDS: RESP: ALBUTEROL 2.5 MG/IPRATROPIUM 0.5 MG NEB (PRN) NEB (10:06)
[2017-07-20] MEDS: METOPROLOL TARTRATE 25 MG TAB PO SCH (10:20)
[2017-07-20] MEDS: ATORVASTATIN 10 MG TAB PO SCH (10:21)
[2017-07-20] MEDS: FUROSEMIDE 40 MG TAB PO SCH (10:21)
[2017-07-20] MEDS: POTASSIUM CHLORIDE 20 MEQ CONTROLLED RELEASE TAB PO SCH ×2 (10:21→20:49)
[2017-07-20] MEDS: DOCUSATE SODIUM 50 MG/SENNA 8.6 MG TAB PO SCH ×2 (10:21→20:48)
[2017-07-20] MEDS: GABAPENTIN 300 MG CAP PO SCH ×3 (10:21→17:24)
[2017-07-20] MEDS: SODIUM CHLORIDE 0.9% FLUSH 10 ML FLUSH IV FLUSH SCH ×2 (10:22→20:59)
[2017-07-20] MEDS: AZITHROMYCIN INJ 500 MG in SODIUM CHLOR 0.9% 250 ML INJ 250 ML IV SCH (10:22)
[2017-07-20] MEDS: BUDESONIDE-FORMOTEROL 80/4.5 MCG INHALER INH SCH ×2 (10:23→20:50)
--- NOTE | 2017-07-20 13:26 | HHI.PR ---
Subjective Remarks 71-year-old male with a past medical history significant for chronic back pain, BPH, COPD, coronary artery disease status post CABG, valvular heart disease, hypertension and non-small cell lung carcinoma (last chemotherapy 2 weeks ago) Who presents to the emergency department for shortness of breath. The patient reports that he was unable to breathe for the past 2 days. He endorses a productive cough and accompanying fever/chills. He states he has right-sided chest pain that is sharp and worse with inspiration. He denies any substernal chest pain or pressure. No abdominal pain. No nausea/vomiting/diarrhea. No lateralizing signs/symptoms. 5-15 Patient is miserable, discussed with RN. He reports severe pain that is not well controlled on current medications. He endorsed shortness of breath and is wheezing. 5-16 SEEN BY PALLIATIVE CARE CONSULT HOSPICE MEDS FOR CONSTIPATION DW RN AND PT AND CM 5- PATIENT AND FAMILY NOT READY FOR HOSPICE AT THIS TIME MAY BE IN THE FUTURE DW RN AND PT PAIN CONTROL MEDS FOR CONSTIPATION Objective Vitals Vital Signs Date Time Temp Pulse Resp B/P (MAP) Pulse Ox O2 Delivery O2 Flow Rate FiO2 07/20/17 11:40 98.1 82 18 115/68 (84) 95 07/20/17 09:20 2.00 07/20/17 08:25 95 Nasal Cannula 2.00 07/20/17 07:35 97.5 66 18 119/68 (85) 95 07/20/17 04:00 97.3 69 18 111/70 (84) 93 07/20/17 00:01 97.5 66 18 126/69 (88) 93 07/19/17 20:20 Nasal Cannula 2.00 07/19/17 20:00 97.5 73 19 133/75 (94) 93 07/19/17 18:55 16 07/19/17 18:16 93 Nasal Cannula 2.00 07/19/17 16:16 16 07/19/17 16:00 97.8 73 17 110/62 (78) 93 I/O 07/19/17 07/19/17 07/19/17 07/20/17 07/20/17 07/20/17 07:00 15:00 23:00 07:00 15:00 23:00 Intake Total 100 ml 250 ml 480 ml 240 ml Output Total 150 ml 425 ml 150 ml Balance 100 ml 100 ml 480 ml -185 ml -150 ml Intake Oral 480 ml 240 ml IV Total 100 ml 250 ml Output Urine Total 150 ml 425 ml 150 ml # Voids 1 4 1 # Bowel Movements 1 0 Result Diagram: 07/20/17 0356 07/20/17 0356 Other Results Laboratory Tests Test 07/17/17 17:11 07/17/17 17:17 07/17/17 18:15 07/17/17 18:35 Blood Gas Puncture Site RT RADIAL Blood Gas Patient Temperature 98.6 Blood Gas HCO3 28 mmol/L Blood Gas Base Excess 5.0 mmol/L Blood Gas Oxygen Saturation 94 % Arterial Blood pH 7.52 Arterial Blood Partial Pressure CO2 34 mmHg Arterial Blood Partial Pressure O2 79 mmHG Arterial Blood Oxygen Content 11.3 Vol % Arterial Blood Carboxyhemoglobin 2.0 % Arterial Blood Methemoglobin 0.6 % Blood Gas Hemoglobin 8.5 G/DL Oxygen Delivery Device NASAL CANNULA Blood Gas Liter Flow 3 L/M White Blood Count 12.0 TH/MM3 Red Blood Count 2.63 MIL/MM3 Hemoglobin 8.4 GM/DL Hematocrit 25.2 % Mean Corpuscular Volume 95.9 FL Mean Corpuscular Hemoglobin 31.9 PG Mean Corpuscular Hemoglobin Concent 33.3 % Red Cell Distribution Width 17.5 % Platelet Count 60 TH/MM3 Mean Platelet Volume 7.3 FL Neutrophils (%) (Auto) 89.6 % Lymphocytes (%) (Auto) 3.6 % Monocytes (%) (Auto) 6.0 % Eosinophils (%) (Auto) 0.0 % Basophils (%) (Auto) 0.8 % Neutrophils # (Auto) 10.7 TH/MM3 Lymphocytes # (Auto) 0.4 TH/MM3 Monocytes # (Auto) 0.7 TH/MM3 Eosinophils # (Auto) 0.0 TH/MM3 Basophils # (Auto) 0.1 TH/MM3 CBC Comment AUTO DIFF Differential Comment AUTO DIFF CONFIRMED Platelet Estimate LOW Platelet Morphology Comment NORMAL Prothrombin Time 12.1 SEC Prothromb Time International Ratio 1.2 RATIO Activated Partial Thromboplast Time 30.6 SEC Blood Urea Nitrogen 20 MG/DL Creatinine 0.84 MG/DL Random Glucose 103 MG/DL Total Protein 6.2 GM/DL Albumin 2.1 GM/DL Calcium Level 8.5 MG/DL Magnesium Level 1.8 MG/DL Alkaline Phosphatase 93 U/L Aspartate Amino Transf (AST/SGOT) 24 U/L Alanine Aminotransferase (ALT/SGPT) 20 U/L Total Bilirubin 1.0 MG/DL Sodium Level 141 MEQ/L Potassium Level 3.7 MEQ/L Chloride Level 104 MEQ/L Carbon Dioxide Level 28.3 MEQ/L Anion Gap 9 MEQ/L Estimat Glomerular Filtration Rate 90 ML/MIN Total Creatine Kinase 59 U/L Troponin I LESS THAN 0.02 NG/ML B-Type Natriuretic Peptide 333 PG/ML Lactic Acid Level 1.5 mmol/L Urine Color YELLOW Urine Turbidity CLEAR Urine pH 8.5 Urine Specific [place] 1.022 Urine Protein 100 mg/dL Urine Glucose (UA) 150 mg/dL Urine Ketones 10 mg/dL Urine Occult Blood NEG Urine Nitrite NEG Urine Bilirubin NEG Urine Urobilinogen 2.0 MG/DL Urine Leukocyte Esterase NEG Urine RBC 1 /hpf Urine WBC 1 /hpf Urine Squamous Epithelial Cells 1 /hpf Microscopic Urinalysis Comment CULT NOT INDICATED Test 07/18/17 04:35 07/18/17 05:35 07/19/17 07:02 07/20/17 03:56 White Blood Count 8.2 TH/MM3 5.7 TH/MM3 7.1 TH/MM3 Red Blood Count 2.55 MIL/MM3 2.58 MIL/MM3 2.39 MIL/MM3 Hemoglobin 8.2 GM/DL 8.2 GM/DL 7.6 GM/DL Hematocrit 24.4 % 24.8 % 23.0 % Mean Corpuscular Volume 95.6 FL 96.2 FL 95.9 FL Mean Corpuscular Hemoglobin 32.1 PG 32.0 PG 31.9 PG Mean Corpuscular Hemoglobin Concent 33.6 % 33.2 % 33.3 % Red Cell Distribution Width 17.5 % 17.3 % 17.8 % Platelet Count 50 TH/MM3 47 TH/MM3 50 TH/MM3 Mean Platelet Volume 7.7 FL 8.1 FL 8.2 FL Neutrophils (%) (Auto) 85.8 % 92.2 % Lymphocytes (%) (Auto) 5.3 % 3.5 % Monocytes (%) (Auto) 8.5 % 4.1 % Eosinophils (%) (Auto) 0.1 % 0.0 % Basophils (%) (Auto) 0.3 % 0.2 % Neutrophils # (Auto) 7.0 TH/MM3 6.5 TH/MM3 Lymphocytes # (Auto) 0.4 TH/MM3 0.2 TH/MM3 Monocytes # (Auto) 0.7 TH/MM3 0.3 TH/MM3 Eosinophils # (Auto) 0.0 TH/MM3 0.0 TH/MM3 Basophils # (Auto) 0.0 TH/MM3 0.0 TH/MM3 CBC Comment AUTO DIFF AUTO DIFF Differential Comment AUTO DIFF CONFIRMED FINAL DIFF MANUAL Platelet Estimate LOW LOW Platelet Morphology Comment NORMAL NORMAL Blood Urea Nitrogen 21 MG/DL 28 MG/DL 34 MG/DL Creatinine 0.83 MG/DL 0.70 MG/DL 0.73 MG/DL Random Glucose 96 MG/DL 126 MG/DL 129 MG/DL Calcium Level 8.6 MG/DL 9.0 MG/DL 8.4 MG/DL Sodium Level 141 MEQ/L 140 MEQ/L 140 MEQ/L Potassium Level 3.8 MEQ/L 4.3 MEQ/L 4.4 MEQ/L Chloride Level 103 MEQ/L 103 MEQ/L 102 MEQ/L Carbon Dioxide Level 29.6 MEQ/L 27.5 MEQ/L 30.8 MEQ/L Anion Gap 8 MEQ/L 10 MEQ/L 7 MEQ/L Estimat Glomerular Filtration Rate 91 ML/MIN 111 ML/MIN 106 ML/MIN Differential Total Cells Counted 100 Neutrophils % (Manual) 78 % Band Neutrophils % 16 % Lymphocytes % 2 % Monocytes % 4 % Neutrophils # (Manual) 6.7 TH/MM3 Toxic Granulation 1+ Total Protein 6.0 GM/DL Albumin 1.8 GM/DL Phosphorus Level 3.4 MG/DL Magnesium Level 2.2 MG/DL Alkaline Phosphatase 94 U/L Aspartate Amino Transf (AST/SGOT) 122 U/L Alanine Aminotransferase (ALT/SGPT) 91 U/L Total Bilirubin 0.2 MG/DL Free Thyroxine 1.28 NG/DL Thyroid Stimulating Hormone 3rd Gen 0.063 uIU/ML Imaging Last Impressions Chest X-Ray 07/19/17 0000 Signed Impressions: Service Date/Time: Wednesday, July 19, 2017 13:28 - CONCLUSION: 1. Hypoinflation with left basilar atelectasis. 2. Persistent right basilar consolidation with apparent increasing effusion. 3. Stable postsurgical changes López Zapata MD Objective Remarks GENERAL: Awake and alert very cachectic and lethargic --slow to answer questions SKIN: Warm and dry. HEAD: Atraumatic. Normocephalic. EYES: Pupils equal and round. No scleral icterus. No injection or drainage. ENT: No nasal bleeding or discharge. Mucous membranes pink and moist. NECK: Trachea midline. No JVD. CARDIOVASCULAR: Regular rate and rhythm. S1-S2 no S3 or S4 RESPIRATORY: No accessory muscle use. Clear to auscultation. Breath sounds equal bilaterally. Decreased breath sounds bilaterally GASTROINTESTINAL: Abdomen soft, non-tender, nondistended. Hepatic and splenic margins not palpable. MUSCULOSKELETAL: Extremities without clubbing, cyanosis, or edema. No obvious deformities. NEUROLOGICAL: Awake and alert. No obvious cranial nerve deficits. Motor grossly within normal limits. 4 out of 5 muscle strength in the arms and legs. Normal speech. PSYCHIATRIC: Appropriate mood and affect; insight and judgment normal. Very lethargic Procedures NONE Medications and IVs Current Medications Sodium Chloride (NS Flush) 2 ml UNSCH PRN IVF FLUSH AFTER USING IV ACCESS; Start 07/17/17 at 17:15; Stop 07/17/17 at 19:04; Status DC Piperacillin Sod/ Tazobactam Sod 100 ml @ 200 mls/hr ONCE ONCE IV Last administered on 07/17/17at 19:15; Start 07/17/17 at 18:00; Stop 07/17/17 at 18:29 ; Status DC Vancomycin HCl 1000 mg/Sodium Chloride 250 ml @ 250 mls/hr ONCE ONCE IV Last administered on 07/17/17at 18:22; Start 07/17/17 at 18:00; Stop 07/17/17 at 18:59 ; Status DC Azithromycin (Zithromax) 500 mg ONCE ONCE PO Last administered on 07/17/17at 18 :23; Start 07/17/17 at 18:00; Stop 07/17/17 at 18:01; Status DC Morphine Sulfate (Morphine Inj) 4 mg ONCE ONCE IV PUSH Last administered on at 18:22; Start 07/17/17 at 18:15; Stop 07/17/17 at 18:16; Status DC Metoprolol Tartrate (Lopressor) 25 mg ONCE ONCE PO Last administered on at 18:23; Start 07/17/17 at 18:15; Stop 07/17/17 at 18:16; Status DC Sodium Chloride (NS Flush) 2 ml UNSCH PRN IV FLUSH FLUSH AFTER USING IV ACCESS ; Start 07/17/17 at 19:00 Sodium Chloride (NS Flush) 2 ml BID IV FLUSH Last administered on 07/20/17at 10: 22; Start 07/17/17 at 21:00 Acetaminophen (Tylenol) 650 mg Q4H PRN PO Fever, CHOWDHURY, pain 1-4 Last administered on 07/18/17at 00:50; Start 07/17/17 at 19:00 Enoxaparin Sodium (Lovenox Inj) 40 mg Q24H SQ ; Start 07/17/17 at 20:00; Stop at 22:59; Status DC Naloxone HCl (Narcan Inj) 0.4 mg UNSCH PRN IV PUSH SEE LABEL COMMENTS; Start at 19:00 Magnesium Hydroxide (Milk Of Magnesia Liq) 30 ml Q12H PRN PO Mild constipation ; Start 07/17/17 at 19:00; Stop 07/19/17 at 14:04; Status DC Sennosides (Senokot) 17.2 mg Q12H PRN PO Moderate constipation; Start 07/17/17 at 19:00; Stop 07/19/17 at 14:04; Status DC Bisacodyl (Dulcolax Supp) 10 mg DAILY PRN RECTAL SEVERE CONSITIPATION; Start at 19:00; Stop 07/19/17 at 14:04; Status DC Lactulose (Lactulose Liq) 30 ml DAILY PRN PO SEVERE CONSITIPATION; Start at 19:00; Stop 07/19/17 at 14:04; Status DC Ceftriaxone Sodium 2000 mg/ Sodium Chloride 100 ml @ 200 mls/hr Q24H IV ; Start 07/17/17 at 20:00; Stop 07/17/17 at 22:59; Status DC Azithromycin 500 mg/Sodium Chloride 250 ml @ 250 mls/hr Q24H IV Last administered on 07/20/17at 10:22; Start 07/18/17 at 09:00 Albuterol/ Ipratropium (Duoneb Neb) 1 ampule Q4HR NEB PRN NEB dyspnea Last administered on 07/20/17at 10:06; Start 07/17/17 at 19:00 Aspirin (Aspirin) 325 mg ONCE ONCE PO Last administered on 07/17/17at 19:15; Start 07/17/17 at 19:15; Stop 07/17/17 at 19:16; Status DC Amlodipine Besylate (Norvasc) 5 mg DAILY PO ; Start 07/18/17 at 09:00; Status Future Hold Atorvastatin Calcium (Lipitor) 10 mg DAILY PO Last administered on 07/20/17at 10 :21; Start 07/18/17 at 09:00 Budesonide/ Formoterol Fumarate (Symbicort 80-4.5 Mcg Inh) 2 puff Q12HR INH Last administered on 07/20/17at 10:23; Start 07/18/17 at 09:00 Fentanyl (Duragesic 100 Mcg Patch.72 Hr) 1 patch Q72H T-DERMAL ; Start 07/17/17 at 22:00; Stop 07/17/17 at 23:01; Status DC Furosemide (Lasix) 40 mg DAILY PO Last administered on 07/20/17at 10:21; Start 07/18/17 at 09:00 Gabapentin (Neurontin) 600 mg TID PO Last administered on 07/20/17at 10:21; Start 07/18/17 at 09:00 Metoprolol Tartrate (Lopressor) 25 mg DAILY PO Last administered on 07/20/17at 10:20; Start 07/18/17 at 09:00 Morphine Sulfate (Msir) 30 mg QID PO ; Start 07/18/17 at 09:00; Stop 07/18/17 at 09:00; Status DC Potassium Chloride (KCl) 20 meq BID PO Last administered on 07/20/17at 10:21; Start 07/18/17 at 09:00 Tamsulosin HCl (Flomax) 0.4 mg WITH DINNER PO Last administered on 07/19/17at 17:48; Start 07/18/17 at 18:00 Miscellaneous Information 1 Q3D T-DERMAL ; Start 07/20/17 at 22:00; Stop at 22:00; Status DC Enoxaparin Sodium (Lovenox Inj) 40 mg Q24H SQ Last administered on 07/18/17at 00 :18; Start 07/17/17 at 23:00; Status Future Hold Ceftriaxone Sodium 2000 mg/ Sodium Chloride 100 ml @ 200 mls/hr Q24H IV Last administered on 07/19/17at 23:23; Start 07/17/17 at 23:00 Fentanyl (Duragesic 100 Mcg Patch.72 Hr) 1 patch Q72H T-DERMAL Last administered on 07/18/17at 01:48; Start 07/18/17 at 00:00 Miscellaneous Information 1 Q3D T-DERMAL Last administered on 07/18/17at 00:00; Start 07/18/17 at 00:00 Morphine Sulfate (Morphine Inj) 4 mg ONCE ONCE IV PUSH Last administered on at 03:45; Start 07/18/17 at 03:00; Stop 07/18/17 at 03:01; Status DC Morphine Sulfate (Msir) 30 mg Q6HR PO Last administered on 07/20/17at 12:32; Start 07/18/17 at 05:00 Oxycodone/ Acetaminophen (Percocet 7.5-325 Mg) 1 tab Q4H PRN PO BREAKTHROUGH PAIN; Start 07/18/17 at 10:30; Stop 07/18/17 at 16:03; Status DC Morphine Sulfate (Morphine Inj) 2 mg Q3H PRN IV PUSH BREAKTHROUGH PAIN Last administered on 07/20/17at 01:35; Start 07/18/17 at 10:30 Methylprednisolone Sodium Succinate (SoluMEDROL INJ) 40 mg Q6HR IV PUSH Last administered on 07/20/17at 12:33; Start 07/18/17 at 13:15 Morphine Sulfate (Msir) 15 mg Q4H PRN PO SOB, or pain 1-5; Start 07/18/17 at 16 :00 Morphine Sulfate (Msir) 30 mg Q4H PRN PO SOB, or pain 6-10; Start 07/18/17 at 16:00 Lorazepam (Ativan) 0.5 mg Q8H PRN PO ANXIETY; Start 07/18/17 at 23:00 Senna/Docusate Sodium (Oma-Colace) 1 tab BID PO Last administered on at 10:21; Start 07/19/17 at 21:00 Magnesium Hydroxide (Milk Of Magnesia Liq) 30 ml Q12H PRN PO Mild constipation ; Start 07/19/17 at 14:00 Sennosides (Senokot) 17.2 mg Q12H PRN PO Moderate constipation; Start 07/19/17 at 14:00 Bisacodyl (Dulcolax Supp) 10 mg DAILY PRN RECTAL SEVERE CONSITIPATION; Start at 14:00 Lactulose (Lactulose Liq) 30 ml DAILY PRN PO SEVERE CONSITIPATION; Start at 14:00 A/P Assessment and Plan 71 Y/O male with lung cancer admitted with: Acute hypoxemic respiratory failure: Probably a combination of COPD, pneumonia and lung cancer burden - Treat as health care associated pneumonia. Change Rocephin to Cefepime. - IV solumedrol - Breathing treatments. Health care associated pneumonia Chest x-ray significant for increasing consolidation in the right lung Azithromycin and Cefepime Sputum culture pending Stage III non-small cell lung cancer Last chemotherapy 2 weeks ago Medical oncology consulted, appreciate assistance Anemia/thrombocytopenia: Probably related to cho H&H 8.4/25.2 Hematology consulted as above Monitor Transfuse as needed Hypertension/hyperlipidemia/CAD Continue home medications COPD Continue Symbicort Duo nebs BPH Continue Flomax Chronic back pain, uncontrolled Continue morphine and fentanyl at home dosing Chronically ill patient with repeated Hospitalization and obvious decline in functional status. Pain is not well controlled. Consult Palliative care to assist with goals of care, pain management, patient and family support. CONSULT HOSPICE - HAS NOT DISCUSSED WITH HOSPICE- WAITING ON HIS NEPHEW TO COME TO [facility] IS DNR MARIA ELENA RN AND PT AND CM MEDS FOR CONSTIPATION Discharge Planning CONSULT HOSPICE Jonn Lucero DO July 20, 2017 13:26
[2017-07-20 15:42] LABS: HEMOGLOBIN A1C 6.2 % (4.3-6.0)
--- NOTE | 2017-07-20 16:34 | HHI.HCPN ---
Reason for visit a. To assist with evaluation and management of symptoms including: Pain, dyspnea b. To assist medical decision maker(s) with: better understanding of current medical conditions; weighing benefits/burdens of medical treatment options; making medical treatment decisions. . Subjective/Interval History INTERVAL NOTE: The patient remains dyspneic with minimal exertion. He says his back still hurts, the MSIR PRN orders remain in place, but he's not getting that... The patient plans on waiting until his nephew Chaitanya is here on Monday to further discuss possibly transitioning to hospice. . Advance Directives Living Will: Completed, but not made available Health Care Surrogate: Copy in medical record Durable Power of Architectural Coating Finisher: Never completed Advance Directive Specifics Health Care Surrogate(s): The patient designated his nephew Chaitanya Mcdonough and Kathrin as healthcare surrogates. . Documented care wishes: The patient tells me he has a living will but is not sure where it is. He says that his living will says he would not want to be resuscitated or continued with aggressive care "if there was not a substantial amount of quality life still remaining." . Objective Vital Signs Date Time Temp Pulse Resp B/P (MAP) Pulse Ox O2 Delivery O2 Flow Rate FiO2 07/20/17 15:36 98.2 78 18 120/63 (82) 94 07/20/17 13:35 18 07/20/17 11:40 98.1 82 18 115/68 (84) 95 07/20/17 09:20 2.00 07/20/17 08:25 95 Nasal Cannula 2.00 07/20/17 07:35 97.5 66 18 119/68 (85) 95 07/20/17 04:00 97.3 69 18 111/70 (84) 93 07/20/17 00:01 97.5 66 18 126/69 (88) 93 07/19/17 20:20 Nasal Cannula 2.00 07/19/17 20:00 97.5 73 19 133/75 (94) 93 07/19/17 18:16 93 Nasal Cannula 2.00 Intake & Output 07/20/17 07/20/17 07:00 19:00 Intake Total 240 ml Output Total 425 ml 150 ml Balance -185 ml -150 ml Intake Oral 240 ml Output Urine Total 425 ml 150 ml # Voids 1 # Bowel Movements 0 Physical Exam CONSTITUTIONAL/GENERAL: This is a thin, weak patient, appearing older than his stated age, and in mild respiratory and pain distress. NECK: Trachea midline. Supple, nontender. No palpable thyroid enlargement or nodularity. CARDIOVASCULAR: Regular rate and rhythm with grade 1-2 systolic murmur. No JVD. Peripheral pulses diminished. RESPIRATORY/CHEST: Symmetric, mildly labored respirations while at rest in the bed. A couple scattered rhonchi are present. GASTROINTESTINAL: Abdomen soft, non-tender, nondistended. No hepato-splenomegaly , or palpable masses. No guarding. Bowel sounds present. NEUROLOGICAL: Awake and alert, oriented 4. Motor function globally weak, and sensory grossly within normal limits. Follows commands. Cognitively sharp. Moves all extremities. PSYCHIATRIC: No obvious anxiety/depression. no apparent hallucinations or other psychotic thought process. . Diagnostic Tests Laboratory Laboratory Tests Test 07/17/17 17:11 07/17/17 17:17 07/17/17 18:15 07/17/17 18:35 Blood Gas Puncture Site RT RADIAL Blood Gas Patient Temperature 98.6 Blood Gas HCO3 28 mmol/L (22-26) Blood Gas Base Excess 5.0 mmol/L (-2-2) Blood Gas Oxygen Saturation 94 % (90-100) Arterial Blood pH 7.52 (7.380-7.420) Arterial Blood Partial Pressure CO2 34 mmHg (38-42) Arterial Blood Partial Pressure O2 79 mmHG (61-120) Arterial Blood Oxygen Content 11.3 Vol % (12.0-20.0) Arterial Blood Carboxyhemoglobin 2.0 % (0-4) Arterial Blood Methemoglobin 0.6 % (0-2) Blood Gas Hemoglobin 8.5 G/DL (12.0-16.0) Oxygen Delivery Device NASAL CANNULA Blood Gas Liter Flow 3 L/M White Blood Count 12.0 TH/MM3 (4.0-11.0) Red Blood Count 2.63 MIL/MM3 (4.50-5.90) Hemoglobin 8.4 GM/DL (13.0-17.0) Hematocrit 25.2 % (39.0-51.0) Mean Corpuscular Volume 95.9 FL (80.0-100.0) Mean Corpuscular Hemoglobin 31.9 PG (27.0-34.0) Mean Corpuscular Hemoglobin Concent 33.3 % (32.0-36.0) Red Cell Distribution Width 17.5 % (11.6-17.2) Platelet Count 60 TH/MM3 (150-450) Mean Platelet Volume 7.3 FL (7.0-11.0) Neutrophils (%) (Auto) 89.6 % (16.0-70.0) Lymphocytes (%) (Auto) 3.6 % (9.0-44.0) Monocytes (%) (Auto) 6.0 % (0.0-8.0) Eosinophils (%) (Auto) 0.0 % (0.0-4.0) Basophils (%) (Auto) 0.8 % (0.0-2.0) Neutrophils # (Auto) 10.7 TH/MM3 (1.8-7.7) Lymphocytes # (Auto) 0.4 TH/MM3 (1.0-4.8) Monocytes # (Auto) 0.7 TH/MM3 (0-0.9) Eosinophils # (Auto) 0.0 TH/MM3 (0-0.4) Basophils # (Auto) 0.1 TH/MM3 (0-0.2) CBC Comment AUTO DIFF Differential Comment AUTO DIFF CONFIRMED Platelet Estimate LOW (NORMAL) Platelet Morphology Comment NORMAL (NORMAL) Prothrombin Time 12.1 SEC (9.8-11.6) Prothromb Time International Ratio 1.2 RATIO Activated Partial Thromboplast Time 30.6 SEC (24.3-30.1) Blood Urea Nitrogen 20 MG/DL (7-18) Creatinine 0.84 MG/DL (0.60-1.30) Random Glucose 103 MG/DL (74-106) Total Protein 6.2 GM/DL (6.4-8.2) Albumin 2.1 GM/DL (3.4-5.0) Calcium Level 8.5 MG/DL (8.5-10.1) Magnesium Level 1.8 MG/DL (1.5-2.5) Alkaline Phosphatase 93 U/L (45-117) Aspartate Amino Transf (AST/SGOT) 24 U/L (15-37) Alanine Aminotransferase (ALT/SGPT) 20 U/L (12-78) Total Bilirubin 1.0 MG/DL (0.2-1.0) Sodium Level 141 MEQ/L (136-145) Potassium Level 3.7 MEQ/L (3.5-5.1) Chloride Level 104 MEQ/L (98-107) Carbon Dioxide Level 28.3 MEQ/L (21.0-32.0) Anion Gap 9 MEQ/L (5-15) Estimat Glomerular Filtration Rate 90 ML/MIN (>89) Total Creatine Kinase 59 U/L (39-308) Troponin I LESS THAN 0.02 NG/ML B-Type Natriuretic Peptide 333 PG/ML (0-100) Lactic Acid Level 1.5 mmol/L (0.4-2.0) Urine Color YELLOW (YELLW/STRAW) Urine Turbidity CLEAR (CLEAR) Urine pH 8.5 (5.0-8.5) Urine Specific Carlos 1.022 (1.002-1.035) Urine Protein 100 mg/dL (NEG-TRACE) Urine Glucose (UA) 150 mg/dL (NEG) Urine Ketones 10 mg/dL (NEG) Urine Occult Blood NEG (NEG) Urine Nitrite NEG (NEG) Urine Bilirubin NEG (NEG) Urine Urobilinogen 2.0 MG/DL (LESS THAN Urine Leukocyte Esterase NEG (NEG) Urine RBC 1 /hpf (0-3) Urine WBC 1 /hpf (0-5) Urine Squamous Epithelial Cells 1 /hpf (0-5) Microscopic Urinalysis Comment CULT NOT INDICATED Test 07/18/17 04:35 07/18/17 05:35 07/19/17 07:02 07/20/17 03:56 White Blood Count 8.2 TH/MM3 (4.0-11.0) 5.7 TH/MM3 (4.0-11.0) 7.1 TH/MM3 (4.0-11.0) Red Blood Count 2.55 MIL/MM3 (4.50-5.90) 2.58 MIL/MM3 (4.50-5.90) 2.39 MIL/MM3 (4.50-5.90) Hemoglobin 8.2 GM/DL (13.0-17.0) 8.2 GM/DL (13.0-17.0) 7.6 GM/DL (13.0-17.0) Hematocrit 24.4 % (39.0-51.0) 24.8 % (39.0-51.0) 23.0 % (39.0-51.0) Mean Corpuscular Volume 95.6 FL (80.0-100.0) 96.2 FL (80.0-100.0) 95.9 FL (80.0-100.0) Mean Corpuscular Hemoglobin 32.1 PG (27.0-34.0) 32.0 PG (27.0-34.0) 31.9 PG (27.0-34.0) Mean Corpuscular Hemoglobin Concent 33.6 % (32.0-36.0) 33.2 % (32.0-36.0) 33.3 % (32.0-36.0) Red Cell Distribution Width 17.5 % (11.6-17.2) 17.3 % (11.6-17.2) 17.8 % (11.6-17.2) Platelet Count 50 TH/MM3 (150-450) 47 TH/MM3 (150-450) 50 TH/MM3 (150-450) Mean Platelet Volume 7.7 FL (7.0-11.0) 8.1 FL (7.0-11.0) 8.2 FL (7.0-11.0) Neutrophils (%) (Auto) 85.8 % (16.0-70.0) 92.2 % (16.0-70.0) Lymphocytes (%) (Auto) 5.3 % (9.0-44.0) 3.5 % (9.0-44.0) Monocytes (%) (Auto) 8.5 % (0.0-8.0) 4.1 % (0.0-8.0) Eosinophils (%) (Auto) 0.1 % (0.0-4.0) 0.0 % (0.0-4.0) Basophils (%) (Auto) 0.3 % (0.0-2.0) 0.2 % (0.0-2.0) Neutrophils # (Auto) 7.0 TH/MM3 (1.8-7.7) 6.5 TH/MM3 (1.8-7.7) Lymphocytes # (Auto) 0.4 TH/MM3 (1.0-4.8) 0.2 TH/MM3 (1.0-4.8) Monocytes # (Auto) 0.7 TH/MM3 (0-0.9) 0.3 TH/MM3 (0-0.9) Eosinophils # (Auto) 0.0 TH/MM3 (0-0.4) 0.0 TH/MM3 (0-0.4) Basophils # (Auto) 0.0 TH/MM3 (0-0.2) 0.0 TH/MM3 (0-0.2) CBC Comment AUTO DIFF AUTO DIFF Differential Comment AUTO DIFF CONFIRMED FINAL DIFF MANUAL Platelet Estimate LOW (NORMAL) LOW (NORMAL) Platelet Morphology Comment NORMAL (NORMAL) NORMAL (NORMAL) Blood Urea Nitrogen 21 MG/DL (7-18) 28 MG/DL (7-18) 34 MG/DL (7-18) Creatinine 0.83 MG/DL (0.60-1.30) 0.70 MG/DL (0.60-1.30) 0.73 MG/DL (0.60-1.30) Random Glucose 96 MG/DL (74-106) 126 MG/DL (74-106) 129 MG/DL (74-106) Calcium Level 8.6 MG/DL (8.5-10.1) 9.0 MG/DL (8.5-10.1) 8.4 MG/DL (8.5-10.1) Sodium Level 141 MEQ/L (136-145) 140 MEQ/L (136-145) 140 MEQ/L (136-145) Potassium Level 3.8 MEQ/L (3.5-5.1) 4.3 MEQ/L (3.5-5.1) 4.4 MEQ/L (3.5-5.1) Chloride Level 103 MEQ/L (98-107) 103 MEQ/L (98-107) 102 MEQ/L (98-107) Carbon Dioxide Level 29.6 MEQ/L (21.0-32.0) 27.5 MEQ/L (21.0-32.0) 30.8 MEQ/L (21.0-32.0) Anion Gap 8 MEQ/L (5-15) 10 MEQ/L (5-15) 7 MEQ/L (5-15) Estimat Glomerular Filtration Rate 91 ML/MIN (>89) 111 ML/MIN (>89) 106 ML/MIN (>89) Differential Total Cells Counted 100 Neutrophils % (Manual) 78 % (16-70) Band Neutrophils % 16 % (0-6) Lymphocytes % 2 % (9-44) Monocytes % 4 % (0-8) Neutrophils # (Manual) 6.7 TH/MM3 (1.8-7.7) Toxic Granulation 1+ (NORMAL) Total Protein 6.0 GM/DL (6.4-8.2) Albumin 1.8 GM/DL (3.4-5.0) Phosphorus Level 3.4 MG/DL (2.5-4.9) Magnesium Level 2.2 MG/DL (1.5-2.5) Alkaline Phosphatase 94 U/L (45-117) Aspartate Amino Transf (AST/SGOT) 122 U/L (15-37) Alanine Aminotransferase (ALT/SGPT) 91 U/L (12-78) Total Bilirubin 0.2 MG/DL (0.2-1.0) Free Thyroxine 1.28 NG/DL (0.76-1.46) Thyroid Stimulating Hormone 3rd Gen 0.063 uIU/ML (0.358-3.740) Result Diagram: 07/20/17 0356 07/20/17 0356 Microbiology Microbiology Date/Time Source Procedure Growth Status 07/17/17 18:20 Blood Peripheral Aerobic Blood Culture - Preliminary NO GROWTH IN 3 DAYS Resulted 07/17/17 18:20 Blood Peripheral Anaerobic Blood Culture - Preliminary NO GROWTH IN 3 DAYS Resulted 07/17/17 18:15 Blood Peripheral Aerobic Blood Culture - Preliminary NO GROWTH IN 3 DAYS Resulted 07/17/17 18:15 Blood Peripheral Anaerobic Blood Culture - Preliminary NO GROWTH IN 3 DAYS Resulted Assessment and Plan Disease Oriented Problem List: (1) End-stage COPD, oxygen and steroid-dependent (2) Adenocarcinoma of the lung, s/p chemo/radiation, now with new lung nodules (3) Increased consolidation on x-ray, possible pneumonia (4) Worsening back and chest pain in spite of chronic opiates (5) Malnutrition/failure to thrive (6) CAD, history of TN, history of CABG (7) Chronic anemia (8) Depression (9) Chronic kidney disease Symptom Scale: (1) Dyspnea 0-10 Scale: 3 (Including dyspnea at rest) (2) Pain 0-10 Scale: 6 (Worsening chronic pain in recent weeks) (3) Depression 0-10 Scale: Unable to quantify Pertinent Non-Medical Issues 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 Spiritual: Worship background, open to reed polisher visits Legal: The patient has capacity for decision-making at this time. Nephew and are HCS. Ethical issues impacting care: None . Important Contacts Nephew: Chaitanya Mcdonough [phone] Local friend: Abhi Myrick [phone] . Prognosis The patient is terminal. He has end-stage COPD and adenocarcinoma of the lung that is persistent (and now has left lung multiple nodules not previously reported on CT scan). He is appropriate for hospice services if his goals become comfort oriented. . Code Status: No Code Plan * DO NOT RESUSCITATE, per request of patient 07/18/17. * DECISION-MAKING: The patient has capacity for decision-making at this time. He has designated his nephew Chaitanya Mcdonough and as healthcare surrogates. * SYMPTOMS: * PAIN: He has chronic back pain and now that as well as his right chest pain ( felt to be related to his tumor burden) have been worsening in recent weeks. He 's been on morphine long-term for chronic back pain; PRN MSIR is available. * DYSPNEA: He has end-stage COPD and has had radiation in recent months; he is dyspneic at rest and has no exercise tolerance. Supplemental oxygen, continued steroids, bronchodilators, opiates, and benzodiazepines will be helpful in treating his dyspnea. * GOALS: The patient has always hoped to be able to stay at home, but it is becoming clear that he is declining rapidly now and will not be able to stay at home alone. * I do see the oncology note regarding their thoughts on hospice and allowing more time for the recent chemotherapy to become more beneficial. I would note that this patient is eligible for hospice services based on his profound debility, worsening pain, significant weight loss, and end-stage, oxygen- dependent COPD. He and his nephew do not want to engage hospice services until they have more time to meet together to discuss it this weekend. * Palliative Care will continue to follow the patient during this hospitalization. . Time Spent Total Floor Time (mins): 26 Face to Face Time (mins): 14 >50% Counseling/Coord of Care: Yes Attestation To help prompt me to consider important information that might be impacting today's encounter and assessment, information from prior notes written by myself or my colleagues may have been "brought forward" into today's note. My signature on this note, however, is an attestation that I personally performed the exam, history, and/or decision-making noted today, and, unless otherwise indicated, the interactions with patient, family, and staff as well as the review of records all occurred today. I also attest that the listed assessment and stated plan reflect my best clinical judgment today based on the combination of historical information, prior notes, and today's exam/ interactions. When time spent is documented, it refers only to time spent today by the signer, or if indicated, combined time spent today by collaborating physician/nurse practitioner. Cher Cristobal MD July 20, 2017 16:34
[2017-07-20] MEDS: TAMSULOSIN HCL 0.4 MG CAP PO SCH (17:23)
[2017-07-20] MEDS ORDERED: REMOVE OLD DURAGESIC (FENTANYL) PATCH T-DERMAL SCH (22:00)
[2017-07-20] MEDS: cefTRIAXone INJ 2,000 MG in SODIUM CHLORIDE 0.9% INJ 100 ML IV SCH (23:15)
[2017-07-21] VITALS (11 sets, daily range): BP systolic 100–115; BP diastolic 55–71; PULSE 54–100; RESP 16–22; TEMP 97.5–98.8; O2SAT 90–98
[2017-07-21] MEDS: REMOVE OLD DURAGESIC (FENTANYL) PATCH T-DERMAL SCH
[2017-07-21] MEDS: MORPHINE SULFATE 4 MG/ML INJ IV PUSH PRN ×2 (04:43→17:08)
[2017-07-21] MEDS: methylPREDNISolone SOD SUCC 40 MG/1 ML VIAL IV PUSH SCH ×3 (04:53→18:37)
[2017-07-21] MEDS: MORPHINE SULFATE 15 MG TAB PO SCH ×3 (05:26→18:39)
[2017-07-21 07:24] LABS: AUTOMATED NEUTROPHIL # 4.6 TH/MM3 (1.8-7.7); HEMATOCRIT 21.4 % (39.0-51.0); HEMOGLOBIN 7.2 GM/DL (13.0-17.0); LYMPH % 3.5 % (9.0-44.0); LYMPHOCYTE # 0.2 TH/MM3 (1.0-4.8); MEAN CELL VOLUME 95.7 FL (80.0-100.0); MEAN CORPUSCULAR HEMOGLOBIN 32.1 PG (27.0-34.0); MEAN CORPUSCULAR HGB CONC 33.5 % (32.0-36.0); MEAN PLATELET VOLUME 7.7 FL (7.0-11.0); MONOCYTE # 0.3 TH/MM3 (0-0.9); NEUT % 90.5 % (16.0-70.0); PLATELET COUNT 58 TH/MM3 (150-450); RED BLOOD COUNT 2.24 MIL/MM3 (4.50-5.90); RED CELL DISTRIBUTION WIDTH 17.4 % (11.6-17.2); WHITE BLOOD COUNT 5.1 TH/MM3 (4.0-11.0)
[2017-07-21 07:49] LABS: ALBUMIN 1.8 GM/DL (3.4-5.0); ALT (GPT) 138 U/L (12-78); AST (GOT) 117 U/L (15-37); BLOOD UREA NITROGEN 32 MG/DL (7-18); CALCIUM 8.3 MG/DL (8.5-10.1); CHLORIDE 105 MEQ/L (98-107); CREATININE 0.71 MG/DL (0.60-1.30); GLOMERULAR FILTRATION RATE 109 ML/MIN (>89); GLUCOSE,RANDOM 115 MG/DL (74-106); MAGNESIUM 2.3 MG/DL (1.5-2.5); PHOSPHORUS 2.8 MG/DL (2.5-4.9); SODIUM (NA) 142 MEQ/L (136-145)
[2017-07-21 07:51] LABS: ALKALINE PHOSPHATASE 95 U/L (45-117); TOTAL BILIRUBIN ADULT 0.3 MG/DL (0.2-1.0); TOTAL PROTEIN 5.6 GM/DL (6.4-8.2)
[2017-07-21] MEDS: SODIUM CHLORIDE 0.9% FLUSH 10 ML FLUSH IV FLUSH SCH ×2 (08:55→21:00)
[2017-07-21] MEDS: GABAPENTIN 300 MG CAP PO SCH ×3 (08:58→18:39)
[2017-07-21] MEDS: ATORVASTATIN 10 MG TAB PO SCH (08:58)
[2017-07-21] MEDS: FUROSEMIDE 40 MG TAB PO SCH (08:59)
[2017-07-21] MEDS: DOCUSATE SODIUM 50 MG/SENNA 8.6 MG TAB PO SCH ×2 (08:59→20:56)
[2017-07-21] MEDS: POTASSIUM CHLORIDE 20 MEQ CONTROLLED RELEASE TAB PO SCH ×2 (08:59→20:56)
[2017-07-21] MEDS: AZITHROMYCIN INJ 500 MG in SODIUM CHLOR 0.9% 250 ML INJ 250 ML IV SCH ×2 (08:59→13:28)
[2017-07-21] MEDS: BUDESONIDE-FORMOTEROL 80/4.5 MCG INHALER INH SCH ×2 (09:00→20:55)
[2017-07-21] MEDS: MORPHINE SULFATE 30 MG TAB PO PRN ×2 (09:07→21:01)
[2017-07-21 09:36] LABS: BANDS 10 % (0-6); LYMPHOCYTES 2 % (9-44); METAMYELOCYTES 1 % (0-1); MONOCYTES 2 % (0-8); NEUTROPHIL # MANUAL DIFF 4.9 TH/MM3 (1.8-7.7); OVALOCYTES 1+ (NORMAL); POLYS (SEG NEUTROPHILS) 85 % (16-70); TOXIC GRANULATION 2+ (NORMAL)
[2017-07-21] MEDS: fentaNYL 100 MCG/HR PATCH T-DERMAL SCH ×2 (12:07)
--- NOTE | 2017-07-21 13:06 | PD.ONC.PN ---
Subjective Subjective Remarks Complaining of chronic back pain Complaining of shortness of breath and fatigue Denies any fever Objective Data Date Time Temp Pulse Resp B/P (MAP) Pulse Ox O2 Delivery O2 Flow Rate FiO2 07/21/17 12:35 98.0 100 20 114/67 (83) 92 07/21/17 08:57 Nasal Cannula 2.50 07/21/17 07:00 98.5 73 18 112/68 (83) 95 07/21/17 04:00 74 07/21/17 04:00 97.9 65 18 112/71 (85) 93 07/21/17 00:00 97.5 77 18 100/55 (70) 92 07/21/17 00:00 66 07/20/17 20:46 69 07/20/17 20:00 98.4 70 22 112/69 (83) 91 07/20/17 20:00 68 07/20/17 20:00 Nasal Cannula 2.00 07/20/17 20:00 91 Nasal Cannula 2.00 07/20/17 18:30 97.2 97 18 152/56 (88) 97 07/20/17 18:30 97 Nasal Cannula 2.00 07/20/17 15:36 98.2 78 18 120/63 (82) 94 07/20/17 13:35 18 07/21/17 07/21/17 07/21/17 07:00 15:00 23:00 Intake Total 480 ml Output Total 750 ml Balance -270 ml Result Diagram: 07/21/17 0630 07/21/17 0630 Laboratory Results Laboratory Tests Test 07/21/17 06:30 White Blood Count 5.1 TH/MM3 Red Blood Count 2.24 MIL/MM3 Hemoglobin 7.2 GM/DL Hematocrit 21.4 % Mean Corpuscular Volume 95.7 FL Mean Corpuscular Hemoglobin 32.1 PG Mean Corpuscular Hemoglobin Concent 33.5 % Red Cell Distribution Width 17.4 % Platelet Count 58 TH/MM3 Mean Platelet Volume 7.7 FL Neutrophils (%) (Auto) 90.5 % Lymphocytes (%) (Auto) 3.5 % Monocytes (%) (Auto) 6.0 % Eosinophils (%) (Auto) 0.0 % Basophils (%) (Auto) 0.0 % Neutrophils # (Auto) 4.6 TH/MM3 Lymphocytes # (Auto) 0.2 TH/MM3 Monocytes # (Auto) 0.3 TH/MM3 Eosinophils # (Auto) 0.0 TH/MM3 Basophils # (Auto) 0.0 TH/MM3 CBC Comment AUTO DIFF Differential Total Cells Counted 100 Neutrophils % (Manual) 85 % Band Neutrophils % 10 % Lymphocytes % 2 % Monocytes % 2 % Neutrophils # (Manual) 4.9 TH/MM3 Metamyelocytes 1 % Differential Comment FINAL DIFF MANUAL Toxic Granulation 2+ Platelet Estimate LOW Platelet Morphology Comment NORMAL Ovalocytes 1+ Blood Urea Nitrogen 32 MG/DL Creatinine 0.71 MG/DL Random Glucose 115 MG/DL Total Protein 5.6 GM/DL Albumin 1.8 GM/DL Calcium Level 8.3 MG/DL Phosphorus Level 2.8 MG/DL Magnesium Level 2.3 MG/DL Alkaline Phosphatase 95 U/L Aspartate Amino Transf (AST/SGOT) 117 U/L Alanine Aminotransferase (ALT/SGPT) 138 U/L Total Bilirubin 0.3 MG/DL Sodium Level 142 MEQ/L Potassium Level 4.4 MEQ/L Chloride Level 105 MEQ/L Carbon Dioxide Level 30.0 MEQ/L Anion Gap 7 MEQ/L Estimat Glomerular Filtration Rate 109 ML/MIN Administered Medications Medications (Trade) Dose Ordered Sig/Arcelia Route PRN Reason Start Time Stop Time Status Last Admin Dose Admin Sodium Chloride (NS Flush) 2 ml BID IV FLUSH 07/17/17 21:00 07/20/17 20:59 Acetaminophen (Tylenol) 650 mg Q4H PRN PO Fever, CHOWDHURY, pain 1-4 07/17/17 19:00 07/18/17 00:50 Azithromycin 500 mg/Sodium Chloride 250 ml @ 250 mls/hr Q24H IV 07/18/17 09:00 07/20/17 10:22 Albuterol/ Ipratropium (Duoneb Neb) 1 ampule Q4HR NEB PRN NEB dyspnea 07/17/17 19:00 07/20/17 10:06 Atorvastatin Calcium (Lipitor) 10 mg DAILY PO 07/18/17 09:00 07/21/17 08:58 Budesonide/ Formoterol Fumarate (Symbicort 80-4.5 Mcg Inh) 2 puff Q12HR INH 07/18/17 09:00 07/21/17 09:00 Furosemide (Lasix) 40 mg DAILY PO 07/18/17 09:00 07/21/17 08:59 Gabapentin (Neurontin) 600 mg TID PO 07/18/17 09:00 07/21/17 08:58 Metoprolol Tartrate (Lopressor) 25 mg DAILY PO 07/18/17 09:00 07/20/17 10:20 Potassium Chloride (KCl) 20 meq BID PO 07/18/17 09:00 07/21/17 08:59 Tamsulosin HCl (Flomax) 0.4 mg WITH DINNER PO 07/18/17 18:00 07/20/17 17:23 Enoxaparin Sodium (Lovenox Inj) 40 mg Q24H SQ 07/17/17 23:00 Future Hold 07/18/17 00:18 Ceftriaxone Sodium 2000 mg/ Sodium Chloride 100 ml @ 200 mls/hr Q24H IV 07/17/17 23:00 07/20/17 23:15 Fentanyl (Duragesic 100 Mcg Patch.72 Hr) 1 patch Q72H T-DERMAL 07/18/17 00:00 07/21/17 12:07 Miscellaneous Information 1 Q3D T-DERMAL 07/18/17 00:00 07/18/17 00:00 Morphine Sulfate (Msir) 30 mg Q6HR PO 07/18/17 05:00 07/21/17 12:08 Morphine Sulfate (Morphine Inj) 2 mg Q3H PRN IV PUSH BREAKTHROUGH PAIN 07/18/17 10:30 07/21/17 04:43 Methylprednisolone Sodium Succinate (SoluMEDROL INJ) 40 mg Q6HR IV PUSH 07/18/17 13:15 07/21/17 04:53 Morphine Sulfate (Msir) 30 mg Q4H PRN PO SOB, or pain 6-10 07/18/17 16:00 07/21/17 09:07 Senna/Docusate Sodium (Oma-Colace) 1 tab BID PO 07/19/17 21:00 07/21/17 08:59 Sennosides (Senokot) 17.2 mg Q12H PRN PO Moderate constipation 07/19/17 14:00 07/20/17 13:33 Objective Remarks GENERAL: Chronically ill appearing patient. SKIN: Warm and dry. HEAD: Normocephalic. EYES: No scleral icterus. No injection or drainage. NECK: Supple, trachea midline. No JVD or lymphadenopathy. LYMPHATIC: No adenopathy. CARDIOVASCULAR: Regular rate and rhythm without murmurs. RESPIRATORY: Decrease Breath sounds equal bilaterally. GASTROINTESTINAL: Abdomen soft, non-tender, nondistended. EXTREMITIES: No cyanosis, or edema. NEUROLOGICAL: No obvious focal deficit. Awake, alert, and oriented x3. Assessment/Plan Problem List: (1) Pneumonia ICD Codes: J18.9 - Pneumonia, unspecified organism Status: Acute Plan: 07/19: check repeat chest x-ray. continue antibiotics + steroids. --Increasing consolidation of the right lung with minimal effusion (2) COPD exacerbation ICD Codes: J44.1 - COPD exacerbation Status: Acute Plan: --on steroids + Duonebs (3) Non-small cell lung cancer (NSCLC) ICD Codes: C34.90 - Malignant neoplasm of unspecified part of unspecified bronchus or lung Plan: --status post combined concurrent radiation chemotherapy followed by consolidation chemotherapy completed 2 weeks ago. --no further treatment planned at this time. (4) Thrombocytopenia ICD Codes: D69.6 - Thrombocytopenia, unspecified Plan: --due to recent chemotherapy.does not require any platelet transfusion. --expect platelet count to improve (5) Anemia ICD Codes: D64.9 - Anemia, unspecified Plan: Anemia due to chemo therapy PRBC 2 units today with Lasix Monitor CBC Assessment 71y/o male with stage III NSCLC admitted with pneumonia and COPD exacerbation. Problem Qualifiers (1) Pneumonia: Qualified Codes: J18.1 - Lobar pneumonia, unspecified organism Luis Fernando Gaines MD July 21, 2017 13:06
[2017-07-21] MEDS ORDERED: ACETAMINOPHEN 325 MG TAB PO PRN (13:15)
[2017-07-21] MEDS ORDERED: SODIUM CHLOR 0.9% 250 ML INJ 250 ML IV ONE (13:15)
[2017-07-21] MEDS ORDERED: FUROSEMIDE 20 MG/2 ML VIAL IV PUSH ONE ×2 (13:15→22:15)
[2017-07-21] MEDS: METOPROLOL TARTRATE 25 MG TAB PO SCH (13:38)
--- NOTE | 2017-07-21 13:51 | HHI.HCPN ---
Reason for visit a. To assist with evaluation and management of symptoms including: Pain, dyspnea b. To assist medical decision maker(s) with: better understanding of current medical conditions; weighing benefits/burdens of medical treatment options; making medical treatment decisions. . Subjective/Interval History INTERVAL NOTE: The patient remains dyspneic with minimal exertion and he is worried is pneumonia is not treated. That questions and issue was addressed. He was amenable to get a duonebs. He says his back still hurts, the MSIR PRN orders remain in place. Goals of treament was reviewed. The patient plans on waiting until his nephew Chaitanya is here tomorrow to further discuss possibly transitioning to hospice. I offered to give patient's nephew a call, but pt preferred to talk with nephew himself. Clarified with him that even while in hospice, he can get antibiotics, albeit it will most likely me oral. He spoke about wanting to go home. . Family/friend interactions Pt decline for me to call nephew today. Advance Directives Living Will: Completed, but not made available Health Care Surrogate: Copy in medical record Durable Power of Grinder Hardboard: Never completed Advance Directive Specifics Health Care Surrogate(s): The patient designated his nephew Chaitanya Mcdonough and Kathrin as healthcare surrogates. . Documented care wishes: The patient tells me he has a living will but is not sure where it is. He says that his living will says he would not want to be resuscitated or continued with aggressive care "if there was not a substantial amount of quality life still remaining." . Objective Vital Signs Date Time Temp Pulse Resp B/P (MAP) Pulse Ox O2 Delivery O2 Flow Rate FiO2 07/21/17 12:35 98.0 100 20 114/67 (83) 92 07/21/17 08:57 Nasal Cannula 2.50 07/21/17 07:00 98.5 73 18 112/68 (83) 95 07/21/17 04:00 74 07/21/17 04:00 97.9 65 18 112/71 (85) 93 07/21/17 00:00 97.5 77 18 100/55 (70) 92 07/21/17 00:00 66 07/20/17 20:46 69 07/20/17 20:00 98.4 70 22 112/69 (83) 91 07/20/17 20:00 68 07/20/17 20:00 Nasal Cannula 2.00 07/20/17 20:00 91 Nasal Cannula 2.00 07/20/17 18:30 97.2 97 18 152/56 (88) 97 07/20/17 18:30 97 Nasal Cannula 2.00 07/20/17 15:36 98.2 78 18 120/63 (82) 94 Intake & Output 07/21/17 07/21/17 07:00 19:00 Intake Total 480 ml Output Total 750 ml Balance -270 ml Intake Oral 480 ml Output Urine Total 750 ml Physical Exam CONSTITUTIONAL/GENERAL: This is a thin, weak patient, appearing older than his stated age, and in mild respiratory and pain distress. NECK: Trachea midline. Supple, nontender. No palpable thyroid enlargement or nodularity. CARDIOVASCULAR: Regular rate and rhythm with grade 1-2 systolic murmur. No JVD. Peripheral pulses diminished. RESPIRATORY/CHEST: Symmetric, mildly labored respirations while at rest in the bed. A couple scattered rhonchi are present. There is expiratory wheezing in left lung crystal. GASTROINTESTINAL: Abdomen soft, non-tender, nondistended. No hepato-splenomegaly , or palpable masses. No guarding. Bowel sounds present. NEUROLOGICAL: Awake and alert, oriented 4. Motor function globally weak, and sensory grossly within normal limits. Follows commands. Cognitively sharp. Moves all extremities. PSYCHIATRIC: No obvious anxiety/depression. no apparent hallucinations or other psychotic thought process. . Diagnostic Tests Laboratory Laboratory Tests Test 07/19/17 07:02 07/20/17 03:56 07/21/17 06:30 White Blood Count 5.7 TH/MM3 (4.0-11.0) 7.1 TH/MM3 (4.0-11.0) 5.1 TH/MM3 (4.0-11.0) Red Blood Count 2.58 MIL/MM3 (4.50-5.90) 2.39 MIL/MM3 (4.50-5.90) 2.24 MIL/MM3 (4.50-5.90) Hemoglobin 8.2 GM/DL (13.0-17.0) 7.6 GM/DL (13.0-17.0) 7.2 GM/DL (13.0-17.0) Hematocrit 24.8 % (39.0-51.0) 23.0 % (39.0-51.0) 21.4 % (39.0-51.0) Mean Corpuscular Volume 96.2 FL (80.0-100.0) 95.9 FL (80.0-100.0) 95.7 FL (80.0-100.0) Mean Corpuscular Hemoglobin 32.0 PG (27.0-34.0) 31.9 PG (27.0-34.0) 32.1 PG (27.0-34.0) Mean Corpuscular Hemoglobin Concent 33.2 % (32.0-36.0) 33.3 % (32.0-36.0) 33.5 % (32.0-36.0) Red Cell Distribution Width 17.3 % (11.6-17.2) 17.8 % (11.6-17.2) 17.4 % (11.6-17.2) Platelet Count 47 TH/MM3 (150-450) 50 TH/MM3 (150-450) 58 TH/MM3 (150-450) Mean Platelet Volume 8.1 FL (7.0-11.0) 8.2 FL (7.0-11.0) 7.7 FL (7.0-11.0) Blood Urea Nitrogen 28 MG/DL (7-18) 34 MG/DL (7-18) 32 MG/DL (7-18) Creatinine 0.70 MG/DL (0.60-1.30) 0.73 MG/DL (0.60-1.30) 0.71 MG/DL (0.60-1.30) Random Glucose 126 MG/DL (74-106) 129 MG/DL (74-106) 115 MG/DL (74-106) Calcium Level 9.0 MG/DL (8.5-10.1) 8.4 MG/DL (8.5-10.1) 8.3 MG/DL (8.5-10.1) Sodium Level 140 MEQ/L (136-145) 140 MEQ/L (136-145) 142 MEQ/L (136-145) Potassium Level 4.3 MEQ/L (3.5-5.1) 4.4 MEQ/L (3.5-5.1) 4.4 MEQ/L (3.5-5.1) Chloride Level 103 MEQ/L (98-107) 102 MEQ/L (98-107) 105 MEQ/L (98-107) Carbon Dioxide Level 27.5 MEQ/L (21.0-32.0) 30.8 MEQ/L (21.0-32.0) 30.0 MEQ/L (21.0-32.0) Anion Gap 10 MEQ/L (5-15) 7 MEQ/L (5-15) 7 MEQ/L (5-15) Estimat Glomerular Filtration Rate 111 ML/MIN (>89) 106 ML/MIN (>89) 109 ML/MIN (>89) Neutrophils (%) (Auto) 92.2 % (16.0-70.0) 90.5 % (16.0-70.0) Lymphocytes (%) (Auto) 3.5 % (9.0-44.0) 3.5 % (9.0-44.0) Monocytes (%) (Auto) 4.1 % (0.0-8.0) 6.0 % (0.0-8.0) Eosinophils (%) (Auto) 0.0 % (0.0-4.0) 0.0 % (0.0-4.0) Basophils (%) (Auto) 0.2 % (0.0-2.0) 0.0 % (0.0-2.0) Neutrophils # (Auto) 6.5 TH/MM3 (1.8-7.7) 4.6 TH/MM3 (1.8-7.7) Lymphocytes # (Auto) 0.2 TH/MM3 (1.0-4.8) 0.2 TH/MM3 (1.0-4.8) Monocytes # (Auto) 0.3 TH/MM3 (0-0.9) 0.3 TH/MM3 (0-0.9) Eosinophils # (Auto) 0.0 TH/MM3 (0-0.4) 0.0 TH/MM3 (0-0.4) Basophils # (Auto) 0.0 TH/MM3 (0-0.2) 0.0 TH/MM3 (0-0.2) CBC Comment AUTO DIFF AUTO DIFF Differential Total Cells Counted 100 100 Neutrophils % (Manual) 78 % (16-70) 85 % (16-70) Band Neutrophils % 16 % (0-6) 10 % (0-6) Lymphocytes % 2 % (9-44) 2 % (9-44) Monocytes % 4 % (0-8) 2 % (0-8) Neutrophils # (Manual) 6.7 TH/MM3 (1.8-7.7) 4.9 TH/MM3 (1.8-7.7) Differential Comment FINAL DIFF MANUAL FINAL DIFF MANUAL Toxic Granulation 1+ (NORMAL) 2+ (NORMAL) Platelet Estimate LOW (NORMAL) LOW (NORMAL) Platelet Morphology Comment NORMAL (NORMAL) NORMAL (NORMAL) Total Protein 6.0 GM/DL (6.4-8.2) 5.6 GM/DL (6.4-8.2) Albumin 1.8 GM/DL (3.4-5.0) 1.8 GM/DL (3.4-5.0) Phosphorus Level 3.4 MG/DL (2.5-4.9) 2.8 MG/DL (2.5-4.9) Magnesium Level 2.2 MG/DL (1.5-2.5) 2.3 MG/DL (1.5-2.5) Alkaline Phosphatase 94 U/L (45-117) 95 U/L (45-117) Aspartate Amino Transf (AST/SGOT) 122 U/L (15-37) 117 U/L (15-37) Alanine Aminotransferase (ALT/SGPT) 91 U/L (12-78) 138 U/L (12-78) Total Bilirubin 0.2 MG/DL (0.2-1.0) 0.3 MG/DL (0.2-1.0) Hemoglobin A1c 6.2 % (4.3-6.0) Free Thyroxine 1.28 NG/DL (0.76-1.46) Thyroid Stimulating Hormone 3rd Gen 0.063 uIU/ML (0.358-3.740) Metamyelocytes 1 % (0-1) Ovalocytes 1+ (NORMAL) Result Diagram: 07/21/1762907/21/17629 Assessment and Plan Disease Oriented Problem List: (1) End-stage COPD, oxygen and steroid-dependent (2) Adenocarcinoma of the lung, s/p chemo/radiation, now with new lung nodules (3) Increased consolidation on x-ray, possible pneumonia (4) Worsening back and chest pain in spite of chronic opiates (5) Malnutrition/failure to thrive (6) CAD, history of MS, history of CABG (7) Chronic anemia (8) Depression (9) Chronic kidney disease Symptom Scale: (1) Dyspnea 0-10 Scale: 3 (Including dyspnea at rest) (2) Pain 0-10 Scale: 6 (Worsening chronic pain in recent weeks) (3) Depression 0-10 Scale: Unable to quantify Pertinent Non-Medical Issues Psychosocial: , 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 Nephew and are HCS. Ethical issues impacting care: None . Important Contacts Nephew: Chaitanya Mcdonough [phone] Local friend: Abhi Myrick [phone] . Prognosis The patient is terminal. He has end-stage COPD and adenocarcinoma of the lung that is persistent (and now has left lung multiple nodules not previously reported on CT scan). He is appropriate for hospice services if his goals become comfort oriented. . Code Status: No Code Plan * DO NOT RESUSCITATE, per request of patient 07/18/17. * DECISION-MAKING: The patient has capacity for decision-making at this time. He has designated his nephew Chaitanya Mcdonough and as healthcare surrogates. * SYMPTOMS: * PAIN: He has chronic back pain and now that as well as his right chest pain ( felt to be related to his tumor burden) have been worsening in recent weeks. He 's been on morphine long-term for chronic back pain; PRN MSIR is available, discussed managment of pain in hospice, should he decides comfort measure only route. * DYSPNEA: He has end-stage COPD and has had radiation in recent months; he is dyspneic at rest and has no exercise tolerance. Supplemental oxygen, continued steroids, bronchodilators, opiates, and benzodiazepines will be helpful in treating his dyspnea. * GOALS: The patient plans on waiting until his nephew Chaitanya is here tomorrow to further discuss possibly transitioning to hospice. I offered to give patient's nephew a call, but pt preferred to talk with nephew himself. . He spoke about wanting to go home. * It is noted on oncology thoughtse regarding their thoughts on hospice and allowing more time for the recent chemotherapy to become more beneficial. I would note that this patient is eligible for hospice services based on his profound debility, worsening pain, significant weight loss, and end-stage, oxygen-dependent COPD. He and his nephew do not want to engage hospice services until they have more time to meet together to discuss it this weekend. * Palliative Care will continue to follow the patient during this hospitalization. . Attestation To help prompt me to consider important information that might be impacting today's encounter and assessment, information from prior notes written by myself or my colleagues may have been "brought forward" into today's note. My signature on this note, however, is an attestation that I personally performed the exam, history, and/or decision-making noted today, and, unless otherwise indicated, the interactions with patient, family, and staff as well as the review of records all occurred today. I also attest that the listed assessment and stated plan reflect my best clinical judgment today based on the combination of historical information, prior notes, and today's exam/ interactions. When time spent is documented, it refers only to time spent today by the signer, or if indicated, combined time spent today by collaborating physician/nurse practitioner. Jacinto Vergara MD July 21, 2017 13:51
[2017-07-21] MEDS: diphenhydrAMINE HCL 25 MG CAP PO PRN ×2 (17:08→22:02)
[2017-07-21] MEDS: TAMSULOSIN HCL 0.4 MG CAP PO SCH (18:39)
--- NOTE | 2017-07-21 18:58 | HHI.PR ---
Subjective Remarks Resting in bed comfortably reported "terrible cough ", chest tightness, positive phlegm Objective Vitals Vital Signs Date Time Temp Pulse Resp B/P (MAP) Pulse Ox O2 Delivery O2 Flow Rate FiO2 07/21/17 18:29 98.8 71 16 108/65 96 07/21/17 17:00 92 Nasal Cannula 2.00 07/21/17 12:35 98.0 100 20 114/67 (83) 92 07/21/17 08:57 Nasal Cannula 2.50 07/21/17 07:00 98.5 73 18 112/68 (83) 95 07/21/17 04:00 74 07/21/17 04:00 97.9 65 18 112/71 (85) 93 07/21/17 00:00 97.5 77 18 100/55 (70) 92 07/21/17 00:00 66 07/20/17 20:46 69 07/20/17 20:00 98.4 70 22 112/69 (83) 91 07/20/17 20:00 68 07/20/17 20:00 Nasal Cannula 2.00 07/20/17 20:00 91 Nasal Cannula 2.00 I/O 07/20/17 07/20/17 07/20/17 07/21/17 07/21/17 07/21/17 07:00 15:00 23:00 07:00 15:00 23:00 Intake Total 240 ml 250 ml 480 ml 240 ml Output Total 425 ml 150 ml 750 ml 100 ml 550 ml Balance -185 ml 100 ml -270 ml -100 ml -310 ml Intake Oral 240 ml 480 ml 240 ml IV Total 250 ml Output Urine Total 425 ml 150 ml 750 ml 100 ml 550 ml # Voids 1 # Bowel Movements 0 1 Result Diagram: 07/21/17 0630 07/21/17 0630 Objective Remarks GENERAL: This is a well-nourished, well-developed patient, in no apparent distress. CARDIOVASCULAR: RRR, no gallops, or rubs. RESPIRATORY: Diminished air entry with bibasilar crackles GASTROINTESTINAL: Abdomen soft, non-tender, nondistended. Positive bowel sounds MUSCULOSKELETAL: Extremities without clubbing, cyanosis, or edema. Pedal pulses appreciated NEUROLOGICAL: Awake and alert. Moves all extremity. Normal speech.no focal neurological deficit Procedures NONE A/P Assessment and Plan 71 Y/O male with lung cancer admitted with: 07/21: Continue current care, appreciate oncology follow-up, discussed with Miss. membreno the oncologist EARLE, patient not quite candidate for hospice yet, continue antibiotic and monitor clinical improvement a/p: Acute hypoxemic respiratory failure: Probably a combination of COPD, pneumonia and lung cancer burden - Treat as health care associated pneumonia. Change Rocephin to Cefepime. - IV solumedrol - Breathing treatments. Health care associated pneumonia Chest x-ray significant for increasing consolidation in the right lung Azithromycin and Cefepime Sputum culture pending Stage III non-small cell lung cancer Last chemotherapy 2 weeks ago Medical oncology consulted, appreciate assistance Anemia/thrombocytopenia: Probably related to cho H&H 8.4/25.2 Hematology consulted as above Monitor Transfuse as needed Hypertension/hyperlipidemia/CAD Continue home medications COPD Continue Symbicort Duo nebs BPH Continue Flomax Chronic back pain, uncontrolled Continue morphine and fentanyl at home dosing Chronically ill patient with repeated Hospitalization and obvious decline in functional status. Pain is not well controlled. Consult Palliative care to assist with goals of care, pain management, patient and family support. Sarah Raymundo MD July 21, 2017 18:58
[2017-07-21] MEDS: cefTRIAXone INJ 2,000 MG in SODIUM CHLORIDE 0.9% INJ 100 ML IV SCH (22:01)
[2017-07-21] MEDS: ACETAMINOPHEN 325 MG TAB PO PRN (22:02)
[2017-07-22] VITALS (7 sets, daily range): BP systolic 115–140; BP diastolic 65–84; PULSE 54–82; RESP 18–22; TEMP 97.6–98.3; O2SAT 92–98
[2017-07-22] MEDS: MORPHINE SULFATE 15 MG TAB PO SCH ×3 (02:30→13:02)
[2017-07-22] MEDS: methylPREDNISolone SOD SUCC 40 MG/1 ML VIAL IV PUSH SCH ×2 (02:31→05:50)
[2017-07-22] MEDS: BUDESONIDE-FORMOTEROL 80/4.5 MCG INHALER INH SCH (09:00)
[2017-07-22] MEDS: SODIUM CHLORIDE 0.9% FLUSH 10 ML FLUSH IV FLUSH SCH (09:00)
[2017-07-22] MEDS: ATORVASTATIN 10 MG TAB PO SCH (09:18)
[2017-07-22] MEDS: METOPROLOL TARTRATE 25 MG TAB PO SCH (09:18)
[2017-07-22] MEDS: GABAPENTIN 300 MG CAP PO SCH ×3 (09:19→18:31)
[2017-07-22] MEDS: AZITHROMYCIN INJ 500 MG in SODIUM CHLOR 0.9% 250 ML INJ 250 ML IV SCH (09:19)
[2017-07-22] MEDS: FUROSEMIDE 40 MG TAB PO SCH (09:19)
[2017-07-22] MEDS: POTASSIUM CHLORIDE 20 MEQ CONTROLLED RELEASE TAB PO SCH (09:19)
[2017-07-22] MEDS: DOCUSATE SODIUM 50 MG/SENNA 8.6 MG TAB PO SCH (09:19)
[2017-07-22] MEDS: MORPHINE SULFATE 30 MG TAB PO PRN ×3 (09:27→18:31)
[2017-07-22 12:55] LABS: AUTOMATED NEUTROPHIL # 5.6 TH/MM3 (1.8-7.7); BASOPHIL % 0.3 % (0.0-2.0); HEMATOCRIT 28.2 % (39.0-51.0); HEMOGLOBIN 9.7 GM/DL (13.0-17.0); LYMPH % 4.5 % (9.0-44.0); LYMPHOCYTE # 0.3 TH/MM3 (1.0-4.8); MEAN CELL VOLUME 93.2 FL (80.0-100.0); MEAN CORPUSCULAR HGB CONC 34.3 % (32.0-36.0); MEAN PLATELET VOLUME 8.1 FL (7.0-11.0); MONO % 5.8 % (0.0-8.0); MONOCYTE # 0.4 TH/MM3 (0-0.9); NEUT % 89.4 % (16.0-70.0); PLATELET COUNT 63 TH/MM3 (150-450); RED BLOOD COUNT 3.03 MIL/MM3 (4.50-5.90); RED CELL DISTRIBUTION WIDTH 17.4 % (11.6-17.2); WHITE BLOOD COUNT 6.3 TH/MM3 (4.0-11.0)
--- NOTE | 2017-07-22 15:17 | HHI.PR ---
Subjective Remarks Patient sitting in bed looks comfortable Reported cough with no phlegm Afebrile Objective Vitals Vital Signs Date Time Temp Pulse Resp B/P (MAP) Pulse Ox O2 Delivery O2 Flow Rate FiO2 07/22/17 12:00 98.3 65 20 126/78 (94) 92 07/22/17 08:00 98.1 82 20 121/70 (87) 92 07/22/17 04:00 97.8 57 20 140/84 (102) 97 07/22/17 04:00 55 07/22/17 02:26 97.8 54 20 140/84 96 07/22/17 00:00 70 07/22/17 00:00 97.6 57 22 115/65 (82) 98 07/21/17 23:25 97.6 54 22 115/65 98 07/21/17 22:57 98.0 60 20 104/63 96 07/21/17 21:58 98.4 60 20 102/60 97 07/21/17 20:00 Nasal Cannula 2.00 07/21/17 20:00 98.2 60 18 102/63 (76) 90 07/21/17 19:00 97.9 63 16 112/62 97 07/21/17 18:29 98.8 71 16 108/65 96 07/21/17 17:00 92 Nasal Cannula 2.00 I/O 07/21/17 07/21/17 07/21/17 07/22/17 07/22/17 07/22/17 07:00 15:00 23:00 07:00 15:00 23:00 Intake Total 480 ml 250 ml 740 ml 1000 ml Output Total 750 ml 100 ml 550 ml 550 ml Balance -270 ml 150 ml 190 ml 450 ml Intake Oral 480 ml 240 ml 600 ml IV Total 250 ml 100 ml Packed Cells 400 ml 400 ml Output Urine Total 750 ml 100 ml 550 ml 350 ml Stool Total 200 ml # Bowel Movements 1 1 Result Diagram: 07/22/17 1223 07/21/17 0630 Objective Remarks GENERAL: This is a well-nourished, well-developed patient, in no apparent distress. CARDIOVASCULAR: RRR, no gallops, or rubs. RESPIRATORY: Diminished air entry with bibasilar with crackles GASTROINTESTINAL: Abdomen soft, non-tender, nondistended. Positive bowel sounds MUSCULOSKELETAL: Extremities without clubbing, cyanosis, or edema. Pedal pulses appreciated NEUROLOGICAL: Awake and alert. Moves all extremity. Normal speech.no focal neurological deficit Procedures NONE A/P Assessment and Plan 71 Y/O male with lung cancer admitted with: 07/21: Continue current care, appreciate oncology follow-up, discussed with Miss. membreno the oncologist EARLE, patient not quite candidate for hospice yet, continue antibiotic and monitor clinical improvement 07/22: Continue current care, wean down Solu-Medrol to 40 mg every 12 hours, monitor respiratory improvement, oncology following, discussed with EARLE a/p: Acute hypoxemic respiratory failure: Probably a combination of COPD, pneumonia and lung cancer burden - Treat as health care associated pneumonia. Change Rocephin to Cefepime. - IV solumedrol - Breathing treatments. CAP Chest x-ray significant for increasing consolidation in the right lung Azithromycin and Cefepime Sputum culture pending Stage III non-small cell lung cancer Last chemotherapy 2 weeks ago Medical oncology consulted, appreciate assistance Anemia/thrombocytopenia: Probably related to cho H&H 8.4/25.2 Hematology consulted as above Monitor Transfuse as needed Hypertension/hyperlipidemia/CAD Continue home medications COPD Continue Symbicort Duo nebs BPH Continue Flomax Chronic back pain, uncontrolled Continue morphine and fentanyl at home dosing Chronically ill patient with repeated Hospitalization and obvious decline in functional status. Pain is not well controlled. Consult Palliative care to assist with goals of care, pain management, patient and family support. Sarah Raymundo MD July 22, 2017 15:17
[2017-07-22] MEDS ORDERED: methylPREDNISolone SOD SUCC 40 MG/1 ML VIAL IV PUSH SCH (18:00)
[2017-07-22] MEDS: TAMSULOSIN HCL 0.4 MG CAP PO SCH (18:31)
[2017-07-22] MEDS ORDERED: LEVA750T9 PO (19:10)
--- NOTE | 2017-07-22 19:19 | HHI.DS ---
Discharge Summary Admission Date July 17, 2017 at 18:27 Discharge Date: July 22, 2017 Admitting Diagnosis pancreatic cancer, pneumonia, pleural effusion (1) Pneumonia ICD Code: J18.9 - Pneumonia, unspecified organism (2) Acute respiratory failure ICD Code: J96.00 - Acute respiratory failure, unspecified whether with hypoxia or hypercapnia (3) COPD exacerbation ICD Code: J44.1 - COPD exacerbation Status: Acute (4) Non-small cell lung cancer (NSCLC) ICD Code: C34.90 - Malignant neoplasm of unspecified part of unspecified bronchus or lung (5) Thrombocytopenia ICD Code: D69.6 - Thrombocytopenia, unspecified (6) Anemia ICD Code: D64.9 - Anemia, unspecified Procedures NONE Brief History - From Admission 71-year-old male with a past medical history significant for chronic back pain, BPH, COPD, coronary artery disease status post CABG, valvular heart disease, hypertension and non-small cell lung carcinoma (last chemotherapy 2 weeks ago) Who presents to the emergency department for shortness of breath. The patient reports that he was unable to breathe for the past 2 days. He endorses a productive cough and accompanying fever/chills. He states he has right-sided chest pain that is sharp and worse with inspiration. He denies any substernal chest pain or pressure. No abdominal pain. No nausea/vomiting/diarrhea. No lateralizing signs/symptoms. CBC/BMP: 07/22/17 1223 07/21/17 0630 Significant Findings Laboratory Tests Test 07/20/17 03:56 07/21/17 06:30 07/22/17 12:23 Red Blood Count 2.39 MIL/MM3 (4.50-5.90) 2.24 MIL/MM3 (4.50-5.90) 3.03 MIL/MM3 (4.50-5.90) Hemoglobin 7.6 GM/DL (13.0-17.0) 7.2 GM/DL (13.0-17.0) 9.7 GM/DL (13.0-17.0) Hematocrit 23.0 % (39.0-51.0) 21.4 % (39.0-51.0) 28.2 % (39.0-51.0) Red Cell Distribution Width 17.8 % (11.6-17.2) 17.4 % (11.6-17.2) 17.4 % (11.6-17.2) Platelet Count 50 TH/MM3 (150-450) 58 TH/MM3 (150-450) 63 TH/MM3 (150-450) Neutrophils (%) (Auto) 92.2 % (16.0-70.0) 90.5 % (16.0-70.0) 89.4 % (16.0-70.0) Lymphocytes (%) (Auto) 3.5 % (9.0-44.0) 3.5 % (9.0-44.0) 4.5 % (9.0-44.0) Lymphocytes # (Auto) 0.2 TH/MM3 (1.0-4.8) 0.2 TH/MM3 (1.0-4.8) 0.3 TH/MM3 (1.0-4.8) Neutrophils % (Manual) 78 % (16-70) 85 % (16-70) Band Neutrophils % 16 % (0-6) 10 % (0-6) Lymphocytes % 2 % (9-44) 2 % (9-44) Toxic Granulation 1+ (NORMAL) 2+ (NORMAL) Platelet Estimate LOW (NORMAL) LOW (NORMAL) LOW (NORMAL) Blood Urea Nitrogen 34 MG/DL (7-18) 32 MG/DL (7-18) Random Glucose 129 MG/DL (74-106) 115 MG/DL (74-106) Total Protein 6.0 GM/DL (6.4-8.2) 5.6 GM/DL (6.4-8.2) Albumin 1.8 GM/DL (3.4-5.0) 1.8 GM/DL (3.4-5.0) Calcium Level 8.4 MG/DL (8.5-10.1) 8.3 MG/DL (8.5-10.1) Aspartate Amino Transf (AST/SGOT) 122 U/L (15-37) 117 U/L (15-37) Alanine Aminotransferase (ALT/SGPT) 91 U/L (12-78) 138 U/L (12-78) Hemoglobin A1c 6.2 % (4.3-6.0) Thyroid Stimulating Hormone 3rd Gen 0.063 uIU/ML (0.358-3.740) Ovalocytes 1+ (NORMAL) PE at Discharge GENERAL: This is a well-nourished, well-developed patient, in no apparent distress. CARDIOVASCULAR: RRR, no gallops, or rubs. RESPIRATORY: Diminished air entry with bibasilar with crackles GASTROINTESTINAL: Abdomen soft, non-tender, nondistended. Positive bowel sounds MUSCULOSKELETAL: Extremities without clubbing, cyanosis, or edema. Pedal pulses appreciated NEUROLOGICAL: Awake and alert. Moves all extremity. Normal speech.no focal neurological deficit Hospital Course 69 years old male with lung cancer admitted with acute hypoxic respiratory failure, pneumonia, he has a stage III non-small cell carcinoma, anemia and thrombocytopenia, patient started on antibiotic, O2 7 Medrol and breathing treatment, oncology consulted patient has been started on chemotherapy, palliative care also consulted. Patient patient stabilized and decided on going home eventually with hospice care.. [id number] encounter performed with the patient on discharge day, as well as physical exam, summary of hospitalization course and postdischarge plan has been D/W the patient. D/W nurse D/W protective services case worker. Discharge medications reviewed and printed and signed, post discharge follow up visit with PCP and other specialist as well as Brief hospital course and discharge summary has been placed. Pt Condition on Discharge: Stable Discharge Disposition: Hospice/ Home Discharge Time: > 30 minutes Discharge Instructions DIET: Follow Instructions for: As Tolerated, No Restrictions Activities you can perform: Regular-No Restrictions New Medications: Levofloxacin (Levaquin) 750 Mg Tablet 750 MG PO DAILY for Infection, #5 TAB 0 Refills Continued Medications: Albuterol 18 GM Inh (Ventolin Hfa 18 GM Inh) 90 Mcg/Act Aer 2 PUFF INH Q4H PRN for SHORTNESS OF BREATH, #1 INHALER 0 Refills Amlodipine (Amlodipine) 5 Mg Tab 5 MG PO DAILY for Blood Pressure Management, #30 TAB [address] (Aspirin EC) 81 Mg Tabdr 81 MG PO DAILY, TAB 0 Refills Atorvastatin (Atorvastatin) 10 Mg Tab 10 MG PO DAILY for Cholesterol Management, #30 TAB 0 Refills Budesonide-Formoterol Inh (Symbicort Inh) 80-4.5 Mcg/Act Aero 2 PUFF INH Q12HR for Asthma Management, #1 INHALER 0 Refills Famotidine (Famotidine) 20 Mg Tab 20 MG PO BID, #60 TAB 0 Refills Fentanyl Patch 72 HR (Fentanyl Patch 72 HR) 100 Mcg/Hr Patch 100 MCG T-DERMAL Q72H for Pain Management, #10 PATCH 0 Refills Remove old patch when new one placed. Furosemide (Furosemide) 40 Mg Tab 40 MG PO DAILY, #30 TAB 0 Refills Gabapentin (Gabapentin) 600 Mg Tab 600 MG PO TID, #90 TAB 0 Refills Metoprolol Tartrate (Metoprolol Tartrate) 25 Mg Tab 25 MG PO DAILY, #30 TAB 0 Refills Morphine IR (Morphine IR) 30 Mg Tab 30 MG PO QID, TAB 0 Refills Potassium Chloride ER (Potassium Chloride ER) 20 Meq Tab 20 MEQ PO BID for Electrolyte Replacement, #60 TAB 0 Refills Prednisone (Prednisone) 5 Mg Tab 5 MG PO DAILY for bronchitis, #14 TAB 0 Refills Take 4 tabs x 2 days Take 2 tabs x 2 days Take 1 tab x 2 days Prochlorperazine Maleate (Prochlorperazine Maleate) 10 Mg Tab 10 MG PO Q6H PRN for NAUSEA OR VOMITING, #6 TAB 0 Refills Tamsulosin (Tamsulosin) 0.4 Mg Cap 0.4 MG PO WITH DINNER for Manage Prostate Problems, #30 CAP 0 Refills Sarah Raymundo MD July 22, 2017 19:19
== END 2017-07-22 18:52 | disposition home or self-care (01) | DRG 193 ==
LOC: NEPE 16:42 → NEDA 18:27 → N06A 20:41 → HCIN 07-20 18:37
PROVIDERS: ADMIT Hospitalist; ATTEND Hospitalist
PROC: 30233N1 Transfusion of Nonautologous Red Blood Cells into Peripheral Vein, Percutaneous Approach (ICD-10-PCS; principal; 2017-07-21)
DX: J18.9 Pneumonia, unspecified organism (principal); J96.01 Acute respiratory failure with hypoxia; C25.9 Malignant neoplasm of pancreas, unspecified; J44.0 Chronic obstructive pulmonary disease with (acute) lower respiratory infection; C34.90 Malignant neoplasm of unspecified part of unspecified bronchus or lung; I13.0 Hypertensive heart and chronic kidney disease with heart failure and stage 1 through stage 4 chronic kidney disease, or unspecified chronic kidney disease; I50.9 Heart failure, unspecified; D69.6 Thrombocytopenia, unspecified; K59.00 Constipation, unspecified; J44.1 Chronic obstructive pulmonary disease with (acute) exacerbation; N18.9 Chronic kidney disease, unspecified; T45.1X5A Adverse effect of antineoplastic and immunosuppressive drugs, initial encounter; D64.81 Anemia due to antineoplastic chemotherapy; I25.10 Atherosclerotic heart disease of native coronary artery without angina pectoris; Z95.1 Presence of aortocoronary bypass graft; I25.2 Old myocardial infarction; Z95.5 Presence of coronary angioplasty implant and graft; E78.5 Hyperlipidemia, unspecified; N40.0 Benign prostatic hyperplasia without lower urinary tract symptoms; G89.29 Other chronic pain; M54.5 Low back pain; Z66 Do not resuscitate; R63.4 Abnormal weight loss; Z68.21 Body mass index [BMI] 21.0-21.9, adult; R63.0 Anorexia; E78.00 Pure hypercholesterolemia, unspecified; Z92.3 Personal history of irradiation; Z85.820 Personal history of malignant melanoma of skin; Z87.891 Personal history of nicotine dependence
CPT/HCPCS: 36430; 36600; 71045; 80048; 80053; 81001; 82550; 82805; 83036; 83605; 83735; 83880; 84100; 84439; 84443; 84484; 85007; 85025; 85027; 85610; 85730; 86850; 86900; 86901; 86920; 87040; 93005; 94640; 94664; 96374; 96375; J0456; J0696; J1650; J1940; J2270; J2543; J2920; J3370; J7050; P9016